=== PATIENT | female | born 1940 | race Caucasian/White ===

== ENCOUNTER → 2017-06-12 | Outpatient (CLI) | payer MEDICARE ==
--- NOTE | 2017-06-13 10:30 | MM ---
Reason for exam: screening (asymptomatic). Last mammogram was performed 1 year and 7 months ago. History: Patient is postmenopausal and has history of other cancer at age 70. Family history of breast cancer in sister at age 51 and premenopausal breast cancer in mother at age 46. Benign excisional biopsy of the right breast. Taking estrogen for 9 years 1 month beginning at age 49. Physical Findings: A clinical breast exam by your physician is recommended on an annual basis and results should be correlated with mammographic findings. MG Screening Mammo w CAD Bilateral CC and MLO view(s) were taken. Prior study comparison: October 27, 2015, bilateral MG screening mammo w CAD. July 08, 2014, bilateral MG screening mammo w CAD. There are scattered fibroglandular densities. No significant changes when compared with prior studies. ASSESSMENT: Benign, BI-RAD 2 RECOMMENDATION: Routine screening mammogram of both breasts in 1 year.
== END | disposition home or self-care (01) ==
LOC: RADMAMWWP 13:27
PROVIDERS: ATTEND Family Medicine
DX: Z12.31 Encounter for screening mammogram for malignant neoplasm of breast (principal)

== ENCOUNTER → 2017-09-18 | Outpatient (CLI) | payer MEDICARE ==
--- NOTE | 2017-09-18 12:50 | MR ---
EXAMINATION TYPE: MR angio head wo con DATE OF EXAM: 09/18/2017 COMPARISON: NONE HISTORY: Headache TECHNIQUE: Time of flight images focusing on the [place] were performed without contrast.. 2-D and 3-D postprocessing imaging is performed. FINDINGS: There is codominant vertebral basilar system. There is no significant focal stenosis or ane urysmal change in the posterior circulation. There are hypoplastic posterior communicating arteries i dentified bilaterally. Images of the anterior circulation show no significant focal stenosis or aneurysmal change. Patent sm all length anterior communicating artery is identified. IMPRESSION: No aneurysmal change is identified at level of [place].
== END | disposition home or self-care (01) ==
LOC: RADMRIMAIN 12:13
PROVIDERS: ATTEND Family Medicine
DX: R51 Headache (principal)
CPT/HCPCS: 70544

== ENCOUNTER → 2018-04-02 | Outpatient (CLI) | payer MEDICARE ==
--- NOTE | 2018-04-03 07:11 | MR ---
EXAMINATION TYPE: MR lumbar spine wo con DATE OF EXAM: 04/02/2018 COMPARISON: Prior MRI lumbar spine April 24, 2012 HISTORY: Chronic Low back pain per order. Pain for years radiating into bilateral buttocks per patien t. TECHNIQUE: Multiplanar, multisequence imaging of the lumbar spine is performed without IV contrast. FINDINGS: Survey images redemonstrate levoconvex scoliosis centered L4 level in the lumbar spine. Sag ittal images of the lumbar spine show vertebral body heights to remain satisfactory. There is multile valerie disc desiccation with multilevel moderate to advanced disc space narrowing redemonstrated, there is relative sparing of the L2-L3 disc space similar appearance to prior. Multilevel small posterior d isc herniations are redemonstrated on sagittal images. The conus medullaris remains normal in positio n and signal ending mid L1 level. There overall heterogeneity with predominantly Modic type II degene rative changes throughout the lumbar spine. Moderate anterior spurring L1-L2 level is redemonstrated. Redemonstration of stable Tarlov cyst superior S2 level sagittal image 8. Axial images at the T12-L1 level on current study show mild to moderate broad disc bulge effacing ant erior thecal sac on axial image 28. Bilateral neural foramina are patent. Axial images at the L1-L2 level shows mild broad disc bulge mildly effacing anterior thecal sac. Bila teral neural foramina are patent. Axial images at the L2-L3 level shows mild/moderate broad disc bulge mildly effacing anterior thecal sac on axial image 17. Bilateral neural foramina are patent. Axial images at the L3-L4 level shows mild right greater than left facet degenerative changes and lig amentum flavum hypertrophy effacing right posterior lateral thecal sac. There is right paracentral sp ur disc complex redemonstrated mildly effacing anterolateral thecal sac and causing asymmetric mild t o moderate right-sided neural foraminal narrowing. Left-sided neural foramen is patent. No significan t change from prior. Axial images at the L4-L5 level show mild facet degenerative changes and ligamentum flavum hypertroph y bilaterally. There is mild broad disc bulge with right lateral disc protrusion component. Spinal ca nal is maintained. There is asymmetric mild right-sided neural foraminal narrowing. Left-sided neural foramen is patent. No significant change from prior. Axial images at the L5-S1 level show mild/moderate facet degenerative changes bilaterally. There is b road disc bulge with central disc protrusion component. Spinal canal is preserved. Bilateral neural f oramina are patent. There is redemonstration of round T2 hyperintense lesion posteriorly right kidney measuring 2.3 cm on current study axial image 27 felt to reflect simple cyst diminished in size from prior exam. IMPRESSION: Scoliosis with multilevel degenerative changes in the lumbar spine as detailed above. New degenerative changes noted upper to mid lumbar spine as detailed above. Fairly stable findings mid t o lower lumbar levels noted as detailed above.
== END | disposition home or self-care (01) ==
LOC: RADMRIMAIN 12:45
PROVIDERS: ATTEND Family Medicine
DX: M47.817 Spondylosis without myelopathy or radiculopathy, lumbosacral region (principal); M41.9 Scoliosis, unspecified; M99.73 Connective tissue and disc stenosis of intervertebral foramina of lumbar region; M53.86 Other specified dorsopathies, lumbar region; M51.26 Other intervertebral disc displacement, lumbar region; M46.06 Spinal enthesopathy, lumbar region
CPT/HCPCS: 72148

== ENCOUNTER → 2018-06-25 | Outpatient (CLI) | payer MEDICARE ==
--- NOTE | 2018-06-25 15:59 | XR ---
Left shoulder and left humerus HISTORY: Pain Views of the left humerus and 3 views of the left shoulder submitted. Distal acromial spur is present, small ossific densities may be postoperative at this level. Patient is status post rotator cuff repair. There is joint space loss, marginal spurring at the glenohumeral joint. Suspect prior resection of distal left clavicle. Shoulder is slightly high riding. Bone minera lization is maintained. Left lung apex as visualized is normal. IMPRESSION: Findings may represent chronic, recurrent rotator cuff tear. Correlate for impingement. 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
== END | disposition home or self-care (01) ==
LOC: RADXRMAIN 14:55
PROVIDERS: ATTEND Physician Assistant
DX: M79.602 Pain in left arm (principal)

== ENCOUNTER → 2018-08-23 | Outpatient (CLI) | payer MEDICARE ==
--- NOTE | 2018-08-23 18:07 | ECHOF ---
Referral Reason:R94.31 Abnormal EKG MEASUREMENTS -------- HEIGHT: 170.2 cm WEIGHT: 90.7 kg BP: 152/71 RVIDd: 3.0 cm (< 3.3) IVSd: 1.3 cm (0.6 - 1.1) LVIDd: 4.1 cm (3.9 - 5.3) LVPWd: 1.2 cm (0.6 - 1.1) IVSs: 1.7 cm LVIDs: 2.3 cm LVPWs: 1.6 cm LA Diam: 3.1 cm (2.7 - 3.8) LAESV Index (A-L): 26.13 ml/m Ao Diam: 3.3 cm (2.0 - 3.7) AV Cusp: 1.3 cm (1.5 - 2.6) MV EXCURSION: 11.388 mm (> 18.000) MV EF SLOPE: 31 mm/s (70 - 150) EPSS: 0.8 cm MV E Sergo: 1.07 m/s MV DecT: 291 ms MV A Sergo: 1.33 m/s MV E/A Ratio: 0.81 AV maxP.39 mmHg AV meanP.88 mmHg RAP: 5.00 mmHg RVSP: 27.33 mmHg FINDINGS -------- Sinus rhythm. This was a technically good study. The left ventricular size is normal. There is mild concentric left ventricular hypertrophy. Overa ll left ventricular systolic function is normal with, an EF between 60 - 65 %. The right ventricle is normal in size. Normal LA size by volume 22+/-6 ml/m2. The right atrium is normal in size. There is mild aortic valve sclerosis. There is mild aortic stenosis present. Peak/mean gradient a cross the Aortic Valve is 18.39mmHg / 10.88mmHg. Mild mitral annular calcification present. Mild tricuspid regurgitation present. Right ventricular systolic pressure is normal at < 35 mmHg. There is no pulmonic regurgitation present. The aortic root size is normal. Normal inferior vena cava with normal inspiratory collapse consistent with estimated right atrial pre ssure of 5 mmHg. There is no pericardial effusion. CONCLUSIONS -------- 1. Sinus rhythm. 2. This was a technically good study. 3. The left ventricular size is normal. 4. There is mild concentric left ventricular hypertrophy. 5. Overall left ventricular systolic function is normal with, an EF between 60 - 65 %. 6. The right ventricle is normal in size. 7. Normal LA size by volume 22+/-6 ml/m2. 8. The right atrium is normal in size. 9. There is mild aortic stenosis present. 10. Peak/mean gradient across the Aortic Valve is 18.39mmHg / 10.88mmHg. 11. Mild mitral annular calcification present. 12. Mild tricuspid regurgitation present. 13. Right ventricular systolic pressure is normal at < 35 mmHg. 14. There is no pulmonic regurgitation present. 15. The aortic root size is normal. 16. Normal inferior vena cava with normal inspiratory collapse consistent with estimated right atrial pressure of 5 mmHg. 17. There is no pericardial effusion. [employer] OPERATOR: Stephani Verma RDCS
== END | disposition home or self-care (01) ==
LOC: RADECHMAIN 13:11
PROVIDERS: ATTEND Family Medicine
DX: I08.1 Rheumatic disorders of both mitral and tricuspid valves (principal)
CPT/HCPCS: 93306

== ENCOUNTER → 2019-10-07 | Outpatient (CLI) | payer MEDICARE ==
--- NOTE | 2019-10-07 14:30 | CT ---
EXAMINATION TYPE: CT chest w con DATE OF EXAM: 10/07/2019 COMPARISON: Prior CT chest 03/10/2015 HISTORY: Lung nodule CT DLP: 581 mGycm Automated exposure control for dose reduction was used. CONTRAST: CT scan of the chest is performed with IV Contrast, patient injected with 100 ml mL of Isovue 300. FINDINGS: LUNGS: The lungs show increasing stellate density in the left lower lobe with associated soft tissue as compared to prior CT, the area is ill-defined and shows some associated groundglass opacity, paren chymal band extending to the pleural surface not seen on previous, and associated soft tissue nodules present on axial image 33 measuring only 4 to 5 mm in size. There is extensive emphysematous change present, volume loss present in left hemithorax consistent with prior lobectomy. There is no pleural effusion or pneumothorax seen. The tracheobronchial tree is patent. MEDIASTINUM: There are no greater than 1 cm hilar or mediastinal lymph nodes. No pericardial effusi on is seen. There are coronary artery calcifications AORTA: No additional significant abnormality is seen. OTHER: Small hiatal hernia is present. Cystic focus within the liver is again seen, some dilated hunter e ducts likely due to postcholecystectomy change, probable cystic focus pole right kidney not entirel y included on exam. IMPRESSION: Abnormal increased attenuation in the lower left lung, small nodule, recurrence is not e xcluded
== END | disposition home or self-care (01) ==
LOC: RADCTMAIN 11:27
PROVIDERS: ATTEND Internal Medicine Critical Care Medicine
DX: R91.8 Other nonspecific abnormal finding of lung field (principal); R91.1 Solitary pulmonary nodule; Z88.0 Allergy status to penicillin; Z88.1 Allergy status to other antibiotic agents; Z88.2 Allergy status to sulfonamides
CPT/HCPCS: 82565; 84520; 71260; 36415; Q9967

== ENCOUNTER → 2019-10-10 | Outpatient (CLI) | payer MEDICARE ==
--- NOTE | 2019-10-14 09:49 | PE ---
Nuclear medicine PET/CT HISTORY: Solitary pulmonary nodule, initial Correlation to prior nuclear medicine PET/CT 06/04/2010, Correlation CT chest 10/08/2019 Patient received 11.3 mCi F-18 FDG intravenously in delayed scanning was performed from the skull bas e to the mid thighs. Localization and attenuation correction CT scan was performed. Chest and neck: The abnormal confluent density in the left lower lobe shows only mild uptake, SUV 2.1 . There is no cervical or supraclavicular adenopathy. No mediastinal, axillary, or hilar adenopathy. There is a hiatal hernia present. Coronary artery calcifications are noted. Prominent pulmonary arter y could be indicative of pulmonary artery hypertension. Emphysematous changes are present within the lungs. Aorta shows atheromatous change. ABDOMEN: Patient is post cholecystectomy. There are low dense foci within the liver which show photop enia. Inferior right lobe lesion measures 2.4 cm does not show simple cyst Hounsfield unit measuremen ts. There is no ascites. No retroperitoneal adenopathy or adrenal mass. No suspicious hypermetabolic uptake. Uptake along the bowel is felt likely to be physiologic. Osseous structures are remarkable for probable arthropathy in the shoulders. Degenerative disc change s and facet arthropathy noted in the lumbar spine, spinal curvature. Suspect loose body left shoulder , consider synovial osteochondromatosis. Postop changes are also noted suture anchor in the left. IMPRESSION: There is mild uptake identified at the level of the confluent density in the left lower l obe. Additional findings above.
== END | disposition home or self-care (01) ==
LOC: RADPETMAIN 17:37
PROVIDERS: ATTEND Internal Medicine Critical Care Medicine
DX: M51.36 Other intervertebral disc degeneration, lumbar region (principal); M46.96 Unspecified inflammatory spondylopathy, lumbar region; M43.8X6 Other specified deforming dorsopathies, lumbar region; K44.9 Diaphragmatic hernia without obstruction or gangrene; I25.10 Atherosclerotic heart disease of native coronary artery without angina pectoris; Z90.49 Acquired absence of other specified parts of digestive tract; J98.4 Other disorders of lung
CPT/HCPCS: 78815; A9552

== ENCOUNTER → 2019-10-30 | Day surgery (SDC) | payer MEDICARE ==
[2019-10-29 09:26] VITALS: BMI 30.2
[~2019-10-30] MED LIST: ALBUTEROL NEB (CONC) 2.5 MG/0.5 ML INHALATION ONE; ATROPINE SULFATE 0.4 MG/ML 1 ML VIAL IM ONE; IV FLUID CONTINUATION 1,000 ML IV ONE; LACTATED RINGERS 1,000 ML IV SCH; LIDOCAINE 1% (10MG/ML) FOR IV START INTRADERMA PRN; LIDOCAINE 1% INJ 10MG/ML (20 ML MDV) ONE; LIDOCAINE 2% (PF) 20 MG/ML 5 ML VIAL INHALATION ONE; LIDOCAINE 2% INJ 20 MG/ML INTRATRACH ONE; LIDOCAINE VISCOUS 300 MG/15 ML CUP MUCOUS MEM ONE; PROPOFOL 10 MG/ML 20 ML VIAL IV ONE; Pre Op ABX Message 1 EACH MISC MISCELLANE ONE; SODIUM CHLORIDE 0.9% 1,000 ML IV SCH
[2019-10-30 11:28] VITALS: TEMP 97.8
[2019-10-30 12:33] VITALS: RESP 18
[2019-10-30 12:57] VITALS: BP 126/79; PULSE 96
--- NOTE | 2019-10-30 13:01 | PCN ---
PROCEDURE NOTE PROCEDURE: Bronchoscopy, airway examination, therapeutic lavage, BAL left upper lobe and lingula, endobronchial biopsies left upper lobe and lingula and brushes left upper lobe and lingula. PREOPERATIVE DIAGNOSIS: Rule out recurrent lung cancer. POSTOPERATIVE DIAGNOSIS: Rule out recurrent lung cancer. Cass Maddox CRNA provided unconscious sedation and general anesthesia. INFORMATION TECHNOLOGY MANAGER: Dr. Rosario. DESCRIPTION OF PROCEDURE: There was informed consent and universal timeout. After the patient was adequately sedated and being fully monitored, the bronchoscope was inserted through the right nostril. It passed through the right nasopharynx into the oropharynx. The hypopharynx was identified and topicalized. The hypopharyngeal structures all appeared normal. This included the anterior commissure, true cords, false cords, arytenoids, piriform sinuses, right and left valleculae and epiglottis. After topicalization, bronchoscope was pushed through the glottic opening into the trachea. Trachea appeared normal. Next, the right and left mainstem were topicalized. The right upper lobe and its 3 segments, right middle lobe and its 2 segments, right lower lobe and its 5 segments all had similar findings of mild to moderate bronchitis and thick purulent secretions noted throughout particularly in the right upper lobe. There was no dominant mass or tumor. There was no bleeding. On the left side, the anatomy was distorted because of the prior left lower lobectomy. There was a left upper lobe and lingula. The mucosa in the rodríguez the left upper lobe and lingula appeared to be a bit abnormal. It seemed a bit thickened. There was no dominant mass or tumor. This area was sampled. We did brushes in this area as well as endobronchial biopsies and washes as well. I could easily pass into the left upper lobe and its 2 segments and the lingula and its 2 segments. Again, there was no dominant mass or tumor. There was minimal bleeding. Washes were also done in this area; 30 mL was recovered and sent to the laboratory for analysis. There was no immediate complication. The patient tolerated procedure well. The patient will be recovered. The scope was obviously removed. I will talk to the patient's who brought the patient to the hospital today. MMODL / IJN: [id number] /
== END ==
LOC: ORWHC2ENDO 10:57
PROVIDERS: ATTEND Internal Medicine Critical Care Medicine
DX: J84.10 Pulmonary fibrosis, unspecified (principal); J44.9 Chronic obstructive pulmonary disease, unspecified; J40 Bronchitis, not specified as acute or chronic; Z90.2 Acquired absence of lung [part of]; Z85.118 Personal history of other malignant neoplasm of bronchus and lung; J32.9 Chronic sinusitis, unspecified; G47.33 Obstructive sleep apnea (adult) (pediatric); E07.9 Disorder of thyroid, unspecified; K21.9 Gastro-esophageal reflux disease without esophagitis; I10 Essential (primary) hypertension; Z83.2 Family history of diseases of the blood and blood-forming organs and certain disorders involving the immune mechanism; Z80.9 Family history of malignant neoplasm, unspecified; F17.290 Nicotine dependence, other tobacco product, uncomplicated; Z96.653 Presence of artificial knee joint, bilateral; Z90.49 Acquired absence of other specified parts of digestive tract; Z90.710 Acquired absence of both cervix and uterus; Z98.890 Other specified postprocedural states; Z79.82 Long term (current) use of aspirin; Z79.890 Hormone replacement therapy; Z79.899 Other long term (current) drug therapy; Z88.1 Allergy status to other antibiotic agents; Z88.0 Allergy status to penicillin; Z88.2 Allergy status to sulfonamides; Z88.8 Allergy status to other drugs, medicaments and biological substances; Z91.09 Other allergy status, other than to drugs and biological substances; Z91.011 Allergy to milk products
CPT/HCPCS: 94640; 87798 ×3; 87496; 87498; 87529; 88104; 88108; 88305; 87252; 87502; 87634; 87070; 87205; 87116; 87102; 87206; 31625; 31623; 31624; J2001 ×3; J0461; J2704

== ENCOUNTER → 2020-02-13 | Outpatient (CLI) | payer MEDICARE ==
--- NOTE | 2020-02-15 19:36 | CT ---
EXAMINATION TYPE: CT chest w con DATE OF EXAM: 02/13/2020 COMPARISON: 10/07/2019 and 03/10/2015 HISTORY: 79-year-old female Lung nodule. TECHNIQUE: Contiguous axial scanning of the chest after the administration of 80ml mL of Isovue 300. Coronal/sagittal reconstructions performed. CT DLP: 554.8mGycm. Automatic exposure control utilized for a dose reduction. FINDINGS: Heart normal size with trace pericardial fluid. Three-vessel coronary artery calcifications are prese nt. Mild ectasia ascending aorta 3.6 cm. Moderate atherosclerotic arch calcifications with dimension arch vessel origin anatomy. Calcified right hilar lymph nodes compatible with prior granulomatous disease. Similar tiny calcified AP window lymph node. No thoracic lymphadenopathy by CT size criteria. Borderline enlarged caliber main right and left pulmonary arteries measuring up to 2.6 cm suggesting underlying pulmonary arterial hypertension. Right apical pleural parenchymal scarring is unchanged. Moderate centrilobular emphysema. 4 mm superior segment right lower lobe pulmonary nodule, axial image 29 is unchanged. 2.0 x 1.0 cm irregular focal hypodensity peripheral left lower lobe again noted to be increased from 2014. Relatively unchanged from 10/07/2019. Tiny 4 mm satellite nodule, axial image 32 remains unchang ed from 10/07/2019. No new consolidation or pleural effusion. Small hiatal hernia redemonstrated. A couple 2.9 cm hepatic cysts. 2.2 cm right renal cyst. Cholecystectomy clips. Bones: Moderate degenerative disc disease throughout, more advanced in the lower thoracic spine and t horacolumbar junction region. IMPRESSION: 1. The confluent irregular opacity in the left lower lobe measures 2.0 x 1.0 cm, unchanged from 2019 but again noted to be increased from 2014. Tiny 4 mm satellite nodule also unchanged from 020. Continued 9-12 months surveillance recommended as a low-grade neoplasm is not excluded at this t negro. 2. COPD with moderate emphysema. CAD. Small hiatal hernia.
== END | disposition home or self-care (01) ==
LOC: RADCTMAIN 17:11
PROVIDERS: ATTEND Internal Medicine Critical Care Medicine
DX: R91.8 Other nonspecific abnormal finding of lung field (principal); R91.1 Solitary pulmonary nodule; J43.2 Centrilobular emphysema; I25.10 Atherosclerotic heart disease of native coronary artery without angina pectoris
CPT/HCPCS: 82565; 84520; 71260; 36415; Q9967

== ENCOUNTER 2020-05-27 13:31 | Emergency (ER) | payer MEDICARE ==
[2020-05-27 14:14] VITALS: BP 124/73; RESP 14
--- NOTE | 2020-05-27 14:23 | ED ---
General Adult HPI - General Chief complaint: Arrhythmia/Palpitations Stated complaint: Irregular Heartbeat Time Seen by Provider: 05/27/20 13:55 Source: patient, RN notes reviewed Mode of arrival: wheelchair Limitations: no limitations - History of Present Illness Initial comments: Patient is a pleasant 79-year-old female presenting to the emergency Department with complaints of palpitations. Onset of symptoms was around 3 days ago. Symptoms are intermittent. Patient feels like her heart is beating abnormal or skipping. No chest pain. No dyspnea. No history of similar symptoms previously. No leg pain or leg swelling. - Related Data Home Medications Medication Instructions Recorded Confirmed Acetaminophen [Tylenol Extra 1,000 mg PO HS PRN 10/29/19 10/29/19 Strength] Albuterol Nebulizer 1 dose INHALATION DIRECTED PRN 10/29/19 Aspirin [Adult Low Dose Aspirin EC] 81 mg PO HS 10/29/19 10/29/19 Calcium Carbonate [Calcium] 600 mg PO BID 10/29/19 10/29/19 DULoxetine HCL [Cymbalta] 30 mg PO HS 10/29/19 10/29/19 DULoxetine HCL [Cymbalta] 60 mg PO DAILY 10/29/19 10/29/19 Estrogens, Conjugated [Premarin] 0.625 mg PO Q48H 10/29/19 10/29/19 Flunisolide Nasal [place] [Nasalide] 2 spray EA NOSTRIL BID 10/29/19 10/29/19 Levothyroxine Sodium [Synthroid] 50 mcg PO DAILY 10/29/19 10/29/19 Loratadine-Pseudoeph 10-240 mg 1 tab PO DAILY 10/29/19 10/29/19 [Claritin-D 24 Hour] Multivit-Min/FA/Lycopen/Lutein 1 each PO DAILY 10/29/19 10/29/19 [Centrum Silver Tablet] [place]-3 Fatty Acids/Fish Oil [Fish 1 each PO DAILY 10/29/19 10/29/19 Oil 1,000 mg Softgel] Omeprazole 20 mg PO BID 10/29/19 10/29/19 Simvastatin [Zocor] 20 mg PO DAILY 10/29/19 10/29/19 Umeclidinium Brm/Vilanterol Tr 1 puff INHALATION DAILY 10/29/19 10/29/19 [Anoro Ellipta 62.5-25 Mcg INH] amLODIPine BESYLATE/BENAZEPRIL 1 each PO DAILY 10/29/19 10/29/19 [amLODIPine BESYLATE/BENAZEPRIL 10-20 mg] Allergies Allergy/AdvReac Type Severity Reaction Status Date / Time budesonide [From Symbicort] Allergy Unknown Swelling Verified 05/27/20 13:48 of Tongue & Lips fluticasone Allergy Unknown Swelling Verified 05/27/20 13:48 [From Advair Diskus] of Tongue & Lips formoterol [From Symbicort] Allergy Unknown Swelling Verified 05/27/20 13:48 of Tongue & Lips milk Allergy Unknown Unknown Verified 05/27/20 13:48 salmeterol Allergy Unknown Swelling Verified 05/27/20 13:48 [From Advair Diskus] of Tongue and Lips adhesive tape AdvReac Unknown irritated Verified 05/27/20 13:48 skin Review of Systems ROS Statement: Those systems with pertinent positive or pertinent negative responses have been documented in the HPI. ROS Other: All systems not noted in ROS Statement are negative. Constitutional: Denies: fever Eyes: Denies: eye pain ENT: Denies: ear pain Respiratory: Denies: cough Cardiovascular: Reports: palpitations. Denies: chest pain Endocrine: Denies: fatigue Gastrointestinal: Denies: abdominal pain Genitourinary: Denies: dysuria Musculoskeletal: Denies: back pain Skin: Denies: rash Neurological: Denies: weakness Past Medical History Past Medical History: Cancer, COPD, GERD/Reflux, Hypertension, Thyroid Disorder Additional Past Medical History / Comment(s): EMPHYSEMA, HX LUNG CANCER WITH LEFT LOBECTOMY (2009), LOWER BACK PAIN. History of Any Multi-Drug Resistant Organisms: None Reported Past Surgical History: Back Surgery, Cholecystectomy, Hysterectomy, Joint Replacement Additional Past Surgical History / Comment(s): LEFT LOWER LUNG REMOVED , MARTINA TOTAL KNEES, ROTATOR CUFF REPAIR.CATARACTS, CERVICAL LAMINECTOMY Past Anesthesia/Blood Transfusion Reactions: Previous Problems w/ Anesthesia, Motion Sickness Additional Past Anesthesia/Blood Transfusion Reaction / Comment(s): DIFFICULTY WAKING UP AFTER LUNG SURGERY (5 HRS) AND OVERSEDATED WHILE IN THE HOSPITAL Past Psychological History: Depression Smoking Status: Former smoker Past Alcohol Use History: None Reported Past Drug Use History: None Reported - Past Family History Mother Family Medical History: Cancer Additional Family Medical History / Comment(s): BREAST CANCER Sister(s) Family Medical History: Cancer Additional Family Medical History / Comment(s): BREAST CANCER General Exam Limitations: no limitations General appearance: alert, in no apparent distress Head exam: Present: normocephalic Eye exam: Present: normal appearance Neck exam: Present: normal inspection Respiratory exam: Present: normal lung sounds bilaterally Cardiovascular Exam: Present: regular rate, normal rhythm Expanded Peripheral pulses: 2+: Radial (R), Radial (L), Dorsalis Pedis (R), Dorsalis Pedis (L) GI/Abdominal exam: Present: soft. Absent: tenderness Extremities exam: Present: normal inspection. Absent: pedal edema, calf tenderness Neurological exam: Present: alert Psychiatric exam: Present: normal affect, normal mood Skin exam: Present: normal color Course Vital Signs 05/27/20 05/27/20 13:45 14:11 Temperature 98.2 F 98.1 F Pulse Rate 91 90 Respiratory 18 14 Rate Blood Pressure 100/59 124/73 O2 Sat by Pulse 96 96 Oximetry - Reevaluation(s) Reevaluation #1: 05/27/20 14:22 ekg monitor tech has occasional PACs or PVCs . 05/27/20 15:27 EKG #2 shows sinus rhythm with frequent PVCs. Rate 83. IN 174. QRS 102. QT 376. QTc 441. Left axis. LVH criteria. No acute ST change. EKG Findings - EKG Comments: EKG Findings:: Normal sinus rhythm at 90. IN 172. QRS 110. QT 374. QTC 457. Left axis. LVH criteria. No acute ST change. Medical Decision Making - Medical Decision Making Patient reevaluated and resting comfortably in bed. Patient and family updated on results and need for follow-up. Patient states she does have an appointment with cardiology and will try to make it sooner. - Lab Data Result diagrams: 05/27/20 14:24 05/27/20 14:24 Lab Results 05/27/20 05/27/20 05/27/20 Range/Units 14:24 14:24 14:24 WBC 6.3 (3.8-10.6) k/uL RBC 4.55 (3.80-5.40) m/uL Hgb 14.3 (11.4-16.0) gm/dL Hct 43.9 (34.0-46.0) % MCV 96.4 (80.0-100.0) fL MCH 31.4 (25.0-35.0) pg MCHC 32.6 (31.0-37.0) g/dL RDW 12.6 (11.5-15.5) % Plt Count 264 (150-450) k/uL Neutrophils % 58 % Lymphocytes % 24 % Monocytes % 8 % Eosinophils % 7 % Basophils % 1 % Neutrophils # 3.7 (1.3-7.7) k/uL Lymphocytes # 1.6 (1.0-4.8) k/uL Monocytes # 0.5 (0-1.0) k/uL Eosinophils # 0.4 (0-0.7) k/uL Basophils # 0.1 (0-0.2) k/uL PT 9.7 (9.0-12.0) sec INR 0.9 (<1.2) APTT 23.2 (22.0-30.0) sec Sodium 140 (137-145) mmol/L Potassium 4.3 (3.5-5.1) mmol/L Chloride 105 (98-107) mmol/L Carbon Dioxide 28 (22-30) mmol/L Anion Gap 7 mmol/L BUN 25 H (7-17) mg/dL Creatinine 0.97 (0.52-1.04) mg/dL Est GFR (CKD-EPI)AfAm 64 (>60 ml/min/1.73 sqM) Est GFR (CKD-EPI)NonAf 56 (>60 ml/min/1.73 sqM) Glucose 101 H (74-99) mg/dL Calcium 10.2 (8.4-10.2) mg/dL Magnesium 1.7 (1.6-2.3) mg/dL Total Bilirubin 0.6 (0.2-1.3) mg/dL AST 23 (14-36) U/L ALT 14 (4-34) U/L Alkaline Phosphatase 77 (38-126) U/L Creatine Kinase 48 (30-135) U/L Troponin I (0.000-0.034) ng/mL Total Protein 7.0 (6.3-8.2) g/dL Albumin 4.2 (3.5-5.0) g/dL TSH 0.046 L (0.465-4.680) mIU/L Free T4 1.17 (0.78-2.19) ng/dL Free T3 pg/mL 3.0 (2.8-5.3) pg/ml 05/27/20 Range/Units 14:24 WBC (3.8-10.6) k/uL RBC (3.80-5.40) m/uL Hgb (11.4-16.0) gm/dL Hct (34.0-46.0) % MCV (80.0-100.0) fL MCH (25.0-35.0) pg MCHC (31.0-37.0) g/dL RDW (11.5-15.5) % Plt Count (150-450) k/uL Neutrophils % % Lymphocytes % % Monocytes % % Eosinophils % % Basophils % % Neutrophils # (1.3-7.7) k/uL Lymphocytes # (1.0-4.8) k/uL Monocytes # (0-1.0) k/uL Eosinophils # (0-0.7) k/uL Basophils # (0-0.2) k/uL PT (9.0-12.0) sec INR (<1.2) APTT (22.0-30.0) sec Sodium (137-145) mmol/L Potassium (3.5-5.1) mmol/L Chloride (98-107) mmol/L Carbon Dioxide (22-30) mmol/L Anion Gap mmol/L BUN (7-17) mg/dL Creatinine (0.52-1.04) mg/dL Est GFR (CKD-EPI)AfAm (>60 ml/min/1.73 sqM) Est GFR (CKD-EPI)NonAf (>60 ml/min/1.73 sqM) Glucose (74-99) mg/dL Calcium (8.4-10.2) mg/dL Magnesium (1.6-2.3) mg/dL Total Bilirubin (0.2-1.3) mg/dL AST (14-36) U/L ALT (4-34) U/L Alkaline Phosphatase (38-126) U/L Creatine Kinase (30-135) U/L Troponin I <0.012 (0.000-0.034) ng/mL Total Protein (6.3-8.2) g/dL Albumin (3.5-5.0) g/dL TSH (0.465-4.680) mIU/L Free T4 (0.78-2.19) ng/dL Free T3 pg/mL (2.8-5.3) pg/ml - Radiology Data Radiology results: image reviewed (Chest x-ray shows no acute process) Disposition Clinical Impression: PVCs (premature ventricular contractions) Disposition: HOME SELF-CARE Condition: Stable Instructions (If sedation given, give patient instructions): Heart Palpitations (ED), Premature Ventricular Contractions (ED) Additional Instructions: Please follow-up with primary care physician and cardiology in the next day or 2 for recheck. Return for increased heart rate, pain, shortness of breath, worsening symptoms or other concerns. Is patient prescribed a controlled substance at d/c from ED?: No Referrals: Cooper Saldaña DO [Primary Care Provider] - 1-2 days Kofi Lechuga MD [STAFF PHYSICIAN] - 1-2 days Time of Disposition: 15:37
[2020-05-27 14:31] LABS: Basophils # (A) 0.1 k/uL (0-0.2); Basophils % (A) 1 %; Eosinophils # (A) 0.4 k/uL (0-0.7); Eosinophils % (A) 7 %; HCT 43.9 % (34.0-46.0); HGB 14.3 gm/dL (11.4-16.0); Lymphocytes # (A) 1.6 k/uL (1.0-4.8); Lymphocytes % (A) 24 %; MCH 31.4 pg (25.0-35.0); MCHC 32.6 g/dL (31.0-37.0); MCV 96.4 fL (80.0-100.0); Mean Platelet Volume 7.7; Monocytes # (A) 0.5 k/uL (0-1.0); Monocytes % (A) 8 %; Neutrophils # (A) 3.7 k/uL (1.3-7.7); Neutrophils % (A) 58 %; Platelet Count 264 k/uL (150-450); RBC 4.55 m/uL (3.80-5.40); RDW 12.6 % (11.5-15.5); WBC 6.3 k/uL (3.8-10.6)
[2020-05-27 14:40] LABS: Albumin 4.2 g/dL (3.5-5.0); Calcium 10.2 mg/dL (8.4-10.2); Magnesium 1.7 mg/dL (1.6-2.3); Potassium 4.3 mmol/L (3.5-5.1); Total Bilirubin 0.6 mg/dL (0.2-1.3)
[2020-05-27 14:42] LABS: INR 0.9 (<1.2); Partial Thromboplastin Time 23.2 sec (22.0-30.0); Prothrombin Time 9.7 sec (9.0-12.0)
[2020-05-27 14:56] LABS: T4, Free (Free Thyroxine) 1.17 ng/dL (0.78-2.19)
--- NOTE | 2020-05-27 15:04 | XR ---
EXAMINATION TYPE: XR chest 2V DATE OF EXAM: 05/27/2020 COMPARISON: Chest CT February 13, 2020 HISTORY: Shortness of breath andDysrhythmia. TECHNIQUE: Frontal and lateral views of the chest are obtained. FINDINGS: There is chronic parenchymal change with chronic blunting left lateral costophrenic angle consistent with small pleural thickening. Some eventration right hemidiaphragm. No new suspicious foc al airspace opacity or pneumothorax seen bilaterally The cardiac silhouette size remains within cecilia l limits with atherosclerotic change thoracic aorta. Surgical clips left hilar region redemonstrated. Cholecystectomy clips. Osseous structures are demineralized. Metallic anchors left humeral head leve l redemonstrated. IMPRESSION: Chronic changes without new acute pulmonary process.
[2020-05-27 15:50] VITALS: PULSE 86; TEMP 97.9
== END 2020-05-27 16:00 | disposition home or self-care (01) ==
LOC: EC 13:31
DX: I49.3 Ventricular premature depolarization (principal); J44.9 Chronic obstructive pulmonary disease, unspecified; K21.9 Gastro-esophageal reflux disease without esophagitis; I10 Essential (primary) hypertension; F32.9 Major depressive disorder, single episode, unspecified; E07.9 Disorder of thyroid, unspecified; Z79.51 Long term (current) use of inhaled steroids; Z79.899 Other long term (current) drug therapy; Z79.890 Hormone replacement therapy; Z79.82 Long term (current) use of aspirin; Z87.891 Personal history of nicotine dependence; Z88.8 Allergy status to other drugs, medicaments and biological substances; Z91.011 Allergy to milk products; Z91.040 Latex allergy status; Z91.048 Other nonmedicinal substance allergy status; Z85.118 Personal history of other malignant neoplasm of bronchus and lung; Z96.653 Presence of artificial knee joint, bilateral; Z90.2 Acquired absence of lung [part of]
CPT/HCPCS: 36415; 71046; 80053; 82550; 83735; 84439; 84443; 84481; 84484; 85025; 85610; 85730; 93005; 99285

== ENCOUNTER → 2021-01-10 | Outpatient (CLI) | payer MEDICARE ==
--- NOTE | 2021-01-11 08:02 | CT ---
EXAMINATION TYPE: CT chest w con DATE OF EXAM: 01/10/2021 COMPARISON: 02/13/2020 HISTORY: Non small cell lung ca. LT lung. Hx COPD/Emphysema. CT DLP: 629 mGycm Automated exposure control for dose reduction was used. CONTRAST: CT scan of the chest is performed with IV Contrast, patient injected with 80 mL of Isovue 300. FINDINGS: LUNGS: Again noted is an approximately 2 x 1 cm irregular hypodensity in the periphery of the left lo wer lobe which may reflect treatment site. Neoplasm not excluded. No new nodules or masses identified . Stable subpleural nodule right lower lobe image 27 measures 3 mm. Right apical pleural-parenchymal scarring is unchanged. Groundglass density right upper lobe posteriorly measures 8 mm versus 8 mm pre viously and is seen best on image 15. Scattered emphysematous changes redemonstrated. MEDIASTINUM: There are no greater than 1 cm hilar or mediastinal lymph nodes. No pericardial effusi on is seen. Thoracic aorta is of normal caliber. The heart is not enlarged. UPPER ABDOMEN: Renal and hepatic cystic changes noted. OTHER: No additional significant abnormality is seen. IMPRESSION: 1. Stable appearance of the chest with irregular density left lower lobe as well as a couple scattere d pulmonary nodular densities. Emphysematous changes noted.
== END | disposition home or self-care (01) ==
LOC: RADCTMAIN 16:03
PROVIDERS: ATTEND Internal Medicine Critical Care Medicine
DX: C34.32 Malignant neoplasm of lower lobe, left bronchus or lung (principal); J43.9 Emphysema, unspecified
CPT/HCPCS: 82565; 84520; 71260; 36415; Q9967

== ENCOUNTER → 2021-09-01 | Outpatient (CLI) | payer MEDICARE ==
--- NOTE | 2021-09-01 18:04 | CT ---
EXAMINATION: CT brain wo con DATE AND TIME: 09/01/2021 5:55 PM CLINICAL INDICATION: 81 yo with altered mental status TECHNIQUE: Standard departmental protocol.; DLP: 1088 mGy-cm COMPARISON: None. FINDINGS: The calvarium is intact. There is no intracranial hemorrhage. There is no intracranial mass or mass effect. No definite new intra-axial or extra-axial attenuation defect. The paranasal sinuses, middle ear cavities, and mastoid sinus air cells are clear. The orbits are unremarkable. IMPRESSION: NO ACUTE PROCESS.
== END | disposition home or self-care (01) ==
LOC: RADCTMAIN 16:50
PROVIDERS: ATTEND Family Medicine
DX: R41.82 Altered mental status, unspecified (principal)
CPT/HCPCS: 70450

== ENCOUNTER 2021-09-17 11:37 | Inpatient (IN) | payer MEDICARE ==
--- NOTE | 2021-09-17 12:36 | ED ---
General Adult HPI - General Chief complaint: Chest Pain Stated complaint: chest pain Time Seen by Provider: 09/17/21 12:05 Source: patient, family, EMS, RN notes reviewed Mode of arrival: EMS Limitations: no limitations - History of Present Illness Initial comments: Patient is a pleasant 81-year-old female presenting to the emergency Department with chest tightness. Onset of symptoms was when she woke this morning. Discomfort was moderate to severe however now is only mild. Patient does have associated nausea. Nausea remains. Dyspnea or diaphoresis. Patient did have a headache this morning. Headache is mild. - Related Data Home Medications Medication Instructions Recorded Confirmed Aspirin [Adult Low Dose Aspirin EC] 81 mg PO HS 10/29/19 09/17/21 Calcium Carbonate [Calcium] 600 mg PO BID 10/29/19 09/17/21 DULoxetine HCL [Cymbalta] 30 mg PO HS 10/29/19 09/17/21 DULoxetine HCL [Cymbalta] 60 mg PO DAILY 10/29/19 09/17/21 Estrogens, Conjugated [Premarin] 0.625 mg PO Q48H 10/29/19 09/17/21 Flunisolide Nasal [place] [Nasalide] 2 spray EA NOSTRIL BID 10/29/19 09/17/21 Levothyroxine Sodium [Synthroid] 50 mcg PO DAILY 10/29/19 09/17/21 Loratadine-Pseudoeph 10-240 mg 1 tab PO DAILY 10/29/19 09/17/21 [Claritin-D 24 Hour] Multivit-Min/FA/Lycopen/Lutein 1 tab PO DAILY 10/29/19 09/17/21 [Centrum Silver Tablet] Omeprazole 20 mg PO BID 10/29/19 09/17/21 Simvastatin [Zocor] 20 mg PO HS 10/29/19 09/17/21 Albuterol Inhaler [Ventolin Hfa 2 puff INHALATION RT-QID PRN 09/17/21 09/17/21 Inhaler] Benazepril HCl [Lotensin] 20 mg PO DAILY 09/17/21 09/17/21 Fluticasone/Umeclidin/Vilanter 1 puff INHALATION RT-DAILY 09/17/21 09/17/21 [Trelegy Ellipta 100-62.5-25] Allergies Allergy/AdvReac Type Severity Reaction Status Date / Time budesonide [From Symbicort] Allergy Unknown Swelling Verified 09/17/21 13:54 of Tongue & Lips fluticasone Allergy Unknown Swelling Verified 09/17/21 13:54 [From Advair Diskus] of Tongue & Lips formoterol [From Symbicort] Allergy Unknown Swelling Verified 09/17/21 13:54 of Tongue & Lips milk Allergy Unknown Unknown Verified 09/17/21 13:54 salmeterol Allergy Unknown Swelling Verified 09/17/21 13:54 [From Advair Diskus] of Tongue and Lips adhesive tape AdvReac Unknown irritated Verified 09/17/21 13:54 skin Review of Systems ROS Statement: Those systems with pertinent positive or pertinent negative responses have been documented in the HPI. ROS Other: All systems not noted in ROS Statement are negative. Constitutional: Denies: fever Eyes: Denies: eye pain ENT: Denies: ear pain Respiratory: Denies: cough Cardiovascular: Reports: as per HPI, chest pain Endocrine: Denies: fatigue Gastrointestinal: Denies: abdominal pain Genitourinary: Denies: dysuria Musculoskeletal: Denies: back pain Skin: Denies: rash Neurological: Reports: as per HPI, headache. Denies: weakness, confusion Past Medical History Past Medical History: Cancer, COPD, GERD/Reflux, Hypertension, Thyroid Disorder Additional Past Medical History / Comment(s): EMPHYSEMA, HX LUNG CANCER WITH LEFT LOBECTOMY (2009), LOWER BACK PAIN. History of Any Multi-Drug Resistant Organisms: None Reported Past Surgical History: Back Surgery, Cholecystectomy, Hysterectomy, Joint Replacement Additional Past Surgical History / Comment(s): LEFT LOWER LUNG REMOVED , MARTINA TOTAL KNEES, ROTATOR CUFF REPAIR.CATARACTS, CERVICAL LAMINECTOMY Past Anesthesia/Blood Transfusion Reactions: Previous Problems w/ Anesthesia, Motion Sickness Additional Past Anesthesia/Blood Transfusion Reaction / Comment(s): DIFFICULTY WAKING UP AFTER LUNG SURGERY (5 HRS) AND OVERSEDATED WHILE IN THE HOSPITAL Past Psychological History: Depression Smoking Status: Former smoker Past Alcohol Use History: None Reported Past Drug Use History: None Reported - Past Family History Mother Family Medical History: Cancer Additional Family Medical History / Comment(s): BREAST CANCER Sister(s) Family Medical History: Cancer Additional Family Medical History / Comment(s): BREAST CANCER General Exam Limitations: no limitations General appearance: alert, in no apparent distress Head exam: Present: normocephalic Eye exam: Present: normal appearance, PERRL, EOMI ENT exam: Present: normal oropharynx Neck exam: Present: normal inspection Respiratory exam: Present: normal lung sounds bilaterally. Absent: chest wall tenderness Cardiovascular Exam: Present: regular rate, normal rhythm Expanded Peripheral pulses: 2+: Radial (R), Radial (L), Dorsalis Pedis (R), Dorsalis Pedis (L) GI/Abdominal exam: Present: soft. Absent: tenderness Extremities exam: Present: normal inspection. Absent: pedal edema, calf tenderness Neurological exam: Present: alert Psychiatric exam: Present: normal affect, normal mood Skin exam: Present: normal color Course Vital Signs 09/17/21 09/17/21 09/17/21 11:53 12:00 13:00 Temperature 98.2 F Pulse Rate 102 H 92 89 Respiratory 20 18 18 Rate Blood Pressure 97/79 129/88 140/98 O2 Sat by Pulse 94 L Oximetry 09/17/21 14:00 Temperature 98.6 F Pulse Rate 93 Respiratory 18 Rate Blood Pressure 133/93 O2 Sat by Pulse 96 Oximetry EKG Findings - EKG Comments: EKG Findings:: Sinus tachycardia with rate of 101. HI 160. QRS 112. QT 370. QTc 479. Right axis. Q waves in V2 through V6. No acute ST change. Medical Decision Making - Medical Decision Making Patient reevaluated and resting comfortably in bed. Patient and family updated on results and plan. Case discussed in detail with Dr. Judd, who will admit cover Dr. Saldaña. Case also discussed with Dr. Canales. Aspirin originally was held secondary to pending computed tomography scan of the brain. - Lab Data Result diagrams: 09/17/21 12:43 09/17/21 12:43 Lab Results 09/17/21 09/17/21 09/17/21 Range/Units 12:43 12:43 12:43 WBC 8.2 (3.8-10.6) k/uL RBC 4.37 (3.80-5.40) m/uL Hgb 13.3 (11.4-16.0) gm/dL Hct 41.4 (34.0-46.0) % MCV 94.6 (80.0-100.0) fL MCH 30.4 (25.0-35.0) pg MCHC 32.1 (31.0-37.0) g/dL RDW 13.2 (11.5-15.5) % Plt Count 236 (150-450) k/uL MPV 7.2 Neutrophils % 81 % Lymphocytes % 11 % Monocytes % 5 % Eosinophils % 2 % Basophils % 0 % Neutrophils # 6.7 (1.3-7.7) k/uL Lymphocytes # 0.9 L (1.0-4.8) k/uL Monocytes # 0.4 (0-1.0) k/uL Eosinophils # 0.2 (0-0.7) k/uL Basophils # 0.0 (0-0.2) k/uL PT 10.2 (9.0-12.0) sec INR 0.9 (<1.2) APTT 22.6 (22.0-30.0) sec D-Dimer 1.11 H (<0.60) mg/L FEU Sodium 135 L (137-145) mmol/L Potassium 4.0 (3.5-5.1) mmol/L Chloride 103 (98-107) mmol/L Carbon Dioxide 28 (22-30) mmol/L Anion Gap 4 mmol/L BUN 22 H (7-17) mg/dL Creatinine 0.84 (0.52-1.04) mg/dL Est GFR (CKD-EPI)AfAm 75 (>60 ml/min/1.73 sqM) Est GFR (CKD-EPI)NonAf 65 (>60 ml/min/1.73 sqM) Glucose 117 H (74-99) mg/dL Calcium 9.4 (8.4-10.2) mg/dL Magnesium 1.4 L (1.6-2.3) mg/dL Total Bilirubin 0.9 (0.2-1.3) mg/dL AST 27 (14-36) U/L ALT 17 (4-34) U/L Alkaline Phosphatase 71 (38-126) U/L Troponin I (0.000-0.034) ng/mL Total Protein 6.4 (6.3-8.2) g/dL Albumin 3.4 L (3.5-5.0) g/dL Amylase 51 (30-110) U/L Lipase 36 (23-300) U/L 09/17/21 Range/Units 12:43 WBC (3.8-10.6) k/uL RBC (3.80-5.40) m/uL Hgb (11.4-16.0) gm/dL Hct (34.0-46.0) % MCV (80.0-100.0) fL MCH (25.0-35.0) pg MCHC (31.0-37.0) g/dL RDW (11.5-15.5) % Plt Count (150-450) k/uL MPV Neutrophils % % Lymphocytes % % Monocytes % % Eosinophils % % Basophils % % Neutrophils # (1.3-7.7) k/uL Lymphocytes # (1.0-4.8) k/uL Monocytes # (0-1.0) k/uL Eosinophils # (0-0.7) k/uL Basophils # (0-0.2) k/uL PT (9.0-12.0) sec INR (<1.2) APTT (22.0-30.0) sec D-Dimer (<0.60) mg/L FEU Sodium (137-145) mmol/L Potassium (3.5-5.1) mmol/L Chloride (98-107) mmol/L Carbon Dioxide (22-30) mmol/L Anion Gap mmol/L BUN (7-17) mg/dL Creatinine (0.52-1.04) mg/dL Est GFR (CKD-EPI)AfAm (>60 ml/min/1.73 sqM) Est GFR (CKD-EPI)NonAf (>60 ml/min/1.73 sqM) Glucose (74-99) mg/dL Calcium (8.4-10.2) mg/dL Magnesium (1.6-2.3) mg/dL Total Bilirubin (0.2-1.3) mg/dL AST (14-36) U/L ALT (4-34) U/L Alkaline Phosphatase (38-126) U/L Troponin I 0.503 H* (0.000-0.034) ng/mL Total Protein (6.3-8.2) g/dL Albumin (3.5-5.0) g/dL Amylase (30-110) U/L Lipase (23-300) U/L - Radiology Data Radiology results: report reviewed (Computed tomography scan of the brain shows no acute bleed. Mild chronic ischemic change. CT angios chest shows no pulmonary embolism. Emphysema. Fibrosis and increased mild groundglass interstitial density), image reviewed (Chest x-ray reveals no acute process) Critical Care Time Critical Care Time: Yes Total Critical Care Time: 32 Disposition Clinical Impression: Acute non-ST elevation myocardial infarction (NSTEMI) Disposition: ADMITTED IP TO THIS [facility] Condition: Serious Is patient prescribed a controlled substance at d/c from ED?: No Referrals: Cooper Saldaña DO [Primary Care Provider] - 1-2 days Decision Time: 15:11
[2021-09-17] MEDS ORDERED: FAMOTIDINE 20 MG/2 ML VIAL IV STA (12:41)
[2021-09-17 12:54] LABS: Basophils % (A) 0 %; Eosinophils # (A) 0.2 k/uL (0-0.7); Eosinophils % (A) 2 %; HCT 41.4 % (34.0-46.0); HGB 13.3 gm/dL (11.4-16.0); Lymphocytes # (A) 0.9 k/uL (1.0-4.8); Lymphocytes % (A) 11 %; MCH 30.4 pg (25.0-35.0); MCHC 32.1 g/dL (31.0-37.0); MCV 94.6 fL (80.0-100.0); Mean Platelet Volume 7.2; Monocytes # (A) 0.4 k/uL (0-1.0); Monocytes % (A) 5 %; Neutrophils # (A) 6.7 k/uL (1.3-7.7); Neutrophils % (A) 81 %; Platelet Count 236 k/uL (150-450); RBC 4.37 m/uL (3.80-5.40); RDW 13.2 % (11.5-15.5); WBC 8.2 k/uL (3.8-10.6)
[2021-09-17 13:03] LABS: Albumin 3.4 g/dL (3.5-5.0); Calcium 9.4 mg/dL (8.4-10.2); Magnesium 1.4 mg/dL (1.6-2.3); Total Bilirubin 0.9 mg/dL (0.2-1.3); Total Protein 6.4 g/dL (6.3-8.2)
[2021-09-17 13:08] LABS: INR 0.9 (<1.2); Partial Thromboplastin Time 22.6 sec (22.0-30.0); Prothrombin Time 10.2 sec (9.0-12.0)
--- NOTE | 2021-09-17 13:22 | XR ---
EXAMINATION TYPE: XR chest 2V DATE OF EXAM: 09/17/2021 COMPARISON: 05/27/2020 HISTORY: Chest pain TECHNIQUE: Frontal and lateral views of the chest are obtained. FINDINGS: There is no focal air space opacity, pleural effusion, or pneumothorax seen. The cardiac silhouette size is within normal limits. Chronic rotator cuff tears bilaterally. IMPRESSION: No acute cardiopulmonary process.
--- NOTE | 2021-09-17 13:46 | CT ---
EXAMINATION TYPE: CT brain wo con DATE OF EXAM: 09/17/2021 COMPARISON: 09/01/2021 HISTORY: SRIVASTAVA CT DLP: 1100.4 mGycm Automated exposure control for dose reduction was used. FINDINGS: The ventricles, basal cisterns and sulci over the convexities are within normal limits patient's age. There is no mass effect or shift of midline structures. There is mild decreased density in the deep periventricular white matter consistent with mild ischemic white matter demyelination. There is no acute intra or extra-axial hemorrhage. The posterior fossa is grossly normal. Intraorbital contents appear normal and symmetric. Visualized paranasal sinuses and mastoid air cells are well aerated and the calvarium is intact. IMPRESSION: 1. NO ACUTE BLEED OR MASS EFFECT. 2. MILD CHRONIC ISCHEMIC WHITE MATTER DEMYELINATION
--- NOTE | 2021-09-17 14:38 | CT ---
EXAMINATION TYPE: CT angio chest DATE OF EXAM: 09/17/2021 COMPARISON: 01/10/2021 HISTORY: Chest pain. Lung cancer. CT DLP: mGycm Automated exposure control for dose reduction was used. CONTRAST: The contrast was Isovue 100 mL. There are Three-D postprocessed images. There is some mild pulmonary emphysema. There is mild coarsening of interstitial markings in both jaimee gs. There is some 3 cm poorly marginated subpleural infiltrate in the lateral aspect left lower lobe. There is no pleural effusion. Heart is slightly enlarged. There is no pericardial effusion. There is no mediastinal adenopathy. There is normal contrast opacification of the pulmonary arteries. There are no filling defects. Thoracic spine is intact. There is no compression fracture. Sternum is intact. There is upper thoraci c mild dextroscoliosis. IMPRESSION: No evidence of pulmonary embolism. Mild cardiomegaly. Emphysema. There is chronic irregular infiltrate left lower lobe which is not significantly different than last exam. There is probably pulmonary fibrosis. There is increased mild groundglass interstiti al density in the lungs compared to last exam.
[2021-09-17] MEDS ORDERED: HEPARIN SODIUM 1,000 UN/ML (10ML VL) IV ONE (15:11)
[2021-09-17] MEDS ORDERED: NITROGLYCERIN SL TABS 0.4 MG TAB SUBLINGUAL PRN (15:11)
[2021-09-17] MEDS ORDERED: ONDANSETRON 4 MG/2 ML VIAL IVP PRN (15:13)
[2021-09-17] MEDS ORDERED: ACETAMINOPHEN TAB 500 MG TAB PO STA (15:13)
[2021-09-17] MEDS: ASPIRIN 81 MG PO STA ×2 (15:47→15:49)
[2021-09-17] MEDS: HEPARIN SOD,PORK IN 0.45% NACL 25,000 UNIT in 0.45% NACL 1 250ML.BAG IV SCH (15:58)
[2021-09-17] MEDS: NITROGLYCERIN OINT 1 INCH/GM PACKET TOPICAL SCH (19:55)
--- NOTE | 2021-09-17 23:06 | P.HPIM ---
History of Present Illness H&P Date: 09/17/21 Chief Complaint: Chest tightness Patient is a 81-year-old female with a known history of COPD, lung cancer with left lobectomy, hypertension, hypothyroidism, depression previous history of smoking presents to ER with complaints of chest tightness associate with headache and upset stomach. Patient started having symptoms when she woke up this morning. Patient still with nausea. Patient felt clammy. Due to severity of the symptoms EMS was called and patient was given sublingual nitroglycerin which seemed to improve her pain. Currently chest pain/tightness has resolved. Denied any complaints of cough or sputum production. No fever no chills. No recent illnesses. Patient is vaccinated against COVID-19 infection. Denies any recent illnesses. Patient follows with Dr. Lechuga due to family history of significant coronary artery disease. Chest x-ray showed no acute cardiopulmonary process CT head showed no acute bleeding or mass-effect. Mild chronic ischemic white matter demyelination. CTA chest showed no evidence of PE. Mild cardiomegaly. Emphysema. There is probably pulmonary fibrosis. There is increased mild groundglass interstitial density in the lungs compared to last exam. EKG showed sinus tachycardia Laboratory showed WBC 8.2 hemoglobin 13.3 platelets 236 lymphocytes 0.9 D-dimer is 1.1 Sodium 130 Ovadine 4.0 chloride 103 bicarb is 28 BUN 22 creatinine 0.84 blood sugar is 117 calcium 9.4 magnesium 1.4 Troponin 0 0.503, 0.914 and 0.986 Coronavirus PCR not detected. Review of Systems Constitutional: Patient denies any fever or chills . No generalized weakness or weight loss. Abdomen: Patient denied nausea vomiting and diarrhea and abdominal pain. Cardiovascular: Patient denies any chest pain or short of breath no palpitations. Respiratory: patient denied any cough or sputum production. No shortness of breath Neurologic: Patient denied any numbness or tingling headache. Musculoskeletal: Patient denies any complaints of joint swelling or deformity. Skin: Negative Psychiatric: Negative Endocrine: No heat or cold intolerance. No recent weight gain. Genitourinary: No dysuria or hematuria. All other 14 point ROS negative except the above Past Medical History Past Medical History: Cancer, COPD, GERD/Reflux, Hypertension, Thyroid Disorder Additional Past Medical History / Comment(s): EMPHYSEMA, HX LUNG CANCER WITH LEFT LOBECTOMY (2009), LOWER BACK PAIN. History of Any Multi-Drug Resistant Organisms: None Reported Past Surgical History: Back Surgery, Cholecystectomy, Hysterectomy, Joint Replacement Additional Past Surgical History / Comment(s): LEFT LOWER LUNG REMOVED , MARTINA TOTAL KNEES, ROTATOR CUFF REPAIR.CATARACTS, CERVICAL LAMINECTOMY Past Anesthesia/Blood Transfusion Reactions: Previous Problems w/ Anesthesia, Motion Sickness Additional Past Anesthesia/Blood Transfusion Reaction / Comment(s): DIFFICULTY WAKING UP AFTER LUNG SURGERY (5 HRS) AND OVERSEDATED WHILE IN THE HOSPITAL Past Psychological History: Depression Smoking Status: Former smoker Past Alcohol Use History: None Reported Additional Past Alcohol Use History / Comment(s): QUIT 1988, SMOKED 1 PACK - 1/08/21 PPD. STARTED SMOKING AGE 14. Past Drug Use History: None Reported - Past Family History Mother Family Medical History: Cancer Additional Family Medical History / Comment(s): BREAST CANCER Sister(s) Family Medical History: Cancer Additional Family Medical History / Comment(s): BREAST CANCER Medications and Allergies Home Medications Medication Instructions Recorded Confirmed Type Aspirin [Adult Low Dose Aspirin EC] 81 mg PO HS 10/29/19 09/17/21 History Calcium Carbonate [Calcium] 600 mg PO BID 10/29/19 09/17/21 History DULoxetine HCL [Cymbalta] 30 mg PO HS 10/29/19 09/17/21 History DULoxetine HCL [Cymbalta] 60 mg PO DAILY 10/29/19 09/17/21 History Estrogens, Conjugated [Premarin] 0.625 mg PO Q48H 10/29/19 09/17/21 History Flunisolide Nasal [place] [Nasalide] 2 spray EA NOSTRIL BID 10/29/19 09/17/21 History Levothyroxine Sodium [Synthroid] 50 mcg PO DAILY 10/29/19 09/17/21 History Loratadine-Pseudoeph 10-240 mg 1 tab PO DAILY 10/29/19 09/17/21 History [Claritin-D 24 Hour] Multivit-Min/FA/Lycopen/Lutein 1 tab PO DAILY 10/29/19 09/17/21 History [Centrum Silver Tablet] Omeprazole 20 mg PO BID 10/29/19 09/17/21 History Simvastatin [Zocor] 20 mg PO HS 10/29/19 09/17/21 History Albuterol Inhaler [Ventolin Hfa 2 puff INHALATION RT-QID PRN 09/17/21 09/17/21 History Inhaler] Benazepril HCl [Lotensin] 20 mg PO DAILY 09/17/21 09/17/21 History Fluticasone/Umeclidin/Vilanter 1 puff INHALATION RT-DAILY 09/17/21 09/17/21 History [Trelegy Ellipta 100-62.5-25] Allergies Allergy/AdvReac Type Severity Reaction Status Date / Time budesonide [From Symbicort] Allergy Unknown Swelling Verified 09/17/21 13:54 of Tongue & Lips fluticasone Allergy Unknown Swelling Verified 09/17/21 13:54 [From Advair Diskus] of Tongue & Lips formoterol [From Symbicort] Allergy Unknown Swelling Verified 09/17/21 13:54 of Tongue & Lips milk Allergy Unknown Unknown Verified 09/17/21 13:54 salmeterol Allergy Unknown Swelling Verified 09/17/21 13:54 [From Advair Diskus] of Tongue and Lips adhesive tape AdvReac Unknown irritated Verified 09/17/21 13:54 skin Physical Exam Vitals: Vital Signs Temp Pulse Pulse Resp BP BP Pulse Ox 09/17/21 22:33 97.8 F 72 18 103/65 94 L 09/17/21 19:40 89 18 108/91 94 L 09/17/21 15:59 102 H 18 122/77 95 09/17/21 14:00 98.6 F 93 18 133/93 96 09/17/21 13:00 89 18 140/98 09/17/21 12:00 92 18 129/88 09/17/21 11:53 98.2 F 102 H 20 97/79 94 L Intake and Output 09/17/21 09/17/21 09/17/21 06:59 14:59 22:59 Other: Weight 89.811 kg 89.811 kg PHYSICAL EXAMINATION: Patient is lying in the bed comfortably, no acute distress, awake alert and oriented.. HEENT: Normocephalic. Neck is supple. Pupils reactive. Nostrils clear. Oral cavity is moist. Neck reveals no JVD, carotid bruits, or thyromegaly. CHEST EXAMINATION: Trachea is central. Symmetrical expansion. Lung leone clear to auscultation and percussion. CARDIAC: Normal S1, S2 with no gallops. No murmurs ABDOMEN: Soft. Bowel sounds normal. No organomegaly. No abdominal bruits. Extremities: reveal no edema. No clubbing or cyanosis Neurologically awake, alert, oriented x3 with well-coordinated movements. No focal deficits noted Skin: No rash or skin lesions. Psychiatric: Cooperative. Nonsuicidal Musculoskeletal: No joint swelling or deformity. Normal range of motion. Results CBC & Chem 7: 09/17/21 12:43 09/17/21 12:43 Labs: Abnormal Lab Results - Last 24 Hours (Table) 09/17/21 09/17/21 09/17/21 Range/Units 12:43 12:43 12:43 Lymphocytes # 0.9 L (1.0-4.8) k/uL APTT (22.0-30.0) sec D-Dimer 1.11 H (<0.60) mg/L FEU Sodium 135 L (137-145) mmol/L BUN 22 H (7-17) mg/dL Glucose 117 H (74-99) mg/dL Magnesium 1.4 L (1.6-2.3) mg/dL Troponin I (0.000-0.034) ng/mL Albumin 3.4 L (3.5-5.0) g/dL 09/17/21 09/17/21 09/17/21 Range/Units 12:43 17:20 20:20 Lymphocytes # (1.0-4.8) k/uL APTT 41.8 H (22.0-30.0) sec D-Dimer (<0.60) mg/L FEU Sodium (137-145) mmol/L BUN (7-17) mg/dL Glucose (74-99) mg/dL Magnesium (1.6-2.3) mg/dL Troponin I 0.503 H* 0.914 H* (0.000-0.034) ng/mL Albumin (3.5-5.0) g/dL 09/17/21 Range/Units 20:20 Lymphocytes # (1.0-4.8) k/uL APTT (22.0-30.0) sec D-Dimer (<0.60) mg/L FEU Sodium (137-145) mmol/L BUN (7-17) mg/dL Glucose (74-99) mg/dL Magnesium (1.6-2.3) mg/dL Troponin I 0.986 H* (0.000-0.034) ng/mL Albumin (3.5-5.0) g/dL Thrombosis Risk Factor Assmnt - DVT/VTE Prophylaxis DVT/VTE Prophylaxis: Pharmacologic Prophylaxis ordered Assessment and Plan Assessment: Acute non-ST elevated [place] Family history of secondary coronary artery disease Hypomagnesemia Elevated D-dimer level CTA chest negative for PE. Hypertension Hypothyroidism GERD/reflux COPD History of lung cancer status post left lobectomy Chronic low back pain Depression History of smoking Plan: Patient will be current on heparin drip continue telemetry monitoring. Follow- up troponin trend. Cardiology was consulted. Patient required on aspirin and lipid panel was ordered. Replace electrolytes and follow-up closely. Time with Patient: Greater than 30
[2021-09-18] MEDS: MAGNESIUM SULFATE-D5W PMX 1 GM in DEXTROSE/WATER 1 100ML.BAG IVPB SCH ×2 (01:50→04:16)
[2021-09-18 03:55] LABS: Mean Platelet Volume 7.6; Platelet Count 210 k/uL (150-450)
[2021-09-18] MEDS: NITROGLYCERIN OINT 1 INCH/GM PACKET TOPICAL SCH ×5 (04:18→23:11)
[2021-09-18 05:45] LABS: African American GFR (CKD) 74 (>60 ml/min/1.73 sqM); Anion Gap 5 mmol/L; Blood Urea Nitrogen 18 mg/dL (7-17); Calcium 9.1 mg/dL (8.4-10.2); Carbon Dioxide 26 mmol/L (22-30); Chloride 106 mmol/L (98-107); Glucose 109 mg/dL (74-99); Non-African American GFR(CKD) 64 (>60 ml/min/1.73 sqM); Potassium 3.4 mmol/L (3.5-5.1); Sodium 137 mmol/L (137-145)
[2021-09-18] MEDS ORDERED: ASPIRIN 325 MG TAB PO SCH (09:00)
--- NOTE | 2021-09-18 09:05 | P.CRDCN ---
History of Present Illness Consult date: 09/18/21 Requesting physician: Omega Lau Consult reason: non-Q-wave LA History of present illness: History of Presenting Illness: Patient is a very pleasant 81-year-old female with a past medical history of hypertension, COPD/emphysema with history of left lower lobe ectomy due to lung cancer, and hyperlipidemia. We have been consulted for evaluation of this patient for NSTEMI. Patient presented to the emergency department on 09/17/21 with a chief complaint of chest pain, tightness in midsternal region like a vice accompanied by upset stomach/nausea which resolved shortly after arrival. She was seen and fully evaluated in the emergency department and found to have elevated troponins at 0.503, 0.914, and 0.986. Her EKG revealed sinus tachycardia at [address] elevation in leads V3 through V6. Patient was given aspirin 324 mg and started on heparin infusion per ACS protoco l. CTA was negative for PE, revealing mild cardiomegaly and emphysema. Chest x- ray negative for acute cardiopulmonary process. Patient admitted under internal medicine team and we have been consulted for management of ST elevated LA. Patient seen and fully evaluated at bedside. She reports continued resolution of previously reported chest pain, however she does report feeling a little labore d breathing this morning. She reports she does follow up outpatient with a floor tech regularly, she states she sees Dr. Lechuga in the office to previous concerns of irregular heart rhythm and has been following with him on a yearly basis. Review of systems: Pertinent positives and negatives as discussed in HPI, a complete review of systems was performed and all other systems are negative. Physical exam: Vital signs reviewed and stable. General: Nontoxic, no distress and appears stated age. Derm: Skin warm and dry, normal coloration for ethnicity. Head: Atraumatic, normocephalic and symmetric. Eyes: EOMs intact, no lid lag, and anicteric sclera Mouth: no lip lesions, mucus membranes moist Cardiovascular: regular rate and rhythm with normal S1S2, systolic murmur right upper border, positive posterior tibial pulses bilaterally, and cap refill < 2 seconds. Lungs: Respirations even, regular, and unlabored on room air. Lungs CTA bilaterally, no rhonchi, no rales, no wheezing, and no accessory muscle usage. Abdominal: soft, nontender to palpation, no guarding, no appreciable organomegaly Ext: ROM intact. No gross muscle atrophy, no edema, no contractures Neuro: Speech clear, face symmetrical and CN II-XII grossly intact with no noted focal neuro deficits Psych: Alert and oriented to person, place, time, and situation. Appropriate and pleasant affect. Assessment and Plan of Care: Acute ST elevated anterolateral LA Mild aortic stenosis Hypertension Hyperlipidemia -Continuous telemetry monitoring -Continue heparin infusion for an additional 24 hours -Continue aspirin 81 mg daily -Maximize medical management by adding on Plavix 75 mg daily, metoprolol 25 mg daily, and atorvastatin 40 mg nightly. -At this time patient has decided on maximizing medical management as long as chest pain remains subsided, will reevaluate discussion of possible cardiac catheterization tomorrow pending echocardiogram results and clinical course. Thank you for allowing us to participate in the care of this pleasant patient. Do not hesitate to contact us with questions. Nurse practitioner note has been reviewed by physician. Signing provider agrees with the documented findings, assessment, and plan of care. Past Medical History Past Medical History: Cancer, COPD, GERD/Reflux, Hypertension, Thyroid Disorder Additional Past Medical History / Comment(s): EMPHYSEMA, HX LUNG CANCER WITH LEFT LOBECTOMY (2009), LOWER BACK PAIN. History of Any Multi-Drug Resistant Organisms: None Reported Past Surgical History: Back Surgery, Cholecystectomy, Hysterectomy, Joint Replacement Additional Past Surgical History / Comment(s): LEFT LOWER LUNG REMOVED , MARTINA TOTAL KNEES, ROTATOR CUFF REPAIR.CATARACTS, CERVICAL LAMINECTOMY Past Anesthesia/Blood Transfusion Reactions: Previous Problems w/ Anesthesia, Motion Sickness Additional Past Anesthesia/Blood Transfusion Reaction / Comment(s): DIFFICULTY WAKING UP AFTER LUNG SURGERY (5 HRS) AND OVERSEDATED WHILE IN THE HOSPITAL Past Psychological History: Depression Smoking Status: Former smoker Past Alcohol Use History: None Reported Additional Past Alcohol Use History / Comment(s): QUIT 1988, SMOKED 1 PACK - 1/2 PPD. STARTED SMOKING AGE 14. Past Drug Use History: None Reported - Past Family History Mother Family Medical History: Cancer Additional Family Medical History / Comment(s): BREAST CANCER Sister(s) Family Medical History: Cancer Additional Family Medical History / Comment(s): BREAST CANCER Medications and Allergies Home Medications Medication Instructions Recorded Confirmed Type Aspirin [Adult Low Dose Aspirin EC] 81 mg PO HS 10/29/19 09/17/21 History Calcium Carbonate [Calcium] 600 mg PO BID 10/29/19 09/17/21 History DULoxetine HCL [Cymbalta] 30 mg PO HS 10/29/19 09/17/21 History DULoxetine HCL [Cymbalta] 60 mg PO DAILY 10/29/19 09/17/21 History Estrogens, Conjugated [Premarin] 0.625 mg PO Q48H 10/29/19 09/17/21 History Flunisolide Nasal [place] [Nasalide] 2 spray EA NOSTRIL BID 10/29/19 09/17/21 History Levothyroxine Sodium [Synthroid] 50 mcg PO DAILY 10/29/19 09/17/21 History Loratadine-Pseudoeph 10-240 mg 1 tab PO DAILY 10/29/19 09/17/21 History [Claritin-D 24 Hour] Multivit-Min/FA/Lycopen/Lutein 1 tab PO DAILY 10/29/19 09/17/21 History [Centrum Silver Tablet] Omeprazole 20 mg PO BID 10/29/19 09/17/21 History Simvastatin [Zocor] 20 mg PO HS 10/29/19 09/17/21 History Albuterol Inhaler [Ventolin Hfa 2 puff INHALATION RT-QID PRN 09/17/21 09/17/21 History Inhaler] Benazepril HCl [Lotensin] 20 mg PO DAILY 09/17/21 09/17/21 History Fluticasone/Umeclidin/Vilanter 1 puff INHALATION RT-DAILY 09/17/21 09/17/21 History [Trelegy Ellipta 100-62.5-25] Allergies Allergy/AdvReac Type Severity Reaction Status Date / Time budesonide [From Symbicort] Allergy Unknown Swelling Verified 09/17/21 13:54 of Tongue & Lips fluticasone Allergy Unknown Swelling Verified 09/17/21 13:54 [From Advair Diskus] of Tongue & Lips formoterol [From Symbicort] Allergy Unknown Swelling Verified 09/17/21 13:54 of Tongue & Lips milk Allergy Unknown Unknown Verified 09/17/21 13:54 salmeterol Allergy Unknown Swelling Verified 09/17/21 13:54 [From Advair Diskus] of Tongue and Lips adhesive tape AdvReac Unknown irritated Verified 09/17/21 13:54 skin Physical Exam Vitals: Vital Signs Temp Pulse Pulse Resp BP BP Pulse Ox 09/18/21 04:00 97.6 F 88 18 132/85 95 09/18/21 02:00 80 18 09/18/21 00:00 97.8 F 80 18 94/56 96 09/17/21 22:35 16 09/17/21 22:33 97.8 F 72 18 103/65 94 L 09/17/21 19:40 89 18 108/91 94 L 09/17/21 15:59 102 H 18 122/77 95 09/17/21 14:00 98.6 F 93 18 133/93 96 09/17/21 13:00 89 18 140/98 09/17/21 12:00 92 18 129/88 09/17/21 11:53 98.2 F 102 H 20 97/79 94 L Intake and Output 09/17/21 09/18/21 09/18/21 22:59 06:59 14:59 Intake Total 96.5 Output Total 300 Balance 96.5 -300 Intake: Intake, IV Titration 96.5 Amount Heparin Sod,Pork in 0.45% 96.5 NaCl 25,000 unit In 0.45 % NaCl 1 250ml.bag @ 11. 134 UNITS/KG/HR 10 mls/hr IV .Q24H [facility] Rx#: [id number] Output: Urine 300 Other: Voiding Method Toilet Toilet # Voids 2 Weight 89.811 kg Results 09/18/21 03:17 09/18/21 03:17 Cardiac Enzymes 09/17/21 09/17/21 09/17/21 Range/Units 12:43 12:43 17:20 AST 27 (14-36) U/L Troponin I 0.503 H* 0.914 H* (0.000-0.034) ng/mL 09/17/21 Range/Units 20:20 AST (14-36) U/L Troponin I 0.986 H* (0.000-0.034) ng/mL Coagulation 09/17/21 09/17/21 09/18/21 Range/Units 12:43 20:20 03:12 PT 10.2 (9.0-12.0) sec APTT 22.6 41.8 H 45.2 H (22.0-30.0) sec CBC 09/17/21 09/18/21 Range/Units 12:43 03:17 WBC 8.2 (3.8-10.6) k/uL RBC 4.37 (3.80-5.40) m/uL Hgb 13.3 (11.4-16.0) gm/dL Hct 41.4 (34.0-46.0) % Plt Count 236 210 (150-450) k/uL Comprehensive Metabolic Panel 09/17/21 09/18/21 Range/Units 12:43 03:17 Sodium 135 L 137 (137-145) mmol/L Potassium 4.0 3.4 L (3.5-5.1) mmol/L Chloride 103 106 (98-107) mmol/L Carbon Dioxide 28 26 (22-30) mmol/L BUN 22 H 18 H (7-17) mg/dL Creatinine 0.84 0.85 (0.52-1.04) mg/dL Glucose 117 H 109 H (74-99) mg/dL Calcium 9.4 9.1 (8.4-10.2) mg/dL AST 27 (14-36) U/L ALT 17 (4-34) U/L Alkaline Phosphatase 71 (38-126) U/L Total Protein 6.4 (6.3-8.2) g/dL Albumin 3.4 L (3.5-5.0) g/dL Current Medications Generic Name Dose Route Start Last Admin Trade Name Freq PRN Reason Stop Dose Admin Aspirin 325 mg 09/18/21 09:00 09/18/21 08:39 Aspirin 325 Mg Tab PO 325 mg DAILY [facility] Administration Heparin Sodium/Sodium Chloride 250 mls @ 10 mls/hr 09/17/21 15:15 09/18/21 01:37 25,000 unit/ Sodium Chloride IV 13.13 units/kg/hr .Q24H [facility] 11.792 mls/hr Titration Protocol 11.134 UNITS/KG/HR Nitroglycerin 0.4 mg 09/17/21 15:11 Nitroglycerin Sl Tabs 0.4 Mg Tab SUBLINGUAL Q5M PRN Chest Pain Nitroglycerin 1 inch 09/17/21 18:00 09/18/21 06:45 Nitroglycerin Oint 1 Inch/Gm Packet TOPICAL Not Given Q6HR [facility] Ondansetron HCl 4 mg 09/17/21 15:13 Ondansetron 4 Mg/2 Ml Vial IVP Q6HR PRN Nausea And Vomiting Sodium Chloride 10 ml 09/17/21 21:00 09/18/21 04:17 Sodium Chloride 0.9% Flush 10 Ml Syringe IV 10 ml BID BARBI Administration Intake and Output 09/17/21 09/18/21 09/18/21 22:59 06:59 14:59 Intake Total 96.5 Output Total 300 Balance 96.5 -300 Intake: Intake, IV Titration 96.5 Amount Heparin Sod,Pork in 0.45% 96.5 NaCl 25,000 unit In 0.45 % NaCl 1 250ml.bag @ 11. 134 UNITS/KG/HR 10 mls/hr IV .Q24H [facility] Rx#: [id number] Output: Urine 300 Other: Voiding Method Toilet Toilet # Voids 2 Weight 89.811 kg 09/18/21 03:17 09/18/21 03:17
[2021-09-18 10:21] LABS: Chol/HDL Ratio 3.25 Ratio; LDL Cholesterol,Calculated 97.1 mg/dL (0.0-131.0)
[2021-09-18] MEDS: ATORVASTATIN 40 MG TAB PO SCH (11:56)
[2021-09-18] MEDS: CLOPIDOGREL 75 MG TAB PO SCH (11:56)
[2021-09-18] MEDS: HEPARIN SOD,PORK IN 0.45% NACL 25,000 UNIT in 0.45% NACL 1 250ML.BAG IV SCH (16:54)
[2021-09-18] MEDS ORDERED: ALBUTEROL NEBULIZED 2.5 MG/3 ML INHALATION PRN (20:30)
[2021-09-18] MEDS: DULoxetine HCL 30 MG CAPSULE.DR PO SCH (20:42)
--- NOTE | 2021-09-19 00:29 | P.PN ---
Subjective Progress Note Date: 09/18/21 Patient is a 81-year-old female with a known history of COPD, lung cancer with left lobectomy, hypertension, hypothyroidism, depression previous history of smoking presents to ER with complaints of chest tightness associate with headache and upset stomach. Patient started having symptoms when she woke up this morning. Patient still with nausea. Patient felt clammy. Due to severity of the symptoms EMS was called and patient was given sublingual nitroglycerin which seemed to improve her pain. Currently chest pain/tightness has resolved. Denied any complaints of cough or sputum production. No fever no chills. No recent illnesses. Patient is vaccinated against COVID-19 infection. Denies any recent illnesses. Patient follows with Dr. Lechuga due to family history of significant coronary artery disease. Chest x-ray showed no acute cardiopulmonary process CT head showed no acute bleeding or mass-effect. Mild chronic ischemic white matter demyelination. CTA chest showed no evidence of PE. Mild cardiomegaly. Emphysema. There is probably pulmonary fibrosis. There is increased mild groundglass interstitial density in the lungs compared to last exam. EKG showed sinus tachycardia Laboratory showed WBC 8.2 hemoglobin 13.3 platelets 236 lymphocytes 0.9 D-dimer is 1.1 Sodium 130 Ovadine 4.0 chloride 103 bicarb is 28 BUN 22 creatinine 0.84 blood sugar is 117 calcium 9.4 magnesium 1.4 Troponin 0 0.503, 0.914 and 0.986 Coronavirus PCR not detected. 09/18/2021 Patient is currently sitting in the bed. Awake alert and oriented x3. Denied any complaints of chest pain. No shortness of breath. No cough or sputum production. Patient is being current on heparin drip. Troponin went up to 0.986 and proBNP 2080. Laboratory data showed sodium 137 potassium 3.4. Patient was seen by cardiology recommends medical therapy. Patient initially does not want to go for cardiac catheterization but currently is willing to get the procedure. No complaints of headache or dizziness or lightheadedness. No fever no chills. Current medications reviewed. Objective - Vital Signs Vital signs: Vital Signs Temp 97.9 F 09/18/21 12:00 Pulse 74 09/18/21 12:00 Resp 16 09/18/21 12:00 BP 157/77 09/18/21 12:00 Pulse Ox 92 L 09/18/21 12:00 Intake & Output 09/17/21 09/18/21 09/18/21 18:59 06:59 18:59 Intake Total 96.5 Output Total 300 Balance 96.5 -300 Weight 89.811 kg 89.811 kg Intake: Intake, IV Titration 96.5 Amount Heparin Sod,Pork in 0.45% 96.5 NaCl 25,000 unit In 0.45 % NaCl 1 250ml.bag @ 11. 134 UNITS/KG/HR 10 mls/hr IV .Q24H [facility] Rx#: [id number] Output: Urine 300 Other: Voiding Method Toilet Toilet # Voids 2 - Exam PHYSICAL EXAMINATION: Patient is lying in the bed comfortably, no acute distress, awake alert and oriented.. HEENT: Normocephalic. Neck is supple. Pupils reactive. Nostrils clear. Oral cavity is moist. Neck reveals no JVD, carotid bruits, or thyromegaly. CHEST EXAMINATION: Trachea is central. Symmetrical expansion. Lung leone clear to auscultation and percussion. CARDIAC: Normal S1, S2 with no gallops. No murmurs ABDOMEN: Soft. Bowel sounds normal. No organomegaly. No abdominal bruits. Extremities: reveal no edema. No clubbing or cyanosis Neurologically awake, alert, oriented x3 with well-coordinated movements. No focal deficits noted Skin: No rash or skin lesions. Psychiatric: Cooperative. Nonsuicidal Musculoskeletal: No joint swelling or deformity. Normal range of motion. - Labs CBC & Chem 7: 09/18/21 03:17 09/18/21 03:17 Labs: Abnormal Lab Results - Last 24 Hours (Table) 09/17/21 09/17/21 09/17/21 Range/Units 17:20 20:20 20:20 APTT 41.8 H (22.0-30.0) sec Potassium (3.5-5.1) mmol/L BUN (7-17) mg/dL Glucose (74-99) mg/dL Troponin I 0.914 H* 0.986 H* (0.000-0.034) ng/mL Triglycerides (0.00-149.00) mg/dL 09/18/21 09/18/21 09/18/21 Range/Units 03:12 03:17 09:13 APTT 45.2 H 54.5 H (22.0-30.0) sec Potassium 3.4 L (3.5-5.1) mmol/L BUN 18 H (7-17) mg/dL Glucose 109 H (74-99) mg/dL Troponin I (0.000-0.034) ng/mL Triglycerides 165.00 H (0.00-149.00) mg/dL Assessment and Plan Assessment: Acute non-ST elevated [place] Family history of secondary coronary artery disease Hypomagnesemia Elevated D-dimer level CTA chest negative for PE. Hypertension Hypothyroidism GERD/reflux COPD History of lung cancer status post left lobectomy Chronic low back pain Depression History of smoking Plan: Patient will be current on heparin drip continue telemetry monitoring. Cardiology has seen the patient. Patient will be current on aspirin Plavix and statins. Patient is currently willing to proceed with the cardiac catheterization. Replace electrolytes and follow closely.. Time with Patient: Greater than 30
[2021-09-19] MEDS: POTASSIUM CHLORIDE ER 20 MEQ TAB.ER PO SCH ×3 (03:12→20:27)
[2021-09-19] MEDS: HEPARIN SOD,PORK IN 0.45% NACL 25,000 UNIT in 0.45% NACL 1 250ML.BAG IV SCH (06:13)
[2021-09-19] MEDS: NITROGLYCERIN OINT 1 INCH/GM PACKET TOPICAL SCH ×3 (06:14→16:12)
[2021-09-19] MEDS ORDERED: ALPRAZolam 0.5 MG TAB PO PRN (09:19)
[2021-09-19] MEDS ORDERED: ALPRAZolam 0.25 MG TAB PO PRN (09:19)
[2021-09-19] MEDS ORDERED: NITROGLYCERIN SL TABS 0.4 MG TAB SUBLINGUAL PRN (09:19)
[2021-09-19] MEDS: METOPROLOL SUCCINATE (ER) 25 MG TAB.ER.24H PO SCH (09:49)
[2021-09-19] MEDS: ATORVASTATIN 40 MG TAB PO SCH (09:49)
[2021-09-19] MEDS: ASPIRIN 81 MG PO SCH (09:49)
[2021-09-19] MEDS: CLOPIDOGREL 75 MG TAB PO SCH (09:49)
[2021-09-19] MEDS: DULoxetine HCL 60 MG CAPSULE.DR PO SCH (09:50)
[2021-09-19] MEDS: LEVOTHYROXINE 50 MCG TAB PO SCH (09:50)
[2021-09-19 10:39] LABS: Basophils % (A) 1 %; Eosinophils # (A) 0.2 k/uL (0-0.7); Eosinophils % (A) 4 %; HCT 44.1 % (34.0-46.0); HGB 13.8 gm/dL (11.4-16.0); Lymphocytes # (A) 1.3 k/uL (1.0-4.8); Lymphocytes % (A) 25 %; MCH 30.1 pg (25.0-35.0); MCHC 31.3 g/dL (31.0-37.0); MCV 96.3 fL (80.0-100.0); Mean Platelet Volume 7.5; Monocytes # (A) 0.3 k/uL (0-1.0); Monocytes % (A) 6 %; Neutrophils # (A) 3.2 k/uL (1.3-7.7); Neutrophils % (A) 62 %; Platelet Count 219 k/uL (150-450); RBC 4.58 m/uL (3.80-5.40); RDW 12.7 % (11.5-15.5); WBC 5.2 k/uL (3.8-10.6)
[2021-09-19 11:04] LABS: Calcium 9.4 mg/dL (8.4-10.2); Potassium 4.1 mmol/L (3.5-5.1)
--- NOTE | 2021-09-19 12:00 | ECHOF ---
Referral Reason:evaluate structure and function MEASUREMENTS -------- HEIGHT: 170.2 cm WEIGHT: 89.8 kg BP: RVIDd: 3.2 cm (< 3.3) IVSd: 1.2 cm (0.6 - 1.1) LVIDd: 4.9 cm (3.9 - 5.3) LVPWd: 1.2 cm (0.6 - 1.1) IVSs: 1.9 cm LVIDs: 3.4 cm LVPWs: 1.4 cm LA Diam: 4.4 cm (2.7 - 3.8) LAESV Index (A-L): 51.69 ml/m Ao Diam: 3.3 cm (2.0 - 3.7) AV Cusp: 1.2 cm (1.5 - 2.6) LA Diam: 3.8 cm (2.7 - 3.8) MV EXCURSION: 10.759 mm (> 18.000) MV EF SLOPE: 55 mm/s (70 - 150) EPSS: 0.5 cm MV E Sergo: 0.28 m/s MV DecT: 268 ms MV A Sergo: 0.79 m/s MV E/A Ratio: 0.36 AV maxP.73 mmHg AV meanP.45 mmHg RAP: 5.00 mmHg RVSP: 37.37 mmHg FINDINGS -------- Sinus rhythm. This was a technically adequate study. The left ventricular size is normal. There is mild concentric left ventricular hypertrophy. Overa ll left ventricular systolic function is moderately impaired with, an EF between 35 - 40 %. Apical anterior LV wall motion is hypokinetic. Apical lateral LV wall motion is hypokinetic. Apical in ferior LV wall motion is hypokinetic. Apical septum LV wall motion is hypokinetic. [place] Hypokin esis. The right ventricle is normal in size. LA is severely dilated >40 ml/m2 The right atrial size is normal. There is mild aortic stenosis present. Can't exclude Bicuspid valve vs fused cusp. Aov gradient i s underestimated due to decreased EF. Mild mitral regurgitation is present. Mild tricuspid regurgitation present. Right ventricular systolic pressure is normal at < 35 mmHg. There is no pulmonic regurgitation present. Echo free space represents a pericardial fat pad. CONCLUSIONS -------- 1. The left ventricular size is normal. 2. There is mild concentric left ventricular hypertrophy. 3. Overall left ventricular systolic function is moderately impaired with, an EF between 35 - 40 %. 4. Apical anterior LV wall motion is hypokinetic. 5. Apical lateral LV wall motion is hypokinetic. 6. Apical inferior LV wall motion is hypokinetic. 7. Apical septum LV wall motion is hypokinetic. 8. [place] Hypokinesis. 9. The right ventricle is normal in size. 10. LA is severely dilated >40 ml/m2 11. The right atrial size is normal. 12. There is mild aortic stenosis present. 13. Can't exclude Bicuspid valve vs fused cusp. 14. Aov gradient is underestimated due to decreased EF. 15. Mild mitral regurgitation is present. 16. Mild tricuspid regurgitation present. 17. Echo free space represents a pericardial fat pad. HABILITATION SPECIALIST: Mckenna Dudley RDCS
--- NOTE | 2021-09-19 13:35 | P.PN ---
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 We have been consulted for evaluation of this patient for NSTEMI. Patient presented to the emergency department on 09/17/21 with a chief complaint of chest pain, tightness in midsternal region like a vice accompanied by upset stomach/nausea which resolved shortly after arrival. She was seen and fully evaluated in the emergency department and found to have elevated troponins at 0.503, 0.914, and 0.986. Her EKG revealed sinus tachycardia at [address] elevation in leads V3 through V6. Patient was given aspirin 324 mg and started on heparin infusion per ACS protocol. CTA was negative for PE, revealing mild cardiomegaly and emphysema. Chest x-ray negative for acute cardiopulmonary process. Patient admitted under internal medicine team and we have been consulted for management of ST elevated DE. Patient seen and fully evaluated at bedside. She reports continued resolution of previously reported chest pain, however she does report feeling a little labored breathing this morning. She reports she does follow up outpatient with a electrocardiograph operator regularly, she states she sees Dr. Lechuga in the office to previous concerns of irregular heart rhythm and has been following with him on a yearly basis. 09/19/2021 Patient examined this morning at the bedside. She denies chest pain or pressure. Denies SOB. She remains on IV heparin. Echocardiogram completed revealing ejection fraction 35-40%, apical anterior, apical lateral, apical inferior, apical septal hypokinesis and hypokinesis of the apex, mild aortic stenosis, cannot exclude bicuspid valve, mild mitral regurgitation, mild tricuspid regurgitation PHYSICAL EXAM: VITAL SIGNS: Reviewed. GENERAL: Well-developed in no acute distress. NECK: Supple. No JVD or thyromegaly LUNGS: Respirations even and unlabored. Lungs essentially clear to auscultation bilaterally. HEART: Regular rate and rhythm. S1 and S2 heard. Systolic murmur noted. EXTREMITIES: Normal range of motion. No clubbing or cyanosis. Peripheral puls es intact. No lower extremity edema ASSESSMENT: Non-STEMI Mild aortic stenosis Hypertension Hyperlipidemia PLAN: Continue current cardiac medications Continue IV heparin NPO at midnight Patient to undergo cardiac cath tomorrow with Dr. Lechuga Further recommendations pending patient course Nurse practitioner note has been reviewed by physician. Signing provider agrees with the documented findings, assessment, and plan of care. Objective - Vital Signs Vital signs: Vital Signs Temp 97.9 F 09/19/21 04:00 Pulse 76 09/19/21 12:00 Resp 16 09/19/21 12:00 BP 130/74 09/19/21 12:00 Pulse Ox 95 09/19/21 12:00 Intake & Output 09/18/21 09/19/21 09/19/21 18:59 06:59 18:59 Intake Total 633.5 160 120 Output Total 700 Balance -66.5 160 120 Intake: IV 160 0.9 160 Intake, IV Titration 153.5 Amount Heparin Sod,Pork in 0.45% 153.5 NaCl 25,000 unit In 0.45 % NaCl 1 250ml.bag @ 11. 134 UNITS/KG/HR 10 mls/hr IV .Q24H BARBI Rx#: [id number] Oral 480 120 Output: Urine 700 Other: Voiding Method Toilet Toilet Toilet # Voids 1 1 - Labs CBC & Chem 7: 09/19/21 10:00 09/19/21 10:00 Labs: Abnormal Lab Results - Last 24 Hours (Table) 09/19/21 09/19/21 Range/Units 10:00 10:00 APTT 55.6 H (22.0-30.0) sec Chloride 108 H (98-107) mmol/L Glucose 101 H (74-99) mg/dL
[2021-09-19] MEDS: DULoxetine HCL 30 MG CAPSULE.DR PO SCH (20:27)
[2021-09-19] MEDS: ACETAMINOPHEN TAB 325 MG TAB PO PRN (23:20)
[2021-09-19] MEDS: SODIUM CHLORIDE 0.9% 1,000 ML in EMPTY BAG 1 BAG IV SCH (23:22)
[2021-09-20] MEDS: HEPARIN SOD,PORK IN 0.45% NACL 25,000 UNIT in 0.45% NACL 1 250ML.BAG IV SCH (02:43)
[2021-09-20] MEDS: ATORVASTATIN 40 MG TAB PO SCH (05:30)
[2021-09-20] MEDS: ASPIRIN 81 MG PO SCH (05:30)
[2021-09-20 06:11] LABS: Glucose,Whole Blood 91 mg/dL (75-99)
[2021-09-20] MEDS: METOPROLOL SUCCINATE (ER) 25 MG TAB.ER.24H PO SCH (06:24)
[2021-09-20] MEDS: CLOPIDOGREL 75 MG TAB PO SCH (06:24)
[2021-09-20] MEDS: LEVOTHYROXINE 50 MCG TAB PO SCH (06:24)
[2021-09-20] MEDS: DULoxetine HCL 60 MG CAPSULE.DR PO SCH (06:24)
[2021-09-20] MEDS ORDERED: HEPARIN SODIUM,PORCINE 10,000 UNIT in SODIUM CHLORIDE 0.9% 1,000 ML IRRIGATION PRN (07:00)
[2021-09-20] MEDS ORDERED: ASPIRIN 325 MG TAB PO ONE (07:00)
[2021-09-20] MEDS ORDERED: HEPARIN SODIUM,PORCINE 2,500 UNIT in SODIUM CHLORIDE 0.9% 250 ML IRRIGATION PRN (07:00)
[2021-09-20] MEDS ORDERED: ATORVASTATIN 80 MG TAB PO ONE (07:00)
[2021-09-20] MEDS: fentaNYL (PF) 50 MCG/ML 2 ML AMP IV ONE ×2 (08:32→09:40)
[2021-09-20 08:42] LABS: Mean Platelet Volume 7.4; Platelet Count 203 k/uL (150-450)
[2021-09-20] MEDS ORDERED: IV FLUID CONTINUATION 600 ML IV ONE (09:04)
[2021-09-20] MEDS ORDERED: fentaNYL (PF) 50 MCG/ML 2 ML AMP ONE (09:15)
[2021-09-20] MEDS ORDERED: HEPARIN SODIUM 1,000 UN/ML (10ML VL) ONE (09:35)
[2021-09-20] MEDS ORDERED: LIDOCAINE 1% INJ 10MG/ML (20 ML MDV) SQ ONE (09:35)
[2021-09-20] MEDS ORDERED: VERAPAMIL SYRINGE (5 MG/10 ML) INTRAARTER ONE (09:38)
[2021-09-20] MEDS ORDERED: IOPAMIDOL-370 125ML BTL INJ ONE (10:03)
[2021-09-20] MEDS ORDERED: RX INFO: IV CONTRAST WAS GIVEN 1 EACH MISC MISCELLANE PRN (10:17)
--- NOTE | 2021-09-20 10:26 | P.CARDCATH ---
Date of Procedure: 09/20/21 Description of Procedure: Cardiac Catheterization: The patient has a history of hypertension, hyperlipidemia and presented with symptoms of chest discomfort and mild troponin elevation. Her EKG showed T-wave inversion anteriorly, she had evidence of segmental wall motion abnormality. Her findings with acute ischemic event. Recommendations were made regarding cardiac catheterization, the risks and the complications were discussed with the patient who is in full understanding and agreement. Procedure Description: Patient was brought to laboratory engineer in fasting semi-sedated state after receiving Fentanyl and Benadryl achieiving moderate conscious sedated state. Using Xylocaine Anesthesia and Seldinger technique, a 6-Nigerian sheath was introduced in the [right] radial artery . Subsequently, selective [coronary] angiography performed using a [5]-Nigerian [3- 1/2] bend [Taylor] catheter and 5-Nigerian Lio catheter. Multiple views of the coronary artery including hemiaxial views were obtained. The [pigtail] catheter was used to cross the aortic valve and [LVEDP] was calculated. Following that, catheter and sheath were removed. Hemostasis was obtained with deployment of TR band . There was no immediate complication. Patient was returned to room in stable condition. Of note, the patient received a total of [4500] units of intravenous heparin as well as intra-arterial verapamil. There was no immediate complications. Findings: Left main: [This is a double barrel vessel bifurcating immediately into LAD and left circumflex] LAD: This is a large size vessel, reaching to the apex, giving rise to 2 diagonal branch, the LAD has mild intimal disease in the proximal segment of 10 to 20%. Left circumflex: This is a large dominant vessel, bifurcating distally to PDA and PLV, the left circumflex proximally has a 30% eccentric lesion, the rest of the vessel has no high-grade stenosis RCA: This is a small nondominant vessel giving rise to an acute marginal, the RCA has mild disease in the midsegment of 30% Left Ventriculogram: Was not performed Hemodynamics: No gradient across the aortic valve, LVEDP was 15-20 mm of mercury Conclusion: 1. Mild triple-vessel disease 2. Left dominance 3. Mildly elevated LVEDP Recommendations: Her findings are consistent with Takotsubo syndrome. She has segmental wall motion abnormality on the echo with minimal obstructive disease. She will continue on maximal medical therapy with a combination of beta nilson, NEERAJ inhibitor and statin. The findings and recommendations were discussed with the patient and her family, they are in full understanding and agreement. Duration of sedation is 26 minutes.
[2021-09-20] MEDS ORDERED: lisinopriL 10 MG TAB PO SCH (10:30)
[2021-09-20] MEDS ORDERED: SODIUM CHLORIDE 0.9% 1,000 ML IV SCH (10:30)
[2021-09-20 11:42] VITALS: RESP 16; TEMP 97.9
[2021-09-20] MEDS: ACETAMINOPHEN TAB 325 MG TAB PO PRN (13:37)
[2021-09-20] MEDS: SODIUM CHLORIDE 0.9% 1,000 ML in EMPTY BAG 1 BAG IV SCH (14:47)
[2021-09-20 16:01] VITALS: BP 136/72; PULSE 71
== END 2021-09-20 19:23 | disposition home or self-care (01) | DRG 287 ==
LOC: EC 11:37 → 3SCARD 15:11
PROVIDERS: ADMIT Internal Medicine; ATTEND Internal Medicine
PROC: B2111ZZ Fluoroscopy of Multiple Coronary Arteries using Low Osmolar Contrast (ICD-10-PCS; 2021-09-20)
PROC: 4A023N7 Measurement of Cardiac Sampling and Pressure, Left Heart, Percutaneous Approach (ICD-10-PCS; principal; 2021-09-20 09:00)
DX: I51.81 Takotsubo syndrome (principal); E03.9 Hypothyroidism, unspecified; E78.5 Hyperlipidemia, unspecified; E83.42 Hypomagnesemia; F17.200 Nicotine dependence, unspecified, uncomplicated; F32.A Depression, unspecified; G89.29 Other chronic pain; M54.9 Dorsalgia, unspecified; I10 Essential (primary) hypertension; J43.9 Emphysema, unspecified; J84.10 Pulmonary fibrosis, unspecified; Z20.822 Contact with and (suspected) exposure to COVID-19; K21.9 Gastro-esophageal reflux disease without esophagitis; Z79.82 Long term (current) use of aspirin; Z79.890 Hormone replacement therapy; Z79.899 Other long term (current) drug therapy; Z80.3 Family history of malignant neoplasm of breast; Z82.49 Family history of ischemic heart disease and other diseases of the circulatory system; Z85.118 Personal history of other malignant neoplasm of bronchus and lung; Z90.2 Acquired absence of lung [part of]; Z90.710 Acquired absence of both cervix and uterus
CPT/HCPCS: 36415; 70450; 71046; 71275; 80048; 80053; 80061; 82150; 83690; 83735; 83880; 84484; 85025; 85049; 85379; 85610; 85730; 87635; 93005; 93306; 93458; 96374; 99291

== ENCOUNTER 2021-12-28 11:35 | Day surgery (SDC) | payer MEDICARE ==
[2021-12-27 11:02] VITALS: BMI 31.1
[~2021-12-28 11:35] MED LIST changes: -IV FLUID CONTINUATION 1,000 ML IV ONE; -LIDOCAINE 1% INJ 10MG/ML (20 ML MDV) ONE; -LIDOCAINE 2% INJ 20 MG/ML INTRATRACH ONE; -PROPOFOL 10 MG/ML 20 ML VIAL IV ONE; -Pre Op ABX Message 1 EACH MISC MISCELLANE ONE
[2021-12-28 12:08] VITALS: TEMP 97.2
[2021-12-28] MEDS ORDERED: MIDAZOLAM 2 MG/2 ML VIAL ONE (13:05)
[2021-12-28] MEDS ORDERED: PROPOFOL 10 MG/ML 20 ML VIAL IV ONE (13:05)
[2021-12-28] MEDS ORDERED: LIDOCAINE 2% INJ 20 MG/ML INTRATRACH ONE ×2 (13:05→13:10)
[2021-12-28] MEDS ORDERED: KETAMINE 10 MG/ML 20 ML VIAL ONE (13:05)
[2021-12-28] MEDS ORDERED: GLYCOPYRROLATE 0.2 MG/ML 2 ML VIAL ONE (13:05)
[2021-12-28] MEDS ORDERED: fentaNYL (PF) 50 MCG/ML 2 ML AMP ONE (13:05)
[2021-12-28 13:47] VITALS: RESP 16
--- NOTE | 2021-12-28 14:07 | PCN ---
PROCEDURE NOTE PULMONARY/CRITICAL CARE PROCEDURE NOTE: Bronchoscopy, airway examination, therapeutic lavage, BAL. PREOPERATIVE DIAGNOSIS: Chronic obstructive pulmonary disease exacerbation, retained secretions, lung cancer. POSTOPERATIVE DIAGNOSIS: Chronic obstructive pulmonary disease exacerbation, retained secretions, lung cancer. OPERATORS: 1. Dr. Rosario. 2. Dr. Lazar. PROCEDURE DESCRIPTION: Anesthesia provided general anesthesia. The patient's procedure took place in room #1 [facility]. There was informed consent and universal timeout. After the patient was adequately sedated and being fully monitored, the bronchoscope was inserted through the right nostril. It passed through the right nasopharynx into the oropharynx. The hypopharynx was identified and topicalized. The hypopharyngeal structures were evaluated and appeared relatively normal, including anterior commissure, true cords, false cords, arytenoids, piriform sinuses, right and left, vallecula and epiglottis. After topicalization, the bronchoscope was pushed through the glottic opening into the trachea. The trachea itself appeared relatively normal, although there were secretions noted in the distal trachea. They were suctioned with some difficulty. The tracheal rodríguez was sharp. The right upper lobe and its 3 segments, the right middle lobe and its 2 segments and the right lower lobe and its 5 segments all appeared relatively normal save for diffuse airway erythema and hyperemia. There were thick secretions noted throughout. There was no dominant mass or tumor. There was some mucosal friability. The secretions were suctioned with some difficulty. Saline was used to help in the process of suctioning the secretions. Next, after topicalization on the left side, the left upper lobe proper and the lingula were evaluated. There was no true left lower lobe, as it had been previously removed in lobectomy. The site of the previous resection looked a little abnormal, so that area was brushed. There was no immediate complication from that. The airways on that side again looked somewhat erythematous and hyperemic. The bronchoscope was then wedged into the right middle lobe. We did a formal BAL. The fluid will be sent for analysis. There was no immediate complication. The bronchoscope will be withdrawn. The patient will be recovered. MMODL / IJN: [id number] /
[2021-12-28 14:24] VITALS: BP 127/77; PULSE 88
[2021-12-29 00:28] LABS: Appearance,BF Blood Tinged
== END 2021-12-28 14:44 | disposition home or self-care (01) ==
LOC: ORWHC2ENDO 11:35
PROVIDERS: ATTEND Internal Medicine Critical Care Medicine
DX: J44.1 Chronic obstructive pulmonary disease with (acute) exacerbation (principal); Z85.118 Personal history of other malignant neoplasm of bronchus and lung; J32.9 Chronic sinusitis, unspecified; I25.2 Old myocardial infarction; I25.10 Atherosclerotic heart disease of native coronary artery without angina pectoris; G47.33 Obstructive sleep apnea (adult) (pediatric); E07.9 Disorder of thyroid, unspecified; Z90.2 Acquired absence of lung [part of]; Z79.02 Long term (current) use of antithrombotics/antiplatelets; Z79.82 Long term (current) use of aspirin; Z79.890 Hormone replacement therapy; Z79.899 Other long term (current) drug therapy; Z98.890 Other specified postprocedural states; Z90.710 Acquired absence of both cervix and uterus; Z96.653 Presence of artificial knee joint, bilateral; Z90.49 Acquired absence of other specified parts of digestive tract
CPT/HCPCS: 89050; 87252; 87070; 87205; 87116; 87102; 87206; 31623; 31624; J2001; J2250; J3010; J2704; 87496; 87498; 87502; 87529; 87634; 87798; 88104; 88108; 88305

== ENCOUNTER 2022-01-13 16:56 | Observation (INO) | payer MEDICARE ==
[2022-01-13 18:23] VITALS: TEMP 97.9
[2022-01-13] MEDS ORDERED: SODIUM CHLORIDE 0.9% 1,000 ML IV STA (18:50)
[2022-01-13 19:33] LABS: Basophils # (A) 0.1 k/uL (0-0.2); Basophils % (A) 1 %; Eosinophils # (A) 0.2 k/uL (0-0.7); Eosinophils % (A) 3 %; HCT 43.8 % (34.0-46.0); HGB 13.9 gm/dL (11.4-16.0); Lymphocytes # (A) 1.4 k/uL (1.0-4.8); Lymphocytes % (A) 19 %; MCH 29.2 pg (25.0-35.0); MCHC 31.7 g/dL (31.0-37.0); MCV 92.2 fL (80.0-100.0); Mean Platelet Volume 8.2; Monocytes # (A) 0.9 k/uL (0-1.0); Monocytes % (A) 12 %; Neutrophils # (A) 4.7 k/uL (1.3-7.7); Neutrophils % (A) 62 %; Platelet Count 309 k/uL (150-450); RBC 4.75 m/uL (3.80-5.40); RDW 13.6 % (11.5-15.5); WBC 7.5 k/uL (3.8-10.6)
[2022-01-13 19:38] LABS: INR 0.9 (<1.2); Prothrombin Time 10.3 sec (9.0-12.0)
--- NOTE | 2022-01-13 19:39 | XR ---
EXAMINATION TYPE: XR chest 2V DATE OF EXAM: 01/13/2022 COMPARISON: 09/17/2021 HISTORY: Chest pain TECHNIQUE: 2 view FINDINGS: Heart is normal. There is slight blunting left costophrenic angle. Right lung is clear. No heart failure. There are no hilar masses. Thoracic aorta is atheromatous. Bony thorax is intact IMPRESSION: Pleural diaphragmatic scarring left lung base without change. Normal heart.
[2022-01-13 19:40] LABS: Albumin 4.2 g/dL (3.5-5.0); Calcium 9.6 mg/dL (8.4-10.2); Potassium 4.3 mmol/L (3.5-5.1); Total Bilirubin 0.9 mg/dL (0.2-1.3); Total Protein 7.6 g/dL (6.3-8.2)
[2022-01-13 19:56] LABS: Partial Thromboplastin Time 19.4 sec (22.0-30.0)
--- NOTE | 2022-01-13 20:29 | CT ---
EXAMINATION TYPE: CT brain wo con for TPA DATE OF EXAM: 01/13/2022 COMPARISON: 09/17/2021 HISTORY: headaches, covid + CT DLP: 1096.6 mGycm Automated exposure control for dose reduction was used. There is patchy hypodensity in the periventricular white matter. There is mild cerebral atrophy. Ther e is no mass effect or midline shift. No sign of intracranial hemorrhage. There is normal aeration of the mastoid sinuses. The calvarium is intact. IMPRESSION: Cerebral atrophy and chronic small vessel ischemia. No acute intracranial abnormality. Hypodense 1 cm focus in the right temporal lobe insula region consistent with a Virchow-Giovanni space and unchanged.
[2022-01-13] MEDS ORDERED: diphenhydrAMINE 50 MG/ML 1 ML VIAL IVP STA (20:33)
[2022-01-13] MEDS ORDERED: PROCHLORPERAZINE INJ 10 MG/2 ML VIAL IVP STA (20:33)
--- NOTE | 2022-01-13 20:45 | CT ---
EXAMINATION TYPE: CT angio head neck DATE OF EXAM: 01/13/2022 COMPARISON: None HISTORY: headaches, covid + CT DLP: 577.1 mGycm Automated exposure control for dose reduction was used. CONTRAST: Performed with IV Contrast, patient injected with 65 mL of Isovue 370. Images obtained from the aortic arch to the vertex of the brain with IV contrast. There are 3-D post processed images. There is normal branching pattern of the great vessels of the aortic arch. There is arterial flow in both subclavian arteries. There is arterial flow in both vertebral arteries. There is arterial flow i n the common internal and external carotid arteries bilaterally. There is approximately 50% stenosis at the origin left internal carotid artery due to plaque formation. There is approximate 25% stenosis due to plaque formation at the origin of the right internal carotid artery. No evidence of carotid o r vertebral artery aneurysm or dissection. There is arterial flow in the vertebral basilar artery sys tem. Exam limited slightly by motion. There is arterial flow in the anterior middle and posterior cerebra l arteries. No evidence of intracranial aneurysm or neovascularity. No mass effect. No evidence of he modynamic stenosis. There is normal enhancement of the venous sinuses. IMPRESSION: Atherosclerotic plaque formation without evidence of hemodynamic stenosis at the origins of both inte rnal carotid arteries. No significant intracranial angiographic abnormality.
[2022-01-13] MEDS ORDERED: KETOROLAC 15 MG/ML 1 ML VIAL IVP STA (20:52)
[2022-01-13] MEDS ORDERED: ACETAMINOPHEN TAB 500 MG TAB PO STA (20:52)
[2022-01-13] MEDS ORDERED: ASPIRIN 325 MG TAB PO STA ×2 (20:52→21:29)
--- NOTE | 2022-01-13 20:56 | ED ---
General Adult HPI - General Chief complaint: Neuro Symptoms/Deficit Stated complaint: COVID+ Increased symptoms Time Seen by Provider: 01/13/22 18:27 Source: patient, RN notes reviewed, old records reviewed Mode of arrival: ambulatory Limitations: no limitations - History of Present Illness Initial comments: Patient is a 81-year-old female who presents emergency department complaint of strokelike symptoms. Patient has COVID-19 positive. 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 Since that time she has been having intermittent slurred speech. It comes and goes. Was worse today. Family decided to have her evaluated today. She also endorses an intermittent headache over this time as well. Still complaining of generalized fatigue as well as joint pain. Endorses mild abdominal discomfort as well as intermittent episodes of diarrhea. Denies any chest pain, shortness breath, fevers, chills, cough. Denies any urinary complaints. Presents for further evaluation at this time as family is concerned that she may benefit stroke. Patient does have a history of laminectomies. Denies any trauma. Patient is not on blood thinners. Patient describes the headache as pulsating over her head. No known history of aneurysms. Slurred speech last occurred earlier today. Currently is asymptomatic. I evaluated the patient and she was placed in a room. - Related Data Home Medications Medication Instructions Recorded Confirmed Aspirin [Adult Low Dose Aspirin EC] 81 mg PO HS 10/29/19 12/28/21 Calcium Carbonate [Calcium] 600 mg PO BID 10/29/19 12/28/21 DULoxetine HCL [Cymbalta] 30 mg PO HS 10/29/19 12/28/21 DULoxetine HCL [Cymbalta] 60 mg PO QAM 10/29/19 12/28/21 Estrogens, Conjugated [Premarin] 0.625 mg PO Q48H 10/29/19 12/28/21 Flunisolide Nasal [place] [Nasalide] 2 spray EA NOSTRIL BID 10/29/19 12/28/21 Levothyroxine Sodium [Synthroid] 50 mcg PO QAM 10/29/19 12/28/21 Loratadine-Pseudoeph 10-240 mg 1 tab PO DAILY PRN 10/29/19 12/28/21 [Claritin-D 24 Hour] Multivit-Min/FA/Lycopen/Lutein 1 tab PO DAILY 10/29/19 12/28/21 [Centrum Silver Tablet] Omeprazole 20 mg PO BID 10/29/19 12/28/21 Albuterol Inhaler [Ventolin Hfa 2 puff INHALATION QID 09/17/21 12/28/21 Inhaler] Benazepril HCl [Lotensin] 20 mg PO QAM 09/17/21 12/28/21 Fluticasone/Umeclidin/Vilanter 1 puff INHALATION DAILY 09/17/21 12/28/21 [Trelegy Ellipta 100-62.5-25] Metoprolol Succinate (ER) [Toprol 25 mg PO QAM 12/27/21 12/28/21 XL] Previous Rx's Medication Instructions Recorded Atorvastatin [Lipitor] 40 mg PO DAILY #30 tab 09/20/21 Clopidogrel [Plavix] 75 mg PO DAILY #30 tab 09/20/21 Allergies Allergy/AdvReac Type Severity Reaction Status Date / Time budesonide [From Symbicort] Allergy Unknown Swelling Verified 01/13/22 21:02 of Tongue & Lips fluticasone Allergy Unknown Swelling Verified 01/13/22 21:02 [From Advair Diskus] of Tongue & Lips formoterol [From Symbicort] Allergy Unknown Swelling Verified 01/13/22 21:02 of Tongue & Lips milk Allergy Unknown Unknown Verified 01/13/22 21:02 salmeterol Allergy Unknown Swelling Verified 01/13/22 21:02 [From Advair Diskus] of Tongue and Lips amoxicillin [From Augmentin] Allergy Nausea & Verified 01/13/22 21:02 Vomiting clavulanic acid Allergy Nausea & Verified 01/13/22 21:02 [From Augmentin] Vomiting adhesive tape AdvReac Unknown irritated Verified 01/13/22 21:02 skin Review of Systems ROS Statement: Those systems with pertinent positive or pertinent negative responses have been documented in the HPI. Review of Systems: CONST: Denies fever EYES: Denies blurry vision ENT: Denies nasal congestion C/V: Denies Chest pain RESP: Denies shortness of breath GI: Denies abdominal pain : Denies dysuria SKIN: Denies rash. MSK: Denies joint pain. NEURO: Endorses headache ROS Other: All systems not noted in ROS Statement are negative. Past Medical History Past Medical History: Cancer, COPD, GERD/Reflux, Hearing Disorder / Deafness, Hyperlipidemia, Hypertension, Myocardial Infarction ([place]), Osteoarthritis (OA), Sleep Apnea/CPAP/BIPAP, Thyroid Disorder Additional Past Medical History / Comment(s): RECENT FATIGUE, SOB, WHEEZING. EMPHYSEMA, CHRONIC RESPIRATORY INFECTIONS, HX LUNG CANCER WITH LEFT LOBECTOMY (2009), CHRONIC LOWER BACK AND NECK PAIN. NO CPAP USE. Mild difficulty hearing. Last Myocardial Infarction Date:: 09/17/21 History of Any Multi-Drug Resistant Organisms: None Reported Past Surgical History: Cholecystectomy, Heart Catheterization, Hysterectomy, Joint Replacement Additional Past Surgical History / Comment(s): LEFT LOWER LUNG REMOVED, BILATERAL TOTAL KNEES, LEFT ROTATOR CUFF REPAIR, CATARACTS, CERVICAL LAMINECTOMY. Past Anesthesia/Blood Transfusion Reactions: Previous Problems w/ Anesthesia, Motion Sickness Additional Past Anesthesia/Blood Transfusion Reaction / Comment(s): DIFFICULTY WAKING UP AFTER LUNG SURGERY (5 HRS) AND OVERSEDATED WHILE IN THE HOSPITAL. Past Psychological History: Depression Smoking Status: Former smoker Past Alcohol Use History: None Reported Past Drug Use History: None Reported - Past Family History Mother Family Medical History: Cancer Additional Family Medical History / Comment(s): BREAST CANCER. Sister(s) Family Medical History: Cancer, Pulmonary Embolus Additional Family Medical History / Comment(s): BREAST CANCER. General Exam - General Exam Comments Initial Comments: General: Appears in no acute distress. HEAD: Normal with no signs of head trauma. EYES: PERRLA, EOMI, conjunctiva normal, no discharge. ENT: Hearing grossly intact, normal oropharynx. RESPIRATORY: Clear breath sounds bilaterally. No wheezes, rales, or rhonchi. C/V: Regular rate and rhythm. S1 and S2 auscultated, no edema, peripheral pulses 2+ and intact throughout ABD: Abd is soft, nontender, nondistended EXT: Normal range of motion, no obvious deformity SKIN: No rashes or lesions observed on exposed skin. NEURO: Alert and oriented x 4. Cranial nerves II-XII intact. No focal sensory or strength deficits. GCS of 15. NIH is currently 0. Limitations: no limitations Course Vital Signs 01/13/22 18:17 Temperature 97.9 F Pulse Rate 78 Respiratory 18 Rate Blood Pressure 110/66 O2 Sat by Pulse 95 Oximetry Medical Decision Making - Medical Decision Making Some patient's presentation and physical exam, there is possible the patient is experiencing a TIA this is possible, acute migraine and she also appears to be having symptoms Covid with her abdominal discomfort as well as headaches. She is currently asymptomatic in terms of her dysarthria neuro complaints. NIH is 0. Symptoms of dysarthria originally started over 24 hours ago. Therefore we will not activate the stroke pager. We will obtain CT imaging though. Labs also be obtained. Patient's family and patient were in agreement this plan. EKG showed no signs of acute ischemia. Chest x-ray revealed no acute cardio pulmonary process. CT brain revealed no acute intracranial process, however there is chronic small vessel findings. Patient also has a stable Virchow Giovanni Space. Laboratory studies were remarkable for an indeterminate troponin of 0.0- 6. Patient still Covid positive. Flu negative. Urine is still pending at this time. Blood sugars within normal limits. On reevaluation, patient is feeling improved. She'll be given analgesics for headache. We discussed the imaging and labs with her. Family and patient exposed understanding. I did recommend that it would be beneficial for her to stay for evaluation by neurology given her suspected TIA and neuro symptoms. They were in agreement with this plan. Patient will be given an aspirin. Migraine cocktail is provided for her headache. I spoke with the observation admission doctor, Dr. Guzman who accepted the patient. She is admitted in stable condition. - Lab Data Result diagrams: 01/13/22 Unknown 01/13/22 Unknown Lab Results 01/13/22 01/13/22 01/13/22 Range/Units 19:24 Unknown Unknown WBC 7.5 (3.8-10.6) k/uL RBC 4.75 (3.80-5.40) m/uL Hgb 13.9 (11.4-16.0) gm/dL Hct 43.8 (34.0-46.0) % MCV 92.2 (80.0-100.0) fL MCH 29.2 (25.0-35.0) pg MCHC 31.7 (31.0-37.0) g/dL RDW 13.6 (11.5-15.5) % Plt Count 309 (150-450) k/uL MPV 8.2 Neutrophils % 62 % Lymphocytes % 19 % Monocytes % 12 % Eosinophils % 3 % Basophils % 1 % Neutrophils # 4.7 (1.3-7.7) k/uL Lymphocytes # 1.4 (1.0-4.8) k/uL Monocytes # 0.9 (0-1.0) k/uL Eosinophils # 0.2 (0-0.7) k/uL Basophils # 0.1 (0-0.2) k/uL PT 10.3 (9.0-12.0) sec INR 0.9 (<1.2) APTT 19.4 L (22.0-30.0) sec Sodium (137-145) mmol/L Potassium (3.5-5.1) mmol/L Chloride (98-107) mmol/L Carbon Dioxide (22-30) mmol/L Anion Gap mmol/L BUN (7-17) mg/dL Creatinine (0.52-1.04) mg/dL Est GFR (CKD-EPI)AfAm (>60 ml/min/1.73 sqM) Est GFR (CKD-EPI)NonAf (>60 ml/min/1.73 sqM) Glucose (74-99) mg/dL Calcium (8.4-10.2) mg/dL Total Bilirubin (0.2-1.3) mg/dL AST (14-36) U/L ALT (4-34) U/L Alkaline Phosphatase (38-126) U/L Troponin I 0.026 (0.000-0.034) ng/mL Total Protein (6.3-8.2) g/dL Albumin (3.5-5.0) g/dL Amylase (30-110) U/L Lipase (23-300) U/L Coronavirus (PCR) (Not Detectd) Influenza Type A RNA (Not Detectd) Influenza Type B (PCR) (Not Detectd) 01/13/22 01/13/22 01/13/22 Range/Units Unknown Unknown Unknown WBC (3.8-10.6) k/uL RBC (3.80-5.40) m/uL Hgb (11.4-16.0) gm/dL Hct (34.0-46.0) % MCV (80.0-100.0) fL MCH (25.0-35.0) pg MCHC (31.0-37.0) g/dL RDW (11.5-15.5) % Plt Count (150-450) k/uL MPV Neutrophils % % Lymphocytes % % Monocytes % % Eosinophils % % Basophils % % Neutrophils # (1.3-7.7) k/uL Lymphocytes # (1.0-4.8) k/uL Monocytes # (0-1.0) k/uL Eosinophils # (0-0.7) k/uL Basophils # (0-0.2) k/uL PT (9.0-12.0) sec INR (<1.2) APTT (22.0-30.0) sec Sodium 136 L (137-145) mmol/L Potassium 4.3 (3.5-5.1) mmol/L Chloride 101 (98-107) mmol/L Carbon Dioxide 26 (22-30) mmol/L Anion Gap 9 mmol/L BUN 29 H (7-17) mg/dL Creatinine 0.97 (0.52-1.04) mg/dL Est GFR (CKD-EPI)AfAm 63 (>60 ml/min/1.73 sqM) Est GFR (CKD-EPI)NonAf 55 (>60 ml/min/1.73 sqM) Glucose 102 H (74-99) mg/dL Calcium 9.6 (8.4-10.2) mg/dL Total Bilirubin 0.9 (0.2-1.3) mg/dL AST 33 (14-36) U/L ALT 13 (4-34) U/L Alkaline Phosphatase 61 (38-126) U/L Troponin I (0.000-0.034) ng/mL Total Protein 7.6 (6.3-8.2) g/dL Albumin 4.2 (3.5-5.0) g/dL Amylase 61 (30-110) U/L Lipase 83 (23-300) U/L Coronavirus (PCR) Detected A (Not Detectd) Influenza Type A RNA Not Detected (Not Detectd) Influenza Type B (PCR) Not Detected (Not Detectd) - EKG Data -: EKG Interpreted by Me EKG Comments: 12-lead Electrocardiogram Interpretation Note EKG was reviewed and interpreted by myself. 12-lead ECG performed at 1836 is interpreted by me as revealing normal sinus rhythm at a rate of 65 beats per minute. Mild left axis deviation. OH interval is 170 ms, QRS duration is 121 ms, QTc is 420 ms.. There were no ST or T wave abnormalities to suggest myocardial ischemia or injury. R wave progression across the precordium was satisfactory. By my interpretation this EKG is non-diagnostic for acute ischemia. Disposition Clinical Impression: TIA (transient ischemic attack), COVID-19 virus infection, Headache Disposition: ADMITTED IP TO THIS HOSP Condition: Stable Referrals: Cooper Saldaña DO [Primary Care Provider] - 1-2 days Time of Disposition: 20:50
[2022-01-13 22:15] LABS: Appearance,Urine Cloudy (Clear); Bacteria,Urine Occasional /hpf; Bilirubin,Urine 1+ (Negative); Blood,Urine Negative (Negative); Cellular Casts,Urine 1 /lpf (0); Color,Urine Yellow; Glucose,Urine (UA) Negative (Negative); Granular Casts,Urine 3 /lpf (0); Hyaline Casts,Urine 14 /lpf (0-2); Ketones,Urine Negative (Negative); Leukocyte Esterase,Urine Negative (Negative); Mucus,Urine Few /hpf; Nitrite,Urine Negative (Negative); PH, Urine 5.5 (5.0-8.0); Protein,Urine 1+ (Negative); RBC,Urine 2 /hpf (0-5); Squamous Epithelial Cell,Urine 16 /hpf (0-4); WBC,Urine 4 /hpf (0-5)
[2022-01-13 22:16] LABS: Specific Gravity,Urine 1.046 (1.001-1.035)
--- NOTE | 2022-01-14 01:42 | P.HPIM ---
History of Present Illness H&P Date: 01/13/22 Chief Complaint: Slurred speech and right-sided weakness 81-year-old female with COPD and recent episode of coronary artery disease Patient comes in reporting GI symptoms of feeling nauseous with some stomach pain and diffuse body aches along with headaches she was diagnosed with Covid about 2 weeks ago continues to test positive. Reason she came in today is because of having slurred speech all of a sudden family grew concerned and decided to bring her to the hospital for evaluation she also reports an associated right arm weakness both the symptoms have since resolved She reports that she's been having off-and-on headache for a while now Otherwise denies any recent travel denies any recent hospitalization denies any history of blood clots Workup in the ED CT of the head was negative CT angiogram of the head and neck showed no significant disease Covid test was positive She denies any illicit drugs alcohol or smoking Review of Systems Pertinent positives as noted in HPI. All other systems were reviewed and are negative Past Medical History Past Medical History: Cancer, COPD, GERD/Reflux, Hearing Disorder / Deafness, Hyperlipidemia, Hypertension, Myocardial Infarction ([place]), Osteoarthritis (OA), Sleep Apnea/CPAP/BIPAP, Thyroid Disorder Additional Past Medical History / Comment(s): RECENT FATIGUE, SOB, WHEEZING. EMPHYSEMA, CHRONIC RESPIRATORY INFECTIONS, HX LUNG CANCER WITH LEFT LOBECTOMY (2009), CHRONIC LOWER BACK AND NECK PAIN. NO CPAP USE. Mild difficulty hearing. Last Myocardial Infarction Date:: 09/17/21 History of Any Multi-Drug Resistant Organisms: None Reported Past Surgical History: Cholecystectomy, Heart Catheterization, Hysterectomy, Joint Replacement Additional Past Surgical History / Comment(s): LEFT LOWER LUNG REMOVED, BILATERAL TOTAL KNEES, LEFT ROTATOR CUFF REPAIR, CATARACTS, CERVICAL LAMINECTOMY. Past Anesthesia/Blood Transfusion Reactions: Previous Problems w/ Anesthesia, Motion Sickness Additional Past Anesthesia/Blood Transfusion Reaction / Comment(s): DIFFICULTY WAKING UP AFTER LUNG SURGERY (5 HRS) AND OVERSEDATED WHILE IN THE HOSPITAL. Past Psychological History: Depression Smoking Status: Former smoker Past Alcohol Use History: None Reported Past Drug Use History: None Reported - Past Family History Mother Family Medical History: Cancer Additional Family Medical History / Comment(s): BREAST CANCER. Sister(s) Family Medical History: Cancer, Pulmonary Embolus Additional Family Medical History / Comment(s): BREAST CANCER. Medications and Allergies Home Medications Medication Instructions Recorded Confirmed Type Aspirin [Adult Low Dose Aspirin EC] 81 mg PO HS 10/29/19 01/13/22 History Calcium Carbonate [Calcium] 600 mg PO BID 10/29/19 01/13/22 History DULoxetine HCL [Cymbalta] 30 mg PO HS 10/29/19 01/13/22 History DULoxetine HCL [Cymbalta] 60 mg PO DAILY 10/29/19 01/13/22 History Estrogens, Conjugated [Premarin] 0.625 mg PO Q48H 10/29/19 01/13/22 History Flunisolide Nasal [place] [Nasalide] 2 spray EA NOSTRIL BID 10/29/19 01/13/22 His tory Levothyroxine Sodium [Synthroid] 50 mcg PO DAILY 10/29/19 01/13/22 History Multivit-Min/FA/Lycopen/Lutein 1 tab PO DAILY 10/29/19 01/13/22 History [Centrum Silver Tablet] Omeprazole 20 mg PO BID 10/29/19 01/13/22 History Albuterol Inhaler [Ventolin Hfa 2 puff INHALATION RT-QID PRN 09/17/21 01/13/22 History Inhaler] Benazepril HCl [Lotensin] 20 mg PO DAILY 09/17/21 01/13/22 History Fluticasone/Umeclidin/Vilanter 1 puff INHALATION RT-DAILY 09/17/21 01/13/22 History [Al Ellipta 100-62.5-25] Atorvastatin [Lipitor] 40 mg PO DAILY #30 tab 09/20/21 01/13/22 Rx Clopidogrel [Plavix] 75 mg PO DAILY #30 tab 09/20/21 01/13/22 Rx Metoprolol Succinate (ER) [Toprol 25 mg PO DAILY 12/27/21 01/13/22 History XL] Levalbuterol Nebulized [Xopenex 1.25 mg INHALATION RT-TID PRN 01/13/22 01/13/22 History Nebulized] Nitroglycerin Sl Tabs [Nitrostat] 0.4 mg SUBLINGUAL Q5M PRN 01/13/22 01/13/22 History Allergies Allergy/AdvReac Type Severity Reaction Status Date / Time budesonide [From Symbicort] Allergy Unknown Swelling Verified 01/13/22 21:02 of Tongue & Lips fluticasone Allergy Unknown Swelling Verified 01/13/22 21:02 [From Advair Diskus] of Tongue & Lips formoterol [From Symbicort] Allergy Unknown Swelling Verified 01/13/22 21:02 of Tongue & Lips milk Allergy Unknown Unknown Verified 01/13/22 21:02 salmeterol Allergy Unknown Swelling Verified 01/13/22 21:02 [From Advair Diskus] of Tongue and Lips amoxicillin [From Augmentin] Allergy Nausea & Verified 01/13/22 21:02 Vomiting clavulanic acid Allergy Nausea & Verified 01/13/22 21:02 [From Augmentin] Vomiting adhesive tape AdvReac Unknown irritated Verified 01/13/22 21:02 skin Physical Exam Vitals: Vital Signs Temp Pulse Resp BP Pulse Ox 01/13/22 18:17 97.9 F 78 18 110/66 95 Intake and Output 01/13/22 01/13/22 01/13/22 06:59 14:59 22:59 Other: Weight 87.09 kg Constitutional: No acute distress, conversant, pleasant Eyes: Anicteric sclerae, moist conjunctiva, Pupils equal round reactive to light ENMT: NC/AT Oropharynx clear, no erythema, or exudates Neck: Supple, FROM, no masses, or JVD No carotid bruits No thyromegaly Lungs: Clear to auscultation Clear to percussion Normal respiratory effort, no accessory muscle use Cardiovascular: Heart regular in rate and rhythm, No murmurs, gallops, or rubs No peripheral edema Abdominal: Soft Nontender, no guarding, rebound or rigidity Abdomen moving with respiration Normoactive bowel sounds No hepatomegaly, No splenomegaly No palpable mass No abdominal wall hernia noted Skin: Normal temperature, tone, texture, turgor No induration No subcutaneous nodules No rash, lesions No ulcers Extremities: No digital cyanosis No clubbing Pedal pulses intact and symmetrical Radial pulses intact and symmetrical No calf tenderness Psychiatric: Alert and oriented to person, place and time Appropriate affect fair judgement Neuro Muscles Strength 4/5 in all 4 extremities Sensation to light touch grossly present throughout Cranial nerves II-XII grossly intact No focal sensory deficits Lymphatics: no palpable cervical or supraclavicular , or inguinal lymph nodes Results CBC & Chem 7: 01/13/22 Unknown 01/13/22 Unknown Labs: Abnormal Lab Results - Last 24 Hours (Table) 01/13/22 01/13/22 01/13/22 Range/Units 21:43 Unknown Unknown APTT 19.4 L (22.0-30.0) sec Sodium 136 L (137-145) mmol/L BUN 29 H (7-17) mg/dL Glucose 102 H (74-99) mg/dL Urine Appearance Cloudy H (Clear) Ur Specific [place] 1.046 H (1.001-1.035) Urine Protein 1+ H (Negative) Urine Bilirubin 1+ H (Negative) Ur Squamous Epith Cells 16 H (0-4) /hpf Urine Bacteria Occasional H (None) /hpf Hyaline Casts 14 H (0-2) /lpf Urine Mucus Few H (None) /hpf Coronavirus (PCR) (Not Detectd) 01/13/22 Range/Units Unknown APTT (22.0-30.0) sec Sodium (137-145) mmol/L BUN (7-17) mg/dL Glucose (74-99) mg/dL Urine Appearance (Clear) Ur Specific [place] (1.001-1.035) Urine Protein (Negative) Urine Bilirubin (Negative) Ur Squamous Epith Cells (0-4) /hpf Urine Bacteria (None) /hpf Hyaline Casts (0-2) /lpf Urine Mucus (None) /hpf Coronavirus (PCR) Detected A (Not Detectd) Assessment and Plan Assessment: TIA, symptoms resolved Follow-up with echocardiogram Check A1c, lipid profile Continue with statin and Plavix Fall precautions PT evaluation Neuro consultation Chronic conditions COPD currently compensated Recent history of coronary artery disease continue statin and Plavix Full code Anticipated length of stay less than 2 midnights DVT prophylaxis heparin subcu 3 times a day
[2022-01-14] MEDS ORDERED: LEVOTHYROXINE 50 MCG TAB PO SCH (06:30)
[2022-01-14] MEDS ORDERED: SYMBICORT 80-4.5 MCG INHALER INHALATION SCH (08:00)
[2022-01-14] MEDS ORDERED: NON FORMULARY DRUG (Fluticasone/Umeclidin/Vilanter [Trelegy Ellipta 100-62.5-25] 1 EACH Bl INHALATION SCH (08:00)
[2022-01-14] MEDS ORDERED: IPRATROPIUM 0.5 MG/2.5 ML NEBU INHALATION SCH (08:00)
[2022-01-14] MEDS ORDERED: ALBUTEROL HFA INHALER INHALATION PRN (08:00)
[2022-01-14] MEDS ORDERED: HEPARIN SODIUM,PORCINE/PF 5,000 UNIT/0.5 ML SYRINGE SQ SCH (08:00)
[2022-01-14] MEDS ORDERED: lisinopriL 20 MG TAB PO SCH (09:00)
[2022-01-14] MEDS ORDERED: PANTOPRAZOLE 40 MG TABLET PO SCH (09:00)
[2022-01-14] MEDS ORDERED: METOPROLOL SUCCINATE (ER) 25 MG TAB.ER.24H PO SCH (09:00)
[2022-01-14] MEDS ORDERED: ATORVASTATIN 40 MG TAB PO SCH (09:00)
[2022-01-14] MEDS ORDERED: CLOPIDOGREL 75 MG TAB PO SCH (09:00)
[2022-01-14] MEDS ORDERED: DULoxetine HCL 60 MG CAPSULE.DR PO SCH (09:00)
--- NOTE | 2022-01-14 11:58 | CA ---
Transthoracic Echo Report Name: Meagan Brown Age: 81 Gender: F : 1940 Exam Date: 01/14/2022 07:47 Exam Location: [facility] Ht (in): 62 Wt (lb): 192 Ordering Physician: Paulino Guzman MD Attending/Referring Phys: [id number], Megan [employer] Planning Manager Nat Johns RDCS Procedure CPT: Indications: tia Cardiac Hx: Pt had full echo done on 09/19/21. Limited due to covid exsposure. Technical Quality: Good Contrast 1: Total Dose (mL): Contrast 2: Total Dose (mL): MEASUREMENTS (Male / Female) Normal Values 2D ECHO LV Diastolic Diameter PLAX 3.5 cm 4.2 - 5.9 / 3.9 - 5.3 cm LV Systolic Diameter PLAX 1.5 cm IVS Diastolic Thickness 1.3 cm 0.6 - 1.0 / 0.6 - 0.9 cm LVPW Diastolic Thickness 1.6 cm 0.6 - 1.0 / 0.6 - 0.9 cm LV Relative Wall Thickness 0.8 FINDINGS Left Ventricle Mildly increased septal wall thickness. Severely increased posterior wall thickness. Left ventricular ejection fraction is estimated at 55-60 %. Right Ventricle Right Atrium Left Atrium Mitral Valve Aortic Valve Tricuspid Valve Pulmonic Valve Pericardium No pericardial effusion. Aorta CONCLUSIONS Left ventricular systolic function is normal Previewed by: Dr. Roberto Archuleta MD (Electronically Signed) Final Date: 14 Jan 2022 11:57
[2022-01-14] MEDS ORDERED: ASPIRIN 81 MG PO SCH (12:15)
[2022-01-14 12:17] LABS: Chol/HDL Ratio 3.52 Ratio; LDL Cholesterol,Calculated 100.4 mg/dL (0.0-131.0)
--- NOTE | 2022-01-14 14:10 | MR ---
EXAMINATION TYPE: MR brain wo con DATE OF EXAM: 01/14/2022 COMPARISON: 01/13/2022 HISTORY: Recurrent TIA/stroke. CONTRAST: Performed utilizing 0 mL intravenous Gadavist gadolinium contrast. TECHNIQUE: Multiplanar, multiecho imaging on a 3.0 Natalie magnet is performed through the brain. Stud y is performed within 24 hours of arrival to the hospital. The craniovertebral junction is normal. The pituitary is normal. Diffusion-weighted imaging is performed. No abnormal hyperintensity is present to suggest an acute i ntracranial infarct or acute ischemic change. Note is made of a old lacunar infarct or Virchow-Giovanni space right basal ganglion present previously. There are scattered punctate areas of hyperintensity on T2 and Inversion Recovery weighted sequences which are non-specific but can be related to microvascular ischemic changes. There is similar hyperin tensity within the brainstem. Deep white matter changes include right basal ganglion. Ventricles and sulci are prominent for the patient age. IMPRESSIONS: 1. Findings suggestive for chronic white matter ischemic changes within periventricular and deep whit e matter including brainstem and basal ganglion. No acute ischemic changes identified on diffusion.
--- NOTE | 2022-01-14 16:21 | P.CNNES ---
History of Present Illness Consult date: 01/14/22 Requesting physician: Dillon Conner Reason for Consult: TIA History of Present Illness: Patient is a 81-year-old right-handed female came to the hospital yesterday at 4:56 PM for possible TIA. Patient was diagnosed with Covid 3 days after Mother's Day on 12/28/2021. She did not require any treatment, stayed home and was feeling better. She just had some body aches, headache, nausea no temperature. Earlier this week patient's symptoms got worse, with increased headache, nausea, stomach pain, that would occur periodically and go away. Yesterday she had a few episodes of TIA, in which her right hand became numb twice, each lasting for 5 minutes. Patient also had some slurred speech, which occurred on and off for 3 hours. There was no associated paresthesias involving the facial region or the leg. No visual symptoms. Due to these symptoms patient's family brought her to the hospital. Vital signs arrival blood pressure 110/66 pulse is 70 temperature 97.9. Blood test shows normal CBC, normal PT/PTT, sodium 136 potassium 4.3, normal renal functions. Hepatic panel normal, troponin negative, amylase lipase normal. UA negative, patient is positive for slaughter virus. CT head showed cerebral atrophy and chronic small vessel ischemic change. No acute intracranial prominent. 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 I personally reviewed computed tomography scan of the head and agree with the findings. The right perivascular space is unchanged as compared to CT head from 09/17/2021. There is definite evidence of sinusitis, particularly involving the sphenoid and lesser degree of the ethmoid sinuses bilaterally. Patient had an MRA of the brain 09/18/2017, which was normal. No aneurysm. EKG shows sinus rhythm. Left axis deviation. Patient's last 2-D echo from 09/19/2021 showed normal left ventricular size, mild concentric LVH, overall left ventricular systolic function is moderately impaired with an EF is between 35-40% apical anterior, apical lateral, apical inferior and apical septum left-ventricular wall motion is hypokinetic. Bruce hypokinesis. Left atrium is severely dilated. Cannot exclude bicuspid valve versus fused cusps. Mild MR. Patient was given aspirin 325 mg in the ER. At present patient feels fine. She has no headache. Denies any focal symptoms at this time. Patient's home medications include Cymbalta 60 mg every morning and 30 mg at bedtime, levothyroxine, aspirin 81 mg, Premarin 0.625 mg every other day, multivitamin, Benazepril, Plavix 75 mg, Lipitor 40 mg, metoprolol 25 mg. Patient has history of hypertension. Patient smokes one pack per day for 35 years, quit in 1988 after she was diagnosed with lung cancer. Patient denies diabetes. She does have hyperlipidemia. Patient has been on aspirin regimen, but was switched to Plavix after she had an [place] on 09/17/2021. Review of Systems All 14 point subdural systems reviewed and completely unremarkable except as mentioned in HPI. Past Medical History Past Medical History: Cancer, COPD, GERD/Reflux, Hearing Disorder / Deafness, Hyperlipidemia, Hypertension, Myocardial Infarction ([place]), Osteoarthritis (OA), Sleep Apnea/CPAP/BIPAP, Thyroid Disorder Additional Past Medical History / Comment(s): RECENT FATIGUE, SOB, WHEEZING. EMPHYSEMA, CHRONIC RESPIRATORY INFECTIONS, HX LUNG CANCER WITH LEFT LOBECTOMY (2009), CHRONIC LOWER BACK AND NECK PAIN. NO CPAP USE. Mild difficulty hearing. Last Myocardial Infarction Date:: 09/17/21 History of Any Multi-Drug Resistant Organisms: None Reported Past Surgical History: Cholecystectomy, Heart Catheterization, Hysterectomy, Joint Replacement Additional Past Surgical History / Comment(s): LEFT LOWER LUNG REMOVED, B ILATERAL TOTAL KNEES, LEFT ROTATOR CUFF REPAIR, CATARACTS, CERVICAL LAMINECTOMY. Past Anesthesia/Blood Transfusion Reactions: Previous Problems w/ Anesthesia, Motion Sickness Additional Past Anesthesia/Blood Transfusion Reaction / Comment(s): DIFFICULTY WAKING UP AFTER LUNG SURGERY (5 HRS) AND OVERSEDATED WHILE IN THE HOSPITAL. Past Psychological History: Depression Smoking Status: Former smoker Past Alcohol Use History: None Reported Past Drug Use History: None Reported - Past Family History Mother Family Medical History: Cancer Additional Family Medical History / Comment(s): BREAST CANCER. Sister(s) Family Medical History: Cancer, Pulmonary Embolus Additional Family Medical History / Comment(s): BREAST CANCER. Medications and Allergies Home Medications Medication Instructions Recorded Confirmed Type Aspirin [Adult Low Dose Aspirin EC] 81 mg PO HS 10/29/19 01/13/22 History Calcium Carbonate [Calcium] 600 mg PO BID 10/29/19 01/13/22 History DULoxetine HCL [Cymbalta] 30 mg PO HS 10/29/19 01/13/22 History DULoxetine HCL [Cymbalta] 60 mg PO DAILY 10/29/19 01/13/22 History Flunisolide Nasal [place] [Nasalide] 2 spray EA NOSTRIL BID 10/29/19 01/13/22 History Levothyroxine Sodium [Synthroid] 50 mcg PO DAILY 10/29/19 01/13/22 History Multivit-Min/FA/Lycopen/Lutein 1 tab PO DAILY 10/29/19 01/13/22 History [Centrum Silver Tablet] Omeprazole 20 mg PO BID 10/29/19 01/13/22 History Albuterol Inhaler [Ventolin Hfa 2 puff INHALATION RT-QID PRN 09/17/21 01/13/22 History Inhaler] Benazepril HCl [Lotensin] 20 mg PO DAILY 09/17/21 01/13/22 History Fluticasone/Umeclidin/Vilanter 1 puff INHALATION RT-DAILY 09/17/21 01/13/22 Hi story [Trelegy Ellipta 100-62.5-25] Metoprolol Succinate (ER) [Toprol 25 mg PO DAILY 12/27/21 01/13/22 History XL] Levalbuterol Nebulized [Xopenex 1.25 mg INHALATION RT-TID PRN 01/13/22 01/13/22 History Nebulized] Nitroglycerin Sl Tabs [Nitrostat] 0.4 mg SUBLINGUAL Q5M PRN 01/13/22 01/13/22 History Atorvastatin [Lipitor] 80 mg PO HS 30 Days #30 tab 01/14/22 Rx Ticagrelor [Brilinta] 90 mg PO BID 30 Days #60 tab 01/14/22 Rx Allergies Allergy/AdvReac Type Severity Reaction Status Date / Time budesonide [From Symbicort] Allergy Unknown Swelling Verified 01/13/22 21:02 of Tongue & Lips fluticasone Allergy Unknown Swelling Verified 01/13/22 21:02 [From Advair Diskus] of Tongue & Lips formoterol [From Symbicort] Allergy Unknown Swelling Verified 01/13/22 21:02 of Tongue & Lips milk Allergy Unknown Unknown Verified 01/13/22 21:02 salmeterol Allergy Unknown Swelling Verified 01/13/22 21:02 [From Advair Diskus] of Tongue and Lips amoxicillin [From Augmentin] Allergy Nausea & Verified 01/13/22 21:02 Vomiting clavulanic acid Allergy Nausea & Verified 01/13/22 21:02 [From Augmentin] Vomiting adhesive tape AdvReac Unknown irritated Verified 01/13/22 21:02 skin Physical Examination - Vital Signs Vital Signs: Vital Signs Temp Pulse Resp BP Pulse Ox 01/14/22 06:43 60 16 141/74 01/14/22 05:00 70 16 134/70 01/14/22 00:00 72 16 134/72 01/13/22 18:17 97.9 F 78 18 110/66 95 Intake and Output 01/13/22 01/14/22 01/14/22 22:59 06:59 14:59 Other: Weight 87.09 kg Patient is an elderly female, in no acute distress. Patient is alert awake oriented to time place and person. Speech and language functions are normal. No aphasia or dysarthria. Patient can name and repeat very well. Attention, concentration and fund of knowledge is adequate. On cranial examination, pupils are equal, round and reacting to light, visual leone are full on confrontation, extraocular muscles are intact with no nystagmus. Face is symmetric, tongue protrudes to the midline. Palatal elevation and sensation normal, hearing and shoulder shrug normal, facial sensation normal. Shoulder shrug normal. On muscle strength testing, there is no pronator drift and the strength is normal in arms and legs distally and proximally, except left shoulder which is weak from rotator cuff/arthritis issues. Deep tendon reflexes are 1+ to 2, symmetric and plantars downgoing. Sensory to touch is equal with no neglect. Cerebellar function showed no ataxia for [id number] testing. No dysdiadochokinesia. Tone and bulk of muscles normal. Gait deferred. On general examination, there is no carotid bruit or murmur, S1-S2 audible. Abdomen is soft nontender. No organomegaly. Chest is clear to auscultation. Peripheral pulses are present. No edema. Results - Laboratory Findings CBC and BMP: 01/13/22 Unknown 01/13/22 Unknown Abnormal Lab Findings: Abnormal Labs 01/13/22 01/13/22 01/13/22 21:43 Unknown Unknown APTT 19.4 L Sodium 136 L BUN 29 H Glucose 102 H Urine Appearance Cloudy H Ur Specific [place] 1.046 H Urine Protein 1+ H Urine Bilirubin 1+ H Ur Squamous Epith Cells 16 H Urine Bacteria Occasional H Hyaline Casts 14 H Urine Mucus Few H Coronavirus (PCR) 01/13/22 Unknown APTT Sodium BUN Glucose Urine Appearance Ur Specific [place] Urine Protein Urine Bilirubin Ur Squamous Epith Cells Urine Bacteria Hyaline Casts Urine Mucus Coronavirus (PCR) Detected A Assessment and Plan Assessment: * Probable TIA manifesting with transient slurred speech and right hand numbness. Symptoms completely resolved. * Acute Covid-19 infection since 12/28/2021, currently stable. * Hypertension * Hyperlipidemia * X tobacco use * History of lung cancer, in remission. Plan: * CTA of head and neck revealed atherosclerotic plaque formation without evidence of hemodynamic stenosis at the origin of both ICA. No significant intracranial angiographic abnormality. * We will check MRI brain evaluate for an acute stroke * Patient's last 2-D echo from 09/19/2021 showed normal left ventricular size, mild concentric LVH, overall left ventricular systolic function is moderately impaired with an EF is between 35-40% apical anterior, apical lateral, apical inferior and apical septum left-ventricular wall motion is hypokinetic. Bruce hypokinesis. Left atrium is severely dilated. Cannot exclude bicuspid valve versus fused cusps. Mild MR. * Repeat 2-D echo pending * Lipid panel * Hemoglobin A1c * Patient at home was on Plavix 75 mg and aspirin 81 mg daily. Consider switching from Plavix to Brilinta 90 mg twice a day because of Plavix failure. Continue aspirin 81 mg daily. * Recommend stopping Premarin if possible, as it can be assisted with hypercoagulable state. * Neurology will follow. Thank you for the consult. Addendum: * Patient's limited 2-D echo performed today revealed normal left-ventricular systolic function. Mildly increased septal wall thickness. Severely increased posterior wall thickness. Left-ventricular ejection fraction is estimated at 55-60%. * Consider event monitor rule out paroxysmal atrial fibrillation. Consider DEIRDRE as an outpatient. * MRI brain revealed findings suggestive for chronic white matter ischemic changes within periventricular and deep white matter including brainstem and basal ganglion. No acute ischemic changes identified on diffusion-weighted images. I personally reviewed MRI of the brain and agree with the findings. * Hemoglobin A1c 5.7 normal * Lipid panel with cholesterol 191, LDL 100.4, HDL 54 and triglycerides 182. Increase Lipitor to 80 mg daily. * Neurologically clear for discharge with the above recommendations. Discussed with primary team. Time with Patient: Greater than 30
--- NOTE | 2022-01-14 16:30 | P.DS ---
Providers Date of admission: 01/13/22 20:53 Expected date of discharge: 01/14/22 Attending physician: Paulino Guzman MD Consults: 01/13/22 20:54 Consult Physician Routine Consulting Provider: Abran Baron Consult Reason/Comments: TIA Do you want consulting provider notified?: Yes, Notify in am Primary care physician: Cooper Saldaña [facility] Course: Discharge Diagnosis: TIA, patient failed outpatient dual antiplatelet therapy with Plavix and aspirin. Patient placed on Brillinta twice daily, atorvastatin increased and pt to continue daily aspirin. Hypertension Hyperlipidemia History of CAD COPD GERD Hypothyroidism History of lung cancer status post left lobectomy Hospital Course: Patient is an 81-year-old female with a past medical history of CAD, hypertension, hyperlipidemia, GERD, hypothyroidism, COPD, and lung cancer status post left lobectomy. She presented to the emergency department secondary to reports of nausea, vomiting, and headache accompanied by an isolated episode of slurred speech and right arm weakness that resolved shortly after. Patient previously diagnosed with Covid 2 weeks ago. She was seen and fully evaluated in the emergency department. CBC, coags, and CMP were unremarkable. Urinalysis negative for infection. Influenza A and influenza B negative. Patient continues to test positive for Covid [address] head revealing cerebral atrophy and chronic small vessel ischemia negative for acute abnormalities, showing a hypodense 1 cm focus in the right temporal lobe unchanged. CTA head and neck revealing atherosclerotic plaque formation without evidence of hemodynamic stenosis and no intracranial abnormalities. EKG showing sinus rhythm at 65 bpm. Troponin 0.026, 0.033, and 0.032. Patient was admitted under services with consultation to neurology. Echocardiogram revealing increased posterior wall thickness with an EF of 55-60% showing no significant valvular abnormalities. MRI suggestive of chronic white matter ischemic changes within periventricular and deep white matter including brainstem and basal ganglion with no acute ischemic changes identified. Hemoglobin A1c 5.7%. Lipid profile revealing elevated triglycerides at 182.00. Because patient experienced symptoms of TIA while taking dual antiplatelet therapy with Plavix and aspirin, Plavix has been discontinued and atorvastatin was increased. Neurology startedpt on Brillinta 90 mg by mouth twice daily in addition to continuing daily Aspirin 81 mg. Premarin also discontinued as this places patient at and increased risk for blood clots and strokes. Patient medically stable for discharge at this time. Patient to follow up outpatient with PCP, cardiology, and neurology. It is recommended patient undergo outpatient treatment with DEIRDRE and Holter monitor to rule out underlying atrial fibrillation. Physical examination: Patient seen and examined at bedside. Vital signs reviewed and stable. General: Nontoxic, no distress and appears stated age. Derm: Skin warm and dry, normal coloration for ethnicity. Head: Atraumatic, normocephalic and symmetric. Eyes: EOMs intact, no lid lag, and anicteric sclera Mouth: no lip lesions, mucus membranes moist Cardiovascular: regular rate and rhythm with normal S1S2, no murmur, positive posterior tibial pulses bilaterally, and cap refill < 2 seconds. Lungs: Respirations even, regular, and unlabored on room air. Lungs CTA bilaterally, no rhonchi, no rales, no wheezing, and no accessory muscle usage. Abdominal: soft, nontender to palpation, no guarding, no appreciable organomegaly Ext: ROM intact. No gross muscle atrophy, no edema, no contractures Neuro: Speech clear, face symmetrical and CN II-XII grossly intact with no noted focal neuro deficits. GCS 15. Psych: Alert and oriented to person, place, time, and situation. Appropriate and pleasant affect. A total of 37 minutes of time were spent preparing this complex discharge summary. Pt was discharged on 01/14/22 at 4:28 PM. I reviewed the documentation as provided by the JOHANN above, who is the original author of this note. I agree with the documented assessment and plan, with the following changes: None Patient Condition at Discharge: Stable Plan - Discharge Summary New Discharge Prescriptions: New Ticagrelor [Brilinta] 90 mg PO BID 30 Days #60 tab Atorvastatin [Lipitor] 80 mg PO HS 30 Days #30 tab Continue DULoxetine HCL [Cymbalta] 60 mg PO DAILY DULoxetine HCL [Cymbalta] 30 mg PO HS Levothyroxine Sodium [Synthroid] 50 mcg PO DAILY Aspirin [Adult Low Dose Aspirin EC] 81 mg PO HS Flunisolide Nasal [place] [Nasalide] 2 spray EA NOSTRIL BID Multivit-Min/FA/Lycopen/Lutein [Centrum Silver Tablet] 1 tab PO DAILY Calcium Carbonate [Calcium] 600 mg PO BID Omeprazole 20 mg PO BID Fluticasone/Umeclidin/Vilanter [Trelegy Ellipta 100-62.5-25] 1 puff INHALATION RT-DAILY Nitroglycerin Sl Tabs [Nitrostat] 0.4 mg SUBLINGUAL Q5M PRN PRN Reason: Chest Pain Benazepril HCl [Lotensin] 20 mg PO DAILY Albuterol Inhaler [Ventolin Hfa Inhaler] 2 puff INHALATION RT-QID PRN PRN Reason: Shortness Of Breath Metoprolol Succinate (ER) [Toprol XL] 25 mg PO DAILY Levalbuterol Nebulized [Xopenex Nebulized] 1.25 mg INHALATION RT-TID PRN PRN Reason: Shortness Of Breath Discontinued Estrogens, Conjugated [Premarin] 0.625 mg PO Q48H Clopidogrel [Plavix] 75 mg PO DAILY #30 tab Atorvastatin [Lipitor] 40 mg PO DAILY #30 tab Discharge Medication List Aspirin [Adult Low Dose Aspirin EC] 81 mg PO HS 10/29/19 [History] Calcium Carbonate [Calcium] 600 mg PO BID 10/29/19 [History] DULoxetine HCL [Cymbalta] 30 mg PO HS 10/29/19 [History] DULoxetine HCL [Cymbalta] 60 mg PO DAILY 10/29/19 [History] Flunisolide Nasal [place] [Nasalide] 2 spray EA NOSTRIL BID 10/29/19 [History] Levothyroxine Sodium [Synthroid] 50 mcg PO DAILY 10/29/19 [History] Multivit-Min/FA/Lycopen/Lutein [Centrum Silver Tablet] 1 tab PO DAILY 10/29/19 [History] Omeprazole 20 mg PO BID 10/29/19 [History] Albuterol Inhaler [Ventolin Hfa Inhaler] 2 puff INHALATION RT-QID PRN 09/17/21 [History] Benazepril HCl [Lotensin] 20 mg PO DAILY 09/17/21 [History] Fluticasone/Umeclidin/Vilanter [Trelegy Ellipta 100-62.5-25] 1 puff INHALATION RT-DAILY 09/17/21 [History] Metoprolol Succinate (ER) [Toprol XL] 25 mg PO DAILY 12/27/21 [History] Levalbuterol Nebulized [Xopenex Nebulized] 1.25 mg INHALATION RT-TID PRN 01/13/22 [History] Nitroglycerin Sl Tabs [Nitrostat] 0.4 mg SUBLINGUAL Q5M PRN 01/13/22 [History] Atorvastatin [Lipitor] 80 mg PO HS 30 Days #30 tab 01/14/22 [Rx] Ticagrelor [Brilinta] 90 mg PO BID 30 Days #60 tab 01/14/22 [Rx] Follow up Appointment(s)/Referral(s): Jesus Canales MD [STAFF PHYSICIAN] - 1 Week Cooper Saldaña DO [Primary Care Provider] - 1-2 days Mindi Jackson MD [REFERRING] - 1 Week Activity/Diet/Wound Care/Special Instructions: Activity: As tolerated. Take breaks as needed. Diet: Heart healthy and carb consistent diet. Avoid salts, or foods with hidden salts such as canned or boxed foods and frozen dinners. Extra salt makes your heart work harder and traps the fluid in your body for longer. Special Instructions: Take all of your medications as directed and remember to keep all of your doctor's appointments and follow-up as needed. It is likely that you had a TIA. Because you experienced these symptoms and likely TIA while taking dual antiplatelet therapy with Plavix and aspirin, Plavix has been discontinued and your atorvastatin was increased and neurology started you on Brillinta 90 mg by mouth twice daily and you will need to continue to take Aspirin 81 mg daily along with this. In addition it is highly recommended that you discontinue Premarin as this causes an increased risk for blood clots and strokes. You will need to follow up outpatient with cardiology (Dr. Canales) and Neurology (Dr. Munroe) and your PCP Dr. Saldaña. Neurology is recommending you discuss a possibility of a DEIRDRE and an event monitor with your speech clinician at your follow-up appointment. Thank you for allowing us to participate in your care, it was truly a pleasure having you for our patient!!! Discharge Disposition: HOME SELF-CARE
[2022-01-14 16:54] VITALS: BP 122/71; PULSE 72; RESP 16
[2022-01-14] MEDS ORDERED: DULoxetine HCL 30 MG CAPSULE.DR PO SCH (21:00)
== END 2022-01-14 17:03 | disposition home or self-care (01) ==
LOC: EC 16:56 → 6NMEDSUR 20:53
PROVIDERS: ADMIT Internal Medicine; ATTEND Internal Medicine
DX: G45.9 Transient cerebral ischemic attack, unspecified (principal); I10 Essential (primary) hypertension; E78.5 Hyperlipidemia, unspecified; I25.10 Atherosclerotic heart disease of native coronary artery without angina pectoris; J43.9 Emphysema, unspecified; K21.9 Gastro-esophageal reflux disease without esophagitis; E03.9 Hypothyroidism, unspecified; U07.1 COVID-19; G43.909 Migraine, unspecified, not intractable, without status migrainosus; M25.50 Pain in unspecified joint; R53.83 Other fatigue; R19.7 Diarrhea, unspecified; R10.9 Unspecified abdominal pain; R11.2 Nausea with vomiting, unspecified; H91.90 Unspecified hearing loss, unspecified ear; I25.2 Old myocardial infarction; M19.90 Unspecified osteoarthritis, unspecified site; G47.30 Sleep apnea, unspecified; G89.29 Other chronic pain; M54.2 Cervicalgia; M54.50 Low back pain, unspecified; F32.A Depression, unspecified; E78.1 Pure hyperglyceridemia; Z85.118 Personal history of other malignant neoplasm of bronchus and lung; Z87.891 Personal history of nicotine dependence; Z96.653 Presence of artificial knee joint, bilateral; Z79.82 Long term (current) use of aspirin; Z79.899 Other long term (current) drug therapy; Z79.890 Hormone replacement therapy; Z88.8 Allergy status to other drugs, medicaments and biological substances; Z91.011 Allergy to milk products; Z88.0 Allergy status to penicillin; Z91.048 Other nonmedicinal substance allergy status; Z90.49 Acquired absence of other specified parts of digestive tract; Z90.710 Acquired absence of both cervix and uterus; Z90.2 Acquired absence of lung [part of]; Z80.3 Family history of malignant neoplasm of breast; Z83.6 Family history of other diseases of the respiratory system; Z79.02 Long term (current) use of antithrombotics/antiplatelets
CPT/HCPCS: 96372; 96374; 96375; 99285; 36415; 94640; 93005; 93308; 80061; 80053; 82150; 83690; 84484 ×2; 85025; 85610; 85730; 81001; 87502; 83036; 87635; 71046; 70496; 70450; 70498; 70551; G0378 ×2; J1200; J0780; J1885; Q9967; J1644

== ENCOUNTER → 2023-03-14 | Outpatient (CLI) | payer MEDICARE ==
--- NOTE | 2023-03-14 14:31 | P.PAINPG ---
PQRS Measure Charge Sheet Comment: HISTORY OF PRESENT ILLNESS: 82 yr old wheelchair bound female w at side as a referral from Dr Devries presents today w severe and chronic neck pain x 3 yrs secondary to DDD, spondylosis and facet arthropathy without myelopathy for evaluation. Pt states pain level is provoked at 6/10 in intensity, constant, localized in the lower cervical spine, sharp in character w shooting pain towards the BL shoulders and BUEs. Pain is provoked by walking/ standing for periods of 15 mi or more, rotation and hyperextension. Pain is alleviated by medications ([place], Prednisone), ice, PT semi weekly x 3 wks in 2019, repositioning and rest. Oswestry axial pain score at 27. PMH: Breast CA, PE, COPD, GERD, Hearing Disorder, Hyperlipidemia, HTN, [place] (2021), OA, SANDRO, Hypothyroidism, MDD PSH: Cervical Laminectomy by Dr Euceda, LLL Lobectomy (2009), Cholecystectomy, Heart Catheterization, Hysterectomy, BL Total Knee Replacement, L RCT Repair, Cataracts SH: Former tobacco user, No ETOH use, No illicit drug use FH: Mo- Breast CA. Sis- CA/ PE. All: See list Meds: See list REVIEW OF ORGAN SYSTEMS: CONSTITUTIONAL: No fevers or chills. No recent weight loss. NEUROLOGICAL: + numbness and tingling along the distal extremities. No seizure disorders or headaches. MUSCULOSKELETAL: + pain PSYCHIATRIC: Denies current depression or suicidal thoughts. Physical Examinations : Constitutional : Cooperative , not in acute distress . Neurologic : Cranial nerve II to XII intact. No focal neurological deficits. Psychiatric : alert & oriented x 3. Matching mood & appropriate affect. Judgment & insight intact. Musculoskeletal : Cervical Spine Motor strength in the deltoid and biceps: Normal right side. Normal Left side Motor strength biceps and the wrist extensors: Normal right side . Normal left side Motor strength in the triceps muscle: Normal right side. Normal left side Deep tendon reflexes: Normal at the biceps. Normal at Brachioradialis. Normal at triceps Vertebral body tenderness to deep palpation over C7 Cervical facet loading test: positive bilaterally Spurling test: positive bilaterally Neck distraction test: positive bilaterally Niall sign: positive bilaterally Lumbar spine Motor strength lower extremities ,thigh and legs 5/5 Right side , 5/5 Left side Deep tendon reflexes : Normal Knee Jerk. Normal Ankle Jerk Vertebral body tenderness over Banda Test positive Lumbar facet Loading Test: positive Right / positive Left Range of motion of the lumbar spine Flexion 30 degrees, extension 10 degrees Straight Leg Raise test: Left/ Right positive at degree Soto test: positive right / positive left. Severe tenderness over the Sacroiliac joint on the Right / Left sides Gaenslen test: positive bilaterally Seated flexion test: positive bilaterally. Sacral spine : Severe tenderness over the Sacroiliac joint: right side / left side Range of motion: Flexion of the lumbar spine <60 degrees Range of motion: Extension of the lumbar spine <20 degrees Gaenslen's Test positive Yong's Test positive Soto test: positive right side / left side Thigh Thrust Test Sacral Thrust Test Imaging: MRI non contrast of the cervical spine from 12/25/22 reviewed Assessment/ Plan : Cervical DDD Recommendation of OSMANI TFESI C7-T1 #1. May need a series of injections for optimal pain relief. Risks, benefits of procedure discussed and patient verbalized understanding. Admits to aspirin or anti- coagulant use or medical history of diabetes. Protocol for discontinuation/ continuation of medications yuly procedure discussed. Minimal anesthesia provided, if clinically indicated, consisting of Versed and Fentanyl. All questions answered. I have spent greater than 30 minutes on patient care today. Dr Beckett was available by phone for the evaluation of this patient. The time was used to review the medical records including relevant urine studies and Prescription history (MAPs), review of the available imaging, evaluation and examination of the patient, coordination of care with the medical staff and if applicable referring physicians, as well as creation of the medical record PQRS Narrative: Smoking Status Former smoker Home Medications: Ambulatory Orders Aspirin [Adult Low Dose Aspirin EC] 81 mg PO HS 10/29/19 Calcium Carbonate [Calcium] 600 mg PO BID 10/29/19 DULoxetine HCL [Cymbalta] 30 mg PO HS 10/29/19 DULoxetine HCL [Cymbalta] 60 mg PO DAILY 10/29/19 Flunisolide Nasal [place] [Nasalide] 2 spray EA NOSTRIL BID 10/29/19 Levothyroxine Sodium [Synthroid] 50 mcg PO DAILY 10/29/19 Multivit-Min/FA/Lycopen/Lutein [Centrum Silver Tablet] 1 tab PO DAILY 10/29/19 Omeprazole 20 mg PO BID 10/29/19 Albuterol Inhaler [Ventolin Hfa Inhaler] 2 puff INHALATION RT-QID PRN 09/17/21 Benazepril HCl [Lotensin] 20 mg PO DAILY 09/17/21 Fluticasone/Umeclidin/Vilanter [Trelegy Ellipta 100-62.5-25] 1 puff INHALATION RT-DAILY 09/17/21 Metoprolol Succinate (ER) [Toprol XL] 25 mg PO DAILY 12/27/21 Levalbuterol Nebulized [Xopenex Nebulized] 1.25 mg INHALATION RT-TID PRN 01/13/22 Nitroglycerin Sl Tabs [Nitrostat] 0.4 mg SUBLINGUAL Q5M PRN 01/13/22 Atorvastatin [Lipitor] 80 mg PO HS 30 Days #30 tab 01/14/22 Ticagrelor [Brilinta] 90 mg PO BID 30 Days #60 tab 01/14/22 Controlled Substance Measures - Controlled Substance Measures Is patient prescribed a controlled substance at discharge?: No
[2023-03-14 14:37] VITALS: BP 123/67; PULSE 82; RESP 16; TEMP 98.1
== END ==
LOC: PNWHC3 13:21
PROVIDERS: ATTEND Specialist
DX: M50.323 Other cervical disc degeneration at C6-C7 level (principal); J44.9 Chronic obstructive pulmonary disease, unspecified; K21.9 Gastro-esophageal reflux disease without esophagitis; E78.5 Hyperlipidemia, unspecified; I10 Essential (primary) hypertension; I25.2 Old myocardial infarction; G47.33 Obstructive sleep apnea (adult) (pediatric); M19.90 Unspecified osteoarthritis, unspecified site; E03.9 Hypothyroidism, unspecified; Z85.3 Personal history of malignant neoplasm of breast; M47.812 Spondylosis without myelopathy or radiculopathy, cervical region; F32.9 Major depressive disorder, single episode, unspecified; I26.99 Other pulmonary embolism without acute cor pulmonale; G89.29 Other chronic pain; Z79.82 Long term (current) use of aspirin; Z79.51 Long term (current) use of inhaled steroids; Z79.890 Hormone replacement therapy; Z79.899 Other long term (current) drug therapy; Z87.891 Personal history of nicotine dependence; Z91.011 Allergy to milk products; Z88.0 Allergy status to penicillin; Z91.048 Other nonmedicinal substance allergy status; Z88.8 Allergy status to other drugs, medicaments and biological substances
CPT/HCPCS: 99211

== ENCOUNTER → 2023-04-17 | Day surgery (SDC) | payer MEDICARE ==
[2023-04-09 14:25] VITALS: BMI 31.9
[~2023-04-17] MED LIST changes: -ALBUTEROL NEB (CONC) 2.5 MG/0.5 ML INHALATION ONE; -ATROPINE SULFATE 0.4 MG/ML 1 ML VIAL IM ONE; -LIDOCAINE 1% (10MG/ML) FOR IV START INTRADERMA PRN; -LIDOCAINE 2% (PF) 20 MG/ML 5 ML VIAL INHALATION ONE; -LIDOCAINE VISCOUS 300 MG/15 ML CUP MUCOUS MEM ONE; -SODIUM CHLORIDE 0.9% 1,000 ML IV SCH
[2023-04-17 13:25] LABS: Glucose,Whole Blood 100 mg/dL (70-110)
[2023-04-17 13:28] VITALS: BP 138/80; PULSE 88; RESP 17; TEMP 97.6
--- NOTE | 2023-04-17 14:02 | P.PN ---
Progress Note - Text Progress Note Date: 04/17/23 Patient with a history of chronic severe neck pain and low back pain, she was scheduled to have cervical transforaminal epidural steroid injection, after we brought patient to the procedure room, she reported that currently most of her pain in the lumbar area and she does not want to have cervical injection, we try to get prior authorization from the insurance company to perform this lumbar epidural steroid injection at L4 5, we could not get prior authorization to do it, for this reason the procedure today was canceled, and the patient will be scheduled to have lumbar epidural steroid injection at L4 5, to treat her lumbar degenerative disc disease and lumbar spondylosis with lumbar facet arthropathy
== END ==
LOC: ORPAIN 12:53
PROVIDERS: ATTEND Specialist
DX: Z53.8 Procedure and treatment not carried out for other reasons (principal); M51.36 Other intervertebral disc degeneration, lumbar region; M47.816 Spondylosis without myelopathy or radiculopathy, lumbar region

== ENCOUNTER 2023-06-05 12:11 | Day surgery (SDC) | payer MEDICARE ==
[2023-06-05 12:56] LABS: Glucose,Whole Blood 104 mg/dL (70-110)
[2023-06-05 13:15] VITALS: RESP 16; TEMP 97.5
[2023-06-05] MEDS ORDERED: methylPREDNISolone ACETATE 40 MG/ML 1 ML VIAL ONE (13:19)
[2023-06-05] MEDS ORDERED: IOPAMIDOL M200 10 ML VIAL ONE (13:19)
--- NOTE | 2023-06-05 13:26 | P.PCN ---
Date of Procedure: 06/05/23 Procedure(s) Performed: PREOPERATIVE DIAGNOSIS: 1- Lumbar Degenerative Disc Diseases 2-Lumbar spondylosis with Facet arthropathy without myelopathy. POSTOPERATIVE DIAGNOSIS: 1-lumbar degenerative disc disease. 2-lumbar spondylosis with facet arthropathy without myelopathy. PROCEDURE 1. Lumbar epidural steroid injection under fluoroscopic guidance at the L4-5 level. (Fluoroscopy imaging was available in radiology department) 2. Lumbar epidurogram. ANESTHESIA: Lidocaine 1% 3 and then only. EBL: Minimal PROCEDURE INDICATION: The patient with low back pain and radiculitis symptoms unresponsive to conservative treatment. Fluoroscopy was used to optimize visualization of the needle placement and to maximize safety. PROCEDURE DESCRIPTION / TECHNIQUE: The patient was seen and identified in the preoperative area. Risks, benefits, complications including but not limited to infections ,bleeding ,allergic reaction to the medications ,nerve damage and not complete pain releife , and alternatives were discussed with the patient. The patient agreed to proceed with the procedure and signed the consent, and vital signs were stable. Patient was taken to the OR and time out was completed. The patient was placed in the prone position on procedure table and a pillow was placed under the abdomen to reduce lumbar lordosis. The lumbosacral area was prepped and draped in the usual sterile fashion.ere closely monitored during the procedure. Vital signs was monitered during the entire procedure. Using anterior-posterior fluoroscopy, the L4-5 interlaminar space was identified and the skin over this site was marked and then infiltrated with 1% lidocaine subcutaneously. Subsequently, a 20-gauge Tuohy epidural needle was inserted and advanced toward the epidural space using the ``Loss of resistance technique and guided by AP and lateral fluoroscopy. The correct needle position in the epidural space was verified with the injection of 2 mL of the water soluble contrast dye Isovue 200 contrast and observing an excellent epidurogram with the epidural spread of the dye, after negative aspiration for blood and CSF and in the absence of paresthesias. Again after negative aspiration, a 6 ml mixture containing 40 mg of Depo-medrol ( Preservetive Free ), and 2 ml of preservative free Normal Saline, and 2 ml of preservative free lidocaine 1% solution was injected and a washout of epidurogram was seen. Needle was withdrawn intact, skin was cleansed, and bandages were applied. COMPLICATIONS: None DISPOSITION / PLANS: The patient was placed in a supine position and transferred to the recovery area in a stable condition for observation. There was no buck dence of lower extremity motor or sensory deficit after the procedure. Patient was discharged from the recovery room after meeting discharge criteria. Home discharge instructions were given to the patient by the staff. The patient was reexamined prior to discharge. The patient will schedule a follow up in the clinic in 2-4 weeks.
--- NOTE | 2023-06-05 13:37 | FL ---
Intraoperative/procedural fluoroscopic services were provided for lumbar epidural steroid injection. Total fluoroscopy time is 4.3 seconds with a total of 1 submitted image to PACS. Total DAP 0.23088 mG ym2. Please see the operative note for further details.
[2023-06-05 13:54] VITALS: BP 156/81; PULSE 72
== END 2023-06-05 14:09 | disposition home or self-care (01) ==
LOC: ORPAIN 12:11
PROVIDERS: ATTEND Specialist
DX: M51.16 Intervertebral disc disorders with radiculopathy, lumbar region (principal); M47.26 Other spondylosis with radiculopathy, lumbar region; Z88.8 Allergy status to other drugs, medicaments and biological substances
CPT/HCPCS: 62323; J1030; Q9966

== ENCOUNTER → 2023-06-21 | Outpatient (CLI) | payer MEDICARE ==
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
[2023-06-21 14:12] VITALS: BP 128/76; PULSE 86; RESP 13; TEMP 98.4
== END ==
LOC: PNWHC3 13:04
PROVIDERS: ATTEND Anesthesiology
DX: M51.37 Other intervertebral disc degeneration, lumbosacral region (principal); Z87.891 Personal history of nicotine dependence; Z79.82 Long term (current) use of aspirin; Z91.011 Allergy to milk products; Z88.0 Allergy status to penicillin; Z88.8 Allergy status to other drugs, medicaments and biological substances; Z91.048 Other nonmedicinal substance allergy status
CPT/HCPCS: 99211

== ENCOUNTER 2023-07-18 11:57 | Day surgery (SDC) | payer MEDICARE ==
[2023-07-17 12:05] VITALS: BMI 32.8
[~2023-07-18 11:57] MED LIST changes: +ATROPINE SULFATE 0.4 MG/ML 1 ML VIAL IM ONE; +LIDOCAINE 1% (10MG/ML) FOR IV START INTRADERMA PRN
[2023-07-18 13:18] LABS: Glucose,Whole Blood 95 mg/dL (70-110)
[2023-07-18] MEDS ORDERED: MIDAZOLAM 2 MG/2 ML VIAL ONE (13:22)
[2023-07-18] MEDS ORDERED: LIDOCAINE 1% INJ 10MG/ML (20 ML MDV) ONE (13:22)
[2023-07-18] MEDS ORDERED: PROPOFOL 10 MG/ML 20 ML VIAL IV ONE (13:22)
[2023-07-18] MEDS ORDERED: fentaNYL (PF) 50 MCG/ML 2 ML AMP ONE (13:22)
[2023-07-18] MEDS ORDERED: LIDOCAINE 2% INJ 20 MG/ML INTRATRACH ONE (13:40)
[2023-07-18 13:41] VITALS: TEMP 98.3
[2023-07-18 14:13] VITALS: RESP 16
[2023-07-18 14:44] VITALS: BP 154/75; PULSE 84
--- NOTE | 2023-07-18 20:04 | PCN ---
PROCEDURE NOTE This is a Pulmonary/Critical Care Procedure Note. PROCEDURES PERFORMED: Bronchoscopy, airway examination, therapeutic lavage, BAL right middle lobe, BAL left lower lobe, and brushes left lower lobe. PREOPERATIVE DIAGNOSES: Chronic obstructive pulmonary disease, retained secretions, lung cancer, pneumonia. POSTOPERATIVE DIAGNOSES: Chronic obstructive pulmonary disease, retained secretions, lung cancer, pneumonia. LOOM FIXER HELPER: Dr. Rosario. FIRST HYDROGEN TREATER: Dr. Letty Wilkins. ANESTHESIA PROVIDED: General anesthesia. The patient's procedure took place in room #1 [facility]. There was informed consent and universal timeout. DESCRIPTION OF PROCEDURE: After the patient was adequately sedated and being fully monitored, the bronchoscope was inserted through the right nostril. It passed through the right nasopharynx into the oropharynx. The hypopharyngeal structures appeared normal including anterior commissure, true cords, false cords, piriform sinuses, right and left vallecula, epiglottis, etc. Next, after topicalization, the bronchoscope was pushed through the glottic opening into the trachea. The trachea appeared relatively normal. Tracheal rodríguez was sharp. The right and left mainstem were topicalized. Right upper lobe and its 3 segments, the right middle lobe and its 2 segments, right lower lobe and its 5 segments were all evaluated. There was mild to moderate bronchitis throughout. The airways were hyperemic and erythematous. There were thick secretions noted throughout, particularly in the right middle lobe and right lower lobe. There was no dominant mass or tumor. The secretions were suctioned without difficulty. Saline was used to aid in suctioning the secretions. The bronchoscope was then wedged into the right middle lobe, and we did a formal BAL. The fluid was turbid and was sent to the laboratory for analysis. On the left side, likewise, there were airway erythema and hyperemia. There was some mucosal friability. There was no dominant mass or tumor. The left upper lobe proper and its 2 segments and the lingula and its 2 segments were evaluated. Again, secretions were suctioned. In the left lower lobe, there were some areas of abnormality from the previous resection for lung cancer. In that area, we did some brushes, as well as a BAL. The fluid also will be sent for analysis including cytology and microbiology. The patient tolerated the procedure well. There was no dominant mass or tumor. The bronchoscope was withdrawn. The patient will be recovered. MMODL / IJN: [id number] /
[2023-07-19 05:54] LABS: Appearance,BF Blood Tinged (Clear); RBC, Body Fluid 12300 /UL (0-2000)
[2023-07-19 06:01] LABS: Appearance,BF Clear (Clear); RBC, Body Fluid 785 /UL (0-2000)
[2023-07-19 10:32] LABS: Nucleated Cells, Body Fluid 800 /UL
[2023-07-19 10:42] LABS: Nucleated Cells, Body Fluid 445 /UL
== END 2023-07-18 14:38 | disposition home or self-care (01) ==
LOC: ORWHC2ENDO 11:57
PROVIDERS: ATTEND Internal Medicine Critical Care Medicine
DX: J44.0 Chronic obstructive pulmonary disease with (acute) lower respiratory infection (principal); J18.9 Pneumonia, unspecified organism; C34.90 Malignant neoplasm of unspecified part of unspecified bronchus or lung; I25.10 Atherosclerotic heart disease of native coronary artery without angina pectoris; I11.0 Hypertensive heart disease with heart failure; E78.5 Hyperlipidemia, unspecified; G47.33 Obstructive sleep apnea (adult) (pediatric); E07.9 Disorder of thyroid, unspecified; K21.9 Gastro-esophageal reflux disease without esophagitis; H91.90 Unspecified hearing loss, unspecified ear; Z79.52 Long term (current) use of systemic steroids; Z79.890 Hormone replacement therapy; Z79.51 Long term (current) use of inhaled steroids; Z79.899 Other long term (current) drug therapy; Z88.0 Allergy status to penicillin; Z88.1 Allergy status to other antibiotic agents; Z88.2 Allergy status to sulfonamides; Z91.011 Allergy to milk products; Z87.891 Personal history of nicotine dependence; Z96.653 Presence of artificial knee joint, bilateral; Z90.710 Acquired absence of both cervix and uterus; Z90.49 Acquired absence of other specified parts of digestive tract; Z98.890 Other specified postprocedural states
CPT/HCPCS: 88104; 88108; 88305; 89050; 87070; 87205; 87116; 87102; 87206; 31623; 31624; J2001 ×2; J2250; J3010; J2704

== ENCOUNTER 2023-07-20 10:39 | Day surgery (SDC) | payer MEDICARE ==
[2023-07-17 12:05] VITALS: BMI 32.8
[~2023-07-20 10:39] MED LIST changes: -ATROPINE SULFATE 0.4 MG/ML 1 ML VIAL IM ONE; +ATROPINE SULFATE 0.4 MG/ML 1 ML VIAL ONE; -LACTATED RINGERS 1,000 ML IV SCH; -LIDOCAINE 1% (10MG/ML) FOR IV START INTRADERMA PRN
[2023-07-20] MEDS ORDERED: LACTATED RINGERS 1,000 ML IV SCH (10:55)
[2023-07-20 11:18] VITALS: TEMP 97.2
[2023-07-20 11:21] LABS: Glucose,Whole Blood 96 mg/dL (70-110)
[2023-07-20] MEDS ORDERED: ROPIVACAINE 5MG/ML 20ML VIAL ONE (12:11)
[2023-07-20] MEDS ORDERED: fentaNYL (PF) 50 MCG/ML 2 ML AMP ONE (12:11)
[2023-07-20] MEDS ORDERED: methylPREDNISolone ACETATE 40 MG/ML 1 ML VIAL ONE (12:11)
[2023-07-20] MEDS ORDERED: MIDAZOLAM 2 MG/2 ML VIAL ONE (12:11)
--- NOTE | 2023-07-20 12:28 | P.PCN ---
Date of Procedure: 07/20/23 Procedure(s) Performed: PREOPERATIVE DIAGNOSIS : 1- Lumbar spondylosis with Facet Arthropathy without myelopathy . 2- Lumber degenerative disc disease POSTOPERATIVE DIAGNOSIS: 1- Lumbar spondylosis with Facet Arthropathy without myelopathy . 2- Lumber degenerative disc disease PROCEDURE: Diagnostic bilateral L3 , L4 , and L5 medial branch block under fluoroscopy guidance(fluoroscopy images available in the radiology Department ) ( To target the facet joint between Bilateral L4-5 , and L5-S1 )# 1st ANESTHESIA:, Monitored anesthesia care as per anesthesia department. EBL: Minimal COMPLICATION: None PROCEDURE INDICATION: Chronic low back pain secondary to Facet arthropathy unresponsive to conservative treatment. PROCEDURE DESCRIPTION: the patient was seen and identified in the preop holding area , risks and benefits and possible complications of the procedure and alternative were discussed with the patient, and the patient agreed to proceed with the procedure and signed the consent and vital signs monitored during the procedure and fluoroscopy was used to maximize the benefit and accuracy of the needle placement, and sedation was given to decrease patient anxiety, patient was taken to the procedure room and placed in prone position vital signs monitored in the back prepped with chlorhexidine X3 then under strict sterile technique using a right oblique fluoroscopy ,the junction of the transverse process and the superior articulating process of the right L3 , L4 , and L5 vertebra which corresponding to the fluoroscopy image of the eye of the Ilia dog on the block side for the medial branches and subsequently , after local infiltration of skin and subcu tissuies with Ropivacaine 0.5 % , one mL at each level ,then 22-gauge Quincke-type needles , 3 needle was used , each one of them placed at the junction of the base of the transverse process and the superior articular process at the appropriate level, and the needle was advanced until the periosteum contacted, needle placement confirmed with AP oblique and lateral view and after appropriate needle placement confirmed, and after negative aspiration for heme and CSF and there was no paresthesia 1-1/2 mL of Ropivacaine 0.5% mixed with 20 mg Depo-Medrol , then half mL injected at each level after negative aspiration the needle subsequently removed and the same procedure repeated for the left side at left side at L3 , L4 and L5 levels. At the end of the procedure and the needles removed and a bandage applied after the skin was cleaned the cleaning solution patient taken to recovery room in stable condition and monitors in the recovery room for 20-30 minutes and discharged home in stable condition after discharge criteria met and patient will follow up with the pain clinic in 2-4 weeks
[2023-07-20] MEDS ORDERED: IV FLUID CONTINUATION 1,000 ML IV ONE (12:43)
--- NOTE | 2023-07-20 12:51 | FL ---
EXAMINATION TYPE: FL guided pain mgmt statistic DATE OF EXAM: 07/20/2023 HISTORY: Fluoroscopy time Total dose area product (DAP) in uGy*m?, mGy*cm? (or similar): 0.90260 IMPRESSION: 1. Fluoroscopy time.
[2023-07-20 13:05] VITALS: BP 137/81; PULSE 69; RESP 18
== END 2023-07-20 13:27 | disposition home or self-care (01) ==
LOC: ORPAIN 10:39
PROVIDERS: ATTEND Pain Medicine Interventional Pain Medicine
DX: M51.36 Other intervertebral disc degeneration, lumbar region (principal); M47.816 Spondylosis without myelopathy or radiculopathy, lumbar region; G89.29 Other chronic pain; I25.10 Atherosclerotic heart disease of native coronary artery without angina pectoris; I11.0 Hypertensive heart disease with heart failure; I25.2 Old myocardial infarction; E78.5 Hyperlipidemia, unspecified; J44.9 Chronic obstructive pulmonary disease, unspecified; G47.33 Obstructive sleep apnea (adult) (pediatric); I63.9 Cerebral infarction, unspecified; M19.90 Unspecified osteoarthritis, unspecified site; K21.9 Gastro-esophageal reflux disease without esophagitis; Z85.118 Personal history of other malignant neoplasm of bronchus and lung; Z79.2 Long term (current) use of antibiotics; Z79.82 Long term (current) use of aspirin; Z79.899 Other long term (current) drug therapy; Z88.0 Allergy status to penicillin; Z88.6 Allergy status to analgesic agent; Z88.1 Allergy status to other antibiotic agents; Z91.048 Other nonmedicinal substance allergy status; Z98.890 Other specified postprocedural states; Z90.49 Acquired absence of other specified parts of digestive tract; Z90.710 Acquired absence of both cervix and uterus
CPT/HCPCS: 64493; 64494 ×2; J2250; J1030; J3010; J2795

== ENCOUNTER 2023-09-06 13:35 | Emergency (ER) | payer MEDICARE ==
--- NOTE | 2023-09-06 14:57 | XR ---
EXAMINATION TYPE: XR chest 2V DATE OF EXAM: 09/06/2023 COMPARISON: 01/13/2022 TECHNIQUE: PA and lateral views submitted. HISTORY: Shortness of breath FINDINGS: A limited inspiration with small left effusion. Left-sided consolidation and nodularity stable. Posts urgical changes. Atherosclerotic change aorta. Degenerative changes of the spine, osteopenia, and hunter ateral shoulder arthropathy with evidence of previous left-sided rotator cuff tear surgery. Changes o f COPD.. Heart size normal and no overt failure. Osseous structures demonstrate hypertrophic and deg enerative changes of the spine. IMPRESSION: 1. There is COPD with small left pleural effusion and basilar atelectasis favored over infiltrate. 2. There is a nodule in the left upper lobe adjacent to left heart border. Recommend follow-up CT of the chest.
[2023-09-06 15:08] LABS: Basophils % (A) 0 %; Eosinophils # (A) 0.1 k/uL (0-0.7); Eosinophils % (A) 1 %; HCT 40.1 % (34.0-46.0); HGB 12.8 gm/dL (11.4-16.0); Hypochromasia Slight; Lymphocytes # (A) 1.3 k/uL (1.0-4.8); Lymphocytes % (A) 11 %; MCH 29.8 pg (25.0-35.0); MCHC 31.8 g/dL (31.0-37.0); MCV 93.8 fL (80.0-100.0); Mean Platelet Volume 8.6; Monocytes # (A) 0.7 k/uL (0-1.0); Monocytes % (A) 5 %; Neutrophils % (A) 81 %; Platelet Count 309 k/uL (150-450); RBC 4.27 m/uL (3.80-5.40); RDW 13.4 % (11.5-15.5); WBC 12.2 k/uL (3.8-10.6)
--- NOTE | 2023-09-06 15:13 | ED ---
General Adult HPI - General Chief complaint: Shortness of Breath Stated complaint: SOB Time Seen by Provider: 09/06/23 15:04 Source: patient, RN notes reviewed, old records reviewed Mode of arrival: ambulatory Limitations: no limitations - History of Present Illness Initial comments: 83-year-old female presenting with cough which is productive which is been present for many months. Patient has been seen by her primary care provider, she's been on multiple antibiotics. She had bronchoscopy and was diagnosed with rare lung infection for which she was treated. She states her symptoms have not improved. She denies fever. She reports productive cough which is predominantly clear with occasional yellow mucus. No central chest pain. - Related Data Home Medications Medication Instructions Recorded Confirmed Aspirin [Adult Low Dose Aspirin EC] 81 mg PO HS 10/29/19 09/06/23 Calcium Carbonate [Calcium] 600 mg PO BID 10/29/19 09/06/23 DULoxetine HCL [Cymbalta] 60 mg PO BID 10/29/19 09/06/23 Flunisolide Nasal Wilson [Nasalide] 2 spray EA NOSTRIL BID 10/29/19 09/06/23 Levothyroxine Sodium [Synthroid] 50 mcg PO DAILY 10/29/19 09/06/23 Multivit-Min/FA/Lycopen/Lutein 1 tab PO QAM 10/29/19 09/06/23 [Centrum Silver Tablet] Omeprazole 40 mg PO DAILY 10/29/19 09/06/23 Albuterol Inhaler [Ventolin Hfa 2 puff INHALATION RT-QID PRN 09/17/21 09/06/23 Inhaler] Benazepril HCl [Lotensin] 20 mg PO DAILY 09/17/21 09/06/23 Fluticasone/Umeclidin/Vilanter 1 puff INHALATION RT-DAILY 09/17/21 09/06/23 [Trelegy Ellipta 100-62.5-25] Metoprolol Succinate (ER) [Toprol 12.5 mg PO DAILY 12/27/21 09/06/23 XL] Nitroglycerin Sl Tabs [Nitrostat] 0.4 mg SUBLINGUAL Q5M PRN 01/13/22 09/06/23 Atorvastatin [Lipitor] 80 mg PO DAILY 03/27/23 09/06/23 Famotidine 20 mg PO HS 03/27/23 09/06/23 HYDROcodone/APAP 10-325MG [[place] 1 tab PO TID 03/27/23 09/06/23 10-325] Potassium Citrate 99 mg PO HS 03/27/23 09/06/23 predniSONE 5 mg PO DAILY 03/27/23 09/06/23 Fenofibrate Nanocrystallized 145 mg PO DAILY 06/04/23 09/06/23 [Fenofibrate] Prunelax 3 cap PO HS 09/06/23 09/06/23 Previous Rx's Medication Instructions Recorded Levofloxacin [Levaquin] 500 mg PO DAILY 9 Days #9 tab 09/06/23 predniSONE 50 mg PO DAILY #5 tab 09/06/23 Allergies Allergy/AdvReac Type Severity Reaction Status Date / Time fluticasone Allergy Unknown Swelling Verified 09/06/23 15:33 [From Advair Diskus] of Tongue & Lips milk Allergy Unknown Unknown Verified 09/06/23 15:33 salmeterol Allergy Unknown Swelling Verified 09/06/23 15:33 [From Advair Diskus] of Tongue and Lips amoxicillin [From Augmentin] Allergy Nausea & Verified 09/06/23 15:33 Vomiting clavulanic acid Allergy Nausea & Verified 09/06/23 15:33 [From Augmentin] Vomiting adhesive tape AdvReac Unknown irritated Verified 09/06/23 15:33 skin Review of Systems ROS Statement: Those systems with pertinent positive or pertinent negative responses have been documented in the HPI. ROS Other: All systems not noted in ROS Statement are negative. Past Medical History Past Medical History: Coronary Artery Disease (CAD), Cancer, Heart Failure, COPD, CVA/TIA, GERD/Reflux, Hearing Disorder / Deafness, Hyperlipidemia, Hypertension, Myocardial Infarction ([place]), Osteoarthritis (OA), Sleep Apnea/CPAP/BIPAP, Thyroid Disorder Additional Past Medical History / Comment(s): HX CVA 10/2021. HX COVID WITH RESIDUAL SEVERE FATIGUE. EMPHYSEMA, CHRONIC RESPIRATORY INFECTIONS, HX LUNG CANCER WITH LEFT LOBECTOMY (2009). CHRONIC LOWER BACK AND NECK PAIN. NO CPAP USE. CONSTIPATION. 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 COLONOSCOPY, Past Anesthesia/Blood Transfusion Reactions: Previous Problems w/ Anesthesia, Motion Sickness Additional Past Anesthesia/Blood Transfusion Reaction / Comment(s): DIFFICULTY WAKING UP AFTER LUNG SURGERY, TOOK 5 HRS TO WAKE UP AND WAS OVERSEDATED WHILE IN THE HOSPITAL. Hard to wake up with other surgeries also. Past Psychological History: Depression Smoking Status: Former smoker Past Alcohol Use History: None Reported Past Drug Use History: None Reported - Past Family History Mother Family Medical History: Cancer Additional Family Medical History / Comment(s): BREAST CANCER. Sister(s) Family Medical History: Cancer Additional Family Medical History / Comment(s): BREAST CANCER. Daughter(s) Family Medical History: Pulmonary Embolus General Exam Limitations: no limitations General appearance: alert, in no apparent distress Head exam: Present: atraumatic, normocephalic Eye exam: Present: normal appearance, PERRL ENT exam: Present: normal exam Neck exam: Present: normal inspection. Absent: tenderness Respiratory exam: Present: rhonchi. Absent: respiratory distress, chest wall tenderness, accessory muscle use Cardiovascular Exam: Present: regular rate, normal rhythm GI/Abdominal exam: Present: soft. Absent: distended, tenderness, guarding Extremities exam: Present: normal inspection, normal capillary refill. Absent: calf tenderness Neurological exam: Present: alert, oriented X3 Psychiatric exam: Present: normal affect, normal mood Skin exam: Present: warm, dry, intact. Absent: cyanosis, diaphoretic Course Vital Signs 09/06/23 09/06/23 09/06/23 13:37 14:58 16:08 Temperature 97.8 F 97.7 F 97.5 F L Pulse Rate 97 85 71 Respiratory 20 16 18 Rate Blood Pressure 113/77 121/72 128/76 O2 Sat by Pulse 91 L 95 96 Oximetry Medical Decision Making - Medical Decision Making Was pt. sent in by a medical professional or institution (, PA, CHALK TESTER, urgent care, hospital, or long-term...) When possible be specific @ -[No] Did you speak to anyone other than the patient for history (EMS, parent, family, police, friend...)? What history was obtained from this source @ -[No] Did you review nursing and triage notes (agree or disagree)? Why? @ -[I reviewed and agree with nursing and triage notes] Were old charts reviewed (outside hosp., previous admission, EMS record, old EKG, old radiological studies, urgent care reports/EKG's, long-term records)? Report findings @ -[No old charts were reviewed] Differential Diagnosis (chest pain, altered mental status, abdominal pain women, abdominal pain men, vaginal bleeding, weakness, fever, dyspnea, syncope, headache, dizziness, GI bleed, back pain, seizure, CVA, palpatations, mental health, musculoskeletal)? @ Differential Dyspnea: Coronary syndrome, arrhythmia, tamponade, asthma, COPD, pulmonary embolism, pneumonia, pneumothorax, pulmonary effusion, anaphylaxis, diabetic ketoacidosis, flailed chest, pulmonary contusion, diaphragmatic rupture, anemia, neuromuscular, this is not meant to be an all-inclusive list. EKG interpreted by me (3pts min.). @ -[Sinus rhythm rate of 93, TX interval 180, QRS duration 116, QTC 413, T-wave inversion in lead [address] segment depression in the lateral precordium. X-rays interpreted by me (1pt min.). @ -Chest x-ray showing concern for left lower lobe infiltrate CT interpreted by me (1pt min.). @ -[None done] U/S interpreted by me (1pt. min.). @ -[None done] What testing was considered but not performed or refused? (CT, X-rays, U/S, labs)? Why? @ -[None] What meds were considered but not given or refused? Why? @ -[None] Did you discuss the management of the patient with other professionals (professionals i.e. , PA, CHALK TESTER, lab, RT, psych nurse, social media assistant, bench hand machine, teacher, forest fire officer, case picker)? Give summary @ -[No] Was smoking cessation discussed for >3mins.? @ -[No] Was critical care preformed (if so, how long)? @ -[No] Were there social determinants of health that impacted care today? How? (Homelessness, low income, unemployed, alcoholism, drug addiction, transportatio n, low edu. Level, literacy, decrease access to med. care, group home, rehab)? @ -[No] Was there de-escalation of care discussed even if they declined (Discuss DNR or withdrawal of care, Hospice)? DNR status @ -[No] What co-morbidities impacted this encounter? (DM, HTN, Smoking, COPD, CAD, Cancer, CVA, ARF, Chemo, Hep., AIDS, mental health diagnosis, sleep apnea, morbid obesity)? @ -[COPD Was patient admitted / discharged? Hospital course, mention meds given and route, prescriptions, significant lab abnormalities, going to OR and other pertinent info. @ -[83-year-old female with COPD presenting with chronic cough and mild dyspnea over the past several months. Patient had bronchial lavage which was positive for stenotrophomonas, which was susceptible to Levaquin. Patient has normal laboratory testing with the exception of a mild leukocytosis. She has no resp iratory distress. No hypoxia. She has normal white lites, negative troponin, negative BNP. Chest x-ray shows concern for left lower lobe infiltrate. Patient will be covered with Levaquin and steroids. She will follow-up with her senior human resources representative and return to the emergency department if her symptoms should worsen. Undiagnosed new problem with uncertain prognosis? @ -[No] Drug Therapy requiring intensive monitoring for toxicity (Heparin, Nitro, Insulin, Cardizem)? @ -[No] Were any procedures done? @ -[No] Diagnosis/symptom? @ -COPD, pneumonia Acute, or Chronic, or Acute on Chronic? @ -[Acute on chronic Uncomplicated (without systemic symptoms) or Complicated (systemic symptoms)? @ -[default] Side effects of treatment? @ -[No] Exacerbation, Progression, or Severe Exacerbation? @ -[No] Poses a threat to life or bodily function? How? (Chest pain, [place], [place], pneumonia, PE, COPD, DKA, ARF, appy, cholecystitis, CVA, Diverticulitis, Homicidal, Suicidal, threat to staff... and all critical care pts) @ -[Low risk at this time - Lab Data Result diagrams: 09/06/23 14:53 09/06/23 14:53 Lab Results 09/06/23 09/06/23 09/06/23 Range/Units 14:53 14:53 14:53 WBC 12.2 H (3.8-10.6) k/uL RBC 4.27 (3.80-5.40) m/uL Hgb 12.8 (11.4-16.0) gm/dL Hct 40.1 (34.0-46.0) % MCV 93.8 (80.0-100.0) fL MCH 29.8 (25.0-35.0) pg MCHC 31.8 (31.0-37.0) g/dL RDW 13.4 (11.5-15.5) % Plt Count 309 (150-450) k/uL MPV 8.6 Neutrophils % 81 % Lymphocytes % 11 % Monocytes % 5 % Eosinophils % 1 % Basophils % 0 % Neutrophils # 10.0 H (1.3-7.7) k/uL Lymphocytes # 1.3 (1.0-4.8) k/uL Monocytes # 0.7 (0-1.0) k/uL Eosinophils # 0.1 (0-0.7) k/uL Basophils # 0.0 (0-0.2) k/uL Hypochromasia Slight PT 10.7 (10.0-12.5) sec INR 1.0 (<1.2) APTT 22.1 (22.0-30.0) sec Sodium 142 (137-145) mmol/L Potassium 4.3 (3.5-5.1) mmol/L Chloride 105 (98-107) mmol/L Carbon Dioxide 28 (22-30) mmol/L Anion Gap 9 mmol/L BUN 37 H (7-17) mg/dL Creatinine 1.13 H (0.52-1.04) mg/dL Est GFR (CKD-EPI)AfAm 52 (>60 ml/min/1.73 sqM) Est GFR (CKD-EPI)NonAf 45 (>60 ml/min/1.73 sqM) Glucose 113 H (74-99) mg/dL Plasma Lactic Acid Noman (0.7-2.0) mmol/L Calcium 10.3 H (8.4-10.2) mg/dL Total Bilirubin 0.5 (0.2-1.3) mg/dL AST 23 (14-36) U/L ALT 18 (4-34) U/L Alkaline Phosphatase 67 (38-126) U/L Troponin I (0.000-0.034) ng/mL NT-Pro-B Natriuret Pep 474 pg/mL Total Protein 7.0 (6.3-8.2) g/dL Albumin 4.0 (3.5-5.0) g/dL Influenza Type A (PCR) (Not Detectd) Influenza Type B (PCR) (Not Detectd) RSV (PCR) (Not Detectd) SARS-CoV-2 (PCR) (Not Detectd) 09/06/23 09/06/23 09/06/23 Range/Units 14:53 14:53 16:07 WBC (3.8-10.6) k/uL RBC (3.80-5.40) m/uL Hgb (11.4-16.0) gm/dL Hct (34.0-46.0) % MCV (80.0-100.0) fL MCH (25.0-35.0) pg MCHC (31.0-37.0) g/dL RDW (11.5-15.5) % Plt Count (150-450) k/uL MPV Neutrophils % % Lymphocytes % % Monocytes % % Eosinophils % % Basophils % % Neutrophils # (1.3-7.7) k/uL Lymphocytes # (1.0-4.8) k/uL Monocytes # (0-1.0) k/uL Eosinophils # (0-0.7) k/uL Basophils # (0-0.2) k/uL Hypochromasia PT (10.0-12.5) sec INR (<1.2) APTT (22.0-30.0) sec Sodium (137-145) mmol/L Potassium (3.5-5.1) mmol/L Chloride (98-107) mmol/L Carbon Dioxide (22-30) mmol/L Anion Gap mmol/L BUN (7-17) mg/dL Creatinine (0.52-1.04) mg/dL Est GFR (CKD-EPI)AfAm (>60 ml/min/1.73 sqM) Est GFR (CKD-EPI)NonAf (>60 ml/min/1.73 sqM) Glucose (74-99) mg/dL Plasma Lactic Acid Noman 1.3 (0.7-2.0) mmol/L Calcium (8.4-10.2) mg/dL Total Bilirubin (0.2-1.3) mg/dL AST (14-36) U/L ALT (4-34) U/L Alkaline Phosphatase (38-126) U/L Troponin I <0.012 (0.000-0.034) ng/mL NT-Pro-B Natriuret Pep pg/mL Total Protein (6.3-8.2) g/dL Albumin (3.5-5.0) g/dL Influenza Type A (PCR) Not Detected (Not Detectd) Influenza Type B (PCR) Not Detected (Not Detectd) RSV (PCR) Not Detected (Not Detectd) SARS-CoV-2 (PCR) Not Detected (Not Detectd) Disposition Clinical Impression: Acute exacerbation of chronic obstructive pulmonary disease Disposition: HOME SELF-CARE Instructions (If sedation given, give patient instructions): COPD (Chronic Obstructive Pulmonary Disease) (ED) Prescriptions: Levofloxacin [Levaquin] 500 mg PO DAILY 9 Days #9 tab predniSONE 50 mg PO DAILY #5 tab Is patient prescribed a controlled substance at d/c from ED?: No Referrals: Norma Angel MD [Primary Care Provider] - 1-2 days Bhupinder Rosario DO [Doctor of Osteopathic Medicine] - 1-2 days Time of Disposition: 17:28
[2023-09-06 15:19] LABS: Partial Thromboplastin Time 22.1 sec (22.0-30.0); Prothrombin Time 10.7 sec (10.0-12.5)
[2023-09-06 16:00] LABS: ALT 18 U/L (4-34); AST 23 U/L (14-36); African American GFR (CKD) 52 (>60 ml/min/1.73 sqM); Alkaline Phosphatase 67 U/L (38-126); Anion Gap 9 mmol/L; Blood Urea Nitrogen 37 mg/dL (7-17); Calcium 10.3 mg/dL (8.4-10.2); Carbon Dioxide 28 mmol/L (22-30); Chloride 105 mmol/L (98-107); Glucose 113 mg/dL (74-99); Non-African American GFR(CKD) 45 (>60 ml/min/1.73 sqM); Potassium 4.3 mmol/L (3.5-5.1); Sodium 142 mmol/L (137-145); Total Bilirubin 0.5 mg/dL (0.2-1.3)
[2023-09-06 16:05] LABS: NT-Pro-B-Type Natriuretic Pept 474 pg/mL
[2023-09-06] MEDS ORDERED: LEVOFLOXACIN 500 MG TAB PO STA (16:41)
[2023-09-06] MEDS ORDERED: predniSONE 50 MG TAB PO STA (17:25)
[2023-09-06 18:03] VITALS: BP 151/86; PULSE 77; RESP 20; TEMP 97
== END 2023-09-06 17:43 | disposition home or self-care (01) ==
LOC: EC 13:35
DX: J44.1 Chronic obstructive pulmonary disease with (acute) exacerbation (principal); J44.0 Chronic obstructive pulmonary disease with (acute) lower respiratory infection; I11.0 Hypertensive heart disease with heart failure; I50.9 Heart failure, unspecified; I25.2 Old myocardial infarction; I25.10 Atherosclerotic heart disease of native coronary artery without angina pectoris; J43.9 Emphysema, unspecified; K21.9 Gastro-esophageal reflux disease without esophagitis; E78.5 Hyperlipidemia, unspecified; F32.A Depression, unspecified; M19.90 Unspecified osteoarthritis, unspecified site; E07.9 Disorder of thyroid, unspecified; Z20.822 Contact with and (suspected) exposure to COVID-19; Z79.52 Long term (current) use of systemic steroids; Z79.890 Hormone replacement therapy; Z79.899 Other long term (current) drug therapy; Z86.73 Personal history of transient ischemic attack (TIA), and cerebral infarction without residual deficits; Z86.16 Personal history of COVID-19; Z87.891 Personal history of nicotine dependence; Z88.0 Allergy status to penicillin; Z88.1 Allergy status to other antibiotic agents; Z90.49 Acquired absence of other specified parts of digestive tract; Z88.8 Allergy status to other drugs, medicaments and biological substances; Z91.011 Allergy to milk products; Z91.09 Other allergy status, other than to drugs and biological substances
CPT/HCPCS: 36415; 93005; 83880; 80053; 83605; 84484; 85025; 85610; 85730; 87636; 71046; 99285; J7512

== ENCOUNTER 2023-10-24 10:08 | Inpatient (IN) | payer MEDICARE ==
--- NOTE | 2023-10-24 11:35 | ED ---
General Adult HPI - General Chief complaint: Chest Pain Stated complaint: Pain in R side Time Seen by Provider: 10/24/23 10:16 Source: patient, RN notes reviewed, old records reviewed Mode of arrival: wheelchair Limitations: no limitations - History of Present Illness Initial comments: 83-year-old female with progressive dyspnea, complaints of right-sided chest pain and right shoulder pain. Patient states that her dyspnea is been associated with a minor cough and this has been ongoing for several weeks. She developed a right-sided chest pain and right shoulder pain after moving in bed today. She denies substernal chest pain or left-sided chest pain. Denies lower extremity pain or swelling. - Related Data Home Medications Medication Instructions Recorded Confirmed Aspirin [Adult Low Dose Aspirin EC] 81 mg PO HS 10/29/19 09/06/23 Calcium Carbonate [Calcium] 600 mg PO BID 10/29/19 09/06/23 DULoxetine HCL [Cymbalta] 60 mg PO BID 10/29/19 09/06/23 Flunisolide Nasal [place] [Nasalide] 2 spray EA NOSTRIL BID 10/29/19 09/06/23 Levothyroxine Sodium [Synthroid] 50 mcg PO DAILY 10/29/19 09/06/23 Multivit-Min/FA/Lycopen/Lutein 1 tab PO QAM 10/29/19 09/06/23 [Centrum Silver Tablet] Omeprazole 40 mg PO DAILY 10/29/19 09/06/23 Albuterol Inhaler [Ventolin Hfa 2 puff INHALATION RT-QID PRN 09/17/21 09/06/23 Inhaler] Benazepril HCl [Lotensin] 20 mg PO DAILY 09/17/21 09/06/23 Fluticasone/Umeclidin/Vilanter 1 puff INHALATION RT-DAILY 09/17/21 09/06/23 [Trelegy Ellipta 100-62.5-25] Metoprolol Succinate (ER) [Toprol 12.5 mg PO DAILY 12/27/21 09/06/23 XL] Nitroglycerin Sl Tabs [Nitrostat] 0.4 mg SUBLINGUAL Q5M PRN 01/13/22 09/06/23 Atorvastatin [Lipitor] 80 mg PO DAILY 03/27/23 09/06/23 Famotidine 20 mg PO HS 03/27/23 09/06/23 HYDROcodone/APAP 10-325MG [[place] 1 tab PO TID 03/27/23 09/06/23 10-325] Potassium Citrate 99 mg PO HS 03/27/23 09/06/23 predniSONE 5 mg PO DAILY 03/27/23 09/06/23 Fenofibrate Nanocrystallized 145 mg PO DAILY 06/04/23 09/06/23 [Fenofibrate] Prunelax 3 cap PO HS 09/06/23 09/06/23 Previous Rx's Medication Instructions Recorded Levofloxacin [Levaquin] 500 mg PO DAILY 9 Days #9 tab 09/06/23 predniSONE 50 mg PO DAILY #5 tab 09/06/23 Allergies Allergy/AdvReac Type Severity Reaction Status Date / Time fluticasone Allergy Unknown Swelling Verified 10/24/23 10:13 [From Advair Diskus] of Tongue & Lips milk Allergy Unknown Unknown Verified 10/24/23 10:13 salmeterol Allergy Unknown Swelling Verified 10/24/23 10:13 [From Advair Diskus] of Tongue and Lips amoxicillin [From Augmentin] Allergy Nausea & Verified 10/24/23 10:13 Vomiting clavulanic acid Allergy Nausea & Verified 10/24/23 10:13 [From Augmentin] Vomiting adhesive tape AdvReac Unknown irritated Verified 10/24/23 10:13 skin Review of Systems ROS Statement: Those systems with pertinent positive or pertinent negative responses have been documented in the HPI. ROS Other: All systems not noted in ROS Statement are negative. Past Medical History Past Medical History: Coronary Artery Disease (CAD), Cancer, Heart Failure, COPD, CVA/TIA, GERD/Reflux, Hearing Disorder / Deafness, Hyperlipidemia, Hypertension, Myocardial Infarction (OR), Osteoarthritis (OA), Sleep Apnea/CPAP/BIPAP, Thyroid Disorder Additional Past Medical History / Comment(s): HX CVA 10/2021. HX COVID WITH RESIDUAL SEVERE FATIGUE. EMPHYSEMA, CHRONIC RESPIRATORY INFECTIONS, HX LUNG CANCER WITH LEFT LOBECTOMY (2009). CHRONIC LOWER BACK AND NECK PAIN. NO CPAP USE. CONSTIPATION. 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 COLONOSCOPY, Past Anesthesia/Blood Transfusion Reactions: Previous Problems w/ Anesthesia, Motion Sickness Additional Past Anesthesia/Blood Transfusion Reaction / Comment(s): DIFFICULTY WAKING UP AFTER LUNG SURGERY, TOOK 5 HRS TO WAKE UP AND WAS OVERSEDATED WHILE IN THE HOSPITAL. Hard to wake up with other surgeries also. Past Psychological History: Depression Smoking Status: Former smoker Past Alcohol Use History: None Reported Past Drug Use History: None Reported - Past Family History Mother Family Medical History: Cancer Additional Family Medical History / Comment(s): BREAST CANCER. Sister(s) Family Medical History: Cancer Additional Family Medical History / Comment(s): BREAST CANCER. Daughter(s) Family Medical History: Pulmonary Embolus General Exam Limitations: no limitations General appearance: alert, in no apparent distress Head exam: Present: atraumatic, normocephalic Eye exam: Present: normal appearance, PERRL ENT exam: Present: normal exam Neck exam: Present: normal inspection. Absent: tenderness, meningismus Respiratory exam: Present: wheezes, decreased breath sounds. Absent: respiratory distress Cardiovascular Exam: Present: regular rate, normal rhythm GI/Abdominal exam: Present: soft. Absent: distended, tenderness Neurological exam: Present: alert, oriented X3 Psychiatric exam: Present: normal affect, normal mood Skin exam: Present: warm, dry, intact Course Vital Signs 10/24/23 10/24/23 10/24/23 10:11 11:00 13:17 Temperature 98.1 F Pulse Rate 108 H 109 H 108 H Respiratory 18 19 18 Rate Blood Pressure 156/104 173/101 160/95 O2 Sat by Pulse 89 L 298 H 93 L Oximetry Medical Decision Making - Medical Decision Making Was pt. sent in by a medical professional or institution (, PA, DISASTER RECOVERY ANALYST, urgent care, hospital, or snf...) When possible be specific @ -No Did you speak to anyone other than the patient for history (EMS, parent, family, police, friend...)? What history was obtained from this source @ -No Did you review nursing and triage notes (agree or disagree)? Why? @ -I reviewed and agree with nursing and triage notes Were old charts reviewed (outside hosp., previous admission, EMS record, old EKG, old radiological studies, urgent care reports/EKG's, snf records)? Report findings @ -No old charts were reviewed Differential Diagnosis (chest pain, altered mental status, abdominal pain women, abdominal pain men, vaginal bleeding, weakness, fever, dyspnea, syncope, headache, dizziness, GI bleed, back pain, seizure, CVA, palpatations, mental health, musculoskeletal)? @ -Not applicable EKG interpreted by me (3pts min.). @Sinus tachycardia rate of 102, NJ interval 180, QRS duration 121, QTc 423 left ventricular hypertrophy, no ST segment elevation. X-rays interpreted by me (1pt min.). @Chest x-ray showing developing left lower lobe infiltrate, shoulder x-ray negative for fracture or dislocation. Chronic changes. CT interpreted by me (1pt min.). @ -None done U/S interpreted by me (1pt. min.). @ -None done What testing was considered but not performed or refused? (CT, X-rays, U/S, labs)? Why? @ -None What meds were considered but not given or refused? Why? @ -None Did you discuss the management of the patient with other professionals (dario gil i.e. , PA, DISASTER RECOVERY ANALYST, lab, RT, psych nurse, social work administrator, decaler, teacher, precinct commanding officer, case liner)? Give summary @ -No Was smoking cessation discussed for >3mins.? @ -No Was critical care preformed (if so, how long)? @ -No Were there social determinants of health that impacted care today? How? (Homelessness, low income, unemployed, alcoholism, drug addiction, transportation, low edu. Level, literacy, decrease access to med. care, senior care, rehab)? @ -No Was there de-escalation of care discussed even if they declined (Discuss DNR or withdrawal of care, Hospice)? DNR status @ -No What co-morbidities impacted this encounter? (DM, HTN, Smoking, COPD, CAD, Cancer, CVA, ARF, Chemo, Hep., AIDS, mental health diagnosis, sleep apnea, morbid obesity)? @ -[COPD, recurrent pneumonia Was patient admitted / discharged? Hospital course, mention meds given and route, prescriptions, significant lab abnormalities, going to OR and other pertinent info. @83-year-old female with worsening dyspnea, cough, and right-sided chest pain. Chest pain and shoulder pain occurred after minor injury. X-rays are negative for traumatic injury. Patient has a leukocytosis of 16, stable hemoglobin, she does test negative for viruses. Her troponin and BNP are unremarkable. Chest x-ray shows developing infiltrate. The patient will be kept for treatment of COPD and pneumonia. Case discussed with Dr. Colon. Undiagnosed new problem with uncertain prognosis? @ -No Drug Therapy requiring intensive monitoring for toxicity (Heparin, Nitro, Insulin, Cardizem)? @ -No Were any procedures done? @ -No Diagnosis/symptom? @ -COPD, pneumonia Acute, or Chronic, or Acute on Chronic? @Acute Uncomplicated (without systemic symptoms) or Complicated (systemic symptoms)? @ -Default Side effects of treatment? @ -No Exacerbation, Progression, or Severe Exacerbation? @ -No Poses a threat to life or bodily function? How? (Chest pain, USA, OR, pneumonia, PE, COPD, DKA, ARF, appy, cholecystitis, CVA, Diverticulitis, Homicidal, Suicidal, threat to staff... and all critical care pts) @ -Yes, respiratory failure, sepsis - Lab Data Result diagrams: 10/24/23 11:01 10/24/23 11:01 Lab Results 10/24/23 10/24/23 10/24/23 Range/Units 11:01 11:01 11:01 WBC 16.0 H (3.8-10.6) k/uL RBC 4.42 (3.80-5.40) m/uL Hgb 12.8 (11.4-16.0) gm/dL Hct 40.4 (34.0-46.0) % MCV 91.4 (80.0-100.0) fL MCH 29.0 (25.0-35.0) pg MCHC 31.8 (31.0-37.0) g/dL RDW 13.2 (11.5-15.5) % Plt Count 349 (150-450) k/uL MPV 9.2 Neutrophils % 83 % Lymphocytes % 7 % Monocytes % 8 % Eosinophils % 1 % Basophils % 0 % Neutrophils # 13.2 H (1.3-7.7) k/uL Lymphocytes # 1.0 (1.0-4.8) k/uL Monocytes # 1.3 H (0-1.0) k/uL Eosinophils # 0.2 (0-0.7) k/uL Basophils # 0.1 (0-0.2) k/uL Hypochromasia Slight PT 10.8 (10.0-12.5) sec INR 1.0 (<1.2) APTT 22.8 (22.0-30.0) sec Sodium 138 (137-145) mmol/L Potassium 4.7 (3.5-5.1) mmol/L Chloride 104 (98-107) mmol/L Carbon Dioxide 24 (22-30) mmol/L Anion Gap 10 mmol/L BUN 24 H (7-17) mg/dL Creatinine 0.89 (0.52-1.04) mg/dL Est GFR (CKD-EPI)AfAm 69 (>60 ml/min/1.73 sqM) Est GFR (CKD-EPI)NonAf 60 (>60 ml/min/1.73 sqM) Glucose 137 H (74-99) mg/dL Plasma Lactic Acid [place] (0.7-2.0) mmol/L Calcium 9.6 (8.4-10.2) mg/dL Magnesium 1.5 L (1.6-2.3) mg/dL Total Bilirubin 1.1 (0.2-1.3) mg/dL AST 43 H (14-36) U/L ALT 16 (4-34) U/L Alkaline Phosphatase 45 (38-126) U/L Troponin I (0.000-0.034) ng/mL NT-Pro-B Natriuret Pep 1070 pg/mL Total Protein 7.2 (6.3-8.2) g/dL Albumin 3.9 (3.5-5.0) g/dL Influenza Type A (PCR) (Not Detectd) Influenza Type B (PCR) (Not Detectd) RSV (PCR) (Not Detectd) SARS-CoV-2 (PCR) (Not Detectd) 10/24/23 10/24/23 10/24/23 Range/Units 11:01 11:01 11:01 WBC (3.8-10.6) k/uL RBC (3.80-5.40) m/uL Hgb (11.4-16.0) gm/dL Hct (34.0-46.0) % MCV (80.0-100.0) fL MCH (25.0-35.0) pg MCHC (31.0-37.0) g/dL RDW (11.5-15.5) % Plt Count (150-450) k/uL MPV Neutrophils % % Lymphocytes % % Monocytes % % Eosinophils % % Basophils % % Neutrophils # (1.3-7.7) k/uL Lymphocytes # (1.0-4.8) k/uL Monocytes # (0-1.0) k/uL Eosinophils # (0-0.7) k/uL Basophils # (0-0.2) k/uL Hypochromasia PT (10.0-12.5) sec INR (<1.2) APTT (22.0-30.0) sec Sodium (137-145) mmol/L Potassium (3.5-5.1) mmol/L Chloride (98-107) mmol/L Carbon Dioxide (22-30) mmol/L Anion Gap mmol/L BUN (7-17) mg/dL Creatinine (0.52-1.04) mg/dL Est GFR (CKD-EPI)AfAm (>60 ml/min/1.73 sqM) Est GFR (CKD-EPI)NonAf (>60 ml/min/1.73 sqM) Glucose (74-99) mg/dL Plasma Lactic Acid [place] 1.1 (0.7-2.0) mmol/L Calcium (8.4-10.2) mg/dL Magnesium (1.6-2.3) mg/dL Total Bilirubin (0.2-1.3) mg/dL AST (14-36) U/L ALT (4-34) U/L Alkaline Phosphatase (38-126) U/L Troponin I <0.012 (0.000-0.034) ng/mL NT-Pro-B Natriuret Pep pg/mL Total Protein (6.3-8.2) g/dL Albumin (3.5-5.0) g/dL Influenza Type A (PCR) Not Detected (Not Detectd) Influenza Type B (PCR) Not Detected (Not Detectd) RSV (PCR) Not Detected (Not Detectd) SARS-CoV-2 (PCR) Not Detected (Not Detectd) Disposition Clinical Impression: COPD (chronic obstructive pulmonary disease), Pneumonia Disposition: ADMITTED IP TO THIS HOSP Condition: Stable Is patient prescribed a controlled substance at d/c from ED?: No Referrals: Norma Angel MD [Primary Care Provider] - 1-2 days Time of Disposition: 13:41
[2023-10-24 11:50] LABS: ALT 16 U/L (4-34); African American GFR (CKD) 69 (>60 ml/min/1.73 sqM); Albumin 3.9 g/dL (3.5-5.0); Anion Gap 10 mmol/L; Blood Urea Nitrogen 24 mg/dL (7-17); Calcium 9.6 mg/dL (8.4-10.2); Carbon Dioxide 24 mmol/L (22-30); Chloride 104 mmol/L (98-107); Glucose 137 mg/dL (74-99); Non-African American GFR(CKD) 60 (>60 ml/min/1.73 sqM); Sodium 138 mmol/L (137-145); Total Bilirubin 1.1 mg/dL (0.2-1.3); Total Protein 7.2 g/dL (6.3-8.2)
[2023-10-24 11:55] LABS: AST 43 U/L (14-36); Alkaline Phosphatase 45 U/L (38-126); Magnesium 1.5 mg/dL (1.6-2.3); Potassium 4.7 mmol/L (3.5-5.1)
[2023-10-24 11:56] LABS: Partial Thromboplastin Time 22.8 sec (22.0-30.0); Prothrombin Time 10.8 sec (10.0-12.5)
[2023-10-24 11:58] LABS: NT-Pro-B-Type Natriuretic Pept 1070 pg/mL
--- NOTE | 2023-10-24 12:02 | XR ---
EXAMINATION TYPE: XR chest 2V DATE OF EXAM: 10/24/2023 COMPARISON: 09/06/2023 HISTORY: 83 year-old female shortness of breath, difficulty breathing, right-sided pain TECHNIQUE: AP and lateral views FINDINGS: Loss of the subacromial space on both sides compatible with chronic full-thickness rotator cuff tears , repeat study or on the left given prior surgery. The heart is upper limits of normal in size. Diffu se interstitial density. Patchy left basilar opacity. No pleural effusion on the lateral view. IMPRESSION: 1. Borderline heart size. Interstitial density could reflect bronchitis, asthma, or mild pulmonary va scular congestion. Clinically correlate. 2. There may be developing infiltrate at the periphery of the left base. 3. Bilateral chronic full-thickness rotator cuff tears.
[2023-10-24 12:05] LABS: Basophils # (A) 0.1 k/uL (0-0.2); Basophils % (A) 0 %; Eosinophils # (A) 0.2 k/uL (0-0.7); Eosinophils % (A) 1 %; HCT 40.4 % (34.0-46.0); HGB 12.8 gm/dL (11.4-16.0); Hypochromasia Slight; Lymphocytes % (A) 7 %; MCHC 31.8 g/dL (31.0-37.0); MCV 91.4 fL (80.0-100.0); Mean Platelet Volume 9.2; Monocytes # (A) 1.3 k/uL (0-1.0); Monocytes % (A) 8 %; Neutrophils # (A) 13.2 k/uL (1.3-7.7); Neutrophils % (A) 83 %; Platelet Count 349 k/uL (150-450); RBC 4.42 m/uL (3.80-5.40); RDW 13.2 % (11.5-15.5)
--- NOTE | 2023-10-24 12:05 | XR ---
EXAMINATION TYPE: XR shoulder complete 3 views RT DATE OF EXAM: 10/24/2023 Comparison: None Clinical History: 83-year-old female pain Findings: Moderate degenerative change AC joint with joint space narrowing, prominent marginal spurring, and ca psular hypertrophy. There is [id number] abutment of the humeral head with the undersurface of the a cromion with secondary sclerosis. Additional severe loss of cartilage and joint space and the glenohu meral joint. No acute fracture or dislocation. Impression: Moderate to severe right-sided rotator cuff arthropathy. Joint instability with pseudoarticulation of the humeral head with the undersurface of the acromion.
[2023-10-24] MEDS: MORPHINE SULFATE 4 MG/ML SYRINGE IVP PRN (13:34)
[2023-10-24] MEDS ORDERED: NALOXONE 0.4 MG/ML 1 ML VIAL IV PRN (13:41)
[2023-10-24] MEDS: AZITHROMYCIN 500 MG in SODIUM CHLORIDE 0.9% 250 ML IVPB STA (13:59)
[2023-10-24] MEDS: SODIUM CHLORIDE 0.9% 1,000 ML IV SCH (14:07)
[2023-10-24] MEDS: SODIUM CHLORIDE 0.9% 500 ML 500 ML IV ONE (14:08)
[2023-10-24] MEDS: ALBUTEROL NEBULIZED 2.5 MG/3 ML INHALATION STA (14:48)
[2023-10-24] MEDS ORDERED: NITROGLYCERIN SL TABS 0.4 MG TAB SUBLINGUAL PRN (15:25)
[2023-10-24] MEDS ORDERED: IPRATROPIUM-ALBUTEROL 3 ML NEB INHALATION PRN (15:26)
[2023-10-24] MEDS: IPRATROPIUM-ALBUTEROL 3 ML NEB INHALATION SCH (15:43)
[2023-10-24] MEDS ORDERED: methylPREDNISolone SOD SUCCI 125 MG/2 ML VIAL IV SCH (16:00)
[2023-10-24] MEDS: HYDROmorphone 0.5 MG/0.5 ML SYRINGE IVP PRN (16:24)
--- NOTE | 2023-10-24 17:30 | P.CNPUL ---
History of Present Illness Consult date: 10/24/23 Requesting physician: Amber Colon Reason for consult: dyspnea, chest pain Chief complaint: Shortness of breath, right-sided chest pain History of present illness: This is a pleasant [age]-year-old female patient with a known history of hyperlipidemia, hypothyroidism, hypertension, coronary artery disease, chronic obstructive pulmonary disease, former smoker. She also has a history of lung ca ncer back in 2009 with previous left lobectomy. She had presented here to the emergency room this morning with complaints of right-sided chest pain. Pain on inhalation. Cough and congestion. Chest x-ray shows borderline heart size with interstitial density suspicious for bronchitis, asthma or mild pulmonary vascular congestion. Possible early infiltrate of the left base. White count 16.0. Hemoglobin 12.8. Platelets 349. D-dimer 2.18. Sodium 138. Potassium 4.7. Bicarb 24. BUN 24. Creatinine 0.89. Glucose 137. Viral screen negative. proBNP 1070. She is seen today in consultation in the emergency department. She is currently sitting up in a stretcher. Awake and alert in no acute distress. She is having some right-sided chest discomfort. She is maintaining O2 saturations in the 90s on 2 L/min per nasal cannula. Slightly tachycardic. No hemoptysis. Review of Systems REVIEW OF SYSTEMS: CONSTITUTIONAL: Denies any recent significant weight loss or weight gain. EYES: Denies change in vision. EARS, NOSE, MOUTH, THROAT: Denies headaches, denies sore throat. CARDIOVASCULAR: Positive for right-sided chest pain, no palpitations or syncopal episodes. RESPIRATORY: Positive for shortness of breath, cough, congestion no hemoptysis. GASTROINTESTINAL: Denies change in appetite, denies abdominal pain GENITOURINARY: Denies hematuria, denies infections. MUSKULOSKELETAL: Denies pain, denies swelling. INTEGUMENTARY: Denies rash, denies eczema. NEUROLOGICAL: Denies recent memory loss, no recent seizure activity. PSYCHIATRIC: Denies anxiety, denies depression. HEMATOLOGIC/LYMPHATIC: Denies anemia, denies enlarged lymph nodes. Past Medical History Past Medical History: Coronary Artery Disease (CAD), Cancer, Heart Failure, COPD, CVA/TIA, GERD/Reflux, Hearing Disorder / Deafness, Hyperlipidemia, Hypertension, Myocardial Infarction (OR), Osteoarthritis (OA), Sleep Apnea/CPAP/BIPAP, Thyroid Disorder Additional Past Medical History / Comment(s): HX CVA 10/2021. HX COVID WITH RESIDUAL SEVERE FATIGUE. EMPHYSEMA, CHRONIC RESPIRATORY INFECTIONS, HX LUNG CANCER WITH LEFT LOBECTOMY (2009). CHRONIC LOWER BACK AND NECK PAIN. NO CPAP USE. CONSTIPATION. 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 COLONOSCOPY, Past Anesthesia/Blood Transfusion Reactions: Previous Problems w/ Anesthesia, Motion Sickness Additional Past Anesthesia/Blood Transfusion Reaction / Comment(s): DIFFICULTY WAKING UP AFTER LUNG SURGERY, TOOK 5 HRS TO WAKE UP AND WAS OVERSEDATED WHILE IN THE HOSPITAL. Hard to wake up with other surgeries also. Past Psychological History: Depression Smoking Status: Former smoker Past Alcohol Use History: None Reported Past Drug Use History: None Reported - Past Family History Mother Family Medical History: Cancer Additional Family Medical History / Comment(s): BREAST CANCER. Sister(s) Family Medical History: Cancer Additional Family Medical History / Comment(s): BREAST CANCER. Daughter(s) Family Medical History: Pulmonary Embolus Medications and Allergies Home Medications Medication Instructions Recorded Confirmed Type Aspirin [Adult Low Dose Aspirin EC] 81 mg PO HS 10/29/19 10/24/23 History Calcium Carbonate [Calcium] 600 mg PO BID 10/29/19 10/24/23 History DULoxetine HCL [Cymbalta] 60 mg PO BID 10/29/19 10/24/23 History Flunisolide Nasal [place] [Nasalide] 2 spray EA NOSTRIL BID 10/29/19 10/24/23 History Levothyroxine Sodium [Synthroid] 50 mcg PO DAILY 10/29/19 10/24/23 History Multivit-Min/FA/Lycopen/Lutein 1 tab PO QAM 10/29/19 10/24/23 History [Centrum Silver Tablet] Omeprazole 40 mg PO DAILY 10/29/19 10/24/23 History Albuterol Inhaler [Ventolin Hfa 2 puff INHALATION RT-QID PRN 09/17/21 10/24/23 History Inhaler] Benazepril HCl [Lotensin] 20 mg PO DAILY 09/17/21 10/24/23 History Fluticasone/Umeclidin/Vilanter 1 puff INHALATION RT-DAILY 09/17/21 10/24/23 History [Trelegy Ellipta 100-62.5-25] Metoprolol Succinate (ER) [Toprol 12.5 mg PO DAILY 12/27/21 10/24/23 History XL] Nitroglycerin Sl Tabs [Nitrostat] 0.4 mg SUBLINGUAL Q5M PRN 01/13/22 10/24/23 History Atorvastatin [Lipitor] 80 mg PO DAILY 03/27/23 10/24/23 History Famotidine 20 mg PO HS 03/27/23 10/24/23 History HYDROcodone/APAP 10-325MG [[place] 1 tab PO TID 03/27/23 10/24/23 History 10-325] Potassium Citrate 99 mg PO HS 03/27/23 10/24/23 History predniSONE 5 mg PO DAILY 03/27/23 10/24/23 History Fenofibrate Nanocrystallized 145 mg PO DAILY 06/04/23 10/24/23 History [Fenofibrate] Prunelax 3 cap PO HS 09/06/23 10/24/23 History Estrogens, Conjugated [Premarin] 0.45 mg PO DAILY 10/24/23 10/24/23 History Allergies Allergy/AdvReac Type Severity Reaction Status Date / Time fluticasone Allergy Unknown Swelling Verified 10/24/23 14:06 [From Advair Diskus] of Tongue & Lips milk Allergy Unknown Unknown Verified 10/24/23 14:06 salmeterol Allergy Unknown Swelling Verified 10/24/23 14:06 [From Advair Diskus] of Tongue and Lips adhesive tape AdvReac Unknown irritated Verified 10/24/23 14:06 skin amoxicillin [From Augmentin] AdvReac Nausea & Verified 10/24/23 14:06 Vomiting clavulanic acid AdvReac Nausea & Verified 10/24/23 14:06 [From Augmentin] Vomiting Physical Exam Vitals: Vital Signs Temp Pulse Resp BP Pulse Ox 10/24/23 16:55 98.3 F 105 H 16 144/90 94 L 10/24/23 16:00 103 H 12 166/98 96 10/24/23 15:30 105 H 14 158/74 96 10/24/23 15:00 101 H 19 149/78 96 10/24/23 14:51 98 10/24/23 14:47 99 20 149/78 93 L 10/24/23 13:17 108 H 18 160/95 93 L 10/24/23 13:00 101 H 26 H 167/101 10/24/23 12:30 101 H 29 H 153/91 10/24/23 12:00 100 37 H 94 L 10/24/23 11:30 181/103 10/24/23 11:05 173/101 94 L 10/24/23 11:00 109 H 19 173/101 298 H 10/24/23 10:11 98.1 F 108 H 18 156/104 89 L Intake and Output 10/24/23 10/24/23 10/24/23 06:59 14:59 22:59 Other: Weight 92.986 kg GENERAL EXAM: Alert, pleasant 83-year-old female, on 2 L nasal cannula, fairly comfortable in no apparent distress. HEAD: Normocephalic. EYES: Normal reaction of pupils, equal size. NOSE: Clear with pink turbinates. THROAT: No erythema or exudates. NECK: No masses, no JVD. CHEST: No chest wall deformity. LUNGS: Equal air entry with no crackles, wheeze, rhonchi or dullness. CVS: S1 and S2 normal with no audible murmur, regular rhythm. ABDOMEN: No hepatosplenomegaly, normal bowel sounds, no guarding or rigidity. SPINE: No scoliosis or deformity SKIN: No rashes CENTRAL NERVOUS SYSTEM: No focal deficits, tone is normal in all 4 extremities. EXTREMITIES: There is no peripheral edema. No clubbing, no cyanosis. Peripheral pulses are intact. Results - Laboratory Findings CBC and BMP: 10/24/23 11:01 10/24/23 11:01 PT/INR, D-dimer PT 10.8 sec (10.0-12.5) 10/24/23 11:01 INR 1.0 (<1.2) 10/24/23 11:01 D-Dimer 2.18 mg/L FEU (<0.60) H 10/24/23 16:04 Abnormal lab findings: Abnormal Labs 10/24/23 10/24/23 10/24/23 11:01 11:01 16:04 WBC 16.0 H Neutrophils # 13.2 H Monocytes # 1.3 H D-Dimer 2.18 H BUN 24 H Glucose 137 H Magnesium 1.5 L AST 43 H - Diagnostic Findings Chest x-ray: image reviewed Assessment and Plan Assessment: Acute right-sided chest pain with shortness of breath cough and congestion History of chronic obstructive pulmonary disease History of lung cancer in 2009 status post lobectomy on the left Former smoker History of coronary disease Hypertension Hyperlipidemia History of anxiety/depression Hypothyroidism Plan: The patient was seen and evaluated Chest x-ray, labs and medications reviewed Obtain a CT angiogram to rule out pulmonary embolism Add Symbicort, DuoNeb elations, Solu-Medrol Add empiric antibiotics Titrate the FiO2 as tolerated We will continue to follow and make further recommendations based on her clinical status I have personally seen and examined the patient, performed the documentation and the assessment and plan as written. Number of minutes spent on the visit: 20.
--- NOTE | 2023-10-24 17:31 | CT ---
EXAMINATION TYPE: CT angio chest DATE OF EXAM: 10/24/2023 COMPARISON: 09/17/21 HISTORY: chest pain, hypoxemia CT DLP: 696.2 mGycm CONTRAST: CT chest with contrast and 3D reconstruction with MIP imaging is performed with IV Contrast, patient injected with 80 mL of Isovue 370. Contrast-enhanced CT of the chest was performed through the course of the pulmonary arteries with jaimee g and mediastinal window settings submitted. 3D reconstruction with MIP imaging was also performed. PULMONARY ARTERIES: Filling defects within the Main pulmonary arteries right greater than left.as we ll as the segmental and subsegmental branches. No right heart strain LUNGS: Scattered infiltrates seen.No evidence for atelectasis. No pulmonary nodule or mass is detec juliet. No pleural effusion. MEDIASTINUM: Thoracic aorta is of normal caliber,however, evaluation is limited given timing of the contrast bolus. If there is concern for thoracic aortic pathology consider DEIRDRE. Correlate clinicall y . The heart is not enlarged. No evidence for mediastinal mass. No mediastinal lymph nodes greater than 1cm. HILAR STRUCTURES: No evidence for mass. No hilar lymph nodes greater than 1 cm. UPPER ABDOMEN: No significant abnormality is seen. IMPRESSION: 1. Filling defects within the Main pulmonary arteries right greater than left.as well as the segment al and subsegmental branches. No right heart strain
[2023-10-24] MEDS: KETOROLAC 15 MG/ML 1 ML VIAL IVP STA (18:11)
[2023-10-24] MEDS: methylPREDNISolone SOD SUCCI 125 MG/2 ML VIAL IV SCH (18:11)
[2023-10-24] MEDS ORDERED: HEPARIN SODIUM 1,000 UN/ML (10ML VL) IV PRN (18:17)
[2023-10-24] MEDS: HEPARIN SOD,PORK IN 0.45% NACL 25,000 UNIT in 0.45% NACL 1 250ML.BAG IV SCH (18:55)
[2023-10-24] MEDS: HEPARIN SODIUM 1,000 UN/ML (10ML VL) IV ONE (18:55)
--- NOTE | 2023-10-24 19:04 | HP ---
HISTORY AND PHYSICAL CHIEF COMPLAINT: Shortness of breath and right-sided chest pain. HISTORY OF PRESENT ILLNESS: This is an 83-year-old woman with a past medical history of multiple medical problems including COPD, CHF, CVA, TIA, being followed by Dr. Angel. The patient is not feeling well for the past several weeks. The patient had increasing shortness of breath. The patient has also seen Dr. Rosario. The patient also complained of right- sided chest pain. Chest x-ray showed maybe bilateral infiltrates suggestive of pneumonia and the patient was admitted for further evaluation and treatment. There is no history of any fever, rigors, or chills at this time. Initial viral titers are negative. PAST MEDICAL HISTORY: COPD, CHF. Rest of the history and rest of the chart is also reviewed. HOME MEDICATIONS: Reviewed include prednisone. Doses and rest of medications noted. ALLERGIES: Milk. Rest of allergies noted. FAMILY HISTORY: History of breast cancer. SOCIAL HISTORY: No history of smoking. REVIEW OF SYSTEMS: Fourteen-point review is negative except as mentioned earlier. PHYSICAL EXAMINATION: VITAL SIGNS: Pulse is 99, blood pressure 114/70, respirations 20. HEENT: Conjunctivae normal. NECK: No JVD. CARDIOVASCULAR: S1, S2. RESPIRATIONS: Breath sounds diminished at the bases. Bilateral scattered rhonchi and crackles. ABDOMEN: Soft, nontender. NERVOUS SYSTEM: Nonfocal. SKIN: No ulcer, rash, bleeding. JOINTS: No active deforming arthropathy. LABORATORY DATA: Reviewed. WBC 16. ASSESSMENT: 1. Chronic obstructive pulmonary disease acute exacerbation with possibly acute bilateral bibasilar pneumonia. 2. Hypomagnesemia. 3. Right-sided chest pain, possible pleurisy. 4. Rule out pulmonary embolism. 5. History of congestive heart failure. 6. Chronic obstructive pulmonary disease. 7. Gastroesophageal reflux disease. 8. Hypertension. 9. Hyperlipidemia. 10.Multiple complex medical issues. RECOMMENDATIONS AND DISCUSSION: I recommend to continue current management and continue symptomatic treatment, otherwise at this time, I would recommend intensive bronchodilator treatment as well as IV steroids, empiric antibiotics. Pulmonary consultation. NT-proBNP is 1070. The exact etiology of chest pain is unclear. At this point, I would recommend D-dimer and if it is positive, CT angio of chest also to complete the workup. Home medications will be continued once they are confirmed. See orders for further details. Prognosis guarded. Once again, discussed with family at length. Further recommendations to follow. MMODL / IJN: [id number] /
[2023-10-24 19:10] LABS: Basophils % (A) 0 %; Eosinophils % (A) 0 %; HCT 39.2 % (34.0-46.0); HGB 12.4 gm/dL (11.4-16.0); Hypochromasia Slight; Lymphocytes # (A) 1.1 k/uL (1.0-4.8); Lymphocytes % (A) 8 %; MCH 29.1 pg (25.0-35.0); MCHC 31.7 g/dL (31.0-37.0); MCV 91.9 fL (80.0-100.0); Monocytes # (A) 0.8 k/uL (0-1.0); Monocytes % (A) 6 %; Neutrophils # (A) 11.3 k/uL (1.3-7.7); Neutrophils % (A) 84 %; Platelet Count 304 k/uL (150-450); RBC 4.27 m/uL (3.80-5.40); RDW 13.1 % (11.5-15.5); WBC 13.5 k/uL (3.8-10.6)
[2023-10-24 19:27] LABS: Partial Thromboplastin Time 23.7 sec (22.0-30.0); Prothrombin Time 10.8 sec (10.0-12.5)
[2023-10-24] MEDS ORDERED: BUDESONIDE 1 MG/2 ML NEBU INHALATION SCH (20:00)
[2023-10-24] MEDS: FAMOTIDINE 20 MG TAB PO SCH (20:12)
[2023-10-24] MEDS: DULoxetine HCL 60 MG CAPSULE.DR PO SCH (20:12)
[2023-10-24] MEDS: CALCIUM CARBONATE 500 MG CHEWABLE PO SCH (20:12)
[2023-10-24] MEDS: ASPIRIN 81 MG PO SCH (20:12)
[2023-10-24] MEDS: HYDROmorphone 1 MG/ML 1 ML SYRINGE IVP PRN (20:14)
[2023-10-24] MEDS: FLUNISOLIDE EA NOSTRIL SCH (20:18)
[2023-10-24] MEDS ORDERED: NON FORMULARY DRUG (Potassium Citrate [Potassium Citrate] 99 MG Capsule) PO SCH (21:00)
[2023-10-24] MEDS ORDERED: HEPARIN SODIUM,PORCINE 5,000 UNIT/ML 1 ML VIAL SQ SCH (21:00)
[2023-10-25] MEDS: SYMBICORT 80-4.5 MCG INHALER INHALATION SCH (06:06)
[2023-10-25 06:16] LABS: Glucose,Whole Blood 127 mg/dL (70-110)
[2023-10-25] MEDS: LEVOTHYROXINE 50 MCG TAB PO SCH (06:53)
[2023-10-25] MEDS: PANTOPRAZOLE 40 MG TABLET PO SCH (06:53)
[2023-10-25] MEDS: lisinopriL 20 MG TAB PO SCH (08:24)
[2023-10-25] MEDS: MULTIVITAMINS, THERA 1 EACH TAB PO SCH (08:25)
[2023-10-25] MEDS: ATORVASTATIN 80 MG TAB PO SCH (08:25)
[2023-10-25] MEDS: METOPROLOL SUCCINATE (ER) 25 MG TAB.ER.24H PO SCH (08:25)
[2023-10-25] MEDS: FENOFIBRATE 160 MG TAB PO SCH (08:25)
[2023-10-25] MEDS: HYDROcodone/APAP 5-325MG 1 EACH TAB PO PRN (08:26)
[2023-10-25] MEDS: ESTROGENS, CONJUGATED 0.45 MG TAB PO SCH (08:27)
[2023-10-25 08:42] LABS: Basophils % (A) 0 %; Eosinophils % (A) 0 %; HCT 38.7 % (34.0-46.0); HGB 12.3 gm/dL (11.4-16.0); Hypochromasia Slight; Lymphocytes % (A) 7 %; MCH 29.1 pg (25.0-35.0); MCHC 31.8 g/dL (31.0-37.0); MCV 91.5 fL (80.0-100.0); Mean Platelet Volume 8.3; Monocytes # (A) 0.5 k/uL (0-1.0); Monocytes % (A) 4 %; Neutrophils # (A) 11.5 k/uL (1.3-7.7); Neutrophils % (A) 88 %; Platelet Count 319 k/uL (150-450); RBC 4.23 m/uL (3.80-5.40)
[2023-10-25 11:27] LABS: Glucose,Whole Blood 137 mg/dL (70-110)
[2023-10-25] MEDS: AZITHROMYCIN 500 MG in SODIUM CHLORIDE 0.9% 250 ML IVPB SCH (12:27)
--- NOTE | 2023-10-25 12:48 | P.PN ---
Subjective 83-year-old female admitted to for acute hypoxic respiratory failure and chest pain patient usually does not use oxygen and is on 3 L of oxygen at this time patient is found to have bilateral pulmonary embolism. Patient on IV heparin at this time echocardiogram is being obtained. There is no evidence of right ventricle strain on the CAT scan troponin is negative patient magnesium is low which will be replaced. Patient does have history of COPD but not in significant exacerbation at this time patient does have some nonspecific infiltrates and emphysematous changes there may be some bronchitis but no other significant air bronchogram no evidence of pneumonia Rocephin will be discontinued will continue with azithromycin. Will also get procalcitonin level. Constitutional: Denied any fatigue denied any fever. Cardio vascular: denied any chest pain, palpitations Gastrointestinal denied any nausea vomiting Pulmonary: Denied any shortness of breath cough Neurologic denied any new focal deficits All inpatient medications were reviewed and appropriate changes in these medications as dictated in the interval history and assessment and plan. PHYSICAL EXAMINATION: GENERAL: The patient is alert and oriented x3, not in any acute distress. Obese HEENT: Pupils are round and equally reacting to light. EOMI. No scleral icterus. No conjunctival pallor. Normocephalic, atraumatic. No pharyngeal erythema. No thyromegaly. CARDIOVASCULAR: S1 and S2 present. No murmurs, rubs, or gallops. PULMONARY: Chest is clear to auscultation, no wheezing or crackles. ABDOMEN: Soft, nontender, nondistended, normoactive bowel sounds. No palpable o rganomegaly. MUSCULOSKELETAL: No joint swelling or deformity. EXTREMITIES: No cyanosis, clubbing, or pedal edema. NEUROLOGICAL: Gross neurological examination did not reveal any focal deficits. SKIN: No rashes. Assessment and plan -Acute hypoxic respiratory failure secondary to pulmonary embolism: Continue with IV heparin cardiology will be consulted echocardiogram will be obtained. Rocephin will be discontinued as there is no clinical evidence of pneumonia with labs and obtain a procalcitonin level there may be bronchitis will continue with azithromycin -History of COPD without any significant acute exacerbation failed patient also has mild wheeze because of which I will switch her steroid to oral will not require 60 Cusic steroids. -Pneumonia ruled out, CHF rule out -History of lung cancer history of lobectomy in the past -Coronary disease -Hypertension -Hyperlipidemia -Hypothyroidism -Hypomagnesemia magnesium will be replaced Echocardiogram is being obtained to rule out right ventricular strain, cardiology will be consulted, for above-mentioned chronic medical problems david ent with resumed on appropriate home medications. DVT prophylaxis: Patient is being treated for DVT with IV heparin Objective - Vital Signs Vital signs: Vital Signs Temp 97.5 F L 10/25/23 07:51 Pulse 90 10/25/23 11:27 Resp 16 10/25/23 11:27 BP 173/93 10/25/23 11:27 Pulse Ox 93 L 10/25/23 11:27 FiO2 Intake & Output 10/24/23 10/25/23 10/25/23 18:59 06:59 18:59 Intake Total 104.006 152.963 Output Total 100 100 Balance 4.006 52.963 Weight 92.986 kg Intake: IV 10 Invasive Line 1 10 Intake, IV Titration 94.006 152.963 Amount Heparin Sod,Pork in 0.45% 94.006 152.963 NaCl 25,000 unit In 0.45 % NaCl 1 250ml.bag @ 18 UNITS/KG/HR 16.737 mls/hr IV .[id number] [facility] Rx#: [id number] Output: Urine 100 100 Other: Voiding Method Toilet Bedside Commode # Voids 1 - Labs CBC & Chem 7: 10/25/23 07:39 10/24/23 11:01 Labs: Abnormal Lab Results - Last 24 Hours (Table) 10/24/23 10/24/23 10/24/23 Range/Units 16:04 18:34 23:46 WBC 13.5 H (3.8-10.6) k/uL Neutrophils # 11.3 H (1.3-7.7) k/uL APTT 112.4 H* (22.0-30.0) sec D-Dimer 2.18 H (<0.60) mg/L FEU POC Glucose (mg/dL) (70-110) mg/dL 10/25/23 10/25/23 10/25/23 Range/Units 06:15 07:39 07:39 WBC 13.0 H (3.8-10.6) k/uL Neutrophils # 11.5 H (1.3-7.7) k/uL APTT 65.2 H (22.0-30.0) sec D-Dimer (<0.60) mg/L FEU POC Glucose (mg/dL) 127 H (70-110) mg/dL 10/25/23 Range/Units 11:26 WBC (3.8-10.6) k/uL Neutrophils # (1.3-7.7) k/uL APTT (22.0-30.0) sec D-Dimer (<0.60) mg/L FEU POC Glucose (mg/dL) 137 H (70-110) mg/dL
--- NOTE | 2023-10-25 14:46 | P.PN ---
Subjective Progress Note Date: 10/25/23 Principal diagnosis: Acute pulmonary embolism This is a pleasant 83-year-old female patient with a known history of hyperlipidemia, hypothyroidism, hypertension, coronary artery disease, chronic obstructive pulmonary disease, former smoker. She also has a history of lung cancer back in 2009 with previous left lobectomy. She had presented here to the emergency room this morning with complaints of right-sided chest pain. Pain on inhalation. Cough and congestion. Chest x-ray shows borderline heart size with interstitial density suspicious for bronchitis, asthma or mild pulmonary vascular congestion. Possible early infiltrate of the left base. White count 16.0. Hemoglobin 12.8. Platelets 349. D-dimer 2.18. Sodium 138. Potassium 4.7. Bicarb 24. BUN 24. Creatinine 0.89. Glucose 137. Viral screen negative. proBNP 1070. She is seen today in consultation in the emergency department. She is currently sitting up in a stretcher. Awake and alert in no acute distress. She is having some right-sided chest discomfort. She is maintaining O2 saturations in the 90s on 2 L/min per nasal cannula. Slightly tachycardic. No hemoptysis. Patient was reevaluated today on 10/25/2023, patient is feeling a bit better today compared to yesterday, nonetheless she continues to have pleuritic right-sided chest pain with deep inspiration. Shortly after I saw the patient yesterday in the ER, and after reviewing her CT angiogram of the chest, patient was placed on heparin/high intensity as per protocol. Remains on heparin, doing well, and PTT is therapeutic. I ordered an echocardiogram this morning, although the patient does not have any findings on the CT angiogram of the chest to suggest right ventricular strain. PTT today is 65.2, rest of the labs are unremarkable, platelets are 319,000. Procalcitonin level is pending, if normal patient could be off antibiotics Objective - Vital Signs Vital signs: Vital Signs Temp 97.5 F L 10/25/23 07:51 Pulse 90 10/25/23 11:27 Resp 16 10/25/23 11:27 BP 173/93 10/25/23 11:27 Pulse Ox 93 L 10/25/23 11:27 FiO2 Intake & Output 10/24/23 10/25/23 10/25/23 18:59 06:59 18:59 Intake Total 104.006 270.963 Output Total 100 100 Balance 4.006 170.963 Weight 92.986 kg Intake: IV 10 Invasive Line 1 10 Intake, IV Titration 94.006 152.963 Amount Heparin Sod,Pork in 0.45% 94.006 152.963 NaCl 25,000 unit In 0.45 % NaCl 1 250ml.bag @ 18 UNITS/KG/HR 16.737 mls/hr IV .[id number] [facility] Rx#: [id number] Oral 118 Output: Urine 100 100 Other: Voiding Method Toilet Bedside Commode # Voids 1 - Exam GENERAL EXAM: Alert, pleasant 83-year-old female, on 3 L nasal cannula, HEAD: Normocephalic. EYES: Normal reaction of pupils, equal size. NOSE: Clear with pink turbinates. THROAT: No erythema or exudates. NECK: No masses, no JVD. CHEST: No chest wall deformity. LUNGS: Fair bilaterally no crackles rhonchi or wheezes CVS: S1 and S2 normal with no audible murmur, regular rhythm. ABDOMEN: No hepatosplenomegaly, normal bowel sounds, no guarding or rigidity. SKIN: No rashes Theatric: Normal mood, affect and no mental status examination CENTRAL NERVOUS SYSTEM: No focal deficits, tone is normal in all 4 extremities. EXTREMITIES: There is no peripheral edema. No clubbing, no cyanosis. Peripheral pulses are intact. - Labs CBC & Chem 7: 10/25/23 07:39 10/24/23 11:01 Labs: Abnormal Lab Results - Last 24 Hours (Table) 10/24/23 10/24/23 10/24/23 Range/Units 16:04 18:34 23:46 WBC 13.5 H (3.8-10.6) k/uL Neutrophils # 11.3 H (1.3-7.7) k/uL APTT 112.4 H* (22.0-30.0) sec D-Dimer 2.18 H (<0.60) mg/L FEU POC Glucose (mg/dL) (70-110) mg/dL 10/25/23 10/25/23 10/25/23 Range/Units 06:15 07:39 07:39 WBC 13.0 H (3.8-10.6) k/uL Neutrophils # 11.5 H (1.3-7.7) k/uL APTT 65.2 H (22.0-30.0) sec D-Dimer (<0.60) mg/L FEU POC Glucose (mg/dL) 127 H (70-110) mg/dL 10/25/23 Range/Units 11:26 WBC (3.8-10.6) k/uL Neutrophils # (1.3-7.7) k/uL APTT (22.0-30.0) sec D-Dimer (<0.60) mg/L FEU POC Glucose (mg/dL) 137 H (70-110) mg/dL Assessment and Plan Assessment: Impression: Acute hypoxic respiratory failure, multifactorial Acute pulmonary embolism, this was clinically suspected yesterday and confirmed by CT angiogram of the chest Acute pleuritic chest pain secondary to pulmonary embolism 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 Her clinical presentation is mostly a clinical presentation of pulmonary embolism. Recommendation: Continue present supportive care measures Continue heparin and follow the protocol patient will be transition to [facility] tomorrow Ordered echocardiogram, pending Continue antibiotics unless procalcitonin level is normal Continue bronchodilators Will continue to follow Continue pain control as the patient is having right-sided pleuritic chest pain most likely related to infarction related to pulmonary embolism Time with Patient: Less than 30
[2023-10-25] MEDS: MAGNESIUM SULFATE-D5W PMX 1 GM in DEXTROSE/WATER 1 100ML.BAG IVPB SCH (16:19)
[2023-10-25 17:03] LABS: Glucose,Whole Blood 153 mg/dL (70-110)
--- NOTE | 2023-10-25 17:31 | CA ---
Transthoracic Echo Report Name: Meagan Brown Age: 83 Gender: F : 1940 Exam Date: 10/25/2023 14:59 Exam Location: [facility] Ht (in): 67 Wt (lb): 205 Ordering Physician: Alannah Nuñez MD Attending/Referring Phys: Assembly Inspector Helper Alicia Perea RCS Procedure CPT: Indications: pulm embolism Cardiac Hx: Technical Quality: Fair Contrast 1: Total Dose (mL): Contrast 2: Total Dose (mL): MEASUREMENTS (Male / Female) Normal Values 2D ECHO LV Diastolic Diameter PLAX 4.9 cm 4.2 - 5.9 / 3.9 - 5.3 cm LV Systolic Diameter PLAX 3.9 cm IVS Diastolic Thickness 1.4 cm 0.6 - 1.0 / 0.6 - 0.9 cm LVPW Diastolic Thickness 0.9 cm 0.6 - 1.0 / 0.6 - 0.9 cm LV Relative Wall Thickness 0.5 RV Internal Dim ED PLAX 2.4 cm LVOT Diameter 2.4 cm LV Diastolic Volume MOD BP 105.9 cm??? 67 - 155 / 56 - 104 cm??? LV Systolic Volume MOD BP 43.4 cm??? 22 - 58 / 19 - 49 cm??? LV Ejection Fraction MOD BP 59.0 % >= 55 % LV Cardiac Index MOD BP 2289.9 cm???/min???m??? LV Diastolic Volume MOD 4C 117.4 cm??? LV Systolic Volume MOD 4C 43.2 cm??? LV Ejection Fraction MOD 4C 63.2 % LV Cardiac Index MOD 4C 2719.7 cm???/min???m??? LV Diastolic Length 4C 8.1 cm LV Systolic Length 4C 6.7 cm LV Diastolic Volume MOD 2C 93.8 cm??? LV Systolic Volume MOD 2C 41.6 cm??? LV Ejection Fraction MOD 2C 55.7 % LV Cardiac Index MOD 2C 1914.8 cm???/min???m??? LV Diastolic Length 2C 7.9 cm LV Systolic Length 2C 6.4 cm LA Volume 64.5 cm??? 18 - 58 / 22 - 52 cm??? LA Volume Index 30.3 cm???/m??? 16 - 28 cm???/m??? DOPPLER AV Peak Velocity 110.4 cm/s AV Peak Gradient 4.9 mmHg AV Mean Velocity 84.1 cm/s AV Mean Gradient 3.1 mmHg AV Velocity Time Integral 25.9 cm LVOT Peak Velocity 115.6 cm/s LVOT Peak Gradient 5.3 mmHg LVOT Velocity Time Integral 25.8 cm LVOT Stroke Volume 112.2 cm??? LVOT Stroke Volume Index 54.9 ml/m??? LVOT Cardiac Index 4112.2 cm???/min???m??? AV Area Cont Eq vti 4.3 cm??? AV Area Cont Eq pk 4.5 cm??? MR Peak Velocity 159.8 cm/s MR Peak Gradient 10.2 mmHg Mitral E Point Velocity 110.5 cm/s Mitral A Point Velocity 145.3 cm/s Mitral E to A Ratio 0.8 MV Deceleration Time 135.1 ms MV E' Velocity 3.0 cm/s Mitral E to MV E' Ratio 36.9 TR Peak Velocity 230.5 cm/s TR Peak Gradient 21.2 mmHg Right Ventricular Systolic Press 31.6 mmHg PV Peak Velocity 78.3 cm/s PV Peak Gradient 2.5 mmHg FINDINGS Left Ventricle Left ventricular ejection fraction is estimated at 50-55 %. Moderately increased septal wall thickness. Mildly increased left ventricular diastolic volume. No obvious regional wall motion abnormalities. Right Ventricle Normal right ventricular size and function. Right ventricular systolic pressure within normal limits. Right Atrium Normal right atrial size. Left Atrium Mildly increased left atrial volume. Mildly increased left atrial area. Mitral Valve Mitral valve thickened. Mitral annular calcification. Mild mitral stenosis. Trace mitral regurgitation. Aortic Valve Focal thickening of the aortic valve cusps. Fused aortic valve. No aortic stenosis. Trace aortic regurgitation. Tricuspid Valve Structurally normal tricuspid valve. No tricuspid stenosis. Trace tricuspid regurgitation. Pulmonic Valve Structurally normal pulmonic valve. No pulmonic stenosis. Trace pulmonic regurgitation. Pericardium No pericardial effusion. Aorta Normal size aortic root and proximal ascending aorta. CONCLUSIONS Normal LV function Right ventricular size function and pressures are normal Previewed by: Dr. Roberto Archuleta MD (Electronically Signed) Final Date: 25 October 2023 17:30
[2023-10-25 20:11] LABS: Glucose,Whole Blood 154 mg/dL (70-110)
[2023-10-25] MEDS: PANTOPRAZOLE 40 MG/10 ML VIAL IVP SCH (20:55)
[2023-10-25] MEDS: ONDANSETRON 4 MG/2 ML VIAL IVP PRN (20:55)
[2023-10-26] MEDS: METOCLOPRAMIDE 5 MG/ML 2 ML VIAL IVP PRN (05:44)
[2023-10-26 06:08] LABS: Glucose,Whole Blood 150 mg/dL (70-110)
[2023-10-26] MEDS: predniSONE 20 MG TAB PO SCH (08:16)
[2023-10-26 09:01] LABS: HCT 39.3 % (34.0-46.0); HGB 12.8 gm/dL (11.4-16.0); Hypochromasia Slight; MCH 29.6 pg (25.0-35.0); MCHC 32.4 g/dL (31.0-37.0); MCV 91.2 fL (80.0-100.0); Mean Platelet Volume 9.3; Platelet Count 394 k/uL (150-450); RBC 4.31 m/uL (3.80-5.40); RDW 13.3 % (11.5-15.5); WBC 4.5 k/uL (3.8-10.6)
[2023-10-26 09:16] LABS: African American GFR (CKD) 53 (>60 ml/min/1.73 sqM); Anion Gap 9 mmol/L; Blood Urea Nitrogen 46 mg/dL (7-17); Calcium 8.9 mg/dL (8.4-10.2); Carbon Dioxide 23 mmol/L (22-30); Chloride 106 mmol/L (98-107); Glucose 124 mg/dL (74-99); Non-African American GFR(CKD) 46 (>60 ml/min/1.73 sqM); Potassium 4.1 mmol/L (3.5-5.1); Sodium 138 mmol/L (137-145)
--- NOTE | 2023-10-26 10:22 | P.CRDCN ---
History of Present Illness History of present illness: HISTORY OF PRESENT ILLNESS: This is a 83-year-old female with a past medical history significant for hyperlipidemia, COPD, GERD, former nicotine dependence, and history of Takotsubo cardiomyopathy. Patient follows in the office with Dr. Lechuga. We have been asked to see the patient in consultation for pulmonary embolism. Patient examined at the bedside. Patient presented to the hospital with a chief complaint of shortness of breath. Patient was found to have pulmonary embolism was placed on IV heparin. She states that she has been significantly immobile lately due to back pain. She currently denies chest pain or pressure. Vital signs are stable. Telemetry reveals sinus mechanism. DIAGNOSTICS: - EKG reveals sinus tachycardia with nonspecific ST-T wave changes - Chest xray borderline heart size. Interstitial density could reflect bronchitis, asthma, or mild pulmonary vascular congestion. There may be developing infiltrate at the periphery of the left base. - Laboratory data: WBC 13.0. Hemoglobin 12.3. Platelet count 319. D-dimer 2.18. Sodium 138. Potassium 4.7. BUN 24. Creatinine 0.89. Magnesium 1.5. Troponin negative x 1. proBNP 1070. - Current home cardiac medications include metoprolol succinate 12.5 mg daily, Lipitor 80 mg daily, and aspirin 81 mg daily. -CTA: Filling defects within the main pulmonary arteries right greater than left as well as segmental and subsegmental branches. No right heart strain. -Echocardiogram completed revealing ejection fraction 50 to 55%, normal right ventricular size and function, right ventricular systolic pressure within normal limits. Fused aortic valve. Trace aortic regurgitation. Trace tricuspid regurgitation. Trace MR. Trace MS. - Cardiac catheterization history: September 2021 revealing mild triple-vessel disease, left dominant system, mildly elevated LVEDP. Findings were consistent with Takotsubo syndrome. Medical management was recommended. REVIEW OF SYSTEMS: At the time of my exam: CONSTITUTIONAL: Denies fever or chills. HEENT: Denies blurred vision, vision changes, or eye pain. Denies hemoptysis CARDIOVASCULAR: Denies chest pain. Denies orthopnea. Denies PND. Denies palpitations RESPIRATORY: Denies shortness of breath. GASTROINTESTINAL: Denies abdominal pain. Denies nausea or vomiting. HEMATOLOGIC: Denies bleeding disorders. GENITOURINARY: Denies any blood in urine. SKIN: Denies pruitis. Denies rash. PHYSICAL EXAM: VITAL SIGNS: Reviewed. GENERAL: Well-developed in no acute distress. HEENT: Head is normocephalic. Pupils are equal, round. Sclerae anicteric. Mucous membranes of the mouth are moist. Neck supple. No JVD or thyromegaly LUNGS: Respirations even and unlabored. Lungs essentially clear to auscultation bilaterally. HEART: Regular rate and rhythm. S1 and S2 heard. ABDOMEN: Soft. Nondistended. Nontender. EXTREMITIES: Normal range of motion. No clubbing or cyanosis. Peripheral pulses intact. No lower extremity edema NEUROLOGIC: Awake and alert. Oriented x 3. ASSESSMENT: Shortness of breath Acute hypoxic respiratory failure Acute pulmonary embolism without evidence of right heart strain History of Takotsubo, 2021 Hyperlipidemia COPD GERD Former nicotine dependence PLAN: 2D echo obtained and reviewed No evidence of right heart strain on CT or echocardiogram Continue anticoagulation per internal medicine/pulmonary medicine Continue home cardiac medications We will sign off. Please reconsult if needed. Nurse practitioner note has been reviewed by physician. Signing provider agrees with the documented findings, assessment, and plan of care documented by [employer] OPERATOR as a scribe. Past Medical History Past Medical History: Coronary Artery Disease (CAD), Cancer, Heart Failure, COPD, CVA/TIA, GERD/Reflux, Hearing Disorder / Deafness, Hyperlipidemia, Hypertension, Myocardial Infarction ([place]), Osteoarthritis (OA), Sleep Apnea/CPAP/BIPAP, Thyroid Disorder Additional Past Medical History / Comment(s): HX CVA 10/2021. HX COVID WITH RESIDUAL SEVERE FATIGUE. EMPHYSEMA, CHRONIC RESPIRATORY INFECTIONS, HX LUNG CANCER WITH LEFT LOBECTOMY (2009). CHRONIC LOWER BACK AND NECK PAIN. NO CPAP USE. CONSTIPATION. 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 COLONOSCOPY, Past Anesthesia/Blood Transfusion Reactions: Previous Problems w/ Anesthesia, Motion Sickness Additional Past Anesthesia/Blood Transfusion Reaction / Comment(s): DIFFICULTY WAKING UP AFTER LUNG SURGERY, TOOK 5 HRS TO WAKE UP AND WAS OVERSEDATED WHILE IN THE HOSPITAL. Hard to wake up with other surgeries also. Past Psychological History: Depression Smoking Status: Former smoker Past Alcohol Use History: None Reported Past Drug Use History: None Reported - Past Family History Mother Family Medical History: Cancer Additional Family Medical History / Comment(s): BREAST CANCER. Sister(s) Family Medical History: Cancer Additional Family Medical History / Comment(s): BREAST CANCER. Daughter(s) Family Medical History: Pulmonary Embolus Additional Family Medical History / Comment(s): had multiple PE's throughout chest Medications and Allergies Home Medications Medication Instructions Recorded Confirmed Type Aspirin [Adult Low Dose Aspirin EC] 81 mg PO HS 10/29/19 10/24/23 History Calcium Carbonate [Calcium] 600 mg PO BID 10/29/19 10/24/23 History DULoxetine HCL [Cymbalta] 60 mg PO BID 10/29/19 10/24/23 History Flunisolide Nasal Hannibal [Nasalide] 2 spray EA NOSTRIL BID 10/29/19 10/24/23 Hi story Levothyroxine Sodium [Synthroid] 50 mcg PO DAILY 10/29/19 10/24/23 History Multivit-Min/FA/Lycopen/Lutein 1 tab PO QAM 10/29/19 10/24/23 History [Centrum Silver Tablet] Omeprazole 40 mg PO DAILY 10/29/19 10/24/23 History Albuterol Inhaler [Ventolin Hfa 2 puff INHALATION RT-QID PRN 09/17/21 10/24/23 History Inhaler] Benazepril HCl [Lotensin] 20 mg PO DAILY 09/17/21 10/24/23 History Fluticasone/Umeclidin/Vilanter 1 puff INHALATION RT-DAILY 09/17/21 10/24/23 History [Trelegy Ellipta 100-62.5-25] Metoprolol Succinate (ER) [Toprol 12.5 mg PO DAILY 12/27/21 10/24/23 History XL] Nitroglycerin Sl Tabs [Nitrostat] 0.4 mg SUBLINGUAL Q5M PRN 01/13/22 10/24/23 H istory Atorvastatin [Lipitor] 80 mg PO DAILY 03/27/23 10/24/23 History Famotidine 20 mg PO HS 03/27/23 10/24/23 History HYDROcodone/APAP 10-325MG [[place] 1 tab PO TID 03/27/23 10/24/23 History 10-325] Potassium Citrate 99 mg PO HS 03/27/23 10/24/23 History predniSONE 5 mg PO DAILY 03/27/23 10/24/23 History Fenofibrate Nanocrystallized 145 mg PO DAILY 06/04/23 10/24/23 History [Fenofibrate] Prunelax 3 cap PO HS 09/06/23 10/24/23 History Estrogens, Conjugated [Premarin] 0.45 mg PO DAILY 10/24/23 10/24/23 History Allergies Allergy/AdvReac Type Severity Reaction Status Date / Time fluticasone Allergy Unknown Swelling Verified 10/24/23 14:06 [From Advair Diskus] of Tongue & Lips milk Allergy Unknown Unknown Verified 10/24/23 14:06 salmeterol Allergy Unknown Swelling Verified 10/24/23 14:06 [From Advair Diskus] of Tongue and Lips adhesive tape AdvReac Unknown irritated Verified 10/24/23 14:06 skin amoxicillin [From Augmentin] AdvReac Nausea & Verified 10/24/23 14:06 Vomiting clavulanic acid AdvReac Nausea & Verified 10/24/23 14:06 [From Augmentin] Vomiting Physical Exam Vitals: Vital Signs Temp Pulse Pulse Pulse Resp BP Pulse Ox 10/26/23 03:39 97.9 F 97 18 157/90 92 L 10/26/23 00:00 98.0 F 99 20 142/85 92 L 10/25/23 20:00 97.8 F 93 20 128/76 93 L 10/25/23 16:34 88 10/25/23 16:25 86 10/25/23 16:00 81 18 152/82 94 L 10/25/23 11:27 90 16 173/93 93 L 10/25/23 07:51 97.5 F L 101 H 20 167/85 95 Intake and Output 10/25/23 10/26/23 10/26/23 22:59 06:59 14:59 Intake Total 128 Output Total 250 310 50 Balance -122 -310 -50 Intake: IV 10 Invasive Line 1 10 Oral 118 Output: Urine 250 300 Emesis 10 50 Other: Voiding Method Bedside Commode Bedside Commode Results 10/26/23 08:06 10/26/23 08:06 Coagulation 10/25/23 Range/Units 07:39 APTT 65.2 H (22.0-30.0) sec CBC 10/25/23 Range/Units 07:39 WBC 13.0 H (3.8-10.6) k/uL RBC 4.23 (3.80-5.40) m/uL Hgb 12.3 (11.4-16.0) gm/dL Hct 38.7 (34.0-46.0) % Plt Count 319 (150-450) k/uL Current Medications Generic Name Dose Route Start Last Admin Trade Name Freq PRN Reason Stop Dose Admin Acetaminophen 650 mg 10/24/23 13:41 Acetaminophen Tab 325 Mg Tab PO Q6HR PRN Mild Pain or Fever > 100.5 Hydrocodone Bitart/Acetaminophen 1 each 10/24/23 15:27 10/25/23 16:19 Hydrocodone/Apap 5-325mg 1 Each Tab PO 1 each Q6HR PRN Administration Pain Albuterol/Ipratropium 3 ml 10/24/23 16:00 10/25/23 20:11 Ipratropium-Albuterol 3 Ml Neb INHALATION Not Given RT-QID BARBI Albuterol/Ipratropium 3 ml 10/24/23 15:26 Ipratropium-Albuterol 3 Ml Neb INHALATION RT-QID PRN Shortness Of Breath Or Wheezing Aspirin 81 mg 10/24/23 21:00 10/25/23 22:15 Aspirin 81 Mg PO Not Given HS [facility] Atorvastatin Calcium 80 mg 10/25/23 09:00 10/25/23 08:25 Atorvastatin 80 Mg Tab PO 80 mg DAILY BARBI Administration Budesonide/Formoterol Fumarate 2 puff 10/25/23 08:00 10/25/23 20:11 Symbicort 80-4.5 Mcg Inhaler INHALATION Not Given RT-BID BARBI Calcium Carbonate/Glycine 500 mg 10/24/23 21:00 10/25/23 20:48 Calcium Carbonate 500 Mg Chewable PO 500 mg BID BARBI Administration Duloxetine HCl 60 mg 10/24/23 21:00 10/25/23 22:15 Duloxetine Hcl 60 Mg Capsule.Dr PO Not Given BID BARBI Estrogens Conjugated 0.45 mg 10/25/23 09:00 10/25/23 08:27 Estrogens, Conjugated 0.45 Mg Tab PO 0.45 mg DAILY BARBI Administration Famotidine 20 mg 10/24/23 21:00 10/25/23 22:15 Famotidine 20 Mg Tab PO Not Given HS BARBI Fenofibrate 160 mg 10/25/23 09:00 10/25/23 08:25 Fenofibrate 160 Mg Tab PO 160 mg DAILY BARBI Administration Heparin Sodium (Porcine) 0 unit 10/24/23 18:17 Heparin Sodium 1,000 Un/Ml (10ml Vl) IV PER PROTOCOL PRN Low PTT Protocol Hydromorphone HCl 0.5 mg 10/24/23 15:27 10/24/23 16:24 Hydromorphone 0.5 Mg/0.5 Ml Syringe IVP 0.5 mg Q4HR PRN Administration Severe Pain (Scale 7 to 10) Hydromorphone HCl 1 mg 10/24/23 18:20 10/26/23 00:20 Hydromorphone 1 Mg/Ml 1 Ml Syringe IVP 1 mg Q4HR PRN Administration Pain Sodium Chloride 1,000 mls @ 20 mls/hr 10/24/23 13:00 10/25/23 11:35 Saline 0.9% IV Not Given .Q24H BARBI Azithromycin 500 mg/ Sodium 250 mls @ 250 mls/hr 10/25/23 09:00 10/25/23 12:27 Chloride IVPB 10/28/23 09:01 250 mls/hr DAILY BARBI Administration Protocol Heparin Sodium/Sodium Chloride 250 mls @ 16.737 mls/hr 10/24/23 18:30 10/25/23 12:31 25,000 unit/ Sodium Chloride IV 15 units/kg/hr .[id number] BARBI 13.948 mls/hr Administration Protocol 18 UNITS/KG/HR Levothyroxine Sodium 50 mcg 10/25/23 06:30 10/26/23 06:12 Levothyroxine 50 Mcg Tab PO Not Given DAILY@0630 BARBI Lisinopril 20 mg 10/25/23 09:00 10/25/23 08:24 Lisinopril 20 Mg Tab PO 20 mg DAILY BARBI Administration Metoclopramide HCl 5 mg 10/26/23 05:40 10/26/23 05:44 Metoclopramide 5 Mg/Ml 2 Ml Vial IVP 5 mg Q6HR PRN Administration Nausea And Vomiting Metoprolol Succinate 12.5 mg 10/25/23 09:00 10/25/23 08:25 Metoprolol Succinate (Er) 25 Mg Tab.Er.24h PO 12.5 mg DAILY BARBI Administration Multivitamins 1 each 10/25/23 09:00 10/25/23 08:25 Multivitamins, Thera 1 Each Tab PO 1 each QAM BARBI Administration Naloxone HCl 0.2 mg 10/24/23 13:41 Naloxone 0.4 Mg/Ml 1 Ml Vial IV Q2M PRN Opioid Reversal Nitroglycerin 0.4 mg 10/24/23 15:25 Nitroglycerin Sl Tabs 0.4 Mg Tab SUBLINGUAL Q5M PRN Chest Pain Flunisolide Nasal 2 spray 10/24/23 21:00 10/25/23 21:03 Hannibal 1 Hannibal Hannibal EA NOSTRIL Not Given BID BARBI Ondansetron HCl 4 mg 10/25/23 20:50 10/26/23 03:32 Ondansetron 4 Mg/2 Ml Vial IVP 4 mg Q6HR PRN Administration Nausea And Vomiting Pantoprazole Sodium 40 mg 10/25/23 21:00 10/25/23 20:55 Pantoprazole 40 Mg/10 Ml Vial IVP 40 mg BID BARBI Administration Prednisone 40 mg 10/26/23 09:00 Prednisone 20 Mg Tab PO DAILY BARBI Intake and Output 10/25/23 10/26/23 10/26/23 22:59 06:59 14:59 Intake Total 128 Output Total 250 310 50 Balance -122 -310 -50 Intake: IV 10 Invasive Line 1 10 Oral 118 Output: Urine 250 300 Emesis 10 50 Other: Voiding Method Bedside Commode Bedside Commode 10/25/23 07:39 10/24/23 11:01
[2023-10-26 11:54] LABS: Glucose,Whole Blood 118 mg/dL (70-110)
--- NOTE | 2023-10-26 12:20 | XR ---
EXAMINATION TYPE: XR chest 1V portable DATE OF EXAM: 10/26/2023 Comparison: 10/24/2023 Clinical History: 83-year-old female pneumonia/infarct Findings: Heart normal size. Surgical clips left hilum. Moderate interstitial density persists. Focal opacity i n the periphery of the left lower lung is unchanged. Some patchy opacity at the right base slightly i ncreased. Chronic full-thickness rotator cuff tear right shoulder. Impression: Focal consolidation periphery of the left lower lung redemonstrated. Opacity at the right base slight ly increased.
--- NOTE | 2023-10-26 12:51 | P.PN ---
Subjective Progress Note Date: 10/26/23 Principal diagnosis: Acute pulmonary embolism This is a pleasant 83-year-old female patient with a known history of hyperlipidemia, hypothyroidism, hypertension, coronary artery disease, chronic obstructive pulmonary disease, former smoker. She also has a history of lung cancer back in 2009 with previous left lobectomy. She had presented here to the emergency room this morning with complaints of right-sided chest pain. Pain on inhalation. Cough and congestion. Chest x-ray shows borderline heart size with interstitial density suspicious for bronchitis, asthma or mild pulmonary vascular congestion. Possible early infiltrate of the left base. White count 16.0. Hemoglobin 12.8. Platelets 349. D-dimer 2.18. Sodium 138. Potassium 4.7. Bicarb 24. BUN 24. Creatinine 0.89. Glucose 137. Viral screen negative. proBNP 1070. She is seen today in consultation in the emergency department. She is currently sitting up in a stretcher. Awake and alert in no acute distress. She is having some right-sided chest discomfort. She is maintaining O2 saturations in the 90s on 2 L/min per nasal cannula. Slightly tachycardic. No hemoptysis. Patient was reevaluated today on 10/25/2023, patient is feeling a bit better today compared to yesterday, nonetheless she continues to have pleuritic right-sided chest pain with deep inspiration. Shortly after I saw the patient yesterday in the ER, and after reviewing her CT angiogram of the chest, patient was placed on heparin/high intensity as per protocol. Remains on heparin, doing well, and PTT is therapeutic. I ordered an echocardiogram this morning, although the patient does not have any findings on the CT angiogram of the chest to suggest right ventricular strain. PTT today is 65.2, rest of the labs are unremarkable, platelets are 319,000. Procalcitonin level is pending, if normal patient could be off antibiotics Patient was examined today on 10/26/2023, patient is feeling a bit better, continues to have some right-sided pleuritic chest pain. Chest x-ray continues to show abnormal opacities in the right lower lobe and in the left lower lobe, it is not clear to me whether the findings are findings of pneumonia or actually pulmonary infarction related. Nonetheless considering her procalcitonin level is elevated, would recommend that we continue antibiotics, and continue treatment for her pulmonary embolism and for her underlying COPD. Her echocardiogram did not show any RV strain, patient is on 3 L nasal cannula with O2 sats of 95% PTT is 47 today, basic metabolic profile is normal renal profile is normal, CBC is also normal and platelets are 394 Objective - Vital Signs Vital signs: Vital Signs Temp 98.3 F 10/26/23 12:33 Pulse 89 10/26/23 12:33 Resp 18 10/26/23 12:33 BP 147/75 10/26/23 12:33 Pulse Ox 95 10/26/23 12:33 FiO2 Intake & Output 10/25/23 10/26/23 10/26/23 18:59 06:59 18:59 Intake Total 388.963 260 Output Total 350 310 50 Balance 38.963 -50 -50 Intake: IV 10 Invasive Line 1 10 Intake, IV Titration 152.963 250 Amount Heparin Sod,Pork in 0.45% 152.963 250 NaCl 25,000 unit In 0.45 % NaCl 1 250ml.bag @ 18 UNITS/KG/HR 16.737 mls/hr IV .[id number] [facility] Rx#: [id number] Oral 236 0 Output: Urine 350 300 Emesis 10 50 Other: Voiding Method Bedside Commode Bedside Commode # Voids 1 # Bowel Movements 1 - Exam GENERAL EXAM: Alert, pleasant 83-year-old female, on 3 L nasal cannula, HEAD: Normocephalic. EYES: Normal reaction of pupils, equal size. NOSE: Clear with pink turbinates. THROAT: No erythema or exudates. NECK: No masses, no JVD. CHEST: No chest wall deformity. LUNGS: Slightly diminished breath sounds at the bases no rhonchi no wheezes CVS: S1 and S2 normal with no audible murmur, regular rhythm. ABDOMEN: No hepatosplenomegaly, normal bowel sounds, no guarding or rigidity. SKIN: No rashes Theatric: Normal mood, affect and no mental status examination CENTRAL NERVOUS SYSTEM: No focal deficits, tone is normal in all 4 extremities. EXTREMITIES: There is no peripheral edema. No clubbing, no cyanosis. Peripheral pulses are intact. - Labs CBC & Chem 7: 10/26/23 08:06 10/26/23 08:06 Labs: Abnormal Lab Results - Last 24 Hours (Table) 10/25/23 10/25/23 10/25/23 Range/Units 07:39 16:56 20:08 APTT (22.0-30.0) sec BUN (7-17) mg/dL Creatinine (0.52-1.04) mg/dL Glucose (74-99) mg/dL POC Glucose (mg/dL) 153 H 154 H (70-110) mg/dL Procalcitonin 0.19 H (0.02-0.09) ng/mL 10/26/23 10/26/23 10/26/23 Range/Units 06:06 08:06 08:06 APTT 47.0 H (22.0-30.0) sec BUN 46 H (7-17) mg/dL Creatinine 1.11 H (0.52-1.04) mg/dL Glucose 124 H (74-99) mg/dL POC Glucose (mg/dL) 150 H (70-110) mg/dL Procalcitonin (0.02-0.09) ng/mL 10/26/23 Range/Units 11:50 APTT (22.0-30.0) sec BUN (7-17) mg/dL Creatinine (0.52-1.04) mg/dL Glucose (74-99) mg/dL POC Glucose (mg/dL) 118 H (70-110) mg/dL Procalcitonin (0.02-0.09) ng/mL Microbiology - Last 24 Hours (Table) 10/24/23 13:44 Blood Culture - Preliminary Blood 10/24/23 13:44 Blood Culture - Preliminary Blood Assessment and Plan Assessment: Impression: Acute hypoxic respiratory failure, multifactorial Acute pulmonary embolism Acute pleuritic chest pain secondary to pulmonary embolism History of bronchogenic carcinoma in 2009 and status post lobectomy History of underlying COPD Former smoker coronary arteriosclerosis Benign essential hypertension Generalized anxiety disorder Hypothyroidism Possible pneumonia with scattered infiltrates noted on the CT of the chest, and also noted on the chest x-ray, procalcitonin level is elevated, hence we will continue antibiotics although the clinical presentation was not a clinical presentation of pneumonia, Recommendation: Continue present supportive care measures Continue heparin and follow the protocol could transition to Eliquis today Echocardiogram was reviewed, no RV strain Continue prednisone Continue bronchodilators Continue pain meds Will continue to follow not quite ready for discharge plan Time with Patient: Less than 30
[2023-10-26 17:10] LABS: Glucose,Whole Blood 115 mg/dL (70-110)
[2023-10-26] MEDS: LOPERAMIDE 2 MG CAP PO PRN (18:44)
[2023-10-26 20:09] LABS: Glucose,Whole Blood 114 mg/dL (70-110)
--- NOTE | 2023-10-26 21:36 | P.PN ---
Subjective Progress Note Date: 10/26/23 83-year-old female admitted to for acute hypoxic respiratory failure and chest pain patient usually does not use oxygen and is on 3 L of oxygen at this time patient is found to have bilateral pulmonary embolism. Patient on IV heparin at this time echocardiogram is being obtained. There is no evidence of right ventricle strain on the CAT scan troponin is negative patient magnesium is low which will be replaced. Patient does have history of COPD but not in significant exacerbation at this time patient does have some nonspecific infiltrates and emphysematous changes there may be some bronchitis but no other significant air bronchogram no evidence of pneumonia Rocephin will be discontinued will continue with azithromycin. Will also get procalcitonin level. 10/26/2023 Patient is evaluated today resting in bed. Continues to report significant shortness of breath. Unable to take a deep breath. Continues on oxygen support and remains on IV heparin. White blood cell count normalized today 4.5. Pr ocalcitonin level 0.19. Continues on azithromycin. Having episodes of diarrhea today; C.Dif negative. Echocardiogram showing normal LV function. Chest xray follow up today reveals focal consolidation periphery of the left lower lung redemonstrated; opacity at the right base slightly increased. Constitutional: Denied any fatigue denied any fever. Cardio vascular: denied any chest pain, palpitations Gastrointestinal denied any nausea vomiting Pulmonary: Reports shortness of breath. cough Neurologic denied any new focal deficits All inpatient medications were reviewed and appropriate changes in these medications as dictated in the interval history and assessment and plan. PHYSICAL EXAMINATION: GENERAL: The patient is alert and oriented x3, not in any acute distress. Obese HEENT: Pupils are round and equally reacting to light. EOMI. No scleral icterus. No conjunctival pallor. Normocephalic, atraumatic. No pharyngeal erythema. No thyromegaly. CARDIOVASCULAR: S1 and S2 present. No murmurs, rubs, or gallops. PULMONARY: Chest is clear to auscultation, no wheezing or crackles. ABDOMEN: Soft, nontender, nondistended, normoactive bowel sounds. No palpable organomegaly. MUSCULOSKELETAL: No joint swelling or deformity. EXTREMITIES: No cyanosis, clubbing, or pedal edema. NEUROLOGICAL: Gross neurological examination did not reveal any focal deficits. SKIN: No rashes. Assessment and plan -Acute hypoxic respiratory failure secondary to pulmonary embolism: -Acute pulmonary embolism recommend to transition from IV heparin to PO eliquis. -History of COPD without any significant acute exacerbation; patient continues on oral prednisone; on oral azithromycin. -Unable to completely rule out pneumonia with left lower lung consolidation. Mildly elevated procalcitonin. -Diarrhea C.Dif negative likely viral gastroenteritis. Antidiarrheals given. -History of lung cancer history of lobectomy in the past -Coronary disease -Hypertension -Hyperlipidemia -Hypothyroidism -Hypomagnesemia magnesium will be replaced -Former Smoker GI prophylaxis DVT prophylaxis transition to eliquis Full Code The impression and plan of care has been dictated by Zoey Patel, Nurse Practitioner as directed. Dr. Earl MD I have performed a history and physical examination and medical decision making of this patient, discussed the same with the dictator, and agree with the dictators assessment and plan as written, documented as a scribe. Based on total visit time, I have performed more than 50% of this visit. Objective - Vital Signs Vital signs: Vital Signs Temp 98.3 F 10/26/23 12:33 Pulse 89 10/26/23 12:33 Resp 18 10/26/23 12:33 BP 147/75 10/26/23 12:33 Pulse Ox 95 10/26/23 12:33 FiO2 Intake & Output 10/25/23 10/26/23 10/26/23 18:59 06:59 18:59 Intake Total 388.963 260 240 Output Total 350 310 50 Balance 38.963 -50 190 Intake: IV 10 Invasive Line 1 10 Intake, IV Titration 152.963 250 Amount Heparin Sod,Pork in 0.45% 152.963 250 NaCl 25,000 unit In 0.45 % NaCl 1 250ml.bag @ 18 UNITS/KG/HR 16.737 mls/hr IV .[id number] [facility] Rx#: [id number] Oral 236 0 240 Output: Urine 350 300 Emesis 10 50 Other: Voiding Method Bedside Commode Bedside Commode # Voids 1 # Bowel Movements 1 - Labs CBC & Chem 7: 10/26/23 08:06 10/26/23 08:06 Labs: Abnormal Lab Results - Last 24 Hours (Table) 10/25/23 10/25/23 10/25/23 Range/Units 07:39 16:56 20:08 APTT (22.0-30.0) sec BUN (7-17) mg/dL Creatinine (0.52-1.04) mg/dL Glucose (74-99) mg/dL POC Glucose (mg/dL) 153 H 154 H (70-110) mg/dL Procalcitonin 0.19 H (0.02-0.09) ng/mL 10/26/23 10/26/23 10/26/23 Range/Units 06:06 08:06 08:06 APTT 47.0 H (22.0-30.0) sec BUN 46 H (7-17) mg/dL Creatinine 1.11 H (0.52-1.04) mg/dL Glucose 124 H (74-99) mg/dL POC Glucose (mg/dL) 150 H (70-110) mg/dL Procalcitonin (0.02-0.09) ng/mL 10/26/23 Range/Units 11:50 APTT (22.0-30.0) sec BUN (7-17) mg/dL Creatinine (0.52-1.04) mg/dL Glucose (74-99) mg/dL POC Glucose (mg/dL) 118 H (70-110) mg/dL Procalcitonin (0.02-0.09) ng/mL Microbiology - Last 24 Hours (Table) 10/24/23 13:44 Blood Culture - Preliminary Blood 10/24/23 13:44 Blood Culture - Preliminary Blood Assessment and Plan Time with Patient: Less than 30
[2023-10-26] MEDS: Apixaban Initiation Dose--VTE 5 MG TAB PO SCH (23:18)
[2023-10-27 05:16] LABS: Glucose,Whole Blood 100 mg/dL (70-110)
[2023-10-27 08:56] LABS: African American GFR (CKD) 59 (>60 ml/min/1.73 sqM); Anion Gap 7 mmol/L; Blood Urea Nitrogen 44 mg/dL (7-17); Calcium 9.1 mg/dL (8.4-10.2); Carbon Dioxide 28 mmol/L (22-30); Chloride 105 mmol/L (98-107); Glucose 101 mg/dL (74-99); Non-African American GFR(CKD) 51 (>60 ml/min/1.73 sqM); Sodium 140 mmol/L (137-145)
[2023-10-27] MEDS: ACETAMINOPHEN TAB 325 MG TAB PO PRN (10:18)
[2023-10-27 11:33] LABS: Glucose,Whole Blood 103 mg/dL (70-110)
--- NOTE | 2023-10-27 12:52 | P.PN ---
Subjective Progress Note Date: 10/27/23 Principal diagnosis: Acute pulmonary embolism This is a pleasant 83-year-old female patient with a known history of hyperlipidemia, hypothyroidism, hypertension, coronary artery disease, chronic obstructive pulmonary disease, former smoker. She also has a history of lung cancer back in 2009 with previous left lobectomy. She had presented here to the emergency room this morning with complaints of right-sided chest pain. Pain on inhalation. Cough and congestion. Chest x-ray shows borderline heart size with interstitial density suspicious for bronchitis, asthma or mild pulmonary vascular congestion. Possible early infiltrate of the left base. White count 16.0. Hemoglobin 12.8. Platelets 349. D-dimer 2.18. Sodium 138. Potassium 4.7. Bicarb 24. BUN 24. Creatinine 0.89. Glucose 137. Viral screen negative. proBNP 1070. She is seen today in consultation in the emergency department. She is currently sitting up in a stretcher. Awake and alert in no acute distress. She is having some right-sided chest discomfort. She is maintaining O2 saturations in the 90s on 2 L/min per nasal cannula. Slightly tachycardic. No hemoptysis. Patient was reevaluated today on 10/25/2023, patient is feeling a bit better today compared to yesterday, nonetheless she continues to have pleuritic right-sided chest pain with deep inspiration. Shortly after I saw the patient yesterday in the ER, and after reviewing her CT angiogram of the chest, patient was placed on heparin/high intensity as per protocol. Remains on heparin, doing well, and PTT is therapeutic. I ordered an echocardiogram this morning, although the patient does not have any findings on the CT angiogram of the chest to suggest right ventricular strain. PTT today is 65.2, rest of the labs are unremarkable, platelets are 319,000. Procalcitonin level is pending, if normal patient could be off antibiotics Patient was examined today on 10/26/2023, patient is feeling a bit better, continues to have some right-sided pleuritic chest pain. Chest x-ray continues to show abnormal opacities in the right lower lobe and in the left lower lobe, it is not clear to me whether the findings are findings of pneumonia or actually pulmonary infarction related. Nonetheless considering her procalcitonin level is elevated, would recommend that we continue antibiotics, and continue treatment for her pulmonary embolism and for her underlying COPD. Her echocardiogram did not show any RV strain, patient is on 3 L nasal cannula with O2 sats of 95% PTT is 47 today, basic metabolic profile is normal renal profile is normal, CBC is also normal and platelets are 394 Patient was reevaluated today on 10/27/2023, patient is feeling better today, breathing easier, her pain is significantly improved, no more pleuritic pain, it is fairly well-controlled with pain meds. Remains on Eliquis, patient is off heparin, she is also on bronchodilators and she is on antibiotics for questionable pneumonia and elevated procalcitonin level. Labs today were reviewed, her basic metabolic profile is normal and renal profile is relatively normal patient is on 2 L nasal cannula and O2 saturation 93% Objective - Vital Signs Vital signs: Vital Signs Temp 97.2 F L 10/27/23 12:02 Pulse 93 10/27/23 12:02 Resp 18 10/27/23 12:02 BP 178/83 10/27/23 12:02 Pulse Ox 93 L 10/27/23 12:02 FiO2 Intake & Output 10/26/23 10/27/23 10/27/23 18:59 06:59 18:59 Intake Total 358 0 128 Output Total 50 Balance 308 0 128 Intake: IV 10 Invasive Line 1 10 Oral 358 0 118 Output: Emesis 50 Other: Voiding Method Bedside Commode Bedside Commode Bedside Commode # Voids 1 1 1 # Bowel Movements 1 1 - Exam GENERAL EXAM: Alert, pleasant 83-year-old female, on 2L nasal cannula, O2 saturation 93% HEAD: Normocephalic. EYES: Normal reaction of pupils, equal size. NOSE: Clear with pink turbinates. THROAT: No erythema or exudates. NECK: No masses, no JVD. CHEST: No chest wall deformity. LUNGS: Clear breath sound bilaterally no rhonchi no wheezes CVS: S1 and S2 normal with no audible murmur, regular rhythm. ABDOMEN: No hepatosplenomegaly, normal bowel sounds, no guarding or rigidity. SKIN: No rashes Theatric: Normal mood, affect and no mental status examination CENTRAL NERVOUS SYSTEM: No focal deficits, tone is normal in all 4 extremities. EXTREMITIES: There is no peripheral edema. No clubbing, no cyanosis. Peripheral pulses are intact. 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 Echocardiogram was reviewed, no RV strain Continue prednisone, titrate down to 30 mg daily Continue bronchodilators, continue antibiotics/Zithromax Continue pain meds Will continue to follow not quite ready for discharge plan Time with Patient: Less than 30
--- NOTE | 2023-10-27 15:18 | P.PN ---
Subjective Progress Note Date: 10/27/23 83-year-old female admitted to for acute hypoxic respiratory failure and chest pain patient usually does not use oxygen and is on 3 L of oxygen at this time patient is found to have bilateral pulmonary embolism. Patient on IV heparin at this time echocardiogram is being obtained. There is no evidence of right ventricle strain on the CAT scan troponin is negative patient magnesium is low which will be replaced. Patient does have history of COPD but not in significant exacerbation at this time patient does have some nonspecific infiltrates and emphysematous changes there may be some bronchitis but no other significant air bronchogram no evidence of pneumonia Rocephin will be discontinued will continue with azithromycin. Will also get procalcitonin level. 10/26/2023 Patient is evaluated today resting in bed. Continues to report significant shortness of breath. Unable to take a deep breath. Continues on oxygen support and remains on IV heparin. White blood cell count normalized today 4.5. Pr ocalcitonin level 0.19. Continues on azithromycin. Having episodes of diarrhea today; C.Dif negative. Echocardiogram showing normal LV function. Chest xray follow up today reveals focal consolidation periphery of the left lower lung redemonstrated; opacity at the right base slightly increased. 10/27/2023 Patient seen in follow-up today on the medical floor. She continues on nasal cannula oxygen support with improved oxygen saturations. Home oxygenation test reveals an 82% saturation on room air without oxygen and patient does require home oxygen. Patient reports that her diarrhea has improved since yesterday. Her renal function is stable. Remains on IV azithromycin and oral prednisone. Review of Systems Constitutional: Denied any fatigue denied any fever. Cardio vascular: denied any chest pain, palpitations Gastrointestinal denied any nausea vomiting Pulmonary: Reports shortness of breath. cough Neurologic denied any new focal deficits All inpatient medications were reviewed and appropriate changes in these medications as dictated in the interval history and assessment and plan. PHYSICAL EXAMINATION: GENERAL: The patient is alert and oriented x3, not in any acute distress. Obese HEENT: Pupils are round and equally reacting to light. EOMI. No scleral icterus. No conjunctival pallor. Normocephalic, atraumatic. No pharyngeal erythema. No thyromegaly. CARDIOVASCULAR: S1 and S2 present. No murmurs, rubs, or gallops. PULMONARY: Left basilar ronchi. ABDOMEN: Soft, nontender, nondistended, normoactive bowel sounds. No palpable organomegaly. MUSCULOSKELETAL: No joint swelling or deformity. EXTREMITIES: No cyanosis, clubbing, or pedal edema. NEUROLOGICAL: Gross neurological examination did not reveal any focal deficits. SKIN: No rashes. Assessment and plan -Acute hypoxic respiratory failure secondary to pulmonary embolism: Patient will require home oxygen on discharge -Acute pulmonary embolism recommend to transition from IV heparin to PO eliquis. -History of COPD without any significant acute exacerbation; patient continues on oral prednisone taper; on oral azithromycin. -Unable to completely rule out pneumonia with left lower lung consolidation. Mildly elevated procalcitonin. -Diarrhea C.Dif negative likely viral gastroenteritis. Antidiarrheals given. -History of lung cancer history of lobectomy in the past -Coronary disease -Hypertension -Hyperlipidemia -Hypothyroidism -Hypomagnesemia magnesium will be replaced -Former Smoker GI prophylaxis DVT prophylaxis transition to eliquis Full Code The impression and plan of care has been dictated by Zoey Patel Nurse Practitioner as directed. Dr. Earl MD I have performed a history and physical examination and medical decision making of this patient, discussed the same with the dictator, and agree with the dictators assessment and plan as written, documented as a scribe. Based on total visit time, I have performed more than 50% of this visit. Objective - Vital Signs Vital signs: Vital Signs Temp 97.2 F L 10/27/23 12:02 Pulse 89 10/27/23 13:30 Resp 18 10/27/23 12:02 BP 178/83 10/27/23 12:02 Pulse Ox 92 L 10/27/23 13:30 FiO2 Intake & Output 10/26/23 10/27/23 10/27/23 18:59 06:59 18:59 Intake Total 358 0 246 Output Total 50 Balance 308 0 246 Intake: IV 10 Invasive Line 1 10 Oral 358 0 236 Output: Emesis 50 Other: Voiding Method Bedside Commode Bedside Commode Bedside Commode # Voids 1 1 1 # Bowel Movements 1 1 - Labs CBC & Chem 7: 10/26/23 08:06 10/27/23 07:49 Labs: Abnormal Lab Results - Last 24 Hours (Table) 10/26/23 10/26/23 10/27/23 Range/Units 17:09 20:06 07:49 BUN 44 H (7-17) mg/dL Glucose 101 H (74-99) mg/dL POC Glucose (mg/dL) 115 H 114 H (70-110) mg/dL Microbiology - Last 24 Hours (Table) 10/24/23 13:44 Blood Culture - Preliminary Blood 10/24/23 13:44 Blood Culture - Preliminary Blood Assessment and Plan Time with Patient: Less than 30
[2023-10-27 16:19] LABS: Glucose,Whole Blood 109 mg/dL (70-110)
[2023-10-27] MEDS: hydrALAZINE HCL 20 MG/ML 1 ML VIAL IVP PRN (20:32)
[2023-10-28 09:03] LABS: African American GFR (CKD) 75 (>60 ml/min/1.73 sqM); Anion Gap 7 mmol/L; Blood Urea Nitrogen 34 mg/dL (7-17); Carbon Dioxide 25 mmol/L (22-30); Chloride 106 mmol/L (98-107); Glucose 98 mg/dL (74-99); Non-African American GFR(CKD) 65 (>60 ml/min/1.73 sqM); Sodium 138 mmol/L (137-145)
[2023-10-28 09:22] LABS: Potassium 4.2 mmol/L (3.5-5.1)
[2023-10-28] MEDS: amLODIPine 5 MG TAB PO SCH (09:55)
[2023-10-28] MEDS: predniSONE 10 MG TAB PO SCH (09:56)
--- NOTE | 2023-10-28 12:24 | P.PN ---
Subjective Progress Note Date: 10/28/23 83-year-old female admitted to for acute hypoxic respiratory failure and chest pain patient usually does not use oxygen and is on 3 L of oxygen at this time patient is found to have bilateral pulmonary embolism. Patient on IV heparin at this time echocardiogram is being obtained. There is no evidence of right ventricle strain on the CAT scan troponin is negative patient magnesium is low which will be replaced. Patient does have history of COPD but not in significant exacerbation at this time patient does have some nonspecific infiltrates and emphysematous changes there may be some bronchitis but no other significant air bronchogram no evidence of pneumonia Rocephin will be discontinued will continue with azithromycin. Will also get procalcitonin level. 10/26/2023 Patient is evaluated today resting in bed. Continues to report significant shortness of breath. Unable to take a deep breath. Continues on oxygen support and remains on IV heparin. White blood cell count normalized today 4.5. Pr ocalcitonin level 0.19. Continues on azithromycin. Having episodes of diarrhea today; C.Dif negative. Echocardiogram showing normal LV function. Chest xray follow up today reveals focal consolidation periphery of the left lower lung redemonstrated; opacity at the right base slightly increased. 10/27/2023 Patient seen in follow-up today on the medical floor. She continues on nasal cannula oxygen support with improved oxygen saturations. Home oxygenation test reveals an 82% saturation on room air without oxygen and patient does require home oxygen. Patient reports that her diarrhea has improved since yesterday. Her renal function is stable. Remains on IV azithromycin and oral prednisone. 10/28/2023 Patient seen in follow-up today on the medical floor she is resting in bed encouraged to get up out of bed and ambulate. She should be up in the chair for meals. She continues on nasal cannula support at 3 L with an oxygen saturation of 94%. She was started on amlodipine for elevated blood pressures. She continues on Eliquis. She is able to take a deep breath and the pleuritic chest pain has improved. She is using her incentive spirometer. Her creatinine today has improved to 0.83, BUN of 34. Review of Systems Constitutional: Denied any fatigue denied any fever. Cardio vascular: denied any chest pain, palpitations Gastrointestinal denied any nausea vomiting Pulmonary: Reports improved shortness of breath Neurologic denied any new focal deficits All inpatient medications were reviewed and appropriate changes in these medications as dictated in the interval history and assessment and plan. PHYSICAL EXAMINATION: GENERAL: The patient is alert and oriented x3, not in any acute distress. Obese HEENT: Pupils are round and equally reacting to light. EOMI. No scleral icterus. No conjunctival pallor. Normocephalic, atraumatic. No pharyngeal erythema. No thyromegaly. CARDIOVASCULAR: S1 and S2 present. No murmurs, rubs, or gallops. PULMONARY: L clear to auscultation diminished ABDOMEN: Soft, nontender, nondistended, normoactive bowel sounds. No palpable organomegaly. MUSCULOSKELETAL: No joint swelling or deformity. EXTREMITIES: No cyanosis, clubbing, or pedal edema. NEUROLOGICAL: Gross neurological examination did not reveal any focal deficits. SKIN: No rashes. Assessment and plan -Acute hypoxic respiratory failure secondary to pulmonary embolism: Pt is on 4 Lliters of oxygen patient did fail her home oxygen test and will require home oxygen at discharge and repeat the test tomorrow on Sunday -Acute pulmonary embolism recommend to transition from IV heparin to PO eliquis. -History of COPD without any significant acute exacerbation; patient continues on oral prednisone taper; on oral azithromycin. -Unable to completely rule out pneumonia with left lower lung consolidation. Mildly elevated procalcitonin. -Diarrhea C.Dif negative likely viral gastroenteritis. Antidiarrheals given. -History of lung cancer history of lobectomy in the past -Coronary disease -Hypertension -Hyperlipidemia -Hypothyroidism -Hypomagnesemia magnesium will be replaced -Former Smoker GI prophylaxis DVT prophylaxis transition to eliquis Full Code Patient to complete home oxygen test tomorrow, encouraged to increase activity level. Plan for D/C home in the next 24 hours. The impression and plan of care has been dictated by Zoey Patel, Nurse Practitioner as directed. Dr. Earl MD I have performed a history and physical examination and medical decision making of this patient, discussed the same with the dictator, and agree with the dictators assessment and plan as written, documented as a scribe. Based on total visit time, I have performed more than 50% of this visit. Objective - Vital Signs Vital signs: Vital Signs Temp 97.6 F 10/28/23 11:22 Pulse 83 10/28/23 11:22 Resp 20 10/28/23 11:22 BP 141/76 10/28/23 11:22 Pulse Ox 94 L 10/28/23 11:22 FiO2 Intake & Output 10/27/23 10/28/23 10/28/23 17:59 06:59 18:59 Intake Total 128 Balance 128 Intake: IV 10 Invasive Line 1 Invasive Line 2 10 Oral 118 Other: Voiding Method Bedside Commode # Voids 1 # Bowel Movements - Labs CBC & Chem 7: 10/26/23 08:06 10/28/23 08:00 Labs: Abnormal Lab Results - Last 24 Hours (Table) 10/28/23 Range/Units 08:00 BUN 34 H (7-17) mg/dL Microbiology - Last 24 Hours (Table) 10/24/23 13:44 Blood Culture - Preliminary Blood 10/24/23 13:44 Blood Culture - Preliminary Blood Assessment and Plan Time with Patient: Less than 30
--- NOTE | 2023-10-28 13:29 | P.PN ---
Subjective Progress Note Date: 10/28/23 Principal diagnosis: Acute pulmonary embolism This is a pleasant 83-year-old female patient with a known history of hyperlipidemia, hypothyroidism, hypertension, coronary artery disease, chronic obstructive pulmonary disease, former smoker. She also has a history of lung cancer back in 2009 with previous left lobectomy. She had presented here to the emergency room this morning with complaints of right-sided chest pain. Pain on inhalation. Cough and congestion. Chest x-ray shows borderline heart size with interstitial density suspicious for bronchitis, asthma or mild pulmonary vascular congestion. Possible early infiltrate of the left base. White count 16.0. Hemoglobin 12.8. Platelets 349. D-dimer 2.18. Sodium 138. Potassium 4.7. Bicarb 24. BUN 24. Creatinine 0.89. Glucose 137. Viral screen negative. proBNP 1070. She is seen today in consultation in the emergency department. She is currently sitting up in a stretcher. Awake and alert in no acute distress. She is having some right-sided chest discomfort. She is maintaining O2 saturations in the 90s on 2 L/min per nasal cannula. Slightly tachycardic. No hemoptysis. Patient was reevaluated today on 10/25/2023, patient is feeling a bit better today compared to yesterday, nonetheless she continues to have pleuritic right-sided chest pain with deep inspiration. Shortly after I saw the patient yesterday in the ER, and after reviewing her CT angiogram of the chest, patient was placed on heparin/high intensity as per protocol. Remains on heparin, doing well, and PTT is therapeutic. I ordered an echocardiogram this morning, although the patient does not have any findings on the CT angiogram of the chest to suggest right ventricular strain. PTT today is 65.2, rest of the labs are unremarkable, platelets are 319,000. Procalcitonin level is pending, if normal patient could be off antibiotics Patient was examined today on 10/26/2023, patient is feeling a bit better, continues to have some right-sided pleuritic chest pain. Chest x-ray continues to show abnormal opacities in the right lower lobe and in the left lower lobe, it is not clear to me whether the findings are findings of pneumonia or actually pulmonary infarction related. Nonetheless considering her procalcitonin level is elevated, would recommend that we continue antibiotics, and continue treatment for her pulmonary embolism and for her underlying COPD. Her echocardiogram did not show any RV strain, patient is on 3 L nasal cannula with O2 sats of 95% PTT is 47 today, basic metabolic profile is normal renal profile is normal, CBC is also normal and platelets are 394 Patient was reevaluated today on 10/27/2023, patient is feeling better today, breathing easier, her pain is significantly improved, no more pleuritic pain, it is fairly well-controlled with pain meds. Remains on Eliquis, patient is off heparin, she is also on bronchodilators and she is on antibiotics for questionable pneumonia and elevated procalcitonin level. Labs today were reviewed, her basic metabolic profile is normal and renal profile is relatively normal patient is on 2 L nasal cannula and O2 saturation 93% Patient was on 10/27/2023, patient is doing well, relatively asymptomatic, except she has intermittent episodes of dry heaves, but no vomiting, no shortness of breath, no further episodes of chest pain, patient is dramatically better as far as her pulmonary status is concernedBasic metabolic profile is normal renal pro file is normal patient is now on oral anticoagulation therapy Objective - Vital Signs Vital signs: Vital Signs Temp 97.6 F 10/28/23 11:22 Pulse 83 10/28/23 11:22 Resp 20 10/28/23 11:22 BP 141/76 10/28/23 11:22 Pulse Ox 94 L 10/28/23 11:22 FiO2 Intake & Output 10/27/23 10/28/23 10/28/23 17:59 06:59 18:59 Intake Total 128 Balance 128 Intake: IV 10 Invasive Line 1 Invasive Line 2 10 Oral 118 Other: Voiding Method Bedside Commode # Voids 1 # Bowel Movements - Exam GENERAL EXAM: Alert, pleasant 83-year-old female, on 3 L nasal cannula, O2 saturation 93% HEAD: Normocephalic. EYES: Normal reaction of pupils, equal size. NOSE: Clear with pink turbinates. THROAT: No erythema or exudates. NECK: No masses, no JVD. CHEST: No chest wall deformity. LUNGS: Clear breath sound bilaterally no rhonchi no wheezes CVS: S1 and S2 normal with no audible murmur, regular rhythm. ABDOMEN: No hepatosplenomegaly, normal bowel sounds, no guarding or rigidity. SKIN: No rashes Theatric: Normal mood, affect and no mental status examination CENTRAL NERVOUS SYSTEM: No focal deficits, tone is normal in all 4 extremities. EXTREMITIES: There is no peripheral edema. No clubbing, no cyanosis. Peripheral pulses are intact. 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 Continue prednisone, titrate on outpatient basis Continue bronchodilators, Continue Zithromax Consider discharge planning in the next 24 hours Time with Patient: Less than 30
[2023-10-29] MEDS: METOPROLOL TARTRATE 25 MG TAB PO SCH (09:04)
--- NOTE | 2023-10-29 12:37 | P.PN ---
Subjective Progress Note Date: 10/29/23 Principal diagnosis: Shortness of breath. This is a pleasant 83-year-old female patient with a known history of hyperlipidemia, hypothyroidism, hypertension, coronary artery disease, chronic obstructive pulmonary disease, former smoker. She also has a history of lung cancer back in 2009 with previous left lobectomy. She had presented here to the emergency room this morning with complaints of right-sided chest pain. Pain on inhalation. Cough and congestion. Chest x-ray shows borderline heart size with interstitial density suspicious for bronchitis, asthma or mild pulmonary vascular congestion. Possible early infiltrate of the left base. White count 16.0. Hemoglobin 12.8. Platelets 349. D-dimer 2.18. Sodium 138. Potassium 4.7. Bicarb 24. BUN 24. Creatinine 0.89. Glucose 137. Viral screen negative. proBNP 1070. She is seen today in consultation in the emergency department. She is currently sitting up in a stretcher. Awake and alert in no acute distress. She is having some right-sided chest discomfort. She is maintaining O2 saturations in the 90s on 2 L/min per nasal cannula. Slightly tachycardic. No hemoptysis. Patient was reevaluated today on 10/25/2023, patient is feeling a bit better today compared to yesterday, nonetheless she continues to have pleuritic right-sided chest pain with deep inspiration. Shortly after I saw the patient yesterday in the ER, and after reviewing her CT angiogram of the chest, patient was placed on heparin/high intensity as per protocol. Remains on heparin, doing well, and PTT is therapeutic. I ordered an echocardiogram this morning, although the patient does not have any findings on the CT angiogram of the chest to suggest right ventricular strain. PTT today is 65.2, rest of the labs are unremarkable, platelets are 319,000. Procalcitonin level is pending, if normal patient could be off antibiotics Patient was examined today on 10/26/2023, patient is feeling a bit better, continues to have some right-sided pleuritic chest pain. Chest x-ray continues to show abnormal opacities in the right lower lobe and in the left lower lobe, it is not clear to me whether the findings are findings of pneumonia or actually pulmonary infarction related. Nonetheless considering her procalcitonin level i s elevated, would recommend that we continue antibiotics, and continue treatment for her pulmonary embolism and for her underlying COPD. Her echocardiogram did not show any RV strain, patient is on 3 L nasal cannula with O2 sats of 95% PTT is 47 today, basic metabolic profile is normal renal profile is normal, CBC is also normal and platelets are 394 Patient was reevaluated today on 10/27/2023, patient is feeling better today, breathing easier, her pain is significantly improved, no more pleuritic pain, it is fairly well-controlled with pain meds. Remains on Eliquis, patient is off heparin, she is also on bronchodilators and she is on antibiotics for questionable pneumonia and elevated procalcitonin level. Labs today were reviewed, her basic metabolic profile is normal and renal profile is relatively normal patient is on 2 L nasal cannula and O2 saturation 93% Patient was on 10/27/2023, patient is doing well, relatively asymptomatic, except she has intermittent episodes of dry heaves, but no vomiting, no shortness of breath, no further episodes of chest pain, patient is dramatically better as far as her pulmonary status is concernedBasic metabolic profile is normal renal profile is normal patient is now on oral anticoagulation therapy Progress note dated October 29, 2023. The patient is seen today in room 353. She is currently on 2 L of oxygen. No IV fluids. The patient's IV heparin has been converted to Eliquis. She feels better, and feels like her breathing is much improved. Testing for influenza A, influenza B, RSV, coronavirus, are all negative. Labs from yesterday, have also been reviewed, including a sodium 138, potassium 4.2, chlorides 106, CO2 25, BUN 34, creatinine 0.83. Calcium is 10. Blood culture showed no growth after 72 hours. CTA showed pulmonary emboli, bilaterally, within the main pulmonary arteries, right greater than left, as well as in the segmental and subsegmental branches. There is no evidence of any heart strain. Objective - Vital Signs Vital signs: Vital Signs Temp 98.3 F 10/29/23 08:48 Pulse 77 10/29/23 11:18 Resp 20 10/29/23 11:18 BP 159/81 10/29/23 11:18 Pulse Ox 87 L 10/29/23 11:25 FiO2 Intake & Output 10/28/23 10/29/23 10/29/23 18:59 06:59 18:59 Intake Total 246 120 Balance 246 120 Intake: IV 10 Invasive Line 2 10 Oral 236 120 Other: Voiding Method Bedside Commode Bedside Commode Toilet Bedside Commode # Voids 1 0 - Exam No acute distress, oriented 3. No respiratory distress. The patient is currently on 2 L of oxygen. HEENT examination is grossly unremarkable. Mucous membranes are moist. No oral lesions. Neck supple. Full range of motion. No adenopathy thyromegaly or neck vein distention. Cardiovascular examination reveals regular rhythm rate. S1-S2 normal. No S3 or S4. No discernible murmur noted. Heart rate 77 bpm. Lungs reveal mild bilateral scattered rhonchi. Breath sounds are equal hunter aterally. No wheezes or crackles. Saturations are in the low to mid 90s on 2 L. Abdomen soft bowel sounds are heard. No masses or tenderness. Extremities are intact. No cyanosis clubbing or edema. Skin is without rash or lesion. Neurologic examination is brief but nonfocal. - Labs CBC & Chem 7: 10/26/23 08:06 10/28/23 08:00 Assessment and Plan Assessment: Acute hypoxemic respiratory failure, secondary to bilateral acute pulmonary embolism. Acute pleuritic chest pain, secondary to pulmonary embolism. History of bronchogenic carcinoma, 2010, status post lobectomy. History of COPD. Previous history of tobacco use. CAD. Benign essential hypertension. Generalized anxiety disorder. Hypothyroidism. Plan: Plan dated October 29, 2023. The patient is currently converted to Eliquis. She is on 2 L of oxygen. No IV fluids. The patient is stable, and wishes to be discharged. I told the patient to follow-up with me in the office, in a couple weeks. No additional recommendations are made. I did mention to her that we would need to treat her for at least 3 months, and maybe longer. In addition, she will need a follow-up CT angiogram, to make sure that the clot burden has dissipated. Labs, x-rays, and medications are reviewed. The patient's overall prognosis remains guarded. Time with Patient: Less than 30
[2023-10-29 16:22] VITALS: BP 148/86; PULSE 87; RESP 22; TEMP 97.6
--- NOTE | 2023-10-31 22:03 | P.DS ---
Providers Date of admission: 10/25/23 09:47 Attending physician: Amber Colon Consults: 10/24/23 13:41 Consult Physician Routine Consulting Provider: Bhupinder Rosario Reason/Comments: COPD/PNA Do you want consulting provider notified?: Yes Primary care physician: Norma Angel Hospital Course: final Diagnosis -Acute hypoxic respiratory failure secondary to pulmonary embolism Patient has failed her home oxygen test and will require 2 L of nasal cannula on discharge -Acute pulmonary embolism discharged on oral Eliquis -History of COPD with mild acute exacerbation; patient continues on oral p rednisone taper; on oral azithromycin. -Unable to completely rule out pneumonia with left lower lung consolidation. Mildly elevated procalcitonin. -Diarrhea C.Dif negative likely viral gastroenteritis. Antidiarrheals given. -History of lung cancer history of lobectomy in the past -Coronary disease -Hypertension -Hyperlipidemia -Hypothyroidism -Hypomagnesemia magnesium will be replaced -Former Smoker Discharge Disposition Patient is stable for discharge home there is overall guarded prognosis as patient needed encouragement to ambulate up in the hallways which she did prior to discharge. She does require oxygen on discharge and has been sent home with 2 L of nasal cannula. Patient will complete an oral prednisone taper and has been started on Eliquis 10 mg p.o. twice a day for total of 1 week and then transition to 5 mg p.o. twice a day of Eliquis. Patient may require treatment for longer than 3 months and pulmonary is recommending close follow-up in the office. They are also recommending repeat imaging to monitor the clot burden in the patient's pulmonary arteries. Patient has been complaining of some diarrhea she has been discharged on Imodium there is no infectious diarrhea found. This is likely due to a viral illness. Patient is recommended to stop estrogen she takes primary and daily estrogen containing products due to increased risk for blood clot formation patient to further discuss it with her PCP on follow-up. Patient has a appointment scheduled with her primary care provider Dr. Angel on October 30. She has a pulmonary follow-up on November 05. Recommend to repeat CBC and BMP in 2 to 3 days. Hospital Course This is an 83-year-old female admitted to the hospital with acute hypoxemic respiratory failure and chest discomfort patient was having pleuritic chest pain with difficulty taking a deep breath. She was started on 4 to 3 L of nasal cannula. She was found to have bilateral pulmonary embolism in the bilateral pulmonary arteries with left greater than right. An echocardiogram was obtained which does not reveal any right heart strain. She has normal LV function. Patient was started on IV heparin with a pulmonary consultation. Patient was monitored closely with improvement in her breathing status she was able to take a deep breath and able to ambulate to the bathroom. She has been transition to [facility] and will continue on discharge and may need longer than 3 months of treatment for acute blood clot. Patient has known history of COPD and felt to be in a mild acute exacerbation she has mildly elevated procalcitonin level and she was found to have a left lower lobe consolidation was unable to completely rule out a pneumonia. She was treated with azithromycin while inpatient and also on IV Solu-Medrol. She was transitioned to an oral prednisone taper. She is having reports of diarrhea and nausea this is likely a viral gastroenteritis and she was treated symptomatically with Zofran. A C. difficile was checked and negative. Patient will discharge home with antidiarrheals. Family is concerned with discharge home as she has been mostly bed rest and needs encouragement to get up out of bed and to sit up in the chair and ambulate in the hallways. Patient is adamant that she will discharge home and is not considering rehab. She did ambulate up in the hallway on the day of discharge and a home oxygen test was completed patient is requiring 2 L of nasal cannula on discharge. She will require close follow-up with pulmonary services. She was also started on amlodipine this admission for elevated blood pressures. Currently blood pressure is 148/86. Blood cultures have been negative. Patient was reswabbed for COVID influenza and RSV and has came back negative x 2. Her white blood cell count is no longer elevated and is currently 4.5, her sodium level is 138 potassium 4.2, BUN of 34 and creatinine level 0.83. She will be discharged home her lungs are clear S1-S2 auscultated abdomen is soft and nontender. She is alert x 3. Please see medication reconciliation for a list of current medications. Thank you for allowing us to participate in the care of this patient. The impression and plan of care has been dictated by Zoey Patel Nurse Practitioner as directed. Dr. Earl MD I have performed a history and physical examination and medical decision making of this patient, discussed the same with the dictator, and agree with the dictators assessment and plan as written, documented as a scribe. Based on total visit time, I have performed more than 50% of this visit. Patient Condition at Discharge: Fair Plan - Discharge Summary Discharge Rx Participant: No New Discharge Prescriptions: New Apixaban Initiation Dose--VTE [Eliquis Initiation Dosing for VTE Treatment] 0 mg PO DIRECTED 30 Days #81 tab Metoprolol Tartrate [Lopressor] 25 mg PO BID #60 tab predniSONE 0 mg PO DIRECTED 11 Days #20 tab Loperamide [Imodium] 2 mg PO QID PRN cap PRN Reason: Diarrhea amLODIPine [Norvasc] 5 mg PO DAILY #30 tab Acetaminophen Tab [Tylenol] 650 mg PO Q6HR PRN tab PRN Reason: Mild Pain Or Fever > 100.5 Ondansetron [Zofran] 4 mg PO Q8HR PRN #16 tab PRN Reason: Nausea Continue DULoxetine HCL [Cymbalta] 60 mg PO BID Levothyroxine Sodium [Synthroid] 50 mcg PO DAILY Aspirin [Adult Low Dose Aspirin EC] 81 mg PO HS Flunisolide Nasal [place] [Nasalide] 2 spray EA NOSTRIL BID Multivit-Min/FA/Lycopen/Lutein [Centrum Silver Tablet] 1 tab PO QAM Calcium Carbonate [Calcium] 600 mg PO BID Omeprazole 40 mg PO DAILY Fluticasone/Umeclidin/Vilanter [Trelegy Ellipta 100-62.5-25] 1 puff INHALATION RT-DAILY Nitroglycerin Sl Tabs [Nitrostat] 0.4 mg SUBLINGUAL Q5M PRN PRN Reason: Chest Pain Atorvastatin [Lipitor] 80 mg PO DAILY Prunelax 3 cap PO HS Benazepril HCl [Lotensin] 20 mg PO DAILY Albuterol Inhaler [Ventolin Hfa Inhaler] 2 puff INHALATION RT-QID PRN PRN Reason: Shortness Of Breath Metoprolol Succinate (ER) [Toprol XL] 12.5 mg PO DAILY Potassium Citrate 99 mg PO HS Famotidine 20 mg PO HS predniSONE 5 mg PO DAILY HYDROcodone/APAP 10-325MG [Comfort 10-325] 1 tab PO TID Fenofibrate Nanocrystallized [Fenofibrate] 145 mg PO DAILY Discontinued Estrogens, Conjugated [Premarin] 0.45 mg PO DAILY Discharge Medication List Aspirin [Adult Low Dose Aspirin EC] 81 mg PO HS 10/29/19 [History] Calcium Carbonate [Calcium] 600 mg PO BID 10/29/19 [History] DULoxetine HCL [Cymbalta] 60 mg PO BID 10/29/19 [History] Flunisolide Nasal [place] [Nasalide] 2 spray EA NOSTRIL BID 10/29/19 [History] Levothyroxine Sodium [Synthroid] 50 mcg PO DAILY 10/29/19 [History] Multivit-Min/FA/Lycopen/Lutein [Centrum Silver Tablet] 1 tab PO QAM 10/29/19 [History] Omeprazole 40 mg PO DAILY 10/29/19 [History] Albuterol Inhaler [Ventolin Hfa Inhaler] 2 puff INHALATION RT-QID PRN 09/17/21 [History] Benazepril HCl [Lotensin] 20 mg PO DAILY 09/17/21 [History] Fluticasone/Umeclidin/Vilanter [Trelegy Ellipta 100-62.5-25] 1 puff INHALATION RT-DAILY 09/17/21 [History] Metoprolol Succinate (ER) [Toprol XL] 12.5 mg PO DAILY 12/27/21 [History] Nitroglycerin Sl Tabs [Nitrostat] 0.4 mg SUBLINGUAL Q5M PRN 01/13/22 [History] Atorvastatin [Lipitor] 80 mg PO DAILY 03/27/23 [History] Famotidine 20 mg PO HS 03/27/23 [History] HYDROcodone/APAP 10-325MG [Comfort 10-325] 1 tab PO TID 03/27/23 [History] Potassium Citrate 99 mg PO HS 03/27/23 [History] predniSONE 5 mg PO DAILY 03/27/23 [History] Fenofibrate Nanocrystallized [Fenofibrate] 145 mg PO DAILY 06/04/23 [History] Prunelax 3 cap PO HS 09/06/23 [History] Acetaminophen Tab [Tylenol] 650 mg PO Q6HR PRN tab 10/29/23 [Rx] Apixaban Initiation Dose--VTE [Eliquis Initiation Dosing for VTE Treatment] 0 mg PO DIRECTED 30 Days #81 tab 10/29/23 [Rx] Loperamide [Imodium] 2 mg PO QID PRN cap 10/29/23 [Rx] Metoprolol Tartrate [Lopressor] 25 mg PO BID #60 tab 10/29/23 [Rx] Ondansetron [Zofran] 4 mg PO Q8HR PRN #16 tab 10/29/23 [Rx] amLODIPine [Norvasc] 5 mg PO DAILY #30 tab 10/29/23 [Rx] predniSONE 0 mg PO DIRECTED 11 Days #20 tab 10/29/23 [Rx] Follow up Appointment(s)/Referral(s): Norma Angel MD [Primary Care Provider] - 10/31/23 11:30 am Bhupinder Rosario DO [Doctor of Osteopathic Medicine] - 11/06/23 9:00 am Ambulatory/Diagnostic Orders: Basic Metabolic Panel [LAB.AMB] Time Frame: 3 Days, Location: None Selected Complete Blood Count w/diff [LAB.AMB] Time Frame: 3 Days, Location: None Selected Patient Instructions/Handouts: Pulmonary Embolism (DC), COPD (Chronic Obstructive Pulmonary Disease) (DC), Pneumonia (DC) Activity/Diet/Wound Care/Special Instructions: Patient needs home oxygen to manage copd Continue on eliquis 10 mg ( 2 tablets) Twice a day for the next 5 days with f inal dose on 11/02/2023 at 9pm. Begin 5 mg (1 tablet) twice a day for the next 3 months. Continue on oral prednisone taper for 11 days. After complete can resume 5 mg prednisone daily dosing. Recommend to continue using incentive spirometer 10 x an hour Continue home oxygen at 2L nasal cannula . Follow up with Dr. Rosario in 1 to 2 weeks. Pulmonary recommending a follow up CT angiography outpatient to monitor the clot burden. Discontinue premarin. Estrogen containing products increase risk for blood clot formation. Discuss with Dr. Angel on follow up a referral for outpatient physical therapy at a center. Discharge Disposition: HOME WITH HOME HEALTH SERVICES
== END 2023-10-29 17:09 | disposition home health service (06) | DRG 175 ==
LOC: EC 10:08 → 6NMEDSUR 13:42 → 3SCARD 20:50 → OBSVTOIN 10-25 09:47
PROVIDERS: ADMIT Hospitalist; ATTEND Hospitalist
DX: I26.99 Other pulmonary embolism without acute cor pulmonale (principal); J18.9 Pneumonia, unspecified organism; J96.01 Acute respiratory failure with hypoxia; J44.0 Chronic obstructive pulmonary disease with (acute) lower respiratory infection; K21.9 Gastro-esophageal reflux disease without esophagitis; E78.5 Hyperlipidemia, unspecified; J43.9 Emphysema, unspecified; I50.9 Heart failure, unspecified; I25.10 Atherosclerotic heart disease of native coronary artery without angina pectoris; I11.0 Hypertensive heart disease with heart failure; H91.90 Unspecified hearing loss, unspecified ear; M19.90 Unspecified osteoarthritis, unspecified site; I26.94 Multiple subsegmental thrombotic pulmonary emboli without acute cor pulmonale; G47.30 Sleep apnea, unspecified; F41.1 Generalized anxiety disorder; E83.42 Hypomagnesemia; E03.9 Hypothyroidism, unspecified; J44.9 Chronic obstructive pulmonary disease, unspecified; Z96.653 Presence of artificial knee joint, bilateral; G93.39 Other post infection and related fatigue syndromes; U09.9 Post COVID-19 condition, unspecified; F32.A Depression, unspecified; A08.4 Viral intestinal infection, unspecified; Z11.52 Encounter for screening for COVID-19; Z90.2 Acquired absence of lung [part of]; Z87.891 Personal history of nicotine dependence; Z86.73 Personal history of transient ischemic attack (TIA), and cerebral infarction without residual deficits; Z85.118 Personal history of other malignant neoplasm of bronchus and lung; Z79.899 Other long term (current) drug therapy; Z79.890 Hormone replacement therapy; Z79.82 Long term (current) use of aspirin; I25.2 Old myocardial infarction; Z88.8 Allergy status to other drugs, medicaments and biological substances; Z88.0 Allergy status to penicillin; Z88.1 Allergy status to other antibiotic agents
CPT/HCPCS: 36415; 71045; 71046; 71275; 80048; 80053; 83605; 83735; 83880; 84145; 84484; 85025; 85027; 85379; 85610; 85730; 87040; 87324; 87636; 93005; 93306; 94640; 94760; 96365; 96367; 96375; 99285

== ENCOUNTER → 2024-01-23 | Outpatient (CLI) | payer MEDICARE ==
[2024-01-23 15:08] LABS: African American GFR (CKD) 55 (>60 ml/min/1.73 sqM); Blood Urea Nitrogen 38 mg/dL (7-17); Non-African American GFR(CKD) 47 (>60 ml/min/1.73 sqM)
--- NOTE | 2024-01-25 13:01 | CT ---
EXAMINATION TYPE: CT chest angio for PE CT DLP: 714 mGycm, Automated exposure control for dose reduction was used. DATE OF EXAM: 01/23/2024 3:48 PM COMPARISON: Chest radiograph from same day. Multiple CTs of the chest with most recent on . CLINICAL INDICATION:Female, 83 years old with history of I26.99 OTHER PULMONARY EMBOLISM WITHOUT ACUT E COR; Hx of lung CA, with left lung partially removed. C/O SOB and Hx of multiple PE's. TECHNIQUE/CONTRAST: CTA scan of the thorax is performed with IV Contrast, patient injected with 80 mL of Isovue 370, MIP images are created and reviewed these are created on a separate workstation.. FINDINGS: Pulmonary Artery: There is no evidence for an acute filling defect within the pulmonary vasculature t o suggest acute pulmonary embolism. The pulmonary artery is of normal size. Suspected, chronic, Pl eural-based, wedge-shaped pulmonary infarct in the left lower lobe. Lungs/Pleura: No evidence of focal pneumonic airspace consolidation, pleural effusion or pneumothorax . Airway: Large airways are patent. Heart: Heart is within normal limits for size. Moderate calcific coronary artery disease.1 Vasculature: No evidence of aortic aneurysm. Mediastinum: No gross evidence of adenopathy. Musculoskeletal: No acute osseous abnormalities Soft Tissues: Unremarkable. Lower neck: No significant findings. Upper Abdomen: No significant acute findings. Cholecystectomy clips in the gallbladder fossa. IMPRESSION: 1. No evidence of acute pulmonary embolism. 2. Suspected old, pleural-based, wedge-shaped left lower lobe pulmonary infarct.
== END | disposition home or self-care (01) ==
LOC: RADCTMAIN 14:00
PROVIDERS: ATTEND Internal Medicine Critical Care Medicine
DX: I26.99 Other pulmonary embolism without acute cor pulmonale (principal); Z90.2 Acquired absence of lung [part of]
CPT/HCPCS: 82565; 84520; 71275; 36415; Q9967

== ENCOUNTER → 2024-02-20 | Outpatient (CLI) | payer MEDICARE ==
[2024-02-20 15:30] LABS: African American GFR (CKD) 63 (>60 ml/min/1.73 sqM); Blood Urea Nitrogen 29 mg/dL (7-17); Non-African American GFR(CKD) 55 (>60 ml/min/1.73 sqM)
--- NOTE | 2024-02-20 16:24 | CT ---
EXAMINATION TYPE: CT angio chest CT DLP: 492.8 mGycm, Automated exposure control for dose reduction was used. DATE OF EXAM: 02/20/2024 4:01 PM COMPARISON: 01/23/2024, 10/24/2023, 10/10/2019, 09/17/2021 CLINICAL INDICATION:Female, 83 years old with history of R06.02 SHORTNESS OF BREATH; clement TECHNIQUE/CONTRAST: CTA scan of the thorax is performed with IV Contrast, patient injected with 100 mL of Isovue 370, MIP images are created and reviewed these are created on a separate workstation.. FINDINGS: Pulmonary Artery: Prior pulmonary emboli seen on 10/24/2019 24 mm the visualized. There is no evidence for a filling defect within the pulmonary vasculature to suggest acute pulmonary embolism. The pulmo nary artery is of normal size. Lungs/Pleura: Mild centrilobular emphysema changes. Left lower lobe masslike consolidation measuring 30 x 29 mm previously 18 x 12 mm on 10/10/2019 and 21 x 20 mm on 10/24/2023. No evidence of focal consol idation, pleural effusion or pneumothorax. Airway: Large airways are patent. Heart: Heart is within normal limits for size. Mild aortic valve calcifications and coronary artery c [facility] patient's. Vasculature: No evidence of aortic aneurysm. Mediastinum: No gross evidence of adenopathy. Musculoskeletal: No acute osseous abnormalities Soft Tissues/lymph nodes: Unremarkable. Lower neck: No significant findings. Upper Abdomen: The gallbladder surgically absent. Hepatic cyst. IMPRESSION: 1. No evidence of acute pulmonary embolism. Resolution of pulmonary emboli seen on 10/24/2023. 2. Left lower lobe masslike consolidation which has increased in size from 10/10/2021. Consider evalua tion with PET/CT. 3. Mild to moderate aortic valve calcifications 4. . Mild to moderate atherosclerosis of the arterial vasculature.
== END | disposition home or self-care (01) ==
LOC: RADCTMAIN 14:37
PROVIDERS: ATTEND Internal Medicine Critical Care Medicine
DX: I35.8 Other nonrheumatic aortic valve disorders (principal); I70.90 Unspecified atherosclerosis
CPT/HCPCS: 82565; 84520; 71275; 36415; Q9967

== ENCOUNTER → 2024-03-14 | Outpatient (CLI) | payer MEDICARE ==
--- NOTE | 2024-03-14 17:55 | PE ---
EXAMINATION TYPE: PET CT fusion skull to thigh DATE OF EXAM: 03/14/2024 CLINICAL INDICATION:Female, 83 years old with history of C34.31 LUNG MASS; TECHNIQUE: Following the intravenous administration of 12.37 mCi of F-18 FDG, whole body images are performed from the skull base to the midthigh. Images are reviewed on the computer in the coronal, axial, and sagittal planes. Reconstructed rotating images are created on independent workstation and reviewed on the computer. A non-contrast CT is performed in conjunction with the PET scan. Glucose level 106 mg/dL CT DLP: 920.80 mGycm, Automated exposure control for dose reduction was used. COMPARISON: CT 02/20/2024, 02/10, 10/24/2023, PET/CT 10/10/2019, MRI: None FINDINGS: Mediastinal SUV mean is 3.6. Hepatic parenchyma SUV mean is 3.9. SKULL BASE AND NECK: Mildly enlarged 1.1 cm FDG avid left supraclavicular lymph node and within maximum SUV of 12.0 Additional nonenlarged right significant lymph node demonstrating low-level FDG activity with a maxim um SUV of 3.9. FDG uptake identified within the right posterior cervical musculature at C2-C3 without CT correlate. Demonstrates a maximum SUV of 13.9. Low level activity is identified in the maxillary teeth on the right likely related to periodontal di sease. CHEST, MEDIASTINUM, AND HILAR REGION: Redemonstration of left lower lobe spiculated masslike consolidation measuring 3.9 x 2.7 cm. This dem onstrates a maximum SUV of 17.7. Additional right lower lobe stable 5 mm pulmonary nodule and right upper lobe 8 mm pulmonary nodule. These are not FDG avid. FDG avid enlarged mediastinal and left hilar lymph nodes identified. Exams include a 1.6 cm prevascul ar space lymph node with a maximum SUV of 10.4, 1.3 cm right paratracheal lymph node with a maximum S UV of 14.2, and a left hilar 1.3 cm lymph node with a maximum SUV of 11.0. ABDOMEN AND PELVIS: No suspicious radiotracer activity. MUSCULOSKELETAL STRUCTURES: Low level uptake identified within the right shoulder likely related to osteoarthritic changes. Focal uptake identified within the left C6 transverse process and posterior left first rib without CT correlate. Demonstrates a maximum SUV of 11.0. Focal uptake identified within the left iliac bone anteriorly without CT abnormality. Maximum SUV of 8.2. OTHER CT: Stable hepatic and right renal cysts. Gallbladder is surgically absent. Moderate atheroscle rotic calcification of the aorta is branches. Uterus is surgically absent. Distal colonic diverticulo sis. Cardiomegaly. Aortic valve and mitral anus calcifications. Coronary arterial calcifications. Ath erosclerotic carotid bulb calcifications. Bilateral aphakia. Calcification of the aorta and its branc hes. Right AC joint arthropathy. Postsurgical changes of the left shoulder with orthopedic anchors. O steoarthritic changes of both shoulders. Centrilobular emphysematous changes. Biapical pleural parenc hymal scarring IMPRESSION: 1. FDG avid left lower lobe lung mass most consistent with primary lung malignancy. 2. FDG avid lymphadenopathy involving the mediastinum, left supraclavicular region, and left hilum. C onsistent with metastatic disease. 3. Focal uptake identified within the left iliac bone and left C6 transverse process and posterior le ft first rib. No obvious CT lesion. Findings are suspicious for osseous metastasis. Additional focal radiotracer activity identified within the posterior cervical musculature at the level of C2-C3 which is suspicious for metastasis.
== END | disposition home or self-care (01) ==
LOC: RADPETMAIN 12:11
PROVIDERS: ATTEND Internal Medicine Critical Care Medicine
DX: C34.31 Malignant neoplasm of lower lobe, right bronchus or lung (principal); R59.1 Generalized enlarged lymph nodes; R91.8 Other nonspecific abnormal finding of lung field
CPT/HCPCS: 78815; A9552

== ENCOUNTER 2024-06-09 13:09 | Inpatient (IN) | payer MEDICARE ==
--- NOTE | 2024-06-09 14:05 | ED ---
General Adult HPI - General Chief complaint: Upper Respiratory Infection Stated complaint: Congestion,weakness Time Seen by Provider: 06/09/24 13:32 Source: patient Mode of arrival: wheelchair Limitations: no limitations - History of Present Illness Initial comments: Dictation was produced using [employer] dictation software. please excuse any grammatical, word or spelling errors. Chief Complaint: 83-year-old female presents with cough shortness of breath History of Present Illness: Patient is 83-year-old female has stage IV lung cancer with metastatic spread to lymph nodes, shoulder and bone. States that she sees specialist down at the [facility]. For the last couple days she has been having worsening shortness of breath along with cough and phlegm production. Denies any fever. No chest pain. Family is concerned she has a pneumonia. No obvious sick contacts. Patient has multiple other comorbidities. She takes anticoagulation medications for previous PE. The ROS documented in this emergency department record has been reviewed and confirmed by me. Those systems with pertinent positive or negative responses have been documented in the HPI. All other systems are other negative and/or noncontributory. - Related Data Home Medications Medication Instructions Recorded Confirmed Aspirin [Adult Low Dose Aspirin EC] 81 mg PO HS 10/29/19 06/09/24 Calcium Carbonate [Calcium] 600 mg PO BID 10/29/19 06/09/24 DULoxetine HCL [Cymbalta] 60 mg PO BID 10/29/19 06/09/24 Flunisolide Nasal Dickens [Nasalide] 2 spray EA NOSTRIL BID 10/29/19 06/09/24 Levothyroxine Sodium [Synthroid] 50 mcg PO DAILY 10/29/19 06/09/24 Multivit-Min/FA/Lycopen/Lutein 1 tab PO DAILY 10/29/19 06/09/24 [Centrum Silver Tablet] Omeprazole 20 mg PO BID 10/29/19 06/09/24 Albuterol Inhaler [Ventolin Hfa 2 puff INHALATION RT-QID PRN 09/17/21 06/09/24 Inhaler] Benazepril HCl [Lotensin] 20 mg PO DAILY 09/17/21 06/09/24 Fluticasone/Umeclidin/Vilanter 1 puff INHALATION RT-DAILY 09/17/21 06/09/24 [Trelegy Ellipta 100-62.5-25] Atorvastatin [Lipitor] 80 mg PO DAILY 03/27/23 06/09/24 Famotidine 20 mg PO HS 03/27/23 06/09/24 HYDROcodone/APAP 10-325MG [Floweree 1 tab PO Q8H 03/27/23 06/09/24 10-325] Potassium Citrate 99 mg PO HS 03/27/23 06/09/24 predniSONE 5 mg PO DIRECTED 03/27/23 06/09/24 Fenofibrate Nanocrystallized 145 mg PO DAILY 06/04/23 06/09/24 [Fenofibrate] Prunelax 3 cap PO HS 09/06/23 06/09/24 ALPRAZolam [Xanax] 0.5 mg PO TID PRN 06/09/24 06/09/24 Apixaban [Eliquis] 5 mg PO BID 06/09/24 06/09/24 Cholecalciferol [Vitamin D3 (125 125 mcg PO DAILY 06/09/24 06/09/24 Mcg = 5000 Iu)] Levalbuterol Nebulized [Xopenex 1.25 mg INHALATION RT-TID PRN 06/09/24 06/09/24 Nebulized] Meclizine [Antivert] 25 mg PO Q6H PRN 06/09/24 06/09/24 Stool Softner Otc(Unknown) 2 tab PO HS 06/09/24 06/09/24 Vitamin B-12(Unknown Dose) 1 tab PO DAILY 06/09/24 06/09/24 ondansetron HCL [Zofran] 8 mg PO TID PRN 06/09/24 06/09/24 predniSONE See Taper PO DIRECTED 06/09/24 06/09/24 Previous Rx's Medication Instructions Recorded Metoprolol Tartrate [Lopressor] 25 mg PO BID #60 tab 10/29/23 amLODIPine [Norvasc] 5 mg PO DAILY #30 tab 10/29/23 Allergies Allergy/AdvReac Type Severity Reaction Status Date / Time fluticasone Allergy Unknown Swelling Verified 06/09/24 14:13 [From Advair Diskus] of Tongue & Lips milk Allergy Unknown Unknown Verified 06/09/24 14:13 salmeterol Allergy Unknown Swelling Verified 06/09/24 14:13 [From Advair Diskus] of Tongue and Lips adhesive tape AdvReac Unknown irritated Verified 06/09/24 14:13 skin amoxicillin [From Augmentin] AdvReac Nausea & Verified 06/09/24 14:13 Vomiting azithromycin [From Zithromax] AdvReac Nausea & Verified 06/09/24 14:13 Vomiting clavulanic acid AdvReac Nausea & Verified 06/09/24 14:13 [From Augmentin] Vomiting Review of Systems ROS Statement: Those systems with pertinent positive or pertinent negative responses have been documented in the HPI. ROS Other: All systems not noted in ROS Statement are negative. Past Medical History Past Medical History: Coronary Artery Disease (CAD), Cancer, Heart Failure, COPD, CVA/TIA, GERD/Reflux, Hearing Disorder / Deafness, Hyperlipidemia, Hypertension, Myocardial Infarction ([place]), Osteoarthritis (OA), Sleep Apnea/CPAP/BIPAP, Thyroid Disorder Additional Past Medical History / Comment(s): HX CVA 10/2021. HX COVID WITH RESIDUAL SEVERE FATIGUE. EMPHYSEMA, CHRONIC RESPIRATORY INFECTIONS, HX LUNG CANCER WITH LEFT LOBECTOMY (2009). CHRONIC LOWER BACK AND NECK PAIN. NO CPAP USE. CONSTIPATION. 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 COLONOSCOPY, Past Anesthesia/Blood Transfusion Reactions: Previous Problems w/ Anesthesia, Motion Sickness Additional Past Anesthesia/Blood Transfusion Reaction / Comment(s): DIFFICULTY WAKING UP AFTER LUNG SURGERY, TOOK 5 HRS TO WAKE UP AND WAS OVERSEDATED WHILE IN THE HOSPITAL. Hard to wake up with other surgeries also. Past Psychological History: Depression Smoking Status: Former smoker Past Alcohol Use History: None Reported Past Drug Use History: None Reported - Past Family History Mother Family Medical History: Cancer Additional Family Medical History / Comment(s): BREAST CANCER. Sister(s) Family Medical History: Cancer Additional Family Medical History / Comment(s): BREAST CANCER. Daughter(s) Family Medical History: Pulmonary Embolus Additional Family Medical History / Comment(s): had multiple PE's throughout chest General Exam - General Exam Comments Initial Comments: PHYSICAL EXAM: General Impression: Alert and oriented x3, not in acute distress HEENT: Normocephalic atraumatic, extra-ocular movements intact, pupils equal and reactive to light bilaterally, mucous membranes moist. Cardiovascular: Heart regular rate and rhythm Chest: Able to complete full sentences, no retractions, no tachypnea Abdomen: abdomen soft, non-tender, non-distended, no organomegaly Musculoskeletal: Pulses present and equal in all extremities, no peripheral edema Motor: no focal deficits noted Neurological: CN II-XII grossly intact, no focal motor or sensory deficits noted Skin: Intact with no visualized rashes Psych: Normal affect and mood Limitations: no limitations Course Vital Signs 06/09/24 06/09/24 06/09/24 13:15 14:15 14:18 Temperature 97.3 F L Pulse Rate 83 Respiratory 16 Rate Blood Pressure 113/65 O2 Sat by Pulse 93 L 90 L 98 Oximetry 06/09/24 15:35 Temperature Pulse Rate 85 Respiratory 18 Rate Blood Pressure 140/74 O2 Sat by Pulse 98 Oximetry EKG Findings - EKG Comments: EKG Findings:: My EKG interpretation: Ventricular rate 80, sinus rhythm,. 177, QRS 128, QTc 410. No [place] prolongation, no QTC prolongation, no ST or T-wave changes noted. EKG compared to October 24, 2023 showing no changes. Overall, this EKG is unremarkable Medical Decision Making - Medical Decision Making Was pt. sent in by a medical professional or institution (, PA, PUMPING PLANT OPERATOR, urgent care, hospital, or senior living...) When possible be specific @ -No Did you speak to anyone other than the patient for history (EMS, parent, family, police, friend...)? What history was obtained from this source @ -No Did you review nursing and triage notes (agree or disagree)? Why? @ -I reviewed and agree with nursing and triage notes Were old charts reviewed (outside hosp., previous admission, EMS record, old EKG, old radiological studies, urgent care reports/EKG's, senior living records)? Report findings @ -No old charts were reviewed Differential Diagnosis (chest pain, altered mental status, abdominal pain women, abdominal pain men, vaginal bleeding, musculoskeletal, weakness, fever, dyspnea, syncope, headache, dizziness, GI bleed, back pain, seizure, CVA, palpatations, mental health)? @ -Differential Dyspnea: Coronary syndrome, arrhythmia, tamponade, asthma, COPD, pulmonary embolism, pneumonia, pneumothorax, pulmonary effusion, anaphylaxis, diabetic ketoacidosis, flailed chest, pulmonary contusion, diaphragmatic rupture, anemia, neuromuscular, this is not meant to be an all-inclusive list. EKG interpreted by me (3pts min.). @ -None done X-rays interpreted by me (1pt min.). @ -Chest x-ray shows left pleural effusion versus consolidation CT interpreted by me (1pt min.). @ -CT angiography shows pulmonary inflammatory changes in left lung base. No saddle PE U/S interpreted by me (1pt. min.). @ -None done What testing was considered but not performed or refused? (CT, X-rays, U/S, labs)? Why? @ -None What meds were considered but not given or refused? Why? @ -None Was smoking cessation discussed for >3mins.? @ -No Were there social determinants of health that impacted care today? How? (Homelessness, low income, unemployed, alcoholism, drug addiction, transportation, low edu. Level, literacy, decrease access to med. care, usp, rehab)? @ -No Was there de-escalation of care discussed even if they declined (Discuss DNR or withdrawal of care, Hospice)? DNR status @ -No What co-morbidities impacted this encounter? (DM, HTN, Smoking, COPD, CAD, Cancer, CVA, ARF, Chemo, Hep., AIDS, mental health diagnosis, sleep apnea, morbid obesity)? @ -Lung cancer Was patient admitted / discharged? Hospital course, mention meds given and route, prescriptions, significant lab abnormalities, going to OR and other pertinent info. @ -83-year-old female with history of stage IV lung cancer presents to the ER for shortness of breath cough that is productive of phlegm. Patient denies any fever or constitutional symptoms. Vital signs upon arrival shows 93% on room air, 97.3 temperature. Laboratory evaluation obtained. Hemoglobin 7.8. Pending repeat for concerns of lab error. Coag panel negative. D-dimer is 1.12. CT angiography shows no saddle PE there does appear to be some consolidation in the left lung base which may be pneumonia versus worsening lung cancer. Troponin 0.055. Viral testing negative. Patient will be admitted. Case discussed with hospitalist for admission. Pulmonology will be consulted. Clinical presentation consistent with pneumonia. Patient started on antibiotics Did you discuss the management of the patient with other professionals (professionals i.e. , PA, PUMPING PLANT OPERATOR, lab, RT, psych nurse, personal support worker, emergency medical tech, teacher, commissioned defence force officer, major case detective)? Give summary @ -See above Was critical care preformed (if so, how long)? @ -No Undiagnosed new problem with uncertain prognosis? @ -No Drug Therapy requiring intensive monitoring for toxicity (Heparin, Nitro, Insulin, Cardizem)? @ -No Were any procedures done? @ -No Diagnosis/symptom? Acute, or Chronic, or Acute on Chronic? Uncomplicated (without systemic symptoms) or Complicated (systemic symptoms)? @ -Pneumonia Side effects of treatment? @ -No Exacerbation, Progression, or Severe Exacerbation? @ -No Poses a threat to life or bodily function? How? (Chest pain, [place], [place], pneumonia, PE, COPD, DKA, ARF, appy, cholecystitis, CVA, Diverticulitis, Homicidal, Suicidal, threat to staff... and all critical care pts) @ -yes - Lab Data Result diagrams: 06/09/24 14:30 06/09/24 14:06 Lab Results 06/09/24 06/09/24 06/09/24 Range/Units 14:06 14:06 14:06 WBC (3.8-10.6) k/uL RBC (3.80-5.40) m/uL Hgb (11.4-16.0) gm/dL Hct (34.0-46.0) % MCV (80.0-100.0) fL MCH (25.0-35.0) pg MCHC (31.0-37.0) g/dL RDW (11.5-15.5) % Plt Count (150-450) k/uL MPV Neutrophils % % Lymphocytes % % Monocytes % % Eosinophils % % Basophils % % Neutrophils # (1.3-7.7) k/uL Lymphocytes # (1.0-4.8) k/uL Monocytes # (0-1.0) k/uL Eosinophils # (0-0.7) k/uL Basophils # (0-0.2) k/uL Hypochromasia Anisocytosis Microcytosis PT 12.6 H (10.0-12.5) sec INR 1.2 H (<1.2) APTT 25.6 (22.0-30.0) sec D-Dimer 1.12 H (<0.60) mg/L FEU Sodium 138 (137-145) mmol/L Potassium 3.6 (3.5-5.1) mmol/L Chloride 106 (98-107) mmol/L Carbon Dioxide 28 (22-30) mmol/L Anion Gap 4 mmol/L BUN 33 H (7-17) mg/dL Creatinine 0.91 (0.52-1.04) mg/dL Est GFR (CKD-EPI)AfAm 67 (>60 ml/min/1.73 sqM) Est GFR (CKD-EPI)NonAf 58 (>60 ml/min/1.73 sqM) Glucose 102 H (74-99) mg/dL Plasma Lactic Acid Noman 1.2 (0.7-2.0) mmol/L Calcium 9.9 (8.4-10.2) mg/dL Magnesium 1.5 L (1.6-2.3) mg/dL Total Bilirubin 0.7 (0.2-1.3) mg/dL AST 36 (14-36) U/L ALT 14 (4-34) U/L Alkaline Phosphatase 56 (38-126) U/L Troponin I (0.000-0.034) ng/mL NT-Pro-B Natriuret Pep 980 pg/mL Total Protein 6.0 L (6.3-8.2) g/dL Albumin 3.6 (3.5-5.0) g/dL Influenza Type A (PCR) (Not Detectd) Influenza Type B (PCR) (Not Detectd) RSV (PCR) (Not Detectd) SARS-CoV-2 (PCR) (Not Detectd) 06/09/24 06/09/24 06/09/24 Range/Units 14:06 14:06 14:30 WBC 10.0 (3.8-10.6) k/uL RBC 3.15 L (3.80-5.40) m/uL Hgb 7.8 L (11.4-16.0) gm/dL Hct 26.4 L (34.0-46.0) % MCV 83.8 (80.0-100.0) fL MCH 24.7 L (25.0-35.0) pg MCHC 29.4 L (31.0-37.0) g/dL RDW 22.4 H (11.5-15.5) % Plt Count 324 (150-450) k/uL MPV 8.2 Neutrophils % 89 % Lymphocytes % 6 % Monocytes % 3 % Eosinophils % 1 % Basophils % 0 % Neutrophils # 8.9 H (1.3-7.7) k/uL Lymphocytes # 0.6 L (1.0-4.8) k/uL Monocytes # 0.3 (0-1.0) k/uL Eosinophils # 0.1 (0-0.7) k/uL Basophils # 0.0 (0-0.2) k/uL Hypochromasia Marked Anisocytosis Moderate Microcytosis Slight PT (10.0-12.5) sec INR (<1.2) APTT (22.0-30.0) sec D-Dimer (<0.60) mg/L FEU Sodium (137-145) mmol/L Potassium (3.5-5.1) mmol/L Chloride (98-107) mmol/L Carbon Dioxide (22-30) mmol/L Anion Gap mmol/L BUN (7-17) mg/dL Creatinine (0.52-1.04) mg/dL Est GFR (CKD-EPI)AfAm (>60 ml/min/1.73 sqM) Est GFR (CKD-EPI)NonAf (>60 ml/min/1.73 sqM) Glucose (74-99) mg/dL Plasma Lactic Acid Noman (0.7-2.0) mmol/L Calcium (8.4-10.2) mg/dL Magnesium (1.6-2.3) mg/dL Total Bilirubin (0.2-1.3) mg/dL AST (14-36) U/L ALT (4-34) U/L Alkaline Phosphatase (38-126) U/L Troponin I 0.055 H* (0.000-0.034) ng/mL NT-Pro-B Natriuret Pep pg/mL Total Protein (6.3-8.2) g/dL Albumin (3.5-5.0) g/dL Influenza Type A (PCR) Not Detected (Not Detectd) Influenza Type B (PCR) Not Detected (Not Detectd) RSV (PCR) Not Detected (Not Detectd) SARS-CoV-2 (PCR) Not Detected (Not Detectd) Disposition Clinical Impression: Pneumonia Disposition: ADMITTED IP TO THIS HOSP Condition: Fair Referrals: Norma Angel MD [Primary Care Provider] - 1-2 days Decision Time: 15:56
[2024-06-09 14:28] LABS: ALT 14 U/L (4-34); AST 36 U/L (14-36); African American GFR (CKD) 67 (>60 ml/min/1.73 sqM); Albumin 3.6 g/dL (3.5-5.0); Alkaline Phosphatase 56 U/L (38-126); Anion Gap 4 mmol/L; Blood Urea Nitrogen 33 mg/dL (7-17); Calcium 9.9 mg/dL (8.4-10.2); Carbon Dioxide 28 mmol/L (22-30); Chloride 106 mmol/L (98-107); Glucose 102 mg/dL (74-99); Magnesium 1.5 mg/dL (1.6-2.3); Non-African American GFR(CKD) 58 (>60 ml/min/1.73 sqM); Potassium 3.6 mmol/L (3.5-5.1); Sodium 138 mmol/L (137-145); Total Bilirubin 0.7 mg/dL (0.2-1.3)
[2024-06-09 14:34] LABS: Anisocytosis Moderate; Basophils % (A) 0 %; Eosinophils # (A) 0.1 k/uL (0-0.7); Eosinophils % (A) 1 %; HCT 26.4 % (34.0-46.0); HGB 7.8 gm/dL (11.4-16.0); Hypochromasia Marked; Lymphocytes # (A) 0.6 k/uL (1.0-4.8); Lymphocytes % (A) 6 %; MCH 24.7 pg (25.0-35.0); MCHC 29.4 g/dL (31.0-37.0); MCV 83.8 fL (80.0-100.0); Mean Platelet Volume 8.2; Microcytosis Slight; Monocytes # (A) 0.3 k/uL (0-1.0); Monocytes % (A) 3 %; Neutrophils # (A) 8.9 k/uL (1.3-7.7); Neutrophils % (A) 89 %; Platelet Count 324 k/uL (150-450); RBC 3.15 m/uL (3.80-5.40); RDW 22.4 % (11.5-15.5)
[2024-06-09 14:37] LABS: NT-Pro-B-Type Natriuretic Pept 980 pg/mL
[2024-06-09 14:41] LABS: INR 1.2 (<1.2); Partial Thromboplastin Time 25.6 sec (22.0-30.0); Prothrombin Time 12.6 sec (10.0-12.5)
--- NOTE | 2024-06-09 15:09 | XR ---
EXAMINATION TYPE: XR chest 2V DATE OF EXAM: 06/09/2024 COMPARISON: 10/26/2023 HISTORY: 83 year-old female shortness of breath, dyspnea, stage IV lung cancer TECHNIQUE: AP and lateral views FINDINGS: Suture anchors left humeral head from prior cuff repair. Loss of the subacromial space right shoulder compatible with full-thickness rotator cuff tear. Mild enlarged. Interstitial and patchy bibasilar o pacities, left greater than right have worsened from 10/26/2023. IMPRESSION: Moderate left pleural effusion with prominent adjacent atelectasis and/or consolidation. Interstitial density could reflect pulmonary vascular congestion. [facility], , 06/09/2024 3:07 PM
[2024-06-09] MEDS ORDERED: PNEUMONIA PROTOCOL UTILIZED 1 EACH MISC PO PRN (15:51)
--- NOTE | 2024-06-09 16:14 | CT ---
EXAMINATION TYPE: CT angio chest DATE OF EXAM: 06/09/2024 3:47 PM COMPARISON: 02/20/2024 HISTORY: Elevated d dimer. SOB CT DLP: 717.2 mGycm Automated exposure control for dose reduction was used. CONTRAST: CTA scan of the thorax is performed with IV Contrast, patient injected with 80 mL of Isovue 370, pulm onary embolism protocol. FINDINGS: There is marked increase opacification left lung base which possibly is a combination of large lung n eoplasm and interstitial opacity. In addition, there is a small left pleural effusion. PET scan might be useful for further evaluation or direct tissue sampling. There are marked emphysematous changes in the upper lobes. There is a stable spiculated 14 mm mass in the right lung apex. There are multiple enlarged mediastinal lymph nodes 15 mm to 20 mm in size.. There is a 17 mm right h ilar lymph node and an 18 mm left hilar lymph node. There is a filling defect in the distal left pulmonary artery consistent with an embolus. No focal osseous lesions are seen. IMPRESSION: 1. Pulmonary embolus in the distal left pulmonary artery. There is no definite evidence of right hear t strain. 2. Marked increased opacification left lung base highly suspicious for neoplasm and further workup wi th PET scan or tissue sampling is recommended. 3. Bilateral hilar adenopathy and mediastinal adenopathy as described above. 4. Small left pleural effusion. 5. 2 hypodensities in the anterior liver the largest of which is 3 cm. Further evaluation for metasta tic disease is recommended. [facility], , 06/09/2024 4:11 PM
[2024-06-09] MEDS: cefTRIAXone IN SWFI 1,000 MG/10 ML SYRINGE IVP STA (16:24)
[2024-06-09] MEDS: AZITHROMYCIN 500 MG in SODIUM CHLORIDE 0.9% 250 ML IVPB STA (16:25)
[2024-06-09] MEDS: MAGNESIUM SULFATE-D5W PMX 1 GM in DEXTROSE/WATER 1 100ML.BAG IVPB SCH (16:30)
[2024-06-09 16:43] LABS: Anisocytosis Moderate; HCT 24.3 % (34.0-46.0); HGB 7.2 gm/dL (11.4-16.0); Hypochromasia Marked; MCH 24.7 pg (25.0-35.0); MCHC 29.5 g/dL (31.0-37.0); MCV 83.5 fL (80.0-100.0); Mean Platelet Volume 8.3; Microcytosis Slight; Platelet Count 298 k/uL (150-450); RBC 2.91 m/uL (3.80-5.40); RDW 22.5 % (11.5-15.5); WBC 8.6 k/uL (3.8-10.6)
[2024-06-09] MEDS ORDERED: HEPARIN SODIUM 1,000 UN/ML (10ML VL) IV PRN (17:01)
[2024-06-09] MEDS: HEPARIN SODIUM 1,000 UN/ML (10ML VL) IV ONE (17:17)
[2024-06-09] MEDS: HEPARIN SOD,PORK IN 0.45% NACL 25,000 UNIT in 0.45% NACL 1 250ML.BAG IV SCH (17:20)
[2024-06-09] MEDS ORDERED: ALBUTEROL NEBULIZED 2.5 MG/3 ML INHALATION PRN ×2 (17:31)
[2024-06-09] MEDS: HYDROcodone/APAP 10-325MG 1 EACH TAB PO SCH (18:21)
[2024-06-09] MEDS: METOPROLOL TARTRATE 25 MG TAB PO SCH (20:29)
[2024-06-09] MEDS: DULoxetine HCL 60 MG CAPSULE.DR PO SCH (20:29)
[2024-06-09] MEDS: PANTOPRAZOLE 40 MG TABLET PO SCH (20:30)
[2024-06-09] MEDS: FAMOTIDINE 20 MG TAB PO SCH (20:30)
[2024-06-09] MEDS: ALPRAZolam 0.5 MG TAB PO PRN (20:40)
--- NOTE | 2024-06-09 21:27 | P.HPIM ---
History of Present Illness H&P Date: 06/09/24 Chief Complaint: Difficulty in breathing Patient is a 83-year-old female with a past medical history of coronary artery disease, CVA/TIA, GERD, hearing disorder/deafness, hypertension, hyperemia, history of AR, obstructive sleep apnea, hypothyroidism and chronic low back pain and history of lung cancer in 2010 status post lobectomy on the left presents to ER with complaints of difficulty in breathing and chest congestion and also generalized weakness. Patient is also complaining of cough with thick yellowish sputum production few days ago. Denied any fever or chills. Patient had recent PET scan on 03/14/2024 showed FDG avid left lower lobe lung mass most consistent with primary lung malignancy. Lymphadenopathy involving the mediastinum left subclavicular region and left hilum. Consistent with metastatic disease. Focal uptake identified within the left iliac bone and left C6 transverse process and posterior left first rib.. No obvious CT lesion. Findings are suspicious for osseous metastasis. No complaints of nausea vomiting abdominal pain or diarrhea. Denies any recent illnesses or sick contacts at home. Patient states that she had biopsy of the lung mass twice and is currently awaiting oncology appointment. EKG showed sinus rhythm. Chest x-ray showed moderate left pleural effusion with prominent adjacent atelectasis/consolidation. Interstitial density could reflect pulmonary vascular congestion. CT angiogram of the chest was done due to elevated D-dimer level showed pulmonary embolus in the distal left pulmonary artery. There is no definite evidence of right heart strain. Yogesh increased opacification of the left lung base highly suspicious for neoplasm and further workup with PET scan of tissue sampling is recommended. Bilateral hilar adenopathy and mediastinal adenopathy and small left pleural effusion. 2 hypodensities in the anterior liver the largest of which is 3 cm. Further evaluation for metastatic disease recommended. Review of Systems Constitutional: Patient denies any fever or chills . Does complain of generalized weakness.. Abdomen: Patient denied nausea vomiting and diarrhea and abdominal pain. Cardiovascular: Patient denies any chest pain. Positive for short of breath no palpitations. Respiratory: patient did have cough with thick yellowish sputum production and shortness of breath. Neurologic: Patient denied any numbness or tingling. no headache. Musculoskeletal: Patient denies any complaints of joint swelling or deformity. Skin: Negative Psychiatric: Negative Endocrine: No heat or cold intolerance. No recent weight gain. Genitourinary: No dysuria or hematuria. All other 14 point ROS negative except the above Past Medical History Past Medical History: Coronary Artery Disease (CAD), Cancer, Heart Failure, COPD, CVA/TIA, GERD/Reflux, Hearing Disorder / Deafness, Hyperlipidemia, Hypertension, Myocardial Infarction (AR), Osteoarthritis (OA), Sleep Apnea/CPAP/BIPAP, Thyroid Disorder Additional Past Medical History / Comment(s): HX CVA 10/2021. HX COVID WITH RESIDUAL SEVERE FATIGUE. EMPHYSEMA, CHRONIC RESPIRATORY INFECTIONS, HX LUNG CANCER WITH LEFT LOBECTOMY (2009). CHRONIC LOWER BACK AND NECK PAIN. NO CPAP USE. CONSTIPATION. Mild difficulty hearing.Long haul covid,no residual from cva Last Myocardial Infarction Date:: 09/17/21 History of Any Multi-Drug Resistant Organisms: MRSA Date of last positivie culture/infection: 10/19/23 MDRO Source:: Toe Right 2nd Past Surgical History: Cholecystectomy, Heart Catheterization, Hysterectomy, Joint Replacement, Orthopedic Surgery Additional Past Surgical History / Comment(s): LEFT LOWER LUNG REMOVED, B ILATERAL TOTAL KNEE REPLACEMENTS, LEFT ROTATOR CUFF REPAIR,BILAT CATARACTS REMOVED, CERVICAL LAMINECTOMY, tummy tuck. COLONOSCOPY, Past Anesthesia/Blood Transfusion Reactions: Previous Problems w/ Anesthesia, Motion Sickness Additional Past Anesthesia/Blood Transfusion Reaction / Comment(s): DIFFICULTY WAKING UP AFTER LUNG SURGERY, TOOK 5 HRS TO WAKE UP AND WAS OVERSEDATED WHILE IN THE HOSPITAL. Hard to wake up with other surgeries also. Past Psychological History: Depression Smoking Status: Former smoker Past Alcohol Use History: None Reported Past Drug Use History: None Reported - Past Family History Mother Family Medical History: Cancer Additional Family Medical History / Comment(s): BREAST CANCER. Sister(s) Family Medical History: Cancer Additional Family Medical History / Comment(s): BREAST CANCER. Daughter(s) Family Medical History: Pulmonary Embolus Additional Family Medical History / Comment(s): had multiple PE's throughout chest Medications and Allergies Home Medications Medication Instructions Recorded Confirmed Type Aspirin [Adult Low Dose Aspirin EC] 81 mg PO HS 10/29/19 06/09/24 History Calcium Carbonate [Calcium] 600 mg PO BID 10/29/19 06/09/24 History DULoxetine HCL [Cymbalta] 60 mg PO BID 10/29/19 06/09/24 History Flunisolide Nasal [place] [Nasalide] 2 spray EA NOSTRIL BID 10/29/19 06/09/24 History Levothyroxine Sodium [Synthroid] 50 mcg PO DAILY 10/29/19 06/09/24 History Multivit-Min/FA/Lycopen/Lutein 1 tab PO DAILY 10/29/19 06/09/24 History [Centrum Silver Tablet] Omeprazole 20 mg PO BID 10/29/19 06/09/24 History Albuterol Inhaler [Ventolin Hfa 2 puff INHALATION RT-QID PRN 09/17/21 06/09/24 History Inhaler] Benazepril HCl [Lotensin] 20 mg PO DAILY 09/17/21 06/09/24 History Fluticasone/Umeclidin/Vilanter 1 puff INHALATION RT-DAILY 09/17/21 06/09/24 History [Trelegy Ellipta 100-62.5-25] Atorvastatin [Lipitor] 80 mg PO DAILY 03/27/23 06/09/24 History Famotidine 20 mg PO HS 03/27/23 06/09/24 History HYDROcodone/APAP 10-325MG [[place] 1 tab PO Q8H 03/27/23 06/09/24 History 10-325] Potassium Citrate 99 mg PO HS 03/27/23 06/09/24 History predniSONE 5 mg PO DIRECTED 03/27/23 06/09/24 History Fenofibrate Nanocrystallized 145 mg PO DAILY 06/04/23 06/09/24 History [Fenofibrate] Prunelax 3 cap PO HS 09/06/23 06/09/24 History Metoprolol Tartrate [Lopressor] 25 mg PO BID #60 tab 10/29/23 06/09/24 Rx amLODIPine [Norvasc] 5 mg PO DAILY #30 tab 10/29/23 06/09/24 Rx ALPRAZolam [Xanax] 0.5 mg PO TID PRN 06/09/24 06/09/24 History Apixaban [Eliquis] 5 mg PO BID 06/09/24 06/09/24 History Cholecalciferol [Vitamin D3 (125 125 mcg PO DAILY 06/09/24 06/09/24 History Mcg = 5000 Iu)] Levalbuterol Nebulized [Xopenex 1.25 mg INHALATION RT-TID PRN 06/09/24 06/09/24 History Nebulized] Meclizine [Antivert] 25 mg PO Q6H PRN 06/09/24 06/09/24 History Stool Softner Otc(Unknown) 2 tab PO HS 06/09/24 06/09/24 History Vitamin B-12(Unknown Dose) 1 tab PO DAILY 06/09/24 06/09/24 History ondansetron HCL [Zofran] 8 mg PO TID PRN 06/09/24 06/09/24 History predniSONE See Taper PO DIRECTED 06/09/24 06/09/24 History Allergies Allergy/AdvReac Type Severity Reaction Status Date / Time fluticasone Allergy Unknown Swelling Verified 06/09/24 14:13 [From Advair Diskus] of Tongue & Lips milk Allergy Unknown Unknown Verified 06/09/24 14:13 salmeterol Allergy Unknown Swelling Verified 06/09/24 14:13 [From Advair Diskus] of Tongue and Lips adhesive tape AdvReac Unknown irritated Verified 06/09/24 14:13 skin amoxicillin [From Augmentin] AdvReac Nausea & Verified 06/09/24 14:13 Vomiting azithromycin [From Zithromax] AdvReac Nausea & Verified 06/09/24 14:13 Vomiting clavulanic acid AdvReac Nausea & Verified 06/09/24 14:13 [From Augmentin] Vomiting Physical Exam Vitals: Vital Signs Temp Pulse Resp BP Pulse Ox 06/09/24 15:35 85 18 140/74 98 06/09/24 14:18 98 06/09/24 14:15 90 L 06/09/24 13:15 97.3 F L 83 16 113/65 93 L Intake and Output 06/09/24 06/09/24 06/09/24 06:59 14:59 22:59 Other: Weight 90.718 kg PHYSICAL EXAMINATION: Patient is lying in the bed comfortably, no acute distress, awake alert and oriented.. HEENT: Normocephalic. Neck is supple. Pupils reactive. Nostrils clear. Oral cavity is moist. Neck reveals no JVD, carotid bruits, or thyromegaly. CHEST EXAMINATION: Trachea is central. Symmetrical expansion. No wheezing or rhonchi. Nonlabored breathing.. CARDIAC: Normal S1, S2 with no gallops. No murmurs ABDOMEN: Soft. Bowel sounds normal. No organomegaly. No abdominal bruits. Extremities: Bilateral lower extremity 1+ edema. No clubbing or cyanosis Neurologically awake, alert, oriented x3 with well-coordinated movements. No focal deficits noted Skin: No rash or skin lesions. Psychiatric: Coperative. Nonsuicidal Musculoskeletal: No joint swelling or deformity. Normal range of motion. Results CBC & Chem 7: 06/09/24 15:12 06/09/24 14:06 Labs: Abnormal Lab Results - Last 24 Hours (Table) 06/09/24 06/09/24 06/09/24 Range/Units 14:06 14:06 14:06 RBC (3.80-5.40) m/uL Hgb (11.4-16.0) gm/dL Hct (34.0-46.0) % MCH (25.0-35.0) pg MCHC (31.0-37.0) g/dL RDW (11.5-15.5) % Neutrophils # (1.3-7.7) k/uL Lymphocytes # (1.0-4.8) k/uL PT 12.6 H (10.0-12.5) sec INR 1.2 H (<1.2) D-Dimer 1.12 H (<0.60) mg/L FEU BUN 33 H (7-17) mg/dL Glucose 102 H (74-99) mg/dL Magnesium 1.5 L (1.6-2.3) mg/dL Troponin I 0.055 H* (0.000-0.034) ng/mL Total Protein 6.0 L (6.3-8.2) g/dL 06/09/24 06/09/24 Range/Units 14:30 15:12 RBC 3.15 L 2.91 L (3.80-5.40) m/uL Hgb 7.8 L 7.2 L (11.4-16.0) gm/dL Hct 26.4 L 24.3 L (34.0-46.0) % MCH 24.7 L 24.7 L (25.0-35.0) pg MCHC 29.4 L 29.5 L (31.0-37.0) g/dL RDW 22.4 H 22.5 H (11.5-15.5) % Neutrophils # 8.9 H (1.3-7.7) k/uL Lymphocytes # 0.6 L (1.0-4.8) k/uL PT (10.0-12.5) sec INR (<1.2) D-Dimer (<0.60) mg/L FEU BUN (7-17) mg/dL Glucose (74-99) mg/dL Magnesium (1.6-2.3) mg/dL Troponin I (0.000-0.034) ng/mL Total Protein (6.3-8.2) g/dL Thrombosis Risk Factor Assmnt - DVT/VTE Prophylaxis DVT/VTE Prophylaxis: Pharmacologic Prophylaxis ordered Assessment and Plan Assessment: Metastatic left lower lobe malignancy with recent PET scan on 03/14/2024 showed mediastinal and left subclavicular, hilar adenopathy and involving left iliac bone and left C6 transverse process and posterior left first rib. Acute PE involving the left distal pulmonary artery Left lung base atelectasis/consolidation possible pneumonia/postobstructive Difficulty in breathing Small left pleural effusion History of lung cancer in 2010 status post lobectomy on the left COPD Prior history of smoking Coronary disease with no history of PCI hypertension Hyperlipidemia Hypothyroidism Anxiety/depression Hypothyroidism DVT prophylaxis patient is already on heparin drip Plan: Patient will be continued on telemonitoring and oxygen supplementation breathing treatments. Continue with heparin drip and empiric antibiotics for possible pneumonia. Pain management and discharged home medications. Follow-up closely. Pulmonary was consulted for evaluation. Time with Patient: Greater than 30
[2024-06-10] MEDS: methylPREDNISolone SOD SUCCI 125 MG/2 ML VIAL IV SCH (05:52)
[2024-06-10] MEDS: LEVOTHYROXINE 50 MCG TAB PO SCH (05:54)
--- NOTE | 2024-06-10 05:58 | P.CNPUL ---
History of Present Illness Consult date: 06/10/24 Requesting physician: Zurdo Abdul Reason for consult: pulmonary embolism, lung mass Chief complaint: Shortness of breath History of present illness: Patient is an 84-year-old female with past medical history significant for hyperlipidemia, hypertension, coronary disease, hypothyroidism, COPD, former smoker, lung cancer with previous left lobectomy, and pulmonary embolism. PCP is Dr. Angel. Patient follows in the pulmonary office with Dr. Rosario. Of note, patient recently admitted with bilateral emboli within the main pulmonary arteries right greater than left as well as segmental and subsegmental branches. Patient was started on Eliquis. Follow-up scans showed resolution of previous clot burden. CT of the chest did show a left lower lobe pleural-based density at this time. This was thought to be left lower lobe pulmonary infarct. Follow- up scan showing this to be an enlarging masslike consolidation of the left lower lobe. PET scan done 03/14/2024 demonstrating an FDG avid left lower lobe lung mass, consistent with primary lung malignancy. There was FDG avid lymphad enopathy involving the mediastinum, left supraclavicular region and left hilum. Focal uptake identified within the left iliac bone and left C6 transverse process and posterior left first rib. These findings were suspicious for metastatic disease. Patient has recently started following within the [facility] system. She follows with a flight coordinator, Dr. Manuel Robertson. Her current oncologist, Radha Luna. Reportedly, underwent recent biopsy of her left supraclavicular lymph node, at an outside facility. Not currently on any systemic chemotherapy or treatment. Patient has since been restarted on her Eliquis, and denies missing any doses. Patient returns to the emergency department yesterday afternoon with worsening shortness of breath and associated productive cough with phlegm. Associated wheezing. Has been very fatigued. Denies fevers. Denies chest pain. Denies known sick contacts. Admits chronic bilateral lower extremity edema. She has not been compliant with her Lasix. Chest CTA done arrival showing a pulmonary embolism within the distal left pulmonary artery. No CT evidence of right-sided heart strain. Marked increased opacification of the left lung base, suspicious for disease progression. Small left pleural effusion, likely malignant. Bilateral mediastinal lymphadenopathy. In addition, 2 hypodensities in the anterior liver, the largest measuring 3 cm. CBC: WBC count 8.6, hemoglobin 7.2, hematocrit 24.3, platelets 298. CMP: Sodium 138, potassium 3.6, chloride 106, serum bicarb 28, BUN 33, creatinine 0.91, glucose 102. Lactic 1.2. LFTs unremarkable. Troponin 0.055. NT proBNP 980. Negative for influenza, RSV, COVID. Afebrile. Patient has since been started on the high intensity heparin protocol. She is currently being evaluated in the emergency department, room 6. Audible upper airway noise/stridor. She is currently on 4 L/min nasal cannula. No acute distress. She is going to be admitted to the cardiac stepdown unit. Review of Systems Constitutional: Reports fatigue, Reports poor appetite, Denies chills, Denies fever, Denies weight gain, Denies weight loss Ears, nose, mouth and throat: Reports neck lump, Denies nasal congestion, Denies nasal discharge, Denies neck fullness/pressure, Denies post-nasal drip, Denies sinus pain, Denies sinus pressure, Denies swelling in throat, Denies sore throat Cardiovascular: Reports decreased exercise tolerance, Reports leg edema, Denies chest pain, Denies orthopnea, Denies palpitations, Denies paroxysmal nocturnal dyspnea, Denies syncope Respiratory: Reports congestion, Reports cough with sputum, Reports wheezing, Denies home oxygen Gastrointestinal: Denies abdominal pain, Denies change in bowel habits, Denies constipation, Denies diarrhea, Denies nausea, Denies vomiting Genitourinary: Denies dysuria Musculoskeletal: Denies limitation of motion Integumentary: Denies rash Neurological: Reports memory loss, Denies confusion, Denies headaches, Denies lack of coordination, Denies seizures, Denies syncope, Denies visual changes Psychiatric: Denies anxiety, Denies depression Past Medical History Past Medical History: Coronary Artery Disease (CAD), Cancer, Heart Failure, COPD, CVA/TIA, GERD/Reflux, Hearing Disorder / Deafness, Hyperlipidemia, Hypertension, Myocardial Infarction (CT), Osteoarthritis (OA), Sleep Apnea/CPAP/BIPAP, Thyroid Disorder Additional Past Medical History / Comment(s): HX CVA 10/2021. HX COVID WITH RESIDUAL SEVERE FATIGUE. EMPHYSEMA, CHRONIC RESPIRATORY INFECTIONS, HX LUNG CANCER WITH LEFT LOBECTOMY (2009). CHRONIC LOWER BACK AND NECK PAIN. NO CPAP USE. CONSTIPATION. 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 COLONOSCOPY, Past Anesthesia/Blood Transfusion Reactions: Previous Problems w/ Anesthesia, Motion Sickness Additional Past Anesthesia/Blood Transfusion Reaction / Comment(s): DIFFICULTY WAKING UP AFTER LUNG SURGERY, TOOK 5 HRS TO WAKE UP AND WAS OVERSEDATED WHILE IN THE HOSPITAL. Hard to wake up with other surgeries also. Past Psychological History: Depression Smoking Status: Former smoker Past Alcohol Use History: None Reported Past Drug Use History: None Reported - Past Family History Mother Family Medical History: Cancer Additional Family Medical History / Comment(s): BREAST CANCER. Sister(s) Family Medical History: Cancer Additional Family Medical History / Comment(s): BREAST CANCER. Daughter(s) Family Medical History: Pulmonary Embolus Additional Family Medical History / Comment(s): had multiple PE's throughout chest Medications and Allergies Home Medications Medication Instructions Recorded Confirmed Type Aspirin [Adult Low Dose Aspirin EC] 81 mg PO HS 10/29/19 06/09/24 History Calcium Carbonate [Calcium] 600 mg PO BID 10/29/19 06/09/24 History DULoxetine HCL [Cymbalta] 60 mg PO BID 10/29/19 06/09/24 History Flunisolide Nasal [place] [Nasalide] 2 spray EA NOSTRIL BID 10/29/19 06/09/24 History Levothyroxine Sodium [Synthroid] 50 mcg PO DAILY 10/29/19 06/09/24 History Multivit-Min/FA/Lycopen/Lutein 1 tab PO DAILY 10/29/19 06/09/24 History [Centrum Silver Tablet] Omeprazole 20 mg PO BID 10/29/19 06/09/24 History Albuterol Inhaler [Ventolin Hfa 2 puff INHALATION RT-QID PRN 09/17/21 06/09/24 History Inhaler] Benazepril HCl [Lotensin] 20 mg PO DAILY 09/17/21 06/09/24 History Fluticasone/Umeclidin/Vilanter 1 puff INHALATION RT-DAILY 09/17/21 06/09/24 History [Trelegy Ellipta 100-62.5-25] Atorvastatin [Lipitor] 80 mg PO DAILY 03/27/23 06/09/24 History Famotidine 20 mg PO HS 03/27/23 06/09/24 History HYDROcodone/APAP 10-325MG [Ogema 1 tab PO Q8H 03/27/23 06/09/24 History 10-325] Potassium Citrate 99 mg PO HS 03/27/23 06/09/24 History predniSONE 5 mg PO DIRECTED 03/27/23 06/09/24 History Fenofibrate Nanocrystallized 145 mg PO DAILY 06/04/23 06/09/24 History [Fenofibrate] Prunelax 3 cap PO HS 09/06/23 06/09/24 History Metoprolol Tartrate [Lopressor] 25 mg PO BID #60 tab 10/29/23 06/09/24 Rx amLODIPine [Norvasc] 5 mg PO DAILY #30 tab 10/29/23 06/09/24 Rx ALPRAZolam [Xanax] 0.5 mg PO TID PRN 06/09/24 06/09/24 History Apixaban [Eliquis] 5 mg PO BID 06/09/24 06/09/24 History Cholecalciferol [Vitamin D3 (125 125 mcg PO DAILY 06/09/24 06/09/24 History Mcg = 5000 Iu)] Levalbuterol Nebulized [Xopenex 1.25 mg INHALATION RT-TID PRN 06/09/24 06/09/24 History Nebulized] Meclizine [Antivert] 25 mg PO Q6H PRN 06/09/24 06/09/24 History Stool Softner Otc(Unknown) 2 tab PO HS 06/09/24 06/09/24 History Vitamin B-12(Unknown Dose) 1 tab PO DAILY 06/09/24 06/09/24 History ondansetron HCL [Zofran] 8 mg PO TID PRN 06/09/24 06/09/24 History predniSONE See Taper PO DIRECTED 06/09/24 06/09/24 History Allergies Allergy/AdvReac Type Severity Reaction Status Date / Time fluticasone Allergy Unknown Swelling Verified 06/09/24 14:13 [From Advair Diskus] of Tongue & Lips milk Allergy Unknown Unknown Verified 06/09/24 14:13 salmeterol Allergy Unknown Swelling Verified 06/09/24 14:13 [From Advair Diskus] of Tongue and Lips adhesive tape AdvReac Unknown irritated Verified 06/09/24 14:13 skin amoxicillin [From Augmentin] AdvReac Nausea & Verified 06/09/24 14:13 Vomiting azithromycin [From Zithromax] AdvReac Nausea & Verified 06/09/24 14:13 Vomiting clavulanic acid AdvReac Nausea & Verified 06/09/24 14:13 [From Augmentin] Vomiting Physical Exam Vitals: Vital Signs Temp Pulse Resp BP Pulse Ox 06/10/24 04:15 79 20 150/81 96 06/10/24 01:41 86 18 161/88 100 06/10/24 00:00 88 21 156/85 99 06/09/24 23:00 86 21 144/82 99 06/09/24 22:00 89 21 155/73 97 06/09/24 21:00 92 21 143/95 99 06/09/24 20:00 92 16 143/82 98 06/09/24 19:36 98.0 F 92 18 143/82 98 06/09/24 19:26 92 21 135/89 98 06/09/24 18:19 87 20 119/74 96 06/09/24 15:35 85 18 140/74 98 06/09/24 14:18 98 06/09/24 14:15 90 L 06/09/24 13:15 97.3 F L 83 16 113/65 93 L Intake and Output 06/09/24 06/09/24 06/10/24 14:59 22:59 06:59 Intake Total 134.442 Balance 134.442 Intake: Intake, IV Titration 134.442 Amount Heparin Sod,Pork in 0.45% 134.442 NaCl 25,000 unit In 0.45 % NaCl 1 250ml.bag @ 18 UNITS/KG/HR 16.329 mls/hr IV .[id number] [facility] Rx#: [id number] Other: Weight 90.718 kg GENERAL EXAM: Alert, 84-year-old white female, appears stridorous, on 4 L/min nasal cannula, comfortable in no apparent distress. HEAD: Normocephalic and atraumatic EYES: Normal reaction of pupils, equal size. NOSE: Clear with pink turbinates. THROAT: No erythema or exudates. NECK: No masses, no JVD. CHEST: No chest wall deformity. LUNGS: Equal air entry with expiratory wheezing greater on the right. On 4 L/min nasal cannula. No conversational dyspnea or accessory muscle use.. CVS: S1 and S2 normal with no audible murmur, regular rhythm. No extra heart sounds ABDOMEN: No hepatosplenomegaly, active bowel sounds, no guarding or rigidity. SPINE: No scoliosis or deformity SKIN: No rashes CENTRAL NERVOUS SYSTEM: No focal deficits, tone is normal in all 4 extremities. EXTREMITIES: There is bilateral 1-2+ pitting edema. No clubbing, or cyanosis. Peripheral pulses are intact. Results - Laboratory Findings CBC and BMP: 06/09/24 15:12 06/09/24 14:06 PT/INR, D-dimer PT 12.6 sec (10.0-12.5) H 06/09/24 14:06 INR 1.2 (<1.2) H 06/09/24 14:06 D-Dimer 1.12 mg/L FEU (<0.60) H 06/09/24 14:06 Abnormal lab findings: Abnormal Labs 06/09/24 06/09/24 06/09/24 14:06 14:06 14:06 RBC Hgb Hct MCH MCHC RDW Neutrophils # Lymphocytes # PT 12.6 H INR 1.2 H APTT D-Dimer 1.12 H BUN 33 H Glucose 102 H Magnesium 1.5 L Troponin I 0.055 H* Total Protein 6.0 L 06/09/24 06/09/24 06/10/24 14:30 15:12 00:18 RBC 3.15 L 2.91 L Hgb 7.8 L 7.2 L Hct 26.4 L 24.3 L MCH 24.7 L 24.7 L MCHC 29.4 L 29.5 L RDW 22.4 H 22.5 H Neutrophils # 8.9 H Lymphocytes # 0.6 L PT INR APTT >200.0 H* D-Dimer BUN Glucose Magnesium Troponin I Total Protein - Diagnostic Findings Chest x-ray: image reviewed CT scan - chest: image reviewed Assessment and Plan Assessment: Recurrent acute pulmonary embolism, Chest CTA done arrival showing a pulmonary embolism within the distal left pulmonary artery. No CT evidence of right-sided heart strain. Patient has been started on high intensity heparin protocol Stage IV metastatic cancer, likely lung primary, with metastasis to mediastinum/hilum, left supraclavicular adenopathy, bone. Chest CTA done this admission consistent with disease progression. Redemonstration of left lung m ass, associated small left pleural effusion, likely malignant. Two hypodensities noted within the liver. Underlying, left lower lobe postobstructive pneumonia could not be completely excluded. Acute COPD exacerbation Acute hypoxemic respiratory failure, secondary to a combination above, currently on 4 L/min nasal cannula History of lung cancer status post left lobectomy, in 2009 History of bilateral PE, completed a 3 to 6 months course of Eliquis, follow-up imaging demonstrating resolution of previous clot burden. Eliquis was temporarily held and then restarted. Microcytic anemia, no reported acute blood loss Bilateral lower extremity edema Former history of tobacco use History of hyperlipidemia Hypertension Coronary artery disease History of hypothyroidism Obesity, with a BMI of 31.3 kg/m Plan: Patient's medications, labs, imaging reviewed Supplemental oxygen, currently on 4 L/min nasal cannula Patient has a significant amount of upper airway noise/stridor, obtain dedicated CT angio of the neck Continue high intensity heparin protocol, will likely make the decision to resume Eliquis indefinitely Check venous Doppler lower extremities Monitor for bleeding Continue empiric antibiotics Check procalcitonin level Continue combination of DuoNebs, Symbicort inhaler, and IV Solu-Medrol to optimize lung function GI prophylaxis: Protonix DVT prophylaxis: Deferred as patient is on heparin infusion Further recommendations forthcoming I have personally seen and examined the patient, performed the documentation and the assessment and plan as written. Number of minutes spent on the visit:20 Time with Patient: Greater than 30
[2024-06-10] MEDS ORDERED: IPRATROPIUM 0.5 MG/2.5 ML NEBU INHALATION SCH (08:00)
[2024-06-10] MEDS ORDERED: NON FORMULARY DRUG (Fluticasone/Umeclidin/Vilanter [Trelegy Ellipta 100-62.5-25] 1 EACH Bl INHALATION SCH (08:00)
[2024-06-10] MEDS ORDERED: SYMBICORT 80-4.5 MCG INHALER INHALATION SCH (08:00)
[2024-06-10 08:03] LABS: Anisocytosis Moderate; Basophils % (A) 0 %; Eosinophils # (A) 0.1 k/uL (0-0.7); Eosinophils % (A) 1 %; HCT 28.3 % (34.0-46.0); HGB 8.1 gm/dL (11.4-16.0); Hypochromasia Marked; Lymphocytes # (A) 0.5 k/uL (1.0-4.8); Lymphocytes % (A) 6 %; MCH 24.2 pg (25.0-35.0); MCHC 28.7 g/dL (31.0-37.0); MCV 84.5 fL (80.0-100.0); Mean Platelet Volume 8.1; Microcytosis Slight; Monocytes # (A) 0.4 k/uL (0-1.0); Monocytes % (A) 5 %; Neutrophils # (A) 7.6 k/uL (1.3-7.7); Neutrophils % (A) 87 %; Platelet Count 385 k/uL (150-450); RBC 3.35 m/uL (3.80-5.40); RDW 21.9 % (11.5-15.5); WBC 8.7 k/uL (3.8-10.6)
[2024-06-10] MEDS: IPRATROPIUM-ALBUTEROL 3 ML NEB INHALATION SCH (08:12)
[2024-06-10] MEDS: SYMBICORT 160-4.5 MCG INHALER INHALATION SCH (08:13)
--- NOTE | 2024-06-10 08:33 | US ---
EXAMINATION TYPE: US venous doppler duplex LE BI DATE OF EXAM: 06/10/2024 7:47 AM COMPARISON: NONE CLINICAL INDICATION: Female, 84 years old with history of lower extremity swelling and PE, rule out D VT TECHNIQUE: The lower extremity deep venous system is examined utilizing real time linear array sonog porsche with graded compression, color doppler sonography, and spectral doppler. SIDE PERFORMED: Bilateral FINDINGS: VESSELS IMAGED: Common Femoral Vein Deep Femoral Vein Greater Saphenous Vein * Femoral Vein Popliteal Vein Small Saphenous Vein * Proximal Calf Veins (* superficial vessels) Right Leg: Appears Negative for DVT Left Leg: Appears Negative for DVT IMPRESSION: No evidence for DVT within the bilateral lower extremities imaged from the groin to the upper calves. Scattered subcutaneous soft tissue edema within the calves. [facility], , 06/10/2024 8:31 AM
--- NOTE | 2024-06-10 08:36 | XR ---
EXAMINATION TYPE: XR chest 1V portable DATE OF EXAM: 06/10/2024 Comparison: 06/09/2024 Clinical History: 84-year-old female pneumonia Findings: Heart mildly enlarged. Patient rotated towards the right altering the normal cardiac and mediastinal contours. Surgical clips project at the left hilum. I'm going moderate left pleural effusion with pat shyanne mid and lower lung opacities, left greater than right. Suture anchors left humeral head. Chronic full-thickness rotator cuff tears. Impression: 1. Ongoing moderate left pleural effusion with patchy mid and lower lung opacities, left greater than right. 2. Similar mild cardiomegaly. [facility], , 06/10/2024 8:33 AM
[2024-06-10 08:58] LABS: African American GFR (CKD) 75 (>60 ml/min/1.73 sqM); Anion Gap 5 mmol/L; Blood Urea Nitrogen 27 mg/dL (7-17); Calcium 9.8 mg/dL (8.4-10.2); Carbon Dioxide 32 mmol/L (22-30); Chloride 103 mmol/L (98-107); Glucose 104 mg/dL (74-99); Non-African American GFR(CKD) 65 (>60 ml/min/1.73 sqM); Potassium 3.6 mmol/L (3.5-5.1); Sodium 140 mmol/L (137-145)
[2024-06-10] MEDS ORDERED: AZITHROMYCIN 500 MG TAB PO SCH (09:00)
[2024-06-10] MEDS: ATORVASTATIN 80 MG TAB PO SCH (09:13)
[2024-06-10] MEDS: AZITHROMYCIN 500 MG in SODIUM CHLORIDE 0.9% 250 ML IVPB SCH (09:22)
[2024-06-10] MEDS: POTASSIUM CHLORIDE ER 20 MEQ TAB.ER PO STA (13:56)
--- NOTE | 2024-06-10 16:17 | CT ---
EXAMINATION TYPE: CT soft tissue neck w con CT DLP: 415.3 mGycm, Automated exposure control for dose reduction was used. DATE OF EXAM: 06/10/2024 3:40 PM COMPARISON: CT chest 06/09/2024. CLINICAL INDICATION: Female, 84 years old with history of stridor; PHH, Severe sore throat TECHNIQUE: Standard enhanced CT of the neck. Axial sections with coronal and sagittal reformats were obtained. Contrast used:100 ml mL of Isovue 300 with IV Contrast, (None if empty) Oral contrast used: (None if empty) FINDINGS: Brain: Visualized portions are grossly unremarkable. Orbits: Unremarkable Sinuses: Grossly unremarkable. Spaces of the neck: Clear and symmetric. Musculoskeletal: No acute osseous pathology. Lymph nodes: Multiple nonenlarged lymph nodes are seen along both anterior chains of the neck. Vascular structures: Visualized major arteries are patent without evidence of aneurysm. Thoracic Inlet/airway: Airway is patent. Adenopathy seen in the mediastinum as seen on CT from one da y prior. Right upper lung somewhat Soft tissues/Thyroid: Thyroid and remainder of the soft tissues are unremarkable. Other: none. IMPRESSION 1. No and pharynx stenosis no evidence for abscess or evidence for submucosal lesion. 2. Adenopathy in the mediastinum prevascular space as seen on prior chest CT. 3. With upper lung pulmonary nodule unchanged from prior exam. 4. Moderate emphysema changes to the lungs. [facility], , 06/10/2024 4:15 PM
[2024-06-10] MEDS ORDERED: ZINC OXIDE PASTE (Z-GUARD) 1 APPLIC TOPICAL PRN (19:00)
[2024-06-11] MEDS: IPRATROPIUM-ALBUTEROL 3 ML NEB INHALATION PRN (03:58)
[2024-06-11] MEDS: MORPHINE SULFATE 2 MG/ML SYRINGE IVP PRN ×2 (06:22→10:57)
[2024-06-11 06:41] LABS: African American GFR (CKD) 72 (>60 ml/min/1.73 sqM); Anion Gap 4 mmol/L; Blood Urea Nitrogen 28 mg/dL (7-17); Calcium 10.1 mg/dL (8.4-10.2); Carbon Dioxide 27 mmol/L (22-30); Chloride 106 mmol/L (98-107); Glucose 137 mg/dL (74-99); Non-African American GFR(CKD) 62 (>60 ml/min/1.73 sqM); Potassium 4.6 mmol/L (3.5-5.1); Sodium 137 mmol/L (137-145)
[2024-06-11 08:34] LABS: HCT 27.4 % (37.2-46.3); HGB 7.7 g/dL (12.0-15.0); MCHC 28.1 g/dL (32.0-37.0); MCV 85.4 FL (80.0-97.0); Mean Platelet Volume 10.9 FL (9.5-12.2); NRBC Per 100 WBC 0 X 10*3/uL (0.00-0.01); Platelet Count 494 X 10*3/uL (140-440); RBC 3.21 X 10*6/uL (4.10-5.20); RDW 23.8 % (11.5-14.5); WBC 8.86 X 10*3/uL (4.50-10.00)
[2024-06-11] MEDS: lisinopriL 20 MG TAB PO SCH (09:25)
[2024-06-11] MEDS: amLODIPine 5 MG TAB PO SCH (09:25)
--- NOTE | 2024-06-11 09:31 | P.PN ---
Subjective Progress Note Date: 06/10/24 Patient is a 83-year-old female with a past medical history of coronary artery disease, CVA/TIA, GERD, hearing disorder/deafness, hypertension, hyperemia, history of MD, obstructive sleep apnea, hypothyroidism and chronic low back pain and history of lung cancer in 2010 status post lobectomy on the left presents to ER with complaints of difficulty in breathing and chest congestion and also generalized weakness. Patient is also complaining of cough with thick yellowish sputum production few days ago. Denied any fever or chills. Patient had recent PET scan on 03/14/2024 showed FDG avid left lower lobe lung mass most consistent with primary lung malignancy. Lymphadenopathy involving the mediastinum left subclavicular region and left hilum. Consistent with metastatic disease. Focal uptake identified within the left iliac bone and left C6 transverse process and posterior left first rib.. No obvious CT lesion. Findings are suspicious for osseous metastasis. No complaints of nausea vomiting abdominal pain or diarrhea. Denies any recent illnesses or sick contacts at home. Patient states that she had biopsy of the lung mass twice and is currently awaiting oncology appointment. EKG showed sinus rhythm. Chest x-ray showed moderate left pleural effusion with prominent adjacent atelectasis/consolidation. Interstitial density could reflect pulmonary vascular congestion. CT angiogram of the chest was done due to elevated D-dimer level showed pulmonary embolus in the distal left pulmonary artery. There is no definite evidence of right heart strain. Yogesh increased opacification of the left lung base highly suspicious for neoplasm and further workup with PET scan of tissue sampling is recommended. Bilateral hilar adenopathy and mediastinal adenopathy and small left pleural effusion. 2 hypodensities in the anterior liver the largest of which is 3 cm. Further evaluation for metastatic disease recommended. 06/10/2024 Patient is resting in the bed. Awake alert and oriented x 3. Still having short of breath. No complaints of chest pain. No nausea or vomiting. Patient is requiring 3 L oxygen via nasal cannula. Patient is being continued on heparin drip due to acute pulmonary embolism. Patient is also started on IV Solu-Medrol 60 mg every 6 hours along with DuoNebs. Pulmonary is on board. Venous duplex of the lower extremities showed no evidence of DVT. Scattered montgomery bcutaneous soft tissue edema within the calves. Laboratory data showed WBC 8.7 hemoglobin 8.1 and platelets 385 sodium 140 potassium 3.6 chloride 103 bicarb is 32 BUN 27 creatinine 0.83 and blood sugar 104 and procalcitonin level is 0.07 urine Legionella antigen negative. Current medications reviewed. Objective - Vital Signs Vital signs: Vital Signs Temp 97.6 F 06/10/24 09:05 Pulse 96 06/10/24 09:05 Resp 22 06/10/24 09:05 BP 174/88 06/10/24 09:05 Pulse Ox 94 L 06/10/24 09:05 FiO2 Intake & Output 06/09/24 06/10/24 06/10/24 18:59 06:59 18:59 Intake Total 134.442 Balance 134.442 Weight 90.718 kg Intake: Intake, IV Titration 134.442 Amount Heparin Sod,Pork in 0.45% 134.442 NaCl 25,000 unit In 0.45 % NaCl 1 250ml.bag @ 18 UNITS/KG/HR 16.329 mls/hr IV .[id number] [facility] Rx#: [id number] - Exam PHYSICAL EXAMINATION: Patient is lying in the bed comfortably, no acute distress, awake alert and oriented.. HEENT: Normocephalic. Neck is supple. Pupils reactive. Nostrils clear. Oral ca vity is moist. Neck reveals no JVD, carotid bruits, or thyromegaly. CHEST EXAMINATION: Trachea is central. Symmetrical expansion. Mild expiratory wheezing. No rhonchi. Nonlabored breathing.. CARDIAC: Normal S1, S2 with no gallops. No murmurs ABDOMEN: Soft. Bowel sounds normal. No organomegaly. No abdominal bruits. Extremities: Bilateral lower extremity 1+ edema. No clubbing or cyanosis Neurologically awake, alert, oriented x3 with well-coordinated movements. No focal deficits noted Skin: No rash or skin lesions. Psychiatric: Coperative. Nonsuicidal Musculoskeletal: No joint swelling or deformity. Normal range of motion. - Labs CBC & Chem 7: 06/11/24 05:16 06/11/24 05:16 Labs: Abnormal Lab Results - Last 24 Hours (Table) 06/09/24 06/09/24 06/09/24 Range/Units 14:06 14:06 14:06 RBC (3.80-5.40) m/uL Hgb (11.4-16.0) gm/dL Hct (34.0-46.0) % MCH (25.0-35.0) pg MCHC (31.0-37.0) g/dL RDW (11.5-15.5) % Neutrophils # (1.3-7.7) k/uL Lymphocytes # (1.0-4.8) k/uL PT 12.6 H (10.0-12.5) sec INR 1.2 H (<1.2) APTT (22.0-30.0) sec D-Dimer 1.12 H (<0.60) mg/L FEU Carbon Dioxide (22-30) mmol/L BUN 33 H (7-17) mg/dL Glucose 102 H (74-99) mg/dL Magnesium 1.5 L (1.6-2.3) mg/dL Troponin I 0.055 H* (0.000-0.034) ng/mL Total Protein 6.0 L (6.3-8.2) g/dL 06/09/24 06/09/24 06/10/24 Range/Units 14:30 15:12 00:18 RBC 3.15 L 2.91 L (3.80-5.40) m/uL Hgb 7.8 L 7.2 L (11.4-16.0) gm/dL Hct 26.4 L 24.3 L (34.0-46.0) % MCH 24.7 L 24.7 L (25.0-35.0) pg MCHC 29.4 L 29.5 L (31.0-37.0) g/dL RDW 22.4 H 22.5 H (11.5-15.5) % Neutrophils # 8.9 H (1.3-7.7) k/uL Lymphocytes # 0.6 L (1.0-4.8) k/uL PT (10.0-12.5) sec INR (<1.2) APTT >200.0 H* (22.0-30.0) sec D-Dimer (<0.60) mg/L FEU Carbon Dioxide (22-30) mmol/L BUN (7-17) mg/dL Glucose (74-99) mg/dL Magnesium (1.6-2.3) mg/dL Troponin I (0.000-0.034) ng/mL Total Protein (6.3-8.2) g/dL 06/10/24 06/10/24 06/10/24 Range/Units 07:47 07:47 07:47 RBC 3.35 L (3.80-5.40) m/uL Hgb 8.1 L (11.4-16.0) gm/dL Hct 28.3 L (34.0-46.0) % MCH 24.2 L (25.0-35.0) pg MCHC 28.7 L (31.0-37.0) g/dL RDW 21.9 H (11.5-15.5) % Neutrophils # (1.3-7.7) k/uL Lymphocytes # 0.5 L (1.0-4.8) k/uL PT (10.0-12.5) sec INR (<1.2) APTT 60.6 H (22.0-30.0) sec D-Dimer (<0.60) mg/L FEU Carbon Dioxide 32 H (22-30) mmol/L BUN 27 H (7-17) mg/dL Glucose 104 H (74-99) mg/dL Magnesium (1.6-2.3) mg/dL Troponin I (0.000-0.034) ng/mL Total Protein (6.3-8.2) g/dL Assessment and Plan Assessment: Metastatic left lower lobe malignancy with recent PET scan on 03/14/2024 showed mediastinal and left subclavicular, hilar adenopathy and involving left iliac bone and left C6 transverse process and posterior left first rib. Acute PE involving the left distal pulmonary artery Left lung base atelectasis/consolidation possible pneumonia/postobstructive Difficulty in breathing Small left pleural effusion History of lung cancer in 2010 status post lobectomy on the left COPD with exacerbation Prior history of smoking Coronary disease with no history of PCI hypertension Hyperlipidemia Hypothyroidism Anxiety/depression Hypothyroidism Normocytic anemia DVT prophylaxis patient is already on heparin drip Plan: Patient will be continued on telemonitoring and oxygen supplementation breathing treatments. Continue with IV steroids. Continue with heparin drip. Antibiotics have been discontinued. Procalcitonin level is not elevated. Continue with home blood pressure medications and titrate doses. CT neck soft tissue was ordered.. Pulmonary is on board. Follow-up closely. Prognosis is guarded. Time with Patient: Greater than 30
[2024-06-11 09:54] LABS: Basophils # (M) 0 X 10*3/uL (0.00-0.10); Elliptocytes 2+; Eosinophils # (M) 0 X 10*3/uL (0.04-0.35); Lymphocytes # (M) 0.18 X 10*3/uL (0.90-5.00); Monocytes # (M) 0.27 X 10*3/uL (0.20-1.00); Neutrophils # (M) 8.42 X 10*3/uL (1.80-7.70); Neutrophils % (M) 95 %
[2024-06-11] MEDS: HYDROcodone/APAP 10-325MG 1 EACH TAB PO PRN (10:56)
[2024-06-11] MEDS: ALPRAZolam 0.5 MG TAB PO STA (10:59)
[2024-06-11] MEDS: FUROSEMIDE 10 MG/ML 4 ML VIAL IV STA (12:19)
[2024-06-11] MEDS: TRELEGY ELLIPTA INHALATION SCH (12:28)
[2024-06-11] MEDS: ALBUTEROL NEBULIZED 2.5 MG/3 ML INHALATION SCH (12:29)
--- NOTE | 2024-06-11 12:55 | P.PN ---
Subjective Progress Note Date: 06/11/24 Patient is an 84-year-old female with past medical history significant for hyperlipidemia, hypertension, coronary disease, hypothyroidism, COPD, former smoker, lung cancer with previous left lobectomy, and pulmonary embolism. PCP is Dr. Angel. Patient follows in the pulmonary office with Dr. Rosario. Of note, patient recently admitted with bilateral emboli within the main pulmonary arteries right greater than left as well as segmental and subsegmental branches. Patient was started on Eliquis. Follow-up scans showed resolution of previous clot burden. CT of the chest did show a left lower lobe pleural-based density at this time. This was thought to be left lower lobe pulmonary infarct. Follow- up scan showing this to be an enlarging masslike consolidation of the left lower lobe. PET scan done 03/14/2024 demonstrating an FDG avid left lower lobe lung mass, consistent with primary lung malignancy. There was FDG avid lymphadenopathy involving the mediastinum, left supraclavicular region and left hilum. Focal uptake identified within the left iliac bone and left C6 transverse process and posterior left first rib. These findings were suspicious for metastatic disease. Patient has recently started following within the [facility]. She follows with a program associate, Dr. Manuel Robertson. Her current oncologist, Radha Luna. Reportedly, underwent recent biopsy of her left supraclavicular lymph node, at an outside facility. Not currently on any systemic chemotherapy or treatment. Patient has since been restarted on her Eliquis, and denies missing any doses. Patient returns to the emergency department yesterday afternoon with worsening shortness of breath and associated productive cough with phlegm. Associated wheezing. Has been very fatigued. Denies fevers. Denies chest pain. Denies known sick contacts. Admits chronic bilateral lower extremity edema. She has not been compliant with her Lasix. Chest CTA done arrival showing a pulmonary embolism within the distal left pulmonary artery. No CT evidence of right-sided heart strain. Marked increased opacification of the left lung base, suspicious for disease progression. Small left pleural effusion, likely malignant. Bilateral mediastinal lymphadenopathy. In addition, 2 hypodensities in the anterior liver, the largest measuring 3 cm. CBC: WBC count 8.6, hemoglobin 7.2, hematocrit 24.3, platelets 298. CMP: Sodium 138, potassium 3.6, chloride 106, serum bicarb 28, BUN 33, creatinine 0.91, glucose 102. Lactic 1.2. LFTs unremarkable. Troponin 0.055. NT proBNP 980. Negative for influenza, RSV, COVID. Afebrile. Patient has since been started on the high intensity heparin protocol. She is currently being evaluated in the emergency department, room 6. Audible upper airway noise/strido r. She is currently on 4 L/min nasal cannula. No acute distress. She is going to be admitted to the cardiac stepdown unit. The patient is seen today June 11, 2024 in follow-up on the regular medical floor. She is currently sitting up in bed. Awake and alert. Her breathing is a bit more difficult today compared to yesterday. She is maintaining O2 saturations in the 90s on 2 L/min per nasal cannula. Afebrile. Hemodynamically stable. Her procalcitonin was negative at 0.07. She is continued on DuoNeb inhalations, Symbicort, Solu-Medrol. She remains on a heparin drip. White count 8.8. Hemoglobin 7.7. Platelets 494. Sodium 137. Potassium 4.6. Bicarb 27. BUN 28. Creatinine 0.86. Glucose 137. Objective - Vital Signs Vital signs: Vital Signs Temp 98 F 06/11/24 12:13 Pulse 92 06/11/24 12:40 Resp 22 06/11/24 12:13 BP 154/86 06/11/24 12:13 Pulse Ox 92 L 06/11/24 12:13 FiO2 50 06/11/24 12:25 Intake & Output 06/10/24 06/11/24 06/11/24 18:59 06:59 18:59 Intake Total 130.609 480 Output Total 500 Balance 130.609 -20 Weight 90.718 kg Intake: Intake, IV Titration 130.609 Amount Heparin Sod,Pork in 0.45% 130.609 NaCl 25,000 unit In 0.45 % NaCl 1 250ml.bag @ 18 UNITS/KG/HR 16.329 mls/hr IV .[id number] [facility] Rx#: [id number] Oral 480 Output: Urine 500 Other: Voiding Method External Catheter - Exam GENERAL EXAM: Alert, weak, 84-year-old female, on 3 L nasal cannula, in mild respiratory distress. HEAD: Normocephalic. EYES: Normal reaction of pupils, equal size. NOSE: Clear with pink turbinates. THROAT: No erythema or exudates. NECK: No masses, no JVD. CHEST: No chest wall deformity. LUNGS: Equal air entry with coarse scattered rhonchi. CVS: S1 and S2 normal with no audible murmur, regular rhythm. ABDOMEN: No hepatosplenomegaly, normal bowel sounds, no guarding or rigidity. SPINE: No scoliosis or deformity SKIN: No rashes CENTRAL NERVOUS SYSTEM: No focal deficits, tone is normal in all 4 extremities. EXTREMITIES: There is trace peripheral edema. No clubbing, no cyanosis. Peripheral pulses are intact. - Labs CBC & Chem 7: 06/11/24 05:16 06/11/24 05:16 Labs: Abnormal Lab Results - Last 24 Hours (Table) 06/10/24 06/11/24 06/11/24 Range/Units 14:15 05:16 05:16 RBC 3.21 L (4.10-5.20) X 10*6/uL Hgb 7.7 L (12.0-15.0) g/dL Hct 27.4 L (37.2-46.3) % MCH 24.0 L (27.0-32.0) pg MCHC 28.1 L (32.0-37.0) g/dL RDW 23.8 H (11.5-14.5) % Plt Count 494 H (140-440) X 10*3/uL Neutrophils # (Manual) 8.42 H (1.80-7.70) X 10*3/uL Lymphocytes # (Manual) 0.18 L (0.90-5.00) X 10*3/uL Eosinophils # (Manual) 0 L (0.04-0.35) X 10*3/uL Elliptocytes 2+ A APTT 47.0 H 55.2 H (22.0-30.0) sec BUN (7-17) mg/dL Glucose (74-99) mg/dL Troponin I (0.000-0.034) ng/mL 06/11/24 06/11/24 Range/Units 05:16 05:16 RBC (4.10-5.20) X 10*6/uL Hgb (12.0-15.0) g/dL Hct (37.2-46.3) % MCH (27.0-32.0) pg MCHC (32.0-37.0) g/dL RDW (11.5-14.5) % Plt Count (140-440) X 10*3/uL Neutrophils # (Manual) (1.80-7.70) X 10*3/uL Lymphocytes # (Manual) (0.90-5.00) X 10*3/uL Eosinophils # (Manual) (0.04-0.35) X 10*3/uL Elliptocytes APTT (22.0-30.0) sec BUN 28 H (7-17) mg/dL Glucose 137 H (74-99) mg/dL Troponin I 0.040 H* (0.000-0.034) ng/mL Microbiology - Last 24 Hours (Table) 06/09/24 15:51 Blood Culture - Preliminary Blood Assessment and Plan Assessment: Recurrent acute pulmonary embolism, Chest CTA done arrival showing a pulmonary embolism within the distal left pulmonary artery. No CT evidence of right-sided heart strain. Patient has been started on high intensity heparin protocol Stage IV metastatic cancer, likely lung primary, with metastasis to mediastinum/hilum, left supraclavicular adenopathy, bone. Chest CTA done this admission consistent with disease progression. Redemonstration of left lung mass, associated small left pleural effusion, likely malignant. Two hypodensities noted within the liver. Underlying, left lower lobe postobstructive pneumonia could not be completely excluded, however procalcitonin negative Acute COPD exacerbation Acute hypoxemic respiratory failure, secondary to a combination above, currently on 4 L/min nasal cannula History of lung cancer status post left lobectomy, in 2009 History of bilateral PE, completed a 3 to 6 months course of Eliquis, follow-up imaging demonstrating resolution of previous clot burden. Eliquis was temporarily held and then restarted. Microcytic anemia, no reported acute blood loss Bilateral lower extremity edema Former history of tobacco use History of hyperlipidemia Hypertension Coronary artery disease History of hypothyroidism Obesity, with a BMI of 31.3 kg/m Plan: The patient was seen and evaluated Imaging, labs and medications reviewed Remains on a heparin drip Give Lasix 40 mg IVP x 1 BiPAP 07/25 and 50% FiO2 Procalcitonin negative Continue patient's home Trelegy Continue bronchodilators and steroids Overall prognosis remains poor DO NOT RESUSCITATE CODE STATUS Patient and family considering hospice care I have personally seen and examined the patient, performed the documentation and the assessment and plan as written. Number of minutes spent on the visit: 10 Dictation was produced using [employer] dictation software. Please excuse any grammatical, word or spelling errors.
[2024-06-11] MEDS: ALPRAZolam 0.5 MG TAB PO PRN (15:03)
--- NOTE | 2024-06-12 06:11 | P.PN ---
Subjective Progress Note Date: 06/11/24 Patient is a 83-year-old female with a past medical history of coronary artery disease, CVA/TIA, GERD, hearing disorder/deafness, hypertension, hyperemia, history of [place], obstructive sleep apnea, hypothyroidism and chronic low back pain and history of lung cancer in 2010 status post lobectomy on the left presents to ER with complaints of difficulty in breathing and chest congestion and also generalized weakness. Patient is also complaining of cough with thick yellowish sputum production few days ago. Denied any fever or chills. Patient had recent PET scan on 03/14/2024 showed FDG avid left lower lobe lung mass most consistent with primary lung malignancy. Lymphadenopathy involving the mediastinum left subclavicular region and left hilum. Consistent with metastatic disease. Focal uptake identified within the left iliac bone and left C6 transverse process and posterior left first rib.. No obvious CT lesion. Findings are suspicious for osseous metastasis. No complaints of nausea vomiting abdominal pain or diarrhea. Denies any recent illnesses or sick contacts at home. Patient states that she had biopsy of the lung mass twice and is currently awaiting oncology appointment. EKG showed sinus rhythm. Chest x-ray showed moderate left pleural effusion with prominent adjacent atelectasis/consolidation. Interstitial density could reflect pulmonary vascular congestion. CT angiogram of the chest was done due to elevated D-dimer level showed pulmonary embolus in the distal left pulmonary artery. There is no definite evidence of right heart strain. Yogesh increased opacification of the left lung base highly suspicious for neoplasm and further workup with PET scan of tissue sampling is recommended. Bilateral hilar adenopathy and mediastinal adenopathy and small left pleural effusion. 2 hypodensities in the anterior liver the largest of which is 3 cm. Further evaluation for metastatic disease recommended. 06/10/2024 Patient is resting in the bed. Awake alert and oriented x 3. Still having short of breath. No complaints of chest pain. No nausea or vomiting. Patient is requiring 3 L oxygen via nasal cannula. Patient is being continued on heparin drip due to acute pulmonary embolism. Patient is also started on IV Solu-Medrol 60 mg every 6 hours along with DuoNebs. Pulmonary is on board. Venous duplex of the lower extremities showed no evidence of DVT. Scattered subcutaneous soft tissue edema within the calves. Laboratory data showed WBC 8.7 hemoglobin 8.1 and platelets 385 sodium 140 potassium 3.6 chloride 103 bicarb is 32 BUN 27 creatinine 0.83 and blood sugar 104 and procalcitonin level is 0.07 urine Legionella antigen negative. Current medications reviewed. 06/11/2024 Patient is seen and evaluated in follow-up today with pulmonary following. Patient is reporting she does not want to continue with any further treatment and son and are agreeable with this. Hospice is being considered although other family members have not made the final decision and were discussing possibly wanting the patient transferred to [place] with her welding production supervisor for further care. does not want this and wants to seek hospice. Hospice consult placed and they would also like to discuss going to [facility]. Referral was placed to this as well and will need a financial assessment. Patient is being placed on BiPAP at the moment and will transition to nasal cannula and monitor for tolerance. Continue with pain management and supportive care. Review of systems: Constitutional: reports of fatigue, no fever, or chills Cardiovascular: No reports of chest pain or palpitations Respiratory: Continued reports of shortness of breath and feeling unable to breathe GI: No reports of nausea, vomiting, or diarrhea : No reports of dysuria or retention Neurovascular: reports of weakness All medications have been reviewed Physical exam: Patient is lying in the bed anxious and restless, awake alert and oriented.. Elderly appearing, ill-appearing, obese HEENT: Normocephalic. Neck is supple. Pupils reactive. Nostrils clear. Oral cavi ty is moist. Neck reveals no JVD, carotid bruits, or thyromegaly. CHEST EXAMINATION: Trachea is central. Symmetrical expansion. Mild expiratory wheezing. No rhonchi. Nonlabored breathing.. CARDIAC: Normal S1, S2 with no gallops. No murmurs ABDOMEN: Soft. Bowel sounds normal. No organomegaly. No abdominal bruits. Extremities: Bilateral lower extremity 1+ edema. No clubbing or cyanosis Neurologically awake, alert, oriented x3 with well-coordinated movements. Fusilli weak Skin: No rash or skin lesions. Psychiatric: Cooperative. Non-suicidal patient is Musculoskeletal: No joint swelling or deformity. Normal range of motion. Assessment: Metastatic left lower lobe malignancy with recent PET scan on 03/14/2024 showed mediastinal and left subclavicular, hilar adenopathy and involving left iliac bone and left C6 transverse process and posterior left first rib. Acute PE involving the left distal pulmonary artery Left lung base atelectasis/consolidation possible pneumonia/postobstructive Difficulty in breathing Small left pleural effusion History of lung cancer in 2010 status post lobectomy on the left COPD with exacerbation Prior history of smoking Coronary disease with no history of PCI hypertension Hyperlipidemia Hypothyroidism Anxiety/depression Hypothyroidism Normocytic anemia DVT prophylaxis patient is already on heparin drip Plan: Patient will be continued on telemonitoring and oxygen supplementation breathing treatments. Continue with IV steroids. Continue with heparin drip. Antibiotics have been discontinued. Procalcitonin level is not elevated. Continue with home blood pressure medications and titrate doses. After further discussion and request per patient and family they have requested hospice and looking into [facility]. [facility] has evaluated the patient and referral was placed. Pulmonary is on board. Follow-up closely. Overall prognosis is poor and guarded. The impression and plan of care has been dictated by Kiara Gordillo, Nurse Practitioner as directed. Dr. Simin MD I have performed a history and examination and MDM of this patient, discussed the same with the dictator, and agree with the dictator's assessment and plan as written ,documented as a scribe. Based on total visit time, I have performed more than 50% of the visit. Objective - Vital Signs Vital signs: Vital Signs Temp 98 F 06/11/24 12:13 Pulse 88 06/11/24 20:05 Resp 22 06/11/24 14:50 BP 154/86 06/11/24 12:13 Pulse Ox 93 L 06/11/24 16:30 FiO2 50 06/11/24 12:25 Intake & Output 06/11/24 06/11/24 06/12/24 06:59 18:59 06:59 Intake Total 480 240 Output Total 500 900 Balance - Weight 92.5 kg Intake: Oral 480 240 Output: Urine 500 900 Other: Voiding Method External Catheter External Catheter External Catheter - Labs CBC & Chem 7: 06/11/24 05:16 06/11/24 05:16 Labs: Abnormal Lab Results - Last 24 Hours (Table) 06/11/24 06/11/24 06/11/24 Range/Units 05:16 05:16 05:16 RBC 3.21 L (4.10-5.20) X 10*6/uL Hgb 7.7 L (12.0-15.0) g/dL Hct 27.4 L (37.2-46.3) % MCH 24.0 L (27.0-32.0) pg MCHC 28.1 L (32.0-37.0) g/dL RDW 23.8 H (11.5-14.5) % Plt Count 494 H (140-440) X 10*3/uL Neutrophils # (Manual) 8.42 H (1.80-7.70) X 10*3/uL Lymphocytes # (Manual) 0.18 L (0.90-5.00) X 10*3/uL Eosinophils # (Manual) 0 L (0.04-0.35) X 10*3/uL Elliptocytes 2+ A APTT 55.2 H (22.0-30.0) sec BUN 28 H (7-17) mg/dL Glucose 137 H (74-99) mg/dL Troponin I (0.000-0.034) ng/mL 06/11/24 Range/Units 05:16 RBC (4.10-5.20) X 10*6/uL Hgb (12.0-15.0) g/dL Hct (37.2-46.3) % MCH (27.0-32.0) pg MCHC (32.0-37.0) g/dL RDW (11.5-14.5) % Plt Count (140-440) X 10*3/uL Neutrophils # (Manual) (1.80-7.70) X 10*3/uL Lymphocytes # (Manual) (0.90-5.00) X 10*3/uL Eosinophils # (Manual) (0.04-0.35) X 10*3/uL Elliptocytes APTT (22.0-30.0) sec BUN (7-17) mg/dL Glucose (74-99) mg/dL Troponin I 0.040 H* (0.000-0.034) ng/mL Microbiology - Last 24 Hours (Table) 06/09/24 15:51 Blood Culture - Preliminary Blood
[2024-06-12 08:44] VITALS: BP 160/83; RESP 21; TEMP 97.5
[2024-06-12] MEDS: MORPHINE SULFATE 2 MG/ML SYRINGE IVP STA (09:47)
[2024-06-12 10:45] VITALS: PULSE 102
[2024-06-12] MEDS ORDERED: MORPHINE SULFATE 2 MG/ML SYRINGE IVP PRN (11:15)
[2024-06-12] MEDS: MORPHINE SULFATE 4 MG/ML SYRINGE IVP PRN (11:19)
--- NOTE | 2024-06-12 11:32 | P.PN ---
Subjective Progress Note Date: 06/12/24 Patient is an 84-year-old female with past medical history significant for hyperlipidemia, hypertension, coronary disease, hypothyroidism, COPD, former smoker, lung cancer with previous left lobectomy, and pulmonary embolism. PCP is Dr. Angel. Patient follows in the pulmonary office with Dr. Rosario. Of note, patient recently admitted with bilateral emboli within the main pulmonary arteries right greater than left as well as segmental and subsegmental branches. Patient was started on Eliquis. Follow-up scans showed resolution of previous clot burden. CT of the chest did show a left lower lobe pleural-based density at this time. This was thought to be left lower lobe pulmonary infarct. Follow- up scan showing this to be an enlarging masslike consolidation of the left lower lobe. PET scan done 03/14/2024 demonstrating an FDG avid left lower lobe lung mass, consistent with primary lung malignancy. There was FDG avid lymphadenopathy involving the mediastinum, left supraclavicular region and left hilum. Focal uptake identified within the left iliac bone and left C6 transverse process and posterior left first rib. These findings were suspicious for metastatic disease. Patient has recently started following within the [facility]. She follows with a hemmer automatic, Dr. Manuel Robertson. Her current oncologist, Rdaha Luna. Reportedly, underwent recent biopsy of her left supraclavicular lymph node, at an outside facility. Not currently on any systemic chemotherapy or treatment. Patient has since been restarted on her Eliquis, and denies missing any doses. Patient returns to the emergency department yesterday afternoon with worsening shortness of breath and associated productive cough with phlegm. Associated wheezing. Has been very fatigued. Denies fevers. Denies chest pain. Denies known sick contacts. Admits chronic bilateral lower extremity edema. She has not been compliant with her Lasix. Chest CTA done arrival showing a pulmonary embolism within the distal left pulmonary artery. No CT evidence of right-sided heart strain. Marked increased opacification of the left lung base, suspicious for disease progression. Small left pleural effusion, likely malignant. Bilateral mediastinal lymphadenopathy. In addition, 2 hypodensities in the anterior liver, the largest measuring 3 cm. CBC: WBC count 8.6, hemoglobin 7.2, hematocrit 24.3, platelets 298. CMP: Sodium 138, potassium 3.6, chloride 106, serum bicarb 28, BUN 33, creatinine 0.91, glucose 102. Lactic 1.2. LFTs unremarkable. Troponin 0.055. NT proBNP 980. Negative for influenza, RSV, COVID. Afebrile. Patient has since been started on the high intensity heparin protocol. She is currently being evaluated in the emergency department, room 6. Audible upper airway noise/strido r. She is currently on 4 L/min nasal cannula. No acute distress. She is going to be admitted to the cardiac stepdown unit. The patient is seen today June 11, 2024 in follow-up on the regular medical floor. She is currently sitting up in bed. Awake and alert. Her breathing is a bit more difficult today compared to yesterday. She is maintaining O2 saturations in the 90s on 2 L/min per nasal cannula. Afebrile. Hemodynamically stable. Her procalcitonin was negative at 0.07. She is continued on DuoNeb inhalations, Symbicort, Solu-Medrol. She remains on a heparin drip. White count 8.8. Hemoglobin 7.7. Platelets 494. Sodium 137. Potassium 4.6. Bicarb 27. BUN 28. Creatinine 0.86. Glucose 137. The patient is seen today June 12, 2024 in follow-up on the regular medical f last. She is currently resting in bed. Awake and alert. Maintaining O2 saturations in the 90s on 2 L/min per nasal cannula. She is afebrile. Slightly tachycardic. Slightly tachypneic. Blood culture revealed no growth. PTT 21.3. She remains on a heparin drip. Continued on bronchodilators. Continued on Solu-Medrol. Utilizing her home Trelegy. Receiving morphine as needed for comfort. Objective - Vital Signs Vital signs: Vital Signs Temp 97.5 F L 06/12/24 08:40 Pulse 96 06/12/24 09:27 Resp 21 06/12/24 08:50 BP 160/83 06/12/24 08:40 Pulse Ox 97 06/12/24 09:10 FiO2 50 06/11/24 12:25 Intake & Output 06/11/24 06/12/24 06/12/24 18:59 06:59 18:59 Intake Total 240 240 Output Total 900 300 Balance -660 -60 Weight 92.5 kg Intake: Oral 240 240 Output: Urine 900 300 Other: Voiding Method External Catheter External Catheter External Catheter - Exam GENERAL EXAM: Alert, weak, pleasant 84-year-old female, resting in bed, on 3 L nasal cannula, in mild respiratory distress. HEAD: Normocephalic. EYES: Normal reaction of pupils, equal size. NOSE: Clear with pink turbinates. THROAT: No erythema or exudates. NECK: No masses, no JVD. CHEST: No chest wall deformity. LUNGS: Equal air entry with coarse scattered rhonchi. CVS: S1 and S2 normal with no audible murmur, regular rhythm. ABDOMEN: No hepatosplenomegaly, normal bowel sounds, no guarding or rigidity. SPINE: No scoliosis or deformity SKIN: No rashes CENTRAL NERVOUS SYSTEM: No focal deficits, tone is normal in all 4 extremities. EXTREMITIES: There is trace peripheral edema. No clubbing, no cyanosis. Peripheral pulses are intact. - Labs CBC & Chem 7: 06/11/24 05:16 06/11/24 05:16 Labs: Abnormal Lab Results - Last 24 Hours (Table) 06/12/24 Range/Units 07:25 APTT 21.3 L (22.0-30.0) sec Microbiology - Last 24 Hours (Table) 06/09/24 15:51 Blood Culture - Preliminary Blood Assessment and Plan Assessment: Recurrent acute pulmonary embolism, Chest CTA done arrival showing a pulmonary embolism within the distal left pulmonary artery. No CT evidence of right-sided heart strain. Patient has been started on high intensity heparin protocol Stage IV metastatic cancer, likely lung primary, with metastasis to mediastinum/hilum, left supraclavicular adenopathy, bone. Chest CTA done this admission consistent with disease progression. Redemonstration of left lung mass, associated small left pleural effusion, likely malignant. Two hypodensities noted within the liver. Underlying, left lower lobe postobstructive pneumonia could not be completely excluded, however procalcitonin negative Acute COPD exacerbation Acute hypoxemic respiratory failure, secondary to a combination above, currently on 4 L/min nasal cannula History of lung cancer status post left lobectomy, in 2009 History of bilateral PE, completed a 3 to 6 months course of Eliquis, follow-up imaging demonstrating resolution of previous clot burden. Eliquis was temporarily held and then restarted. Microcytic anemia, no reported acute blood loss Bilateral lower extremity edema Former history of tobacco use History of hyperlipidemia Hypertension Coronary artery disease History of hypothyroidism Obesity, with a BMI of 31.3 kg/m Plan: The patient was seen and evaluated Labs and medications reviewed Remains on a heparin drip Continue bronchodilators and steroids for now Continue morphine as needed for comfort Plan is to transfer to the hospice house today This patient was seen independently by the pulmonary nurse practitioner addressing pulmonary issues I have personally seen and examined the patient, performed the documentation and the assessment and plan as written. Number of minutes spent on the visit: 22 Dictation was produced using [employer] dictation software. Please excuse any gramm atical, word or spelling errors.
--- NOTE | 2024-06-18 19:02 | P.DS ---
Providers Date of admission: 06/09/24 15:53 Expected date of discharge: 06/12/24 Attending physician: Amber Colon Consults: 06/09/24 15:51 Consult Physician Routine Consulting Provider: Alannah Nuñez Consult Reason/Comments: lung ca vs. pna Do you want consulting provider notified?: Yes Primary care physician: [facility] Course: Final diagnosis Metastatic left lower lobe malignancy with recent PET scan on 03/14/2024 showed mediastinal and left subclavicular, hilar adenopathy and involving left iliac bone and left C6 transverse process and posterior left first rib. Acute PE involving the left distal pulmonary artery Left lung base atelectasis/consolidation possible pneumonia/postobstructive Difficulty in breathing Small left pleural effusion History of lung cancer in 2009 status post lobectomy on the left COPD with exacerbation Prior history of smoking Coronary disease with no history of PCI hypertension Hyperlipidemia Hypothyroidism Anxiety/depression Hypothyroidism Normocytic anemia Obesity with a bmi of 31.9 No code Discharge disposition Patient is being discharged in a stable condition with guarded prognosis to [facility]. Total time taken is greater than 35 minutes. Hospital course This is a 84-year-old female who was recently admitted with increasing shortness of breath with chest pain and difficulty in breathing being closely monitored. Patient evaluated by pulmonary and had been being followed by oncology in the outpatient setting and initially family requesting transfer to another hospital where her providers are. After further discussion patient and spouse were agreeable to hospice as patient does not want to continue to pursue any treatment. Patient wanted her pain controlled and no further treatments. CODE STATUS was addressed and patient requested to be no code. Patient had been maintained on IV heparin for PE and has met and discussed hospice and will be going to [facility]. Financial assessment was done and patient has been accepted. Patient will be discharged today. Please refer to other consultation notes for further HPI. Currently no reports of chest pain, no reports of worsening shortness of breath, or palpitations. Patient is afebrile. No reports of nausea or vomiting and patient is tolerating diet. Not eating very much at all. Patient will be discharged to [facility] today. Overall poor prognosis. Physical exam: Gen: This is a 84-year-old female who is awake, alert and oriented x 3, well- developed, ill-appearing, elderly appearing, obese HEENT: Head is atraumatic, normocephalic. Pupils equal, round. Sclerae is anicteric. NECK: Supple. No JVD. No lymphadenopathy. No thyromegaly. LUNGS: Diminished breath sounds bilaterally with coarse rhonchi and crackles noted at the bases. No intercostal retractions. HEART: Regular rate and rhythm. No murmur. ABDOMEN: Soft. Obese bowel sounds are present. No masses. No tenderness. EXTREMITIES: No pedal edema. No calf tenderness. NEUROLOGICAL: Patient is awake, alert and oriented x3. Cranial nerves 2 through 12 are grossly intact. Diffusely weak Please refer to medication reconciliation sheet for a list of medications. The impression and plan of care has been dictated by Kiara Gordillo, Nurse Practitioner as directed. Dr. Simin MD I have performed a history and examination and MDM of this patient, discussed the same with the dictator, and agree with the dictator's assessment and plan as written ,documented as a scribe. Based on total visit time, I have performed more than 50% of the visit. Patient Condition at Discharge: Fair Plan - Discharge Summary Discharge Rx Participant: No New Discharge Prescriptions: New Ipratropium-Albuterol Nebulize [Duoneb 0.5 mg-3 mg/3 ml Soln] 3 ml INHALATION RT-Q4H PRN each PRN Reason: Shortness Of Breath Or Wheezing Albuterol Nebulized [Ventolin Nebulized] 2.5 mg INHALATION RT-QID ml ALPRAZolam [Xanax] 0.5 mg PO QID PRN tab PRN Reason: Anxiety Continue DULoxetine HCL [Cymbalta] 60 mg PO BID Levothyroxine Sodium [Synthroid] 50 mcg PO DAILY Aspirin [Adult Low Dose Aspirin EC] 81 mg PO HS Flunisolide Nasal [place] [Nasalide] 2 spray EA NOSTRIL BID Multivit-Min/FA/Lycopen/Lutein [Centrum Silver Tablet] 1 tab PO DAILY Calcium Carbonate [Calcium] 600 mg PO BID Omeprazole 20 mg PO BID Fluticasone/Umeclidin/Vilanter [Trelegy Ellipta 100-62.5-25] 1 puff INHALA TION RT-DAILY Atorvastatin [Lipitor] 80 mg PO DAILY Prunelax 3 cap PO HS Metoprolol Tartrate [Lopressor] 25 mg PO BID #60 tab Levalbuterol Nebulized [Xopenex Nebulized] 1.25 mg INHALATION RT-TID PRN PRN Reason: Shortness Of Breath Apixaban [Eliquis] 5 mg PO BID Cholecalciferol [Vitamin D3 (125 Mcg = 5000 Iu)] 125 mcg PO DAILY predniSONE See Taper PO DIRECTED Benazepril HCl [Lotensin] 20 mg PO DAILY Albuterol Inhaler [Ventolin Hfa Inhaler] 2 puff INHALATION RT-QID PRN PRN Reason: Shortness Of Breath Potassium Citrate 99 mg PO HS Famotidine 20 mg PO HS HYDROcodone/APAP 10-325MG [[place] 10-325] 1 tab PO Q8H Fenofibrate Nanocrystallized [Fenofibrate] 145 mg PO DAILY amLODIPine [Norvasc] 5 mg PO DAILY #30 tab ondansetron HCL [Zofran] 8 mg PO TID PRN PRN Reason: Nausea Meclizine [Antivert] 25 mg PO Q6H PRN PRN Reason: Vertigo Stool [place]ner Otc(Unknown) 2 tab PO HS Vitamin B-12(Unknown Dose) 1 tab PO DAILY Discontinued ALPRAZolam [Xanax] 0.5 mg PO TID PRN PRN Reason: Anxiety predniSONE 5 mg PO DIRECTED Discharge Medication List Aspirin [Adult Low Dose Aspirin EC] 81 mg PO HS 10/29/19 [History] Calcium Carbonate [Calcium] 600 mg PO BID 10/29/19 [History] DULoxetine HCL [Cymbalta] 60 mg PO BID 10/29/19 [History] Flunisolide Nasal [place] [Nasalide] 2 spray EA NOSTRIL BID 10/29/19 [History] Levothyroxine Sodium [Synthroid] 50 mcg PO DAILY 10/29/19 [History] Multivit-Min/FA/Lycopen/Lutein [Centrum Silver Tablet] 1 tab PO DAILY 10/29/19 [History] Omeprazole 20 mg PO BID 10/29/19 [History] Albuterol Inhaler [Ventolin Hfa Inhaler] 2 puff INHALATION RT-QID PRN 09/17/21 [History] Benazepril HCl [Lotensin] 20 mg PO DAILY 09/17/21 [History] Fluticasone/Umeclidin/Vilanter [Trelegy Ellipta 100-62.5-25] 1 puff INHALATION RT-DAILY 09/17/21 [History] Atorvastatin [Lipitor] 80 mg PO DAILY 03/27/23 [History] Famotidine 20 mg PO HS 03/27/23 [History] HYDROcodone/APAP 10-325MG [[place] 10-325] 1 tab PO Q8H 03/27/23 [History] Potassium Citrate 99 mg PO HS 03/27/23 [History] Fenofibrate Nanocrystallized [Fenofibrate] 145 mg PO DAILY 06/04/23 [History] Prunelax 3 cap PO HS 09/06/23 [History] Metoprolol Tartrate [Lopressor] 25 mg PO BID #60 tab 10/29/23 [Rx] amLODIPine [Norvasc] 5 mg PO DAILY #30 tab 10/29/23 [Rx] Apixaban [Eliquis] 5 mg PO BID 06/09/24 [History] Cholecalciferol [Vitamin D3 (125 Mcg = 5000 Iu)] 125 mcg PO DAILY 06/09/24 [History] Levalbuterol Nebulized [Xopenex Nebulized] 1.25 mg INHALATION RT-TID PRN 06/09/24 [History] Meclizine [Antivert] 25 mg PO Q6H PRN 06/09/24 [History] Stool Softner Otc(Unknown) 2 tab PO HS 06/09/24 [History] Vitamin B-12(Unknown Dose) 1 tab PO DAILY 06/09/24 [History] ondansetron HCL [Zofran] 8 mg PO TID PRN 06/09/24 [History] predniSONE See Taper PO DIRECTED 06/09/24 [History] ALPRAZolam [Xanax] 0.5 mg PO QID PRN tab 06/12/24 [Rx] Albuterol Nebulized [Ventolin Nebulized] 2.5 mg INHALATION RT-QID ml 06/12/24 [Rx] Ipratropium-Albuterol Nebulize [Duoneb 0.5 mg-3 mg/3 ml Soln] 3 ml INHALATION RT-Q4H PRN each 06/12/24 [Rx] Follow up Appointment(s)/Referral(s): Norma Angel MD [Primary Care Provider] - 1-2 days Activity/Diet/Wound Care/Special Instructions: [facility] Activity as tolerated Continue supportive care Discharge Disposition: DISCH TO HOSPICE MED FACILTY
== END 2024-06-12 12:56 | disposition hospice, inpatient (51) | DRG 175 ==
LOC: EC 13:09 → 5NMEDONC 15:53 → 3SCARD 16:29 → 5NMEDONC 06-10 13:38
PROVIDERS: ADMIT Hospitalist; ATTEND Hospitalist
DX: I26.99 Other pulmonary embolism without acute cor pulmonale (principal); J96.01 Acute respiratory failure with hypoxia; C78.1 Secondary malignant neoplasm of mediastinum; J91.0 Malignant pleural effusion; C34.92 Malignant neoplasm of unspecified part of left bronchus or lung; C77.1 Secondary and unspecified malignant neoplasm of intrathoracic lymph nodes; I50.9 Heart failure, unspecified; I11.0 Hypertensive heart disease with heart failure; J43.9 Emphysema, unspecified; E03.9 Hypothyroidism, unspecified; F32.A Depression, unspecified; E66.9 Obesity, unspecified; D50.9 Iron deficiency anemia, unspecified; Z68.31 Body mass index [BMI] 31.0-31.9, adult; G47.33 Obstructive sleep apnea (adult) (pediatric); F41.9 Anxiety disorder, unspecified; G89.29 Other chronic pain; I25.10 Atherosclerotic heart disease of native coronary artery without angina pectoris; E78.5 Hyperlipidemia, unspecified; H91.90 Unspecified hearing loss, unspecified ear; T50.1X6A Underdosing of loop [high-ceiling] diuretics, initial encounter; Z79.891 Long term (current) use of opiate analgesic; Z79.01 Long term (current) use of anticoagulants; Z91.148 Patient's other noncompliance with medication regimen for other reason; Z96.653 Presence of artificial knee joint, bilateral; Z90.2 Acquired absence of lung [part of]; Z87.891 Personal history of nicotine dependence; Z86.73 Personal history of transient ischemic attack (TIA), and cerebral infarction without residual deficits; Z86.711 Personal history of pulmonary embolism; Z86.16 Personal history of COVID-19; Z79.82 Long term (current) use of aspirin; Z79.890 Hormone replacement therapy; Z79.899 Other long term (current) drug therapy; Z79.51 Long term (current) use of inhaled steroids; I25.2 Old myocardial infarction; Z86.14 Personal history of Methicillin resistant Staphylococcus aureus infection
CPT/HCPCS: 36415; 51702; 70491; 71045; 71046; 71275; 80048; 80053; 83605; 83735; 83880; 84145; 84484; 85025; 85027; 85379; 85610; 85730; 87040; 87449; 87636; 93005; 93970; 94640; 94660; 94760; 96365; 96366; 96367; 96368; 96375; 96376; 99285